=== PATIENT | male | born 1945 | race Caucasian/White ===

== ENCOUNTER 2022-06-08 16:42 | Inpatient (IN) ==
--- NOTE | 2022-06-08 16:45 | Emergency Department Note ---
Impression & Plan PVC (premature ventricular contraction), Sinus pause ED Provider Note NAME: EDITA MARQUEZ AGE: 77 SEX: M : 1945 ARRIVES VIA: Ambulance INFORMANT: Patient, ED PROVIDER(S): Itz Juan MD CHIEF COMPLAINT: Outpatient referral, abnormal EKG MEDICAL DECISION MAKING: Patient presents due to concern for being seen at [facility] due to concern for an atypical abnormal EKG was noted to have a Mobitz type II. The patient did present was noted to have several sinus pauses but was otherwise asymptomatic. Blood work was obtained the patient did have pacer pads placed. The patient did have lower completed atropine was ordered to be at the bedside. The patient has a normal white count H&H and platelet count kidney function is unremarkable. BSG 128. The patient's chest x-ray shows cardiomegaly. The patient is DNR per review of the patient's records for the time of admission and [facility]. I did speak with on-call cardiology Dr. Adams who suggested the atropine at the bedside as well as that the pacer pads to be placed on the patient which was already done. I did speak the on-call hospitalist Dr. Koch and the patient was admitted to the medicine service. Prior /Outside records reviewed: none Differential diagnosis: Arrhythmia, infection, dehydration, metabolic abnormality, hypo/hyperglycemia, electrolyte disturbance, anemia, hypoxia, cardiac sources, intracerebral event, toxicologic, neurologic, as well as other pathologies. Diagnostics, as interpreted by me: ECG: Sinus with first-degree AV block, rate of 59, prolonged UT, normal QRS, left axis deviation. Cardiac monitoring: An order was placed for continuous cardiac monitoring. The monitor shows a rate of 65 with occasional sinus rhythm. Patient was placed on pulse oximetry Medical decision rules: None Imaging studies: See below HPI: Patient presents due to concern for atypical outpatient EKG. The patient reportedly had an stent exchange that was canceled due to concern for an arrhythmia that was noted during preop. Patient currently has no chest pain shortness of breath nausea or vomiting. No upper respiratory or infectious symptoms. Patient does not take any rate control medication but does take Lasix. The patient had been seen by primary care physician José Miguel Dominguez who noted a Mobitz type II and was referred here for further evaluation and treatment of possible pacemaker. Patient denies any additional exacerbating remitting factors PAST MEDICAL HISTORY: See Below PAST SURGICAL HISTORY: See Below SOCIAL HISTORY: See Below HOME MEDICATIONS: See Below ALLERGIES: See Below VITALS: See Below PHYSICAL EXAMINATION: GENERAL: NAD, wearing a mask, non-toxic. Morbidly obese. EYE EXAM: Normal conjunctiva. PERRL, no anisocoria and EOM's grossly intact w/o pain. NECK: Supple, no nuchal rigidity, no adenopathy, non-tender. No signs of meningismus. FROM of the neck with good chin to chest and neck extension. No stridor. LUNGS: Clear to auscultation. Normal chest wall mechanics. HEART: NSR, no MRG. ABDOMEN: Abdomen soft, non-tender, normo-active bowel sounds, no masses, no rebound or guarding. BACK: No CVA TTP. SKIN: No rashes and no bruising. UPPER EXTREMITIES: Upper extremities are grossly normal. LOWER EXTREMITIES: Grossly normal, no edema. NEURO EXAM: A&O x3, cranial nerves II-XII grossly intact, normal speech, moves all 4 extremities. 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: No Beliefs That Will Affect Care: Jainism Jainism Beliefs: CHRISTIANITY Current Living Situation: [facility] Current Living Situation Comment: [facility] Feels Safe at Home: Yes Safety Concerns: Feels Safe At This Time Assistive Devices: CPAP, Denture - Upper, Walker and Wheelchair Allergies Allergies Allergy/AdvReac Type Severity Reaction Status Date / Time No Known Allergies Allergy Unverified 06/08/22 20:47 Home Meds Home Medications Medication Instructions Recorded Confirmed acetaminophen 500 mg tablet 500 mg PO DAILY@0500 06/08/22 06/08/22 aspirin 81 mg chewable tablet 81 mg PO DAILY 06/08/22 06/08/22 carboxymethylcellulose sodium 1 % 1 drp OPB DAILY 06/08/22 06/08/22 eye gel in a dropperette (Refresh Celluvisc) cholecalciferol (vitamin D3) 50 2,000 unit PO DAILY 06/08/22 06/08/22 mcg (2,000 unit) capsule ciprofloxacin HCl 0.3 % eye drops 1 drp OPR BID 06/08/22 06/08/22 colchicine 0.6 mg tablet 0.6 mg PO BID 06/08/22 06/08/22 duloxetine 20 mg capsule,delayed 20 mg PO HS 06/08/22 06/08/22 release febuxostat 80 mg tablet 80 mg PO DAILY 06/08/22 06/08/22 furosemide 40 mg tablet 40 mg PO DAILY 06/08/22 06/08/22 hydroxychloroquine 200 mg tablet 200 mg PO HS 06/08/22 06/08/22 oxybutynin chloride 5 mg tablet 5 mg PO DAILY 06/08/22 06/08/22 terbinafine HCl 1 % topical cream 1 applic topical DAILY 06/08/22 06/08/22 tramadol 50 mg tablet 50 mg PO BID 06/08/22 06/08/22 Results & Data (ED) Vital Signs Vital Signs - 24 hr 06/08/22 16:51 06/08/22 16:51 06/08/22 17:01 Temperature 36.8 C Temperature Source Oral Pulse Rate 62 59 L Pulse Rate from SpO2 Sensor Respiratory Rate 18 18 Respiratory Effort / Characteristics Non-Labored Respiratory Depth Normal Blood Pressure 111/69 Blood Pressure Mean 83 Pulse Oximetry 92 92 94 Oxygen Delivery Method Room Air Room Air Room Air Sepsis Recent Fever Within 48 Hours No Sepsis New/Unexplained Change in Mental Status No Sepsis Action Taken by Nursing No Action Required 06/08/22 17:02 06/08/22 17:30 06/08/22 17:30 Temperature Temperature Source Pulse Rate 92 H 63 Pulse Rate from SpO2 Sensor 93 H 65 Respiratory Rate 16 12 Respiratory Effort / Characteristics Respiratory Depth Blood Pressure 103/56 L Blood Pressure Mean 71 Pulse Oximetry 95 92 Oxygen Delivery Method Sepsis Recent Fever Within 48 Hours Sepsis New/Unexplained Change in Mental Status Sepsis Action Taken by Nursing 06/08/22 18:00 06/08/22 18:00 Temperature Temperature Source Pulse Rate 64 Pulse Rate from SpO2 Sensor 63 Respiratory Rate 18 21 Respiratory Effort / Characteristics Respiratory Depth Blood Pressure 119/65 Blood Pressure Mean 83 Pulse Oximetry 95 93 Oxygen Delivery Method Sepsis Recent Fever Within 48 Hours Sepsis New/Unexplained Change in Mental Status Sepsis Action Taken by Correction Medications Current Medication List: was personally reviewed by me Laboratory Data Attestation: I reviewed the patient's lab results. 06/09/22 06:39 06/09/22 06:39 Lab Results 06/08/22 06/08/22 06/08/22 Range/Units 17:00 17:00 17:00 WBC 9.53 (4.8-10.8) K/ul RBC 4.66 (4.63-6.08) M/uL Hgb 15.2 (14.0-18.0) g/dl Hct 44.4 (40.1-51.0) % MCV 95.3 (80.0-100.0) fL MCH 32.6 (25.0-34.0) pg MCHC 34.2 (32.0-36.0) g/dL RDW Std Deviation 52.4 H (36.4-46.3) fL RDW Coeff of Nixon 14.9 H (11.5-14.5) % Plt Count 148 (130-400) K/uL MPV 9.4 (9.4-12.4) fL Immature Gran % (Auto) 0.5 % Neut % (Auto) 36.7 % Lymph % (Auto) 52.4 % [place] % (Auto) 7.5 % Eos % (Auto) 2.2 % Baso % (Auto) 0.7 % Neut # (Auto) 3.50 (1.4-6.5) K/uL Lymph # (Auto) 4.99 H (1.2-3.4) K/uL [place] # (Auto) 0.71 (0.24-0.82) K/uL Eos # (Auto) 0.21 (0-0.50) K/uL Baso # (Auto) 0.07 (0-0.2) K/uL Immature Gran # (Auto) 0.05 H (0.00-0.02) K/uL PT 11.1 (9.0-12.0) Seconds INR 1.0 (0.9-1.1) APTT 26.1 (21.0-31.0) Seconds PTT Ratio 0.9 Sodium 137 (136-145) mmol/L Potassium 4.2 (3.5-5.1) mmol/L Chloride 102 (98-107) mmol/L Carbon Dioxide 29 (21-32) mmol/L Anion Gap 6 (3-11) BUN 15 (6-23) mg/dl Creatinine 0.75 (0.6-1.4) mg/dl Est Cr Clr Drug Dosing 115.4 ml/min Est GFR ( Amer) 101.1 ml/min Est GFR (Non-Af Amer) 87.2 ml/min BUN/Creatinine Ratio 20.0 (10-20) Glucose 126 H (70-99(Fasting)) mg/dl Calcium 9.3 (8.5-10.1) mg/dl Total Bilirubin 0.9 (0.2-1.0) mg/dl AST 18 (13-39) U/L ALT 10 (7-52) U/L Alkaline Phosphatase 73 (34-104) U/L Troponin I High Sens 9.2 (0-20) pg/ml Total Protein 6.8 (6.0-8.3) gm/dl Albumin 3.7 (3.4-5.0) gm/dl Globulin 3.1 (2.5-4.0) gm/dl Albumin/Globulin Ratio 1.2 (0.9-2) Lipase 16 (11-82) U/L SARS-CoV-2, RNA, NAAT (NEGATIVE) 06/08/22 Range/Units 17:09 WBC (4.8-10.8) K/ul RBC (4.63-6.08) M/uL Hgb (14.0-18.0) g/dl Hct (40.1-51.0) % MCV (80.0-100.0) fL MCH (25.0-34.0) pg MCHC (32.0-36.0) g/dL RDW Std Deviation (36.4-46.3) fL RDW Coeff of Nixon (11.5-14.5) % Plt Count (130-400) K/uL MPV (9.4-12.4) fL Immature Gran % (Auto) % Neut % (Auto) % Lymph % (Auto) % [place] % (Auto) % Eos % (Auto) % Baso % (Auto) % Neut # (Auto) (1.4-6.5) K/uL Lymph # (Auto) (1.2-3.4) K/uL [place] # (Auto) (0.24-0.82) K/uL Eos # (Auto) (0-0.50) K/uL Baso # (Auto) (0-0.2) K/uL Immature Gran # (Auto) (0.00-0.02) K/uL PT (9.0-12.0) Seconds INR (0.9-1.1) APTT (21.0-31.0) Seconds PTT Ratio Sodium (136-145) mmol/L Potassium (3.5-5.1) mmol/L Chloride (98-107) mmol/L Carbon Dioxide (21-32) mmol/L Anion Gap (3-11) BUN (6-23) mg/dl Creatinine (0.6-1.4) mg/dl Est Cr Clr Drug Dosing ml/min Est GFR ( Amer) ml/min Est GFR (Non-Af Amer) ml/min BUN/Creatinine Ratio (10-20) Glucose (70-99(Fasting)) mg/dl Calcium (8.5-10.1) mg/dl Total Bilirubin (0.2-1.0) mg/dl AST (13-39) U/L ALT (7-52) U/L Alkaline Phosphatase (34-104) U/L Troponin I High Sens (0-20) pg/ml Total Protein (6.0-8.3) gm/dl Albumin (3.4-5.0) gm/dl Globulin (2.5-4.0) gm/dl Albumin/Globulin Ratio (0.9-2) Lipase (11-82) U/L SARS-CoV-2, RNA, NAAT NEGATIVE (NEGATIVE) Administered Medications Acetaminophen (Acetaminophen 500 Mg Tab) 500 mg PO DAILY@0500 MARTINE Stop: 07/09/22 04:59 Last Admin: 06/09/22 05:49 Dose: 500 mg Documented By: ARTEMIO Artificial Tears (Artificial Tears) 1 drops OP DAILY MARTINE Stop: 07/09/22 08:59 Last Admin: 06/09/22 09:47 Dose: 1 drops Documented By: Aspirin (Aspirin 81 Mg Chew) 81 mg PO DAILY MARTINE Stop: 07/09/22 08:59 Last Admin: 06/09/22 08:25 Dose: 81 mg Documented By: Ciprofloxacin (Ciprofloxacin Hcl 0.3% Op Soln 2.5 Ml Btl) 1 drops OPR BID MARTINE Stop: 06/18/22 20:59 Last Admin: 06/09/22 08:22 Dose: 1 drops Documented By: Admin: 06/08/22 22:17 Dose: 1 drops Documented By: ARTEMIO Colchicine (Colchicine 0.6 Mg Tab) 0.6 mg PO BID MARTINE Stop: 07/08/22 20:59 Last Admin: 06/09/22 08:25 Dose: 0.6 mg Documented By: Admin: 06/08/22 22:17 Dose: 0.6 mg Documented By: ARTEMIO Duloxetine HCl (Duloxetine Hcl 20 Mg Cap) 20 mg PO HS MARTINE Stop: 07/08/22 20:59 Last Admin: 06/08/22 22:18 Dose: 20 mg Documented By: ARTEMIO Furosemide (Furosemide 40 Mg Tab) 40 mg PO DAILY MARTINE Stop: 07/09/22 08:59 Last Admin: 06/09/22 08:26 Dose: 40 mg Documented By: Hydroxychloroquine Sulfate (Hydroxychloroquine Sulfate 200 Mg Tab) 200 mg PO [facility] Stop: 07/08/22 20:59 Last Admin: 06/08/22 22:18 Dose: 200 mg Documented By: ARTEMIO Miscellaneous (Order Awaiting Action [Febuxostat 80 Mg Tablet]) 1 each N/A QS MARTINE Stop: 07/09/22 00:00 Last Admin: 06/09/22 07:30 Dose: Not Given Documented By: Admin: 06/08/22 23:13 Dose: Not Given Documented By: ARTEMIO Oxybutynin Chloride (Oxybutynin Chloride 5 Mg Tab) 5 mg PO DAILY MARTINE Stop: 07/09/22 08:59 Last Admin: 06/09/22 08:26 Dose: 5 mg Documented By: Terbinafine HCl (Terbinafine Cr 30 Gm Tube) 1 appln EXT DAILY MARTINE Stop: 07/09/22 08:59 Last Admin: 06/09/22 08:27 Dose: 1 appln Documented By: Tramadol HCl (Tramadol Hcl 50 Mg Tablet) 50 mg PO BID MARTINE Stop: 07/08/22 20:59 Last Admin: 06/09/22 08:26 Dose: 50 mg Documented By: Admin: 06/08/22 22:20 Dose: 50 mg Documented By: ARTEMIO Vitamin D (Cholecalciferol 1,000 Units 25 Mcg Tab) 2,000 units PO DAILY MARTINE Stop: 07/09/22 08:59 Last Admin: 06/09/22 08:25 Dose: 2,000 units Documented By: Imaging Data Radiologist's Impression: Chest X-Ray 06/08/22 17:01 SINGLE VIEW CHEST CLINICAL HISTORY: Atypical chest pain. FINDINGS: 3 AP, portable, upright chest radiographs are obtained. No prior studies are available for comparison at the time of dictation. The examination is degraded by portable technique, apical lordotic positioning, and patient rotation. The heart is enlarged noting atherosclerotic calcification of the thoracic aorta. The pulmonary vasculature is noncongested. There is bibasilar scarring/atelectasis. No airspace consolidation or large pleural effusion is identified. No pneumothorax is seen. The skeletal structures are osteopenic. The bony thorax is grossly intact. Degenerative change is noted in the shoulders. Superior subluxation of the right humeral head suggests chronic rotator cuff injury. IMPRESSION: Cardiomegaly with no acute cardiopulmonary abnormality identified. ACT 112: Negative or not required by law. Electronically signed by: Emerson Castro M.D. 06/08/2022 5:45 PM Discharge Plan Visit Data Chief Complaint: Cardiac Assessment ED Provider: Itz Juan Discharge Problem: PVC (premature ventricular contraction), Sinus pause Patient Disposition: Admitted As Inpatient Discharge Instructions Interventions: ED Discharge Assessment Last Done: 06/08/22 20:29
[2022-06-08 17:14] LABS: Hematocrit (blood only) 44.4 % (40.1-51.0); Hemoglobin 15.2 g/dl (14.0-18.0); Mean Corpuscular Hemoglobin 32.6 pg (25.0-34.0); Mean Corpuscular Hgb Conc 34.2 g/dL (32.0-36.0); Mean Corpuscular Volume 95.3 fL (80.0-100.0); Mean Platelet Volume 9.4 fL (9.4-12.4); Platelet Count 148 K/uL (130-400); RDW Coefficient of Variation 14.9 % (11.5-14.5); RDW Standard Deviation 52.4 fL (36.4-46.3); Red Blood Count 4.66 M/uL (4.63-6.08); White Blood Count 9.53 K/ul (4.8-10.8)
[2022-06-08 17:25] LABS: Partial Thromboplastin Ratio 0.9; Partial Thromboplastin Time 26.1 Seconds (21.0-31.0); Prothrombin Time 11.1 Seconds (9.0-12.0)
[2022-06-08 17:34] LABS: Basophils # (auto) 0.07 K/uL (0-0.2); Basophils % (auto) 0.7 %; Eosinophils # (auto) 0.21 K/uL (0-0.50); Eosinophils % (auto) 2.2 %; Immature Granulocytes # (auto) 0.05 K/uL (0.00-0.02); Immature Granulocytes % (auto) 0.5 %; Lymphocytes # (auto) 4.99 K/uL (1.2-3.4); Lymphocytes % (auto) 52.4 %; Monocytes # (auto) 0.71 K/uL (0.24-0.82); Monocytes % (auto) 7.5 %; Neutrophils % (auto) 36.7 %
[2022-06-08 17:39] LABS: Albumin Globulin Ratio 1.2 (0.9-2); Albumin Level 3.7 gm/dl (3.4-5.0); Bilirubin,Total 0.9 mg/dl (0.2-1.0); Calcium 9.3 mg/dl (8.5-10.1); Creatinine Clr Calc Pharmacy 115.4 ml/min; Est GFR (African American) 101.1 ml/min; Est GFR (Non-African American) 87.2 ml/min; Globulin 3.1 gm/dl (2.5-4.0); Potassium 4.2 mmol/L (3.5-5.1); Total Protein 6.8 gm/dl (6.0-8.3); Troponin I High Sensitivity 9.2 pg/ml (0-20)
--- NOTE | 2022-06-08 17:47 | XRay Report ---
SINGLE VIEW CHEST CLINICAL HISTORY: Atypical chest pain. FINDINGS: 3 AP, portable, upright chest radiographs are obtained. No prior studies are available for comparison at the time of dictation. The examination is degraded by portable technique, apical lordot ic positioning, and patient rotation. The heart is enlarged noting atherosclerotic calcification of t he thoracic aorta. The pulmonary vasculature is noncongested. There is bibasilar scarring/atelectasis . No airspace consolidation or large pleural effusion is identified. No pneumothorax is seen. The ske letal structures are osteopenic. The bony thorax is grossly intact. Degenerative change is noted in t he shoulders. Superior subluxation of the right humeral head suggests chronic rotator cuff injury. IMPRESSION: Cardiomegaly with no acute cardiopulmonary abnormality identified. ACT 112: Negative or not required by law. Electronically signed by: Emerson Castro M.D. 06/08/2022 5:45 PM
[2022-06-08] MEDS ORDERED: ATROPINE SULFATE 0.1 MG/ML 10ML SYR IV PRN ×2 (18:25→21:15)
--- NOTE | 2022-06-08 18:25 | History & Physical Report ---
Date of Service June 08, 2022 Assessment & Plan (1) Arrhythmia: Plan: For the past 2 days the patient has had evidence of sinus bradycardia with first-degree AV block, intermittent PVCs with sinus pauses. He has been asymptomatic as this was found during prep for anesthesia induction of ERCP which was ultimately not performed. He is currently asymptomatic with pacer pads in place and atropine as needed. Cardiology consulted and he will remain n.p.o. after midnight in preparation for possible pacemaker in the a.m. (2) Rheumatoid arthritis: Plan: Chronic no evidence of flare or joint pain. Continue hydroxychloroquine per home regimen. (3) LARISA (obstructive sleep apnea): Plan: Chronic, uses CPAP overnight. Continue nightly use while admitted. (4) Choledocholithiasis: Plan: Patient went for ERCP stent removal on 06/07/2022 but was not performed after arrhythmia with sinus pauses and PVCs was noted. He will need to follow-up with gastroenterology as outpatient after discharge. (5) Gout: Plan: Chronic, controlled. Continue colchicine and febuxostat per home regimen. (6) Obesity: Plan: Chronic, lifestyle changes recommended to decrease percent body fat and increase overall lean muscle mass. DVT prophylaxis-SCDs DNR/DNI as confirmed with patient on admission Disposition-to PCU DO Amanda Vargas Hospitalist History of Present Illness Chief Complaint: cardiac assessment Primary Care Provider: [facility] 77 yo M presents after arrhythmia was seen for ERCP yesterday at [facility] and procedure was aborted 2/2 concerning arrhythmia including bradycardia with intermittent PVCs and sinus pauses. The patient was asymptomatic and sent home to [facility]. He saw Dr. Dominguez this morning and again had no symptoms but EKG revealed 1 heart block with PVCs and he was sent to the hospital. On telemetry he is having bradycardia with small intermittent runs of tachycardia followed by a pause of 2-3 seconds intermittently. He denies any lightheadedness, nausea, chest pain, no SOB, no fevers, chills, no coughing, no abdominal pain, no diarrhea. No bleeding issues. He reports normal appetite. Allergies Allergy/AdvReac Type Severity Reaction Status Date / Time No Known Allergies Allergy Unverified 06/08/22 20:47 Home Medications Medication Instructions Recorded Confirmed Type acetaminophen 500 mg tablet 500 mg PO DAILY@0500 06/08/22 06/08/22 History aspirin 81 mg chewable tablet 81 mg PO DAILY 06/08/22 06/08/22 History carboxymethylcellulose sodium 1 % 1 drp OPB DAILY 06/08/22 06/08/22 History eye gel in a dropperette (Refresh Celluvisc) cholecalciferol (vitamin D3) 50 2,000 unit PO DAILY 06/08/22 06/08/22 History mcg (2,000 unit) capsule ciprofloxacin HCl 0.3 % eye drops 1 drp OPR BID 06/08/22 06/08/22 History colchicine 0.6 mg tablet 0.6 mg PO BID 06/08/22 06/08/22 History duloxetine 20 mg capsule,delayed 20 mg PO HS 06/08/22 06/08/22 History release febuxostat 80 mg tablet 80 mg PO DAILY 06/08/22 06/08/22 History furosemide 40 mg tablet 40 mg PO DAILY 06/08/22 06/08/22 History hydroxychloroquine 200 mg tablet 200 mg PO HS 06/08/22 06/08/22 History oxybutynin chloride 5 mg tablet 5 mg PO DAILY 06/08/22 06/08/22 History terbinafine HCl 1 % topical cream 1 applic topical DAILY 06/08/22 06/08/22 History tramadol 50 mg tablet 50 mg PO BID 06/08/22 06/08/22 History Past Med/Surg History Medical History (Updated 06/08/22 @ 21:33 by Samantha Koch DO) Actinic keratosis 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 Atrial flutter CHF (congestive heart failure) Choledocholithiasis Chronic cholecystitis DMII (diabetes mellitus, type 2) Elevated CA 19-9 level Exotropia, right eye Fatty liver Generalized OA Gout HNP (herniated nucleus pulposus), lumbar HTN (hypertension) Hx of nonmelanoma skin cancer Morbid obesity MRSA colonization LARISA (obstructive sleep apnea) Rheumatoid arthritis SCC (squamous cell carcinoma), scalp/neck 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 Gaurav mercado, 05/18/2017 History of ERCP 02/16/2022 S/P appy Family History (Updated 06/08/22 @ 20:07 by Samantha Koch DO) Mother Coronary heart disease Father Arthritis Social History Smoking Status: Never smoker Hx Alcohol Use: No Hx Substance Use: No Preferred Language: Kiswahili Communication Ability: Effective [employer] Tester Required: No Beliefs That Will Affect Care: Buddhist Buddhist Beliefs: TAOISM Current Living Situation: [facility] Current Living Situation Comment: [facility] Feels Safe at Home: Yes Safety Concerns: Feels Safe At This Time Assistive Devices: CPAP, Denture - Upper, Walker and Wheelchair Review of Systems Review of Systems: All systems were reviewed and negative except as indicated on HPI above. Physical Exam Physical Exam: CONSTITUTIONAL: obese, vitals as above, generally well- appearing, NAD EYES: exotropia of the right eye, pupils were round and equal bilaterally, normal conjunctivae, no scleral icterus ENT: external ear and nose normal, moist oral mucosa. NECK: trachea midline RESPIRATORY: clear to auscultation bilaterally, no crackles, rales or wheezes, normal respiratory effort CARDIOVASCULAR: katja rate and regular rhythm, S1 and 2 heard without murmurs, gallops or rubs, no JVD, no peripheral edema CHEST: inspection of chest was normal GASTROINTESTINAL: soft, nontender, ND, no guarding MUSCULOSKELETAL: generalized weakness, head is normocephalic and atraumatic, moves all extremities equally SKIN: warm and dry NEUROLOGIC: CN 2-12 grossly intact, no sensory deficit, normal cognition, normal speech, no tremor PSYCHIATRIC: alert cooperative and oriented to person, place and time. Euthymic mood, makes good eye contact, language grossly intact, recent and remote memory grossly intact. Results & Data Results & Data ([facility]) Vital Signs (Past 12 Hours) Vital Signs Temp Pulse Resp BP Pulse Ox O2 Del Method 06/08/22 17:01 59 L 18 94 Room Air 06/08/22 16:51 92 Room Air 06/08/22 16:51 36.8 C 62 18 111/69 92 Room Air Laboratory Results Short CBC 06/08/22 Range/Units 17:00 WBC 9.53 (4.8-10.8) K/ul Hgb 15.2 (14.0-18.0) g/dl Hct 44.4 (40.1-51.0) % Plt Count 148 (130-400) K/uL BMP 06/08/22 17:00 Sodium 137 Potassium 4.2 Chloride 102 Carbon Dioxide 29 BUN 15 Creatinine 0.75 Glucose 126 H Calcium 9.3 Liver Function 06/08/22 Range/Units 17:00 Total Bilirubin 0.9 (0.2-1.0) mg/dl AST 18 (13-39) U/L ALT 10 (7-52) U/L Alkaline Phosphatase 73 (34-104) U/L Albumin 3.7 (3.4-5.0) gm/dl Diagnostic Findings Chest X-Ray 06/08/22 17:01 SINGLE VIEW CHEST CLINICAL HISTORY: Atypical chest pain. FINDINGS: 3 AP, portable, upright chest radiographs are obtained. No prior studies are available for comparison at the time of dictation. The examination is degraded by portable technique, apical lordotic positioning, and patient rotation. The heart is enlarged noting atherosclerotic calcification of the thoracic aorta. The pulmonary vasculature is noncongested. There is bibasilar scarring/atelectasis. No airspace consolidation or large pleural effusion is identified. No pneumothorax is seen. The skeletal structures are osteopenic. The bony thorax is grossly intact. Degenerative change is noted in the shoulders. Superior subluxation of the right humeral head suggests chronic rotator cuff injury. IMPRESSION: Cardiomegaly with no acute cardiopulmonary abnormality identified. ACT 112: Negative or not required by law. Electronically signed by: Emerson Castro M.D. 06/08/2022 5:45 PM Code Status & VTE Plan VTE Prophylaxis Plan VTE Prophylaxis will be ordered: Yes
[2022-06-08] MEDS ORDERED: POLYETHYLENE (MIRALAX) 17 GM PACK PO PRN (20:46)
[2022-06-08] MEDS ORDERED: ACETAMINOPHEN 325 MG TAB PO PRN (20:46)
[2022-06-08] MEDS: COLCHICINE 0.6 MG TAB PO SCH (22:17)
[2022-06-08] MEDS: CIPROFLOXACIN HCL 0.3% OP SOLN 2.5 ML BTL OPR SCH (22:17)
[2022-06-08] MEDS: DULoxetine HCL 20 MG CAP PO SCH (22:18)
[2022-06-08] MEDS: HYDROXYCHLOROQUINE SULFATE 200 MG TAB PO SCH (22:18)
[2022-06-08] MEDS: traMADol HCL 50 MG TABLET PO SCH (22:20)
[2022-06-09] MEDS: ACETAMINOPHEN 500 MG TAB PO SCH (05:49)
[2022-06-09 06:59] LABS: Hematocrit (blood only) 41.5 % (40.1-51.0); Hemoglobin 14.2 g/dl (14.0-18.0); Mean Corpuscular Hemoglobin 32.3 pg (25.0-34.0); Mean Corpuscular Hgb Conc 34.2 g/dL (32.0-36.0); Mean Corpuscular Volume 94.5 fL (80.0-100.0); Mean Platelet Volume 9.6 fL (9.4-12.4); Platelet Count 145 K/uL (130-400); RDW Standard Deviation 52.5 fL (36.4-46.3); Red Blood Count 4.39 M/uL (4.63-6.08); White Blood Count 8.38 K/ul (4.8-10.8)
[2022-06-09] MEDS: CIPROFLOXACIN HCL 0.3% OP SOLN 2.5 ML BTL OPR SCH ×2 (08:22→21:43)
[2022-06-09] MEDS: CHOLECALCIFEROL 1,000 UNITS 25 MCG TAB PO SCH (08:25)
[2022-06-09] MEDS: ASPIRIN 81 MG CHEW PO SCH (08:25)
[2022-06-09] MEDS: COLCHICINE 0.6 MG TAB PO SCH ×2 (08:25→21:44)
[2022-06-09] MEDS: FUROSEMIDE 40 MG TAB PO SCH (08:26)
[2022-06-09] MEDS: traMADol HCL 50 MG TABLET PO SCH ×2 (08:26→21:49)
[2022-06-09] MEDS: OXYBUTYNIN CHLORIDE 5 MG TAB PO SCH (08:26)
[2022-06-09] MEDS: TERBINAFINE CR 30 GM TUBE EXT SCH (08:27)
--- NOTE | 2022-06-09 08:30 | Electrocardiogram Report ---
Test Reason : Blood Pressure : / mmHG Vent. Rate : 061 BPM Atrial Rate : 058 BPM P-R Int : 000 ms QRS Dur : 106 ms QT Int : 464 ms P-R-T Axes : 000 -55 -13 degrees QTc Int : 467 ms Poor data quality, interpretation may be adversely affected Sinus rhythm with frequent Premature ventricular complexes Poor R wave progression, consider anterior MN vs. lead placement vs. LVH Left anterior fascicular block Abnormal ECG When compared with ECG of 08-JUN-2022 16:50, Premature ventricular complexes now present Confirmed by Tomer Spencer ([id number]) on 06/09/2022 8:30:24 AM Referred By: Mariann Duke Confirmed By:Tomer Spencer
--- NOTE | 2022-06-09 08:39 | Cardiology Consultation ---
Date of Consultation June 09, 2022 Assessment & Plan (1) PAC (premature atrial contraction): (2) PVC (premature ventricular contraction): (3) LARISA (obstructive sleep apnea): (4) DMII (diabetes mellitus, type 2): (5) Wandering atrial pacemaker: (6) Obesity hypoventilation syndrome: Plan Anesthesia telemetry strips that were scanned into EPIC personally reviewed: no AV Block present ectopy was present with occasional blocked ectopy ventricular bigeminy was also present which on dynamap is generally missed and falsely interpreted as bradycardia pt asymptomatic would ask primary service to reach out to [facility] to find any further strips that are available In summary: Morbidly obese 77-year-old gentleman with obstructive sleep apnea and high likelihood of obesity hypoventilation with asymptomatic complex ectopy. Given his multiple comorbidities it is very understandable that he is having complex ectopy including wandering atrial pacemaker No significant block present on telemetry here since admitted. Did have a few second pauses early in the a.m. overnight likely due to sleep apnea We will obtain a 2D echocardiogram to evaluate for any structural abnormalities No indication to start beta-james or other antiarrhythmics at this time Would recommend discussing with our GI colleagues whether or not to be indicated to perform ERCP while the patient is admitted here No absolute cardiac contraindications to proceeding with the procedure and I would suspect his greatest perioperative risk would be pulmonary in nature History of Present Illness Reason for Consultation: heart block Requesting Physician: VALENTINA Attending Physician: Slick Ca MD History of Present Illness The patient is a 77-year-old male who is never been seen by our cardiology practice. He was sent to [facility] emergency department from [facility] on 06/08/2022 after a GI procedure was canceled on June 07, 2022 due to reported Mobitz 2 AV block and significant bradycardia. The patient states he was scheduled on the for an ERCP with stent removal however, anesthesia told him he had an arrhythmia while at [facility]. The patient was then discharged back to the senior care. The patient was then ordered to go to [facility] emergency department on 06/08/2022 to further evaluate this possible arrhythmia. The patient states that from a cardiac standpoint he is completely symptom-free. He denies experiencing any palpitations, shortness of breath, lightheadedness, dizziness either during the monitoring period or otherwise. I was able to review the telemetry strips that were available in [facility] electronic medical health records but full telemetry strips are not available at this time. Allergies Allergy/AdvReac Type Severity Reaction Status Date / Time No Known Allergies Allergy Unverified 06/08/22 20:47 Home Medications Medication Instructions Recorded Confirmed Type acetaminophen 500 mg tablet 500 mg PO DAILY@0500 06/08/22 06/08/22 History aspirin 81 mg chewable tablet 81 mg PO DAILY 06/08/22 06/08/22 History carboxymethylcellulose sodium 1 % 1 drp OPB DAILY 06/08/22 06/08/22 History eye gel in a dropperette (Refresh Celluvisc) cholecalciferol (vitamin D3) 50 2,000 unit PO DAILY 06/08/22 06/08/22 History mcg (2,000 unit) capsule ciprofloxacin HCl 0.3 % eye drops 1 drp OPR BID 06/08/22 06/08/22 History colchicine 0.6 mg tablet 0.6 mg PO BID 06/08/22 06/08/22 History duloxetine 20 mg capsule,delayed 20 mg PO HS 06/08/22 06/08/22 History release febuxostat 80 mg tablet 80 mg PO DAILY 06/08/22 06/08/22 History furosemide 40 mg tablet 40 mg PO DAILY 06/08/22 06/08/22 History hydroxychloroquine 200 mg tablet 200 mg PO HS 06/08/22 06/08/22 History oxybutynin chloride 5 mg tablet 5 mg PO DAILY 06/08/22 06/08/22 History terbinafine HCl 1 % topical cream 1 applic topical DAILY 06/08/22 06/08/22 H istory tramadol 50 mg tablet 50 mg PO BID 06/08/22 06/08/22 History Patient History Medical History Actinic keratosis 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 Atrial flutter CHF (congestive heart failure) Choledocholithiasis Chronic cholecystitis DMII (diabetes mellitus, type 2) Elevated CA 19-9 level Exotropia, right eye Fatty liver Generalized OA Gout HNP (herniated nucleus pulposus), lumbar HTN (hypertension) Hx of nonmelanoma skin cancer Morbid obesity MRSA colonization LARISA (obstructive sleep apnea) Rheumatoid arthritis SCC (squamous cell carcinoma), 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 Nolasco, 05/18/2017 History of ERCP 02/16/2022 S/P appy Family History Mother Coronary heart disease Father Arthritis Social History Smoking Status: Never smoker Hx Alcohol Use: No Hx Substance Use: No Preferred Language: Kiswahili Communication Ability: Effective [employer] Layout Required: No Beliefs That Will Affect Care: Voodoo Voodoo Beliefs: RELIGION Current Living Situation: Retirement Current Living Situation Comment: [facility] Feels Safe at Home: Yes Safety Concerns: Feels Safe At This Time Assistive Devices: CPAP, Denture - Upper, Walker and Wheelchair Review of Systems Review of Systems: All systems reviewed & are unremarkable except as noted in HPI & below Physical Exam Physical Exam: Physical Exam: General: Awake, alert and oriented x 3. No acute distress. Morbidly obese HEENT: Normocephalic, atraumatic. Pupils equal, round and reactive to light and accommodation. Extraocular muscles are intact. Anicteric sclera. Moist mucous membranes. Neck: No JVD. No bruit. Cardiovascular: Regular but distant. Unable to appreciate any murmurs rubs or gallops Pulmonary: Clear to auscultation bilaterally. No rales, rhonchi, or wheezing. Abdomen: Bowel sounds x 4, soft. No rebound, guarding or tenderness. No organomegaly. Extremities: No clubbing, cyanosis or edema. +2 pedal pulses bilaterally. Skin: Warm and dry. Results & Data ([facility]) Vital Signs (Past 12 Hours) Vital Signs Temp Pulse Pulse Resp BP Pulse Ox O2 Del Method 06/09/22 08:05 36.4 C L 57 L 17 109/61 92 Room Air 06/09/22 07:53 56 L 06/09/22 03:14 36.6 C 52 L 20 108/62 94 CPAP 06/09/22 02:22 26 H 94 01/11/23 22:10 60 06/08/22 21:25 32 L 06/08/22 21:15 58 L 06/08/22 20:46 Room Air 06/08/22 20:46 06/08/22 23:52 16 06/08/22 23:06 36.4 C L 63 20 110/57 L 92 CPAP 06/08/22 21:25 52 L 95 06/08/22 20:57 37.0 C 49 L 20 103/60 94 Room Air O2 Del Method FiO2 06/09/22 08:05 06/09/22 07:53 06/09/22 03:14 06/09/22 02:22 21 06/08/22 22:10 06/08/22 21:25 06/08/22 21:15 06/08/22 20:46 06/08/22 20:46 Room Air 06/08/22 23:52 21 06/08/22 23:06 06/08/22 21:25 21 06/08/22 20:57 Diagnostic Findings Anesthesia telemetry strips that were scanned into EPIC personally reviewed: No periods of Mobitz II AV block Frequent PVC's including ventricular bigeminy Frequent PAC's including several blocked PAC's
--- NOTE | 2022-06-09 08:41 | Hospitalist Progress Note ---
Date of Service June 09, 2022 Assessment & Plan (1) Arrhythmia: Plan: Patient having bradycardia and pauses on monitor. Longest seems 4.3 secs Tele monitoring pads Await cardio inputs close monitor Present on Admission?: Yes (2) Rheumatoid arthritis: Plan: On Plaquenil followup Present on Admission?: Yes (3) LARISA (obstructive sleep apnea): Plan: CPAP q hs Present on Admission?: Yes (4) DMII (diabetes mellitus, type 2): Plan: Not on meds. Will follow hba1c levels Present on Admission?: Yes (5) Choledocholithiasis: Plan: patinet ercp was aborted because of bradyarrythmia. Needs followup (6) Obesity: Plan: Needs counselling Present on Admission?: Yes (7) Gout: Plan: On colchicine and febuxostat Present on Admission?: Yes Plan To be determined Admission and Anticipated Discharge Date Admission Date: June 08, 2022 Subjective Patient lying in bed comfortably says he slept fine no complaints of chest pain or sob no nausea afebrile Physical Exam Eyes: EOM intact Neck: normal visual inspection and trachea midline Respiratory: normal respiratory effort, lungs clear to auscultation Cardiovascular: RRR, no murmur, no edema Gastrointestinal (Abdomen): normal bowel sounds, soft, nontender, no he patosplenomegaly Skin: Chronic skin changes seen in lower extremities Neurologic: moves all extremities and awake Psychiatric: Orientation: alert and cooperative Apperance: appeared stated age Eye Contact: good eye contact Speech: normal rate/rhythm/volume of speech Judgement: + fair judgement Results & Data Results & Data ([facility]) Vital Signs (Past 12 Hours) Vital Signs Temp Pulse Pulse Resp BP Pulse Ox O2 Del Method 06/09/22 08:05 36.4 C L 57 L 17 109/61 92 Room Air 06/09/22 07:53 56 L 06/09/22 03:14 36.6 C 52 L 20 108/62 94 CPAP 06/09/22 02:22 26 H 94 06/08/22 22:10 60 06/08/22 21:25 32 L 06/08/22 21:15 58 L 06/08/22 20:46 Room Air 06/08/22 20:46 06/08/22 23:52 16 06/08/22 23:06 36.4 C L 63 20 110/57 L 92 CPAP 06/08/22 21:25 52 L 95 06/08/22 20:57 37.0 C 49 L 20 103/60 94 Room Air O2 Del Method FiO2 06/09/22 08:05 06/09/22 07:53 06/09/22 03:14 06/09/22 02:22 21 06/08/22 22:10 06/08/22 21:25 06/08/22 21:15 06/08/22 20:46 06/08/22 20:46 Room Air 06/08/22 23:52 21 06/08/22 23:06 06/08/22 21:25 21 06/08/22 20:57
--- NOTE | 2022-06-09 08:59 | Electrocardiogram Report ---
Test Reason : Blood Pressure : / mmHG Vent. Rate : 059 BPM Atrial Rate : 059 BPM P-R Int : 240 ms QRS Dur : 118 ms QT Int : 460 ms P-R-T Axes : 111 -51 023 degrees QTc Int : 455 ms Sinus bradycardia with 1st degree A-V block Pulmonary disease pattern Left anterior fascicular block Abnormal ECG No previous ECGs available Confirmed by Tomer Spencer ([id number]) on 06/09/2022 8:59:26 AM Referred By: Mariann Duke Confirmed By:Tomer Spencer
[2022-06-09 09:22] LABS: BUN Creatinine Ratio 17.3 (10-20); Calcium 8.9 mg/dl (8.5-10.1); Creatinine Clr Calc Pharmacy 113.5 ml/min; Est GFR (African American) 101.1 ml/min; Est GFR (Non-African American) 87.2 ml/min; Magnesium 1.8 mg/dl (1.7-2.4); Potassium 4.3 mmol/L (3.5-5.1)
[2022-06-09] MEDS: ARTIFICIAL TEARS OP SCH (09:47)
[2022-06-09] MEDS: DULoxetine HCL 20 MG CAP PO SCH (21:44)
[2022-06-09] MEDS: HYDROXYCHLOROQUINE SULFATE 200 MG TAB PO SCH (21:45)
[2022-06-10] MEDS: ACETAMINOPHEN 500 MG TAB PO SCH (04:49)
[2022-06-10 06:39] LABS: Hematocrit (blood only) 42.9 % (40.1-51.0); Hemoglobin 14.6 g/dl (14.0-18.0); Mean Corpuscular Hemoglobin 32.5 pg (25.0-34.0); Mean Corpuscular Volume 95.5 fL (80.0-100.0); Mean Platelet Volume 9.7 fL (9.4-12.4); Platelet Count 149 K/uL (130-400); RDW Coefficient of Variation 14.9 % (11.5-14.5); RDW Standard Deviation 52.3 fL (36.4-46.3); Red Blood Count 4.49 M/uL (4.63-6.08); White Blood Count 10.17 K/ul (4.8-10.8)
[2022-06-10 06:59] LABS: BUN Creatinine Ratio 20.9 (10-20); Calcium 8.8 mg/dl (8.5-10.1); Creatinine Clr Calc Pharmacy 92.4 ml/min; Est GFR (African American) 92.6 ml/min; Est GFR (Non-African American) 79.9 ml/min; Magnesium 1.8 mg/dl (1.7-2.4); Potassium 3.9 mmol/L (3.5-5.1)
[2022-06-10 07:25] LABS: Basophils # (auto) 0.07 K/uL (0-0.2); Basophils % (auto) 0.7 %; Eosinophils # (auto) 0.26 K/uL (0-0.50); Eosinophils % (auto) 2.6 %; Immature Granulocytes # (auto) 0.05 K/uL (0.00-0.02); Immature Granulocytes % (auto) 0.5 %; Lymphocytes # (auto) 5.83 K/uL (1.2-3.4); Lymphocytes % (auto) 57.3 %; Monocytes # (auto) 0.65 K/uL (0.24-0.82); Monocytes % (auto) 6.4 %; Neutrophils # (auto) 3.31 K/uL (1.4-6.5); Neutrophils % (auto) 32.5 %; Polychromasia 1+; Smudge Cells Present
[2022-06-10 08:35] LABS: Estimated Average Glucose 146 mg/dl; Hemoglobin A1C 6.7 % (4.5-5.6)
[2022-06-10] MEDS: traMADol HCL 50 MG TABLET PO SCH (09:33)
[2022-06-10] MEDS: OXYBUTYNIN CHLORIDE 5 MG TAB PO SCH (09:34)
[2022-06-10] MEDS: FUROSEMIDE 40 MG TAB PO SCH (09:34)
[2022-06-10] MEDS: ASPIRIN 81 MG CHEW PO SCH (09:35)
[2022-06-10] MEDS: CHOLECALCIFEROL 1,000 UNITS 25 MCG TAB PO SCH (09:35)
[2022-06-10] MEDS: TERBINAFINE CR 30 GM TUBE EXT SCH (09:36)
[2022-06-10] MEDS: COLCHICINE 0.6 MG TAB PO SCH (09:36)
[2022-06-10] MEDS: ARTIFICIAL TEARS OP SCH (09:38)
[2022-06-10] MEDS: CIPROFLOXACIN HCL 0.3% OP SOLN 2.5 ML BTL OPR SCH (09:38)
--- NOTE | 2022-06-10 12:48 | Cardiology Progress Note ---
Date of Service June 10, 2022 Assessment & Plan (1) Sinus pause: (2) Wandering atrial pacemaker: (3) Obesity hypoventilation syndrome: Plan As per prior notes patient admitted for transient atrial ectopy ventricular ectopy and wandering atrial pacemaker with brief sinus pauses. No indications for pacemaker. Arrhythmia is being driven by patient's underlying hypoventilation syndrome. No clinical changes overnight Recommendations: No contraindications to discharge. Would add spironolactone 12.5 mg p.o. daily to regimen for diastolic dysfunction. Patient warrants ongoing aggressive management of hypoventilation syndrome Admission and Anticipated Discharge Date Admission Date: June 08, 2022 Subjective Patient seen and examined, chart, medications telemetry reviewed. No complaints. Telemetry overnight demonstrates atrial ventricular ectopy and short runs of atrial tachycardia with brief postconversion pauses no profound bradycardia or arrhythmias sustained Review of Systems Review of Systems: All systems reviewed & are unremarkable except as noted in Subjective Physical Exam Constitutional: + morbidly obese Eyes: PERRL, conjunctivae normal, anicteric sclerae ENMT: external ear and nose normal, oropharynx normal Neck: + thick neck Respiratory: Auscultation: lungs clear to auscultation bilaterally and + diminished lung sounds Cardiovascular: Rate/Rhythm: regular rate, regular rhythm and + bradycardic Vessels: no JVD Extremities: no edema (Extensive stasis changes present) Psychiatric: A+Ox3, euthymic affect Results & Data ([facility]) Vital Signs (Past 12 Hours) Vital Signs Temp Pulse Pulse Resp BP Pulse Ox O2 Del Method 06/10/22 11:15 36.6 C 53 L 18 101/84 93 Room Air 06/10/22 07:00 57 L 06/10/22 07:50 37.0 C 51 L 17 107/61 96 Room Air 06/10/22 04:21 36.5 C 55 L 20 121/63 94 BiPAP 06/10/22 03:53 55 L 06/10/22 02:04 60 29 H 94 Laboratory Results Laboratory Results - last 24 hr 06/10/22 06/10/22 06/10/22 05:57 05:57 05:57 WBC 10.17 RBC 4.49 L Hgb 14.6 Hct 42.9 MCV 95.5 MCH 32.5 MCHC 34.0 RDW Std Deviation 52.3 H RDW Coeff of Nixon 14.9 H Plt Count 149 MPV 9.7 Immature Gran % (Auto) 0.5 Neut % (Auto) 32.5 Lymph % (Auto) 57.3 [place] % (Auto) 6.4 Eos % (Auto) 2.6 Baso % (Auto) 0.7 Neut # (Auto) 3.31 Lymph # (Auto) 5.83 H [place] # (Auto) 0.65 Eos # (Auto) 0.26 Baso # (Auto) 0.07 Immature Gran # (Auto) 0.05 H Smudge Cells Present Polychromasia 1+ Sodium 137 Potassium 3.9 Chloride 102 Carbon Dioxide 30 Anion Gap 5 BUN 19 Creatinine 0.91 Est Cr Clr Drug Dosing 92.4 Est GFR ( Amer) 92.6 Est GFR (Non-Af Amer) 79.9 BUN/Creatinine Ratio 20.9 H Glucose 130 H Estimat Average Glucose 146 Hemoglobin A1c 6.7 H Calcium 8.8 Magnesium 1.8
--- NOTE | 2022-06-10 13:44 | Hospitalist Progress Note ---
Date of Service June 10, 2022 Assessment & Plan (1) Wandering atrial pacemaker: Plan 1) Arrhythmia: Plan: (1) Sinus pause: (2) Wandering atrial pacemaker: (3) Obesity hypoventilation syndrome: As per cardiology: . No indications for pacemaker. Arrhythmia is being driven by patient's underlying hypoventilation syndrome. Cardiology ok for discharge and to add spironolactone 12.5 mg p.o. daily to regimen for diastolic dysfunction and recommends aggressive management of hypoventilation syndrome close monitor Present on Admission?: Yes (2) Rheumatoid arthritis: Plan: On Plaquenil followup Present on Admission?: Yes (3) LARISA (obstructive sleep apnea): Plan: CPAP q hs Present on Admission?: Yes (4) DMII (diabetes mellitus, type 2): Plan: Not on meds. Will follow hba1c levels Present on Admission?: Yes (5) Choledocholithiasis: Plan: patient ercp was aborted because of bradyarrythmia. Needs followup (6) Obesity: Plan: Needs counselling Present on Admission?: Yes (7) Gout: Plan: On colchicine and febuxostat Present on Admission?: Yes Discharge back to [facility] Followup with PCP in 5-7 days Admission and Anticipated Discharge Date Admission Date: June 08, 2022 Subjective Resting comfortably slept ok no chest pain or sob feeling fine likes to be discharged he is uncomfortable here in the bed Review of Systems Review of Systems: ROS unremarkable Physical Exam Neck: trachea midline, no thyromegaly Respiratory: normal respiratory effort, lungs clear to auscultation Cardiovascular: RRR, no murmur, no edema Gastrointestinal (Abdomen): normal bowel sounds, soft, nontender, no hepatosplenomegaly Skin: Chronic lower extremity skin changes seen Neurologic: Alert and oriented No facail droop speech clear obeys simple commands moves extremities Results & Data Results & Data ([facility]) Vital Signs (Past 12 Hours) Vital Signs Temp Pulse Pulse Resp BP Pulse Ox O2 Del Method 06/10/22 11:15 36.6 C 53 L 18 101/84 93 Room Air 06/10/22 07:00 57 L 06/10/22 07:50 37.0 C 51 L 17 107/61 96 Room Air 06/10/22 04:21 36.5 C 55 L 20 121/63 94 BiPAP 06/10/22 03:53 55 L 06/10/22 02:04 60 29 H 94
--- NOTE | 2022-06-10 13:51 | Discharge Summary ---
Date of Service June 10, 2022 Admission HPI Per Admitting Provider 77 yo M presents after arrhythmia was seen for ERCP yesterday at [facility] and procedure was aborted 2/2 concerning arrhythmia including bradycardia with intermittent PVCs and sinus pauses. The patient was asymptomatic and sent home to [facility]. He saw Dr. Dominguez this morning and again had no symptoms but EKG revealed 1 heart block with PVCs and he was sent to the hospital. On telemetry he is having bradycardia with small intermittent runs of tachycardia followed by a pause of 2-3 seconds intermittently. He denies any lightheadedness, nausea, chest pain, no SOB, no fevers, chills, no coughing, no abdominal pain, no d iarrhea. No bleeding issues. He reports normal appetite. Admission Exam Per Admitting Provider CONSTITUTIONAL: obese, vitals as above, generally well-appearing, NAD EYES: exotropia of the right eye, pupils were round and equal bilaterally, normal conjunctivae, no scleral icterus ENT: external ear and nose normal, moist oral mucosa. NECK: trachea midline RESPIRATORY: clear to auscultation bilaterally, no crackles, rales or wheezes, normal respiratory effort CARDIOVASCULAR: katja rate and regular rhythm, S1 and 2 heard without murmurs, gallops or rubs, no JVD, no peripheral edema CHEST: inspection of chest was normal GASTROINTESTINAL: soft, nontender, ND, no guarding MUSCULOSKELETAL: generalized weakness, head is normocephalic and atraumatic, moves all extremities equally SKIN: warm and dry NEUROLOGIC: CN 2-12 grossly intact, no sensory deficit, normal cognition, normal speech, no tremor PSYCHIATRIC: alert cooperative and oriented to person, place and time. Euthymic mood, makes good eye contact, language grossly intact, recent and remote memory grossly intact. Principal Diagnosis Bradyarrythmia Discharge Exam Neck trachea midline, no thyromegaly normal visual inspection and trachea midline Respiratory normal respiratory effort, lungs clear to auscultation Cardiovascular RRR, no murmur, no edema Gastrointestinal (Abdomen) normal bowel sounds, soft, nontender, no hepatosplenomegaly Neurologic moves all extremities and awake Psychiatric Orientation: alert and cooperative Apperance: appeared stated age Eye Contact: good eye contact Speech: normal rate/rhythm/volume of speech Judgement: + fair judgement Discharge Data Allergies Allergy/AdvReac Type Severity Reaction Status Date / Time No Known Allergies Allergy Unverified 06/08/22 20:47 Consultations 06/08/22 18:26 ED Decision to Admit Stat 06/08/22 20:46 Consult Cardiology Routine Hospital Course (1) Wandering atrial pacemaker: Plan 1) Arrhythmia: Plan: (1) Sinus pause: (2) Wandering atrial pacemaker: (3) Obesity hypoventilation syndrome: As per cardiology: . No indications for pacemaker. Arrhythmia is being driven by patient's underlying hypoventilation syndrome. Cardiology ok for discharge and to add spironolactone 12.5 mg p.o. daily to regimen for diastolic dysfunction and recommends aggressive management of hypoventilation syndrome close monitor Present on Admission?: Yes (2) Rheumatoid arthritis: Plan: On Plaquenil followup Present on Admission?: Yes (3) LARISA (obstructive sleep apnea): Plan: CPAP q hs Present on Admission?: Yes (4) DMII (diabetes mellitus, type 2): Plan: Not on meds. Will follow hba1c levels Present on Admission?: Yes (5) Choledocholithiasis: Plan: patient ercp was aborted because of bradyarrythmia. Needs followup (6) Obesity: Plan: Needs counselling Present on Admission?: Yes (7) Gout: Plan: On colchicine and febuxostat Present on Admission?: Yes Discharge back to [facility] Followup with PCP in 5-7 days Total Time Total Time Spent Total Time Spent (In Minutes): 45minutes Discharge Plan Discharge Items Patient Disposition: Transfer [facility] Reason For Visit: ARRYTHMIA Discharge Diagnosis: 1) Sinus pause: (2) Wandering atrial pacemaker: (3) Obesity hypoventilation syndrome: Activity: Resume your previous activity Non-emergency contact: Primary Care Provider Call non-emergency contact if: you have any medication questions Follow-up/Referrals: Mariann Rodriguez [Primary Care Provider] - Diet: Heart Healthy Addtl Attending Provider Instructions: Followup with PCP in 5-7 days Lab: BMP in 1 weeks and follow results with PCP as getting started on Aldactone Pending Studies at Discharge: No Stand-Alone Forms: My [employer] Skilled Items Patient informed of condition?: Yes DNR: Yes Discharge Level of Care: Skilled Communicable Disease: No Discharge Prognosis: Stable Lines: None Urinary Catheter: No Medications and DC Order Prescriptions: New spironolactone [Aldactone] 25 mg tablet 12.5 mg PO DAILY Qty: 30 0RF Continued furosemide 40 mg tablet 40 mg PO DAILY terbinafine HCl 1 % cream 1 applic TOPICAL DAILY Rx Instructions: apply in between toes daily tramadol 50 mg tablet 50 mg PO BID acetaminophen 500 mg tablet 500 mg PO DAILY@0500 ciprofloxacin HCl 0.3 % drops 1 drp OPR BID aspirin 81 mg tablet,chewable 81 mg PO DAILY hydroxychloroquine 200 mg tablet 200 mg PO HS colchicine 0.6 mg tablet 0.6 mg PO BID oxybutynin chloride 5 mg tablet 5 mg PO DAILY duloxetine 20 mg capsule,delayed release(DR/EC) 20 mg PO HS carboxymethylcellulose sodium [Refresh Celluvisc] 1 % dropperette,gel 1 drp OPB DAILY cholecalciferol (vitamin D3) 50 mcg (2,000 unit) capsule 2,000 unit PO DAILY febuxostat 80 mg tablet 80 mg PO DAILY Discharge Orders: Discharge Order (Routine); Ordered 06/10/22 Ordered By: Slick Ca Admission Data Admit Date/Time: 06/08/22 18:18 Attending Provider: Slick Ca Admit Provider: Samantha Koch Primary Care Provider: Mariann Rodriguez Other Providers: Samantha Koch ; Max Adams
--- NOTE | 2022-06-10 14:08 | Electrocardiogram Report ---
Test Reason : Blood Pressure : / mmHG Vent. Rate : 056 BPM Atrial Rate : 056 BPM P-R Int : 268 ms QRS Dur : 118 ms QT Int : 460 ms P-R-T Axes : 055 -58 017 degrees QTc Int : 443 ms Sinus bradycardia with 1st degree A-V block Left anterior fascicular block Cannot rule out Inferior infarct (cited on or before 10-JUN-2022) Cannot rule out Anterior infarct , age undetermined Abnormal ECG When compared with ECG of 09-JUN-2022 06:46, Premature ventricular complexes are no longer Present Confirmed by Pablo Lubin ([id number]) on 06/10/2022 2:07:58 PM Referred By: Mariann Duke Confirmed By:Pablo Lubin
== END 2022-06-10 16:48 | DRG 309 ==
LOC: ED 16:42 → SUATTDRO 18:18 → 2E 18:18

== ENCOUNTER 2023-04-02 14:45 | Inpatient (IN) ==
[2023-04-02 15:20] LABS: Hematocrit (blood only) 36.3 % (42.0-52.0); Hemoglobin 12.5 g/dl (14.0-18.0); Mean Corpuscular Hemoglobin 32.1 pg (25.0-34.0); Mean Corpuscular Hgb Conc 34.4 g/dL (32.0-36.0); Mean Corpuscular Volume 93.3 fL (80.0-100.0); Mean Platelet Volume 8.7 fL (9.4-12.4); Platelet Count 120 K/uL (130-400); RDW Coefficient of Variation 18.3 % (11.5-14.5); RDW Standard Deviation 62.3 fL (36.4-46.3); Red Blood Count 3.89 M/uL (4.70-6.10); White Blood Count 10.43 K/ul (4.8-10.8)
--- NOTE | 2023-04-02 15:31 | Emergency Department Note ---
Impression & Plan Hypoxia, Acute hyponatremia ED Provider Note NAME: EDITA MARQUEZ AGE: 77 SEX: M : 1945 ARRIVES VIA: Ambulance INFORMANT: Patient ED PROVIDER(S): Adelfo Solo DO CHIEF COMPLAINT: shortness of breath HPI: Patient is a 77-year-old male with a past medical history of arrhythmia, obesity, PACs, PVCs who presents to the ER for shortness of breath which has been getting worse over the past week. He denies any chest pain but admits to shortness of breath. Is worse with laying flat. Denies any belly pain nausea vomiting or diarrhea. No swelling of the legs. No dysuria urgency or frequency. No other exacerbating or remitting factors. Denies any history of heart failure. He also notes his breathing has gotten so bad that they just recently put him on oxygen within the past 24 hours. ADDITIONAL HISTORY OBTAINED: Per HPI Chronic Medical/Social Conditions Affecting Care: Per HPI PAST MEDICAL HISTORY:See Below PAST SURGICAL HISTORY:See Below FAMILY HISTORY:See Below SOCIAL HISTORY:See Below HOME MEDICATIONS:See Below ALLERGIES:See Below VITALS:See Below PHYSICAL EXAMINATION: GENERAL: Sitting up in bed, alert, chronically ill-appearing, disheveled, to clinic with talking EYE EXAM: normal conjunctiva. OROPHARYNX: mucous membranes are moist NECK: supple, no nuchal rigidity, no adenopathy, non-tender LUNGS: Diminished bilaterally. Normal chest wall mechanics HEART: no murmurs, S1 normal and S2 normal ABDOMEN: abdomen soft, non-tender, normo-active bowel sounds, no masses, no rebound or guarding. UPPER EXTREMITIES: upper extremities are grossly normal. LOWER EXTREMITIES: No pitting edema. NEURO EXAM: Normal sensorium, cranial nerves II-XII grossly intact, normal speech, no gross weakness of arms, no gross weakness of legs. MEDICAL DECISION MAKING: Patient is a 77-year-old male who presents ER for above-stated complaint referred in for shortness of breath which has been present for the past week. IV was established blood work was obtained. He was found to be hypoxic on room air just recently within the past 24 hours placed on nasal cannula. Here he was placed on 3 L nasal cannula. Labs show no significant leukocytosis or anemia. Platelets are slightly low at 120. BMP with a sodium of 119. T. bili at 1.5. Serum osmole's were low at 259. Troponin was negative. COVID was negative. He did not obtain a urine. Chest x-ray was clean. EKG nondiagnostic. He was updated bedside and discussed with the hospitalist admitted for further work-up External Records Reviewed: External records reviewed at bedside from [facility] which shows he has a history of CHF Consults/Care Managements Discussions: Per [facility] Triage Nursing notes reviewed. Limited review of prior medical records performed Vital Signs: reviewed and remarkable for hypoxic Differential diagnosis: Differential diagnoses includes but is not limited to pneumonia, bronchitis, COPD/Asthma exacerbation, pneumothorax, pulmonary embolism, congestive heart failure, acute coronary syndrome ER treatment provided: See below Diagnostics interpreted by me include EKG and cardiac monitoring as listed below: -Cardiac Monitoring: An order was placed for continuous cardiac monitoring. The monitor shows a rate of 70 with sinus rhythm. -ECG: A-fib rate of 74 PVCs Left axis QTc 424 -Laboratory studies:Interpreted by me as stated above in MDM and shown below. Imaging studies: Xrays: As interpreted by me: Portable AP upright 1 view of the chest shows enlarged heart with cephalization CTs show: none Procedures:none Critical Care:I have personally spent 35 minutes of critical care time in the direct management of this patient. This includes bedside care, interpretation of diagnostic studies, and testing, discussion with consultants, patient, and family members, and other required patient management activities. This 35 minutes is in excess of all separately billable procedures. 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, limited to breakdown of skin Polyosteoarthritis Gout Choledocholithiasis Amputation of thumb Elevated CA 19-9 level MRSA colonization Hx of nonmelanoma skin cancer Umbilical hernia Exotropia, right eye Rheumatoid arthritis SCC (squamous cell carcinoma), scalp/neck 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 Nolasco, 05/18/2017 History of ERCP 02/16/2022 Family History Mother Coronary heart disease Father Arthritis Social History Smoking Status: Never smoker Preferred Language: Unknown Communication Ability: Effective Senior Estimator Required: No Beliefs That Will Affect Care: Judaism Judaism Beliefs: CAODAISM Current Living Situation: Jail Current Living Situation Comment: [facility] Feels Safe at Home: Yes Assistive Devices: CPAP Allergies Allergies Allergy/AdvReac Type Severity Reaction Status Date / Time No Known Allergies Allergy Verified 07/13/22 10:03 Home Meds Home Medications Medication Instructions Recorded Confirmed acetaminophen 500 mg tablet 500 mg PO QAM 06/08/22 04/02/23 aspirin 81 mg chewable tablet 81 mg PO QAM 06/08/22 04/02/23 carboxymethylcellulose sodium 1 % 1 drp OPB QAM 06/08/22 04/02/23 eye gel in a dropperette (Refresh Celluvisc) cholecalciferol (vitamin D3) 50 2,000 unit PO QAM 06/08/22 04/02/23 mcg (2,000 unit) capsule ciprofloxacin HCl 0.3 % eye drops 1 drp OPR BID 06/08/22 04/02/23 colchicine 0.6 mg tablet 0.6 mg PO BID 06/08/22 04/02/23 duloxetine 20 mg capsule,delayed 20 mg PO HS 06/08/22 04/02/23 release febuxostat 80 mg tablet 80 mg PO QAM 06/08/22 04/02/23 furosemide 40 mg tablet 40 mg PO QAM 06/08/22 04/02/23 hydroxychloroquine 200 mg tablet 200 mg PO HS 06/08/22 04/02/23 oxybutynin chloride 5 mg tablet 5 mg PO QAM 06/08/22 04/02/23 terbinafine HCl 1 % topical cream 1 applic topical DAILY 06/08/22 04/02/23 tramadol 50 mg tablet 50 mg PO TID 06/08/22 04/02/23 acetaminophen 325 mg tablet 325 mg PO QID PRN pain/fever 07/13/22 04/02/23 bisacodyl 10 mg rectal suppository 10 mg HI UD PRN Constipation 07/13/22 04/02/23 (Dulcolax (bisacodyl)) magnesium hydroxide 400 mg/5 mL 30 ml PO DAILY PRN Constipation 07/13/22 04/02/23 oral suspension (Milk of Magnesia) sodium phosphates 19 gram-7 118 ml HI DAILY PRN Constipation 07/13/22 04/02/23 gram/118 mL enema (Fleet Enema) spironolactone 25 mg tablet 12.5 mg PO QAM 07/13/22 04/02/23 (Aldactone) Results & Data (ED) Vital Signs Vital Signs - 24 hr 04/02/23 14:54 04/02/23 14:54 04/02/23 15:02 Temperature 36.4 C L Temperature Source Oral Pulse Rate 73 Pulse Rate from SpO2 Sensor Respiratory Rate 22 Respiratory Effort / Characteristics Non-Labored Spontaneous Respiratory Depth Normal Respiratory Pattern Regular Blood Pressure 126/69 Blood Pressure Mean 88 Blood Pressure Position Sitting Pulse Oximetry 96 86 L 95 Oxygen Delivery Method Nasal Cannula Nasal Cannula Nasal Cannula Oxygen Flow Rate 4 0 4 Sepsis Recent Fever Within 48 Hours No Sepsis New/Unexplained Change in Mental Status N/A Sepsis Action Taken by Nursing No Action Required Oxygen Flow Rate - Titration 4 Pulse Oximetry Post Tiitration 96 04/02/23 15:15 04/02/23 15:30 04/02/23 15:30 Temperature Temperature Source Pulse Rate 73 84 Pulse Rate from SpO2 Sensor 88 Respiratory Rate 26 H 18 Respiratory Effort / Characteristics Respiratory Depth Respiratory Pattern Blood Pressure 99/76 L Blood Pressure Mean 80 Blood Pressure Position Pulse Oximetry 86 L 95 Oxygen Delivery Method Oxygen Flow Rate Sepsis Recent Fever Within 48 Hours Sepsis New/Unexplained Change in Mental Status Sepsis Action Taken by Nursing Oxygen Flow Rate - Titration Pulse Oximetry Post Tiitration 04/02/23 15:31 04/02/23 16:00 04/02/23 16:01 Temperature Temperature Source Pulse Rate 88 84 Pulse Rate from SpO2 Sensor 86 Respiratory Rate 24 Respiratory Effort / Characteristics Respiratory Depth Respiratory Pattern Blood Pressure 119/78 Blood Pressure Mean 83 Blood Pressure Position Pulse Oximetry 94 Oxygen Delivery Method Oxygen Flow Rate Sepsis Recent Fever Within 48 Hours Sepsis New/Unexplained Change in Mental Status Sepsis Action Taken by Nursing Oxygen Flow Rate - Titration Pulse Oximetry Post Tiitration 04/02/23 16:01 04/02/23 16:30 04/02/23 16:31 Temperature Temperature Source Pulse Rate 77 84 Pulse Rate from SpO2 Sensor 79 88 Respiratory Rate 24 18 Respiratory Effort / Characteristics Respiratory Depth Respiratory Pattern Blood Pressure 101/78 Blood Pressure Mean 83 Blood Pressure Position Pulse Oximetry 94 92 Oxygen Delivery Method Oxygen Flow Rate Sepsis Recent Fever Within 48 Hours Sepsis New/Unexplained Change in Mental Status Sepsis Action Taken by Nursing Oxygen Flow Rate - Titration Pulse Oximetry Post Tiitration 04/02/23 16:31 Temperature Temperature Source Pulse Rate 82 Pulse Rate from SpO2 Sensor 89 Respiratory Rate 17 Respiratory Effort / Characteristics Respiratory Depth Respiratory Pattern Blood Pressure Blood Pressure Mean Blood Pressure Position Pulse Oximetry 94 Oxygen Delivery Method Oxygen Flow Rate Sepsis Recent Fever Within 48 Hours Sepsis New/Unexplained Change in Mental Status Sepsis Action Taken by Nursing Oxygen Flow Rate - Titration Pulse Oximetry Post Tiitration Laboratory Data 04/02/23 15:03 04/02/23 15:03 Lab Results 04/02/23 Range/Units 15:03 WBC 10.43 (4.8-10.8) K/ul RBC 3.89 L (4.70-6.10) M/uL Hgb 12.5 L (14.0-18.0) g/dl Hct 36.3 L (42.0-52.0) % MCV 93.3 (80.0-100.0) fL MCH 32.1 (25.0-34.0) pg MCHC 34.4 (32.0-36.0) g/dL RDW Std Deviation 62.3 H (36.4-46.3) fL RDW Coeff of Nixon 18.3 H (11.5-14.5) % Plt Count 120 L (130-400) K/uL MPV 8.7 L (9.4-12.4) fL Neutrophils % (Manual) 30 % Lymphocytes % (Manual) 58 % Monocytes % (Manual) 10 % Basophils % (Manual) 2 % Neutrophils # (Manual) 3.13 (1.40-6.50) K/uL Lymphocytes # (Manual) 6.05 H (1.2-3.4) K/uL Monocytes # (Manual) 1.04 H (0.11-0.59) K/uL Basophils # (Manual) 0.20 (0-0.2) K/uL Polychromasia 1+ Sodium 119 L* (136-145) mmol/L Potassium 4.0 (3.5-5.1) mmol/L Chloride 87 L (98-107) mmol/L Carbon Dioxide 27 (21-32) mmol/L Anion Gap 5 (3-11) BUN 10 (6-23) mg/dl Creatinine 0.71 (0.6-1.4) mg/dl Est Cr Clr Drug Dosing 140.4 ml/min Est GFR ( Amer) 103.4 ml/min Est GFR (Non-Af Amer) 89.2 ml/min BUN/Creatinine Ratio 14.1 (10-20) Glucose 174 H (70-99(Fasting)) mg/dl Osmolality 259 L (280-300) mOsm/kg Calcium 8.2 L (8.6-10.3) mg/dl Total Bilirubin 1.5 H (0.2-1.0) mg/dl AST 20 (13-39) U/L ALT 13 (7-52) U/L Alkaline Phosphatase 76 (34-104) U/L Troponin I High Sens 8.9 (0-20) pg/ml Total Protein 6.3 (6.0-8.3) gm/dl Albumin 3.5 (3.4-5.0) gm/dl Globulin 2.8 (2.5-4.0) gm/dl Albumin/Globulin Ratio 1.3 (0.9-2) Lipase 12 (11-82) U/L SARS-CoV-2 (PCR) NEGATIVE (Negative) Imaging Data Radiologist's Impression: Chest X-Ray 04/02/23 15:02 XR chest 1V portable CLINICAL HISTORY: Chest pain, nonspecific TECHNIQUE: Single frontal radiograph of the chest was obtained. Comparison: Comparison is made to chest radiograph 06/08/2022 FINDINGS: Exam is limited by underpenetration. Cardiomegaly is noted. The aortic arch is calcified. The lungs are clear. No evidence of pleural effusion or pneumothorax. IMPRESSION: No acute chest disease. Cardiomegaly is noted. ACT 112: Negative or not required by law. Electronically signed by: Amilcar Luis M.D. 04/02/2023 3:52 PM Discharge Plan Visit Data Chief Complaint: Shortness of Breath/Dyspnea ED Provider: Adelfo Solo Discharge Problem: Hypoxia, Acute hyponatremia Patient Disposition: Admitted As Inpatient Discharge Instructions Interventions: ED Discharge Assessment Last Done: 04/02/23 20:07
--- NOTE | 2023-04-02 15:54 | XRay Report ---
XR chest 1V portable CLINICAL HISTORY: Chest pain, nonspecific TECHNIQUE: Single frontal radiograph of the chest was obtained. Comparison: Comparison is made to chest radiograph 06/08/2022 FINDINGS: Exam is limited by underpenetration. Cardiomegaly is noted. The aortic arch is calcified. The lungs a re clear. No evidence of pleural effusion or pneumothorax. IMPRESSION: No acute chest disease. Cardiomegaly is noted. ACT 112: Negative or not required by law. Electronically signed by: Amilcar Luis M.D. 04/02/2023 3:52 PM
[2023-04-02 16:07] LABS: Albumin Globulin Ratio 1.3 (0.9-2); Albumin Level 3.5 gm/dl (3.4-5.0); BUN Creatinine Ratio 14.1 (10-20); Bilirubin,Total 1.5 mg/dl (0.2-1.0); Calcium 8.2 mg/dl (8.6-10.3); Creatinine Clr Calc Pharmacy 140.4 ml/min; Est GFR (African American) 103.4 ml/min; Est GFR (Non-African American) 89.2 ml/min; Globulin 2.8 gm/dl (2.5-4.0); Total Protein 6.3 gm/dl (6.0-8.3); Troponin I High Sensitivity 8.9 pg/ml (0-20)
--- NOTE | 2023-04-02 16:50 | History & Physical Report ---
Date of Service April 02, 2023 Assessment & Plan (1) Acute on chronic heart failure with preserved ejection fraction (HFpEF): (2) Acute hyponatremia: Plan 77-year-old gentleman with PMH of chronic diastolic heart failure on Lasix, presented (from [facility]) to the ED with worsening shortness of breath since last few days. He is being managed for the following: Acute on chronic heart failure with preserved ejection fraction Patient presenting with worsening shortness of breath & increasing BLE swelling. 06/09/2022 echo with EF of 50 to 55%, grade 1 diastolic dysfunction. Patient reports drinking " a lot of" water and adding extra salt to his diet. Patient reports maintaining compliance with his Lasix. Strict I's and O's, fluid restriction of 1800 mL/day, heart healthy diet, low- sodium diet, IV Lasix 40 mg twice daily. Monitor replete electrolytes. Cardiology consult, update echo. Hyponatremia: Baseline sodium appears around 137, admitting sodium of 119, likely hypervolemic hyponatremia. Acuity unsure. Patient with no headache or dizziness or orientation issues. Continue with Lasix IV twice daily, low-sodium diet, BMP at 8 PM and in AM. If with worsening sodium level, consult nephrology. Send urine osmolality, serum osmolality, urine sodium level. Hold aldactone. Lower ext cellulitis:Pt treated with oral augmentin which completed today LARISA: cpap at T2DM: diet controlled, a1c 6.2 on 03/31/23, lantus/novolog per protocol Other chronic medical conditions: As mentioned in HPI, continue with/resume home meds as and when able. DVT prophylaxis: Lovenox PT/OT DNR/DNI Pt was seen and examined in collaboration with Dr. Pena, please see addendum History of Present Illness Chief Complaint: Shortness of breath Primary Care Provider: [facility] 77-year-old male with PMH of diastolic heart failure, LARISA on CPAP, T2DM, CAD, HTN, vascular insufficiency of both lower extremities, morbid obesity, generalized osteoarthritis actinic keratosis, B-cell lymphoma, rheumatoid arthritis presented to the ED from [facility] with complaint of shortness of breath for the last few days. Patient reports worsening shortness of breath since about 3 days, denies cough or sore throat or chest pain or palpitation. Denies headache or dizziness. Denies belly pain. Denies acute changes in his bowel or bladder habit. He has been experiencing orthopnea. He does wear a CPAP at bedtime and has been compliant with this. According to [facility] records patient has had a significant weight gain of several pounds. At baseline patient is typically on 40 mg of Lasix daily although due to patient request and being adamant it was reduced to 20 mg daily. At this time he then noted increased weight gain and swelling. His Lasix was increased back to 40 mg daily as of 03/31/2023. At baseline he is very sedentary due to significant pain and debilitation in regards to his right knee. He wears a brace on this on a regular basis Patient reports that he likes to drink "a lot of water" and adds extra salt to his diet, he maintains that he is compliant with his Lasix dose and has been taking it for many years. Patient denies any use of tobacco/alcohol products/recreational drugs. DNR/DNI. Medications reviewed with the patient. Plan of care discussed with the patient, he voiced understanding and was agreeable. Allergies Allergy/AdvReac Type Severity Reaction Status Date / Time No Known Allergies Allergy Verified 07/13/22 10:03 Home Medications Medication Instructions Recorded Confirmed Type acetaminophen 500 mg tablet 500 mg PO QAM 06/08/22 04/02/23 History aspirin 81 mg chewable tablet 81 mg PO QAM 06/08/22 04/02/23 History carboxymethylcellulose sodium 1 % 1 drp OPB QAM 06/08/22 04/02/23 History eye gel in a dropperette (Refresh Celluvisc) cholecalciferol (vitamin D3) 50 2,000 unit PO QAM 06/08/22 04/02/23 History mcg (2,000 unit) capsule ciprofloxacin HCl 0.3 % eye drops 1 drp OPR BID 06/08/22 04/02/23 History colchicine 0.6 mg tablet 0.6 mg PO BID 06/08/22 04/02/23 History duloxetine 20 mg capsule,delayed 20 mg PO 06/08/22 04/02/23 History release febuxostat 80 mg tablet 80 mg PO QAM 06/08/22 04/02/23 History furosemide 40 mg tablet 40 mg PO QAM 06/08/22 04/02/23 History hydroxychloroquine 200 mg tablet 200 mg PO 06/08/22 04/02/23 History oxybutynin chloride 5 mg tablet 5 mg PO QAM 06/08/22 04/02/23 History terbinafine HCl 1 % topical cream 1 applic topical DAILY 06/08/22 04/02/23 History tramadol 50 mg tablet 50 mg PO TID 06/08/22 04/02/23 History acetaminophen 325 mg tablet 325 mg PO QID PRN pain/fever 07/13/22 04/02/23 History bisacodyl 10 mg rectal suppository 10 mg MT UD PRN Constipation 07/13/22 04/02/23 History (Dulcolax (bisacodyl)) magnesium hydroxide 400 mg/5 mL 30 ml PO DAILY PRN Constipation 07/13/22 04/02/23 History oral suspension (Milk of Magnesia) sodium phosphates 19 gram-7 118 ml MT DAILY PRN Constipation 07/13/22 04/02/23 History gram/118 mL enema (Fleet Enema) spironolactone 25 mg tablet 12.5 mg PO QAM 07/13/22 04/02/23 History (Aldactone) Past Med/Surg History Medical History Atherosclerotic heart disease of [place] coronary artery without angina pectoris Vitamin D deficiency Constipation Dry eye syndrome SCC (squamous cell carcinoma), arm rt upper limb and shoulder Chronic pain Xerosis cutis Candidiasis of skin and nail Unspecified exotropia Disc displacement, lumbar Abnormality of gait and mobility Repeated falls 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, limited to breakdown of skin Polyosteoarthritis Gout Choledocholithiasis Amputation of thumb Elevated CA 19-9 level MRSA colonization Hx of nonmelanoma skin cancer Umbilical hernia Exotropia, right eye Rheumatoid arthritis SCC (squamous cell carcinoma), scalp/neck 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 Nolasco, 05/18/2017 History of ERCP 02/16/2022 Family History Mother Coronary heart disease Father Arthritis Social History Smoking Status: Never smoker Preferred Language: Unknown Communication Ability: Effective Voice Coach Required: No Beliefs That Will Affect Care: Mosque Mosque Beliefs: ANABAPTISM Current Living Situation: Alf Current Living Situation Comment: [facility] Feels Safe at Home: Yes Assistive Devices: CPAP Review of Systems Review of Systems: All systems reviewed & are unremarkable except as noted in HPI & below Physical Exam Physical Exam: GENERAL: Alert and oriented x3. NAD, morbidly obese, on 4 L oxygen via nasal cannula, erythematous bilateral maxillary cheeks x chronic per patient. HEENT: No pallor, no icterus. Pupils equal, round and reactive to light. Oral mucosa moist. NECK: No JVD, no neck masses. HEART: S1 and S2 heard. Regular rate and rhythm. No murmur, no gallop. RESPIRATORY SYSTEM: Normal AP diameter. No accessory muscle use. No wheezing, decreased breath sounds likely secondary to morbid obesity. ABDOMEN: Soft, bowel sounds present, nontender, distention. CENTRAL NERVOUS SYSTEM: No facial droop. Speech is clear. Obeys simple commands. Moves extremities. EXTREMITIES: BLE 2+ edema, chronic skin changes noted, left second toe dressing c/d/i. Right knee brace noted. Bilateral feet/ankle discoloration noted, chr onic per patient. No pain or tenderness on BLE exam. Results & Data Results & Data Vital Signs (Past 12 Hours) Vital Signs Temp Pulse Resp BP Pulse Ox O2 Del Method O2 Flow Rate 04/02/23 15:31 88 04/02/23 15:02 95 Nasal Cannula 4 04/02/23 14:54 86 L Nasal Cannula 0 04/02/23 14:54 36.4 C L 73 22 126/69 96 Nasal Cannula 4 Diagnostic Findings Chest X-Ray 04/02/23 15:02 XR chest 1V portable CLINICAL HISTORY: Chest pain, nonspecific TECHNIQUE: Single frontal radiograph of the chest was obtained. Comparison: Comparison is made to chest radiograph 06/08/2022 FINDINGS: Exam is limited by underpenetration. Cardiomegaly is noted. The aortic arch is calcified. The lungs are clear. No evidence of pleural effusion or pneumothorax. IMPRESSION: No acute chest disease. Cardiomegaly is noted. ACT 112: Negative or not required by law. Electronically signed by: Amilcar Luis M.D. 04/02/2023 3:52 PM COVID-19 Results Results COVID-19 Adm Lab Results: RBC 3.89 M/uL (4.70-6.10) L 04/02/23 WBC 10.43 K/ul (4.8-10.8) 04/02/23 Hgb 12.5 g/dl (14.0-18.0) L 04/02/23 Hct 36.3 % (42.0-52.0) L 04/02/23 Plt Count 120 K/uL (130-400) L 04/02/23 Neutrophils % (Manual) 30 % 04/02/23 Lymphocytes % (Manual) 58 % 04/02/23 Monocytes % (Manual) 10 % 04/02/23 Basophils % (Manual) 2 % 04/02/23 Neutrophils # (Manual) 3.13 K/uL (1.40-6.50) 04/02/23 Lymphocytes # (Manual) 6.05 K/uL (1.2-3.4) H 04/02/23 Monocytes # (Manual) 1.04 K/uL (0.11-0.59) H 04/02/23 Basophils # (Manual) 0.20 K/uL (0-0.2) 04/02/23 Polychromasia 1+ 04/02/23 Na 119 mmol/L (136-145) L* 04/02/23 K 4.0 mmol/L (3.5-5.1) 04/02/23 Cl 87 mmol/L (98-107) L 04/02/23 CO2 27 mmol/L (21-32) 04/02/23 Anion Gap 5 (3-11) 04/02/23 BUN 10 mg/dl (6-23) 04/02/23 Creatinine 0.71 mg/dl (0.6-1.4) 04/02/23 BUN/Creatinine Ratio 14.1 (10-20) 04/02/23 Glucose Level 174 mg/dl (70-99(Fasting)) H 04/02/23 Ca 8.2 mg/dl (8.6-10.3) L 04/02/23 Total Bilirubin 1.5 mg/dl (0.2-1.0) H 04/02/23 AST/SGOT 20 U/L (13-39) 04/02/23 ALT/SGPT 13 U/L (7-52) 04/02/23 Alkaline Phosphatase 76 U/L (34-104) 04/02/23 Total Protein 6.3 gm/dl (6.0-8.3) 04/02/23 Albumin 3.5 gm/dl (3.4-5.0) 04/02/23 Globulin 2.8 gm/dl (2.5-4.0) 04/02/23 Albumin/Globulin Ratio 1.3 (0.9-2) 04/02/23 COVID-19 PCR NEGATIVE (Negative) 04/02/23 Chest X-Ray 04/02/23 Code Status & VTE Plan Code Status DNR/DNI VTE Prophylaxis Plan VTE Prophylaxis will be ordered: Yes Supervising Physician Co-Signing Physician Notes 77-year-old male with history of diastolic heart failure presented with worsening shortness of breath for last 3 days, was found to be in acute on chronic heart failure with preserved ejection fraction, hypervolemic hyponatremia in the ED. IV Lasix 40 mg twice daily, BMP at 8 PM, if worsening consider nephrology consult, cardiology consult for heart failure. Update ECHO. Sodium studies. On examination, patient on 4 L oxygen, 2+ BLE edema, rest of the examination as above. I have seen and examined the patient and have discussed the case with the provider above. I agree with the assessment and plan as stated.
[2023-04-02 16:53] LABS: Polychromasia 1+
[2023-04-02 16:58] LABS: Lymphocytes # (manual) 6.05 K/uL (1.2-3.4); Neutrophils # (manual) 3.13 K/uL (1.40-6.50)
[2023-04-02 16:59] LABS: Monocytes # (manual) 1.04 K/uL (0.11-0.59)
[2023-04-02 17:18] LABS: Basophils % (manual) 2 %; Lymphocytes % (manual) 58 %; Monocytes % (manual) 10 %; Neutrophils % (manual) 30 %
[2023-04-02 20:27] LABS: BUN Creatinine Ratio 13.8 (10-20); Calcium 8.2 mg/dl (8.6-10.3); Creatinine Clr Calc Pharmacy 153.4 ml/min; Est GFR (African American) 107.2 ml/min; Est GFR (Non-African American) 92.5 ml/min
[2023-04-02] MEDS ORDERED: ALUMINUM/MAGNESIUM SUSP 30 ML UDC PO PRN (20:27)
[2023-04-02] MEDS ORDERED: GLUCOSE 40% GEL 15 GM TUBE PO PRN (20:27)
[2023-04-02] MEDS ORDERED: POLYETHYLENE (MIRALAX) 17 GM PACK PO PRN (20:27)
[2023-04-02] MEDS ORDERED: bisacodyL 10 MG SUPP PR PRN (20:27)
[2023-04-02] MEDS ORDERED: GLUCAGON FOR INJ 1 MG VIAL SQ PRN (20:27)
[2023-04-02] MEDS ORDERED: ONDANSETRON INJ 2 MG/ML 2 ML VIAL IV PRN (20:27)
[2023-04-02] MEDS ORDERED: CARBOHYDRATES FOR HYPOGLYCEMIA PO PRN (20:27)
[2023-04-02] MEDS ORDERED: DEXTROSE 50% 50 ML SYRINGE IV PRN (20:27)
[2023-04-02] MEDS ORDERED: ACETAMINOPHEN 325 MG TAB PO PRN (20:27)
[2023-04-02] MEDS ORDERED: GLUCOSE 10 TAB/TUBE PO PRN (20:27)
[2023-04-02] MEDS ORDERED: MAGNESIUM HYDROXIDE SUSP 30 ML UDC PO PRN (20:27)
[2023-04-02] MEDS ORDERED: ARTIFICIAL TEARS OP PRN (20:32)
--- NOTE | 2023-04-02 20:50 | Communication Note ---
Date of Service: April 02, 2023 Substitute oxycodone for patient's [id number] tramadol for now given propensity for seizures with with patient's hyponatremia and tramadol.
[2023-04-02] MEDS ORDERED: traMADol HCL 50 MG TABLET PO SCH (21:00)
[2023-04-02] MEDS: CIPROFLOXACIN HCL 0.3% OP SOLN 2.5 ML BTL OPR SCH (21:58)
[2023-04-02] MEDS: COLCHICINE 0.6 MG TAB PO SCH (21:59)
[2023-04-02] MEDS: ENOXAPARIN INJ 40 MG/0.4 ML SYR SQ SCH (21:59)
[2023-04-02] MEDS: DULoxetine HCL 20 MG CAP PO SCH (21:59)
[2023-04-02] MEDS: FUROSEMIDE 40 MG/4 ML VIAL IV SCH (22:00)
[2023-04-02] MEDS: HYDROXYCHLOROQUINE SULFATE 200 MG TAB PO SCH (22:01)
[2023-04-02] MEDS: oxyCODONE HCL IR 5 MG TAB (IMMEDIATE RELEASE) PO SCH (22:01)
[2023-04-02] MEDS: LANTUS PER UNIT CHARGE SQ SCH (22:01)
[2023-04-02] MEDS: INSULIN ASPART PER UNIT CHARGE SC SCH (22:04)
--- NOTE | 2023-04-02 22:39 | Electrocardiogram Report ---
Test Reason : Blood Pressure : / mmHG Vent. Rate : 074 BPM Atrial Rate : 000 BPM P-R Int : 000 ms QRS Dur : 104 ms QT Int : 382 ms P-R-T Axes : 000 -50 038 degrees QTc Int : 424 ms Atrial fibrillation with premature ventricular or aberrantly conducted complexes Low voltage QRS Left anterior fascicular block Inferior infarct (cited on or before 10-JUN-2022) Cannot rule out Anterior infarct (cited on or before 10-JUN-2022) Abnormal ECG When compared with ECG of 10-JUN-2022 06:07, Atrial fibrillation has replaced Sinus rhythm Confirmed by Pablo Lubin ([id number]) on 04/02/2023 10:39:30 PM Referred By: Confirmed By:Pablo Lubin
[2023-04-03 01:11] LABS: BUN Creatinine Ratio 13.4 (10-20); Calcium 8.3 mg/dl (8.6-10.3); Creatinine Clr Calc Pharmacy 146.4 ml/min; Est GFR (African American) 105.9 ml/min; Est GFR (Non-African American) 91.4 ml/min; Potassium 3.8 mmol/L (3.5-5.1)
[2023-04-03 06:51] LABS: Hematocrit (blood only) 34.2 % (42.0-52.0); Hemoglobin 12.1 g/dl (14.0-18.0); Mean Corpuscular Hemoglobin 32.8 pg (25.0-34.0); Mean Corpuscular Hgb Conc 35.4 g/dL (32.0-36.0); Mean Corpuscular Volume 92.7 fL (80.0-100.0); Mean Platelet Volume 8.5 fL (9.4-12.4); Platelet Count 150 K/uL (130-400); RDW Coefficient of Variation 17.7 % (11.5-14.5); RDW Standard Deviation 59.9 fL (36.4-46.3); Red Blood Count 3.69 M/uL (4.70-6.10); White Blood Count 9.05 K/ul (4.8-10.8)
[2023-04-03 07:06] LABS: Albumin Globulin Ratio 1.4 (0.9-2); Albumin Level 3.5 gm/dl (3.4-5.0); BUN Creatinine Ratio 12.1 (10-20); Bilirubin,Total 2.1 mg/dl (0.2-1.0); Calcium 8.2 mg/dl (8.6-10.3); Creatinine Clr Calc Pharmacy 148.1 ml/min; Est GFR (African American) 106.6 ml/min; Globulin 2.5 gm/dl (2.5-4.0); Magnesium 1.5 mg/dl (1.7-2.4); Phosphorus 3.6 mg/dl (2.5-4.9); Potassium 3.7 mmol/L (3.5-5.1)
[2023-04-03 07:49] LABS: Basophils # (auto) 0.08 K/uL (0.00-0.20); Basophils % (auto) 0.9 %; Eosinophils % (auto) 2.2 %; Immature Granulocytes # (auto) 0.08 K/uL (0.01-0.20); Immature Granulocytes % (auto) 0.9 %; Lymphocytes # (auto) 4.63 K/uL (1.20-3.40); Lymphocytes % (auto) 51.2 %; Monocytes # (auto) 0.83 K/uL (0.11-0.59); Monocytes % (auto) 9.2 %; Neutrophils # (auto) 3.23 K/uL (1.40-6.50); Neutrophils % (auto) 35.6 %
--- NOTE | 2023-04-03 08:22 | Cardiology Consultation ---
Date of Consultation April 03, 2023 Assessment & Plan (1) Acute on chronic heart failure with preserved ejection fraction (HFpEF): (2) Acute hyponatremia: (3) Atrial fibrillation with controlled ventricular rate: Plan Patient admitted for worsening SOB/hypoxia, volume overload, consistent with acute on chronic heart failure preserved EF in setting of morbid obesity, right heart failure, hypoventilatory syndrome -Patient needs aggressive diuresis. Increase furosemide to 80 mg IV BID this morning -Hurtado to be placed -Monitor I+O's -Monitor sodium, potassium. -Supplement magnesium and potassium -Spironolactone on hold due to hyponatremia -Nephrology consulted for hyponatremia - likely due to hypervolemic state. -Sodium improving from 119 to 123 this morning. Monitor Atrial fibrillation is new diagnosis. Rates are well controlled. -[id number] score of 5 - Anticoagulation therapy is recommended for stroke prophylaxis. -Currently receiving Lovenox 40 mg q 12 for DVT proph. Verified with nursing staff, did not yet receive Lovenox this morning. will Discontinue and transition to Eliquis 5 mg BID Echocardiogram results pending Case discussed with Dr. Russell I spent a total of 60 minutes on the date of service in preparation, delivery, and documentation of the care provided to this patient, excluding any time spent in the performance of separately billed services. Alisha Walters PA-C Department of Cardiology, [facility] This chart was completed in part utilizing Speech Voice Recognition Software. Grammatical errors, random word insertions, pronoun errors, and incomplete sentences are an occasional consequence of this system due to software li mitations, ambient noise, and hardware issues. Any formal questions or concerns about the content, text, or information contained within the body of this dictation should be directly addressed to the provider for clarification. Supervising Physician Co-Signing Physician Notes Patient seen and personally examined. 77-year-old male with morbid obesity presents with marked diastolic heart failure right greater than left almost anasarca marked lower extremity edema and abdominal girth distention Suspect component of hypoventilation superimposed on newly observed atrial fibrillation and underlying moderate aortic stenosis Plan as outlined above We will require extensive diuresis, suspect greater than 20 pound volume over load History of Present Illness Reason for Consultation: HFpEF; Hyponatremia Requesting Physician: Dr. Pena Attending Physician: Dr. Russell History of Present Illness Patient is a 77 year old male admitted to [facility] from [facility] with worsening SOB, fluid overload suggestive of acute on chronic HFpEF with acute on chronic hypoventilatory syndrome with hypoxia. History includes: 1. Morbid obesity 2. Chronic hypoventilatory syndrome 3. HFpEF per echo in May 2022 4. History of PAC/PVC's, wandering atrial pacemaker noted during prior admission and GI procedure 5. HTN 6. B cell Lymphoma 7. RA 8. mild to moderate aortic stenosis per echo May 2022 9. LARISA - to be using BIPAP but compliance questioned? Patient with worsening SOB, orthopnea, weight gain noted at half-way. Diuretics had been previously reduced from 40 mg daily to 20 mg daily due to patient's insistence and refusal to take 40 mg. On admission EKG demonstrated atrial fibrillation, with controlled rates, new diagnosis. Duration unknown. Sodium was critically low at 119, likely due to hypervolemia. Sodium levels improving to 123 this morning with ongoing diuresis. Started on oxygen and Furosemide 40 mg IV BID. Spironolactone held due to hyponatremia. Hurtado being placed this morning by nursing staff. HS troponin within normal limits. BP controlled. Stable potassium and creat inine. At time of consult, patient resting in bed with ongoing SOB, conversational dyspnea, and orthopnea. No chest pain. He admits to dietary indiscretion at half-way. Significant b/l edema noted. Patient denies cardiovascular history. No prior [place], CAD, or history of known arrhythmias. No known history of atrial fibrillation. No history of GI bleed or other bleeding complications. No recent falls but he admits he is fairly immobile. No history of stroke He was evaluated by Cardiology in May 2022 after GI procedure when there was concerns for bradycardia and possible AV block. Ultimately, it was thought he was having wandering atrial pacemaker and blocked PAC's. He had sinus pauses at night, but these were asymptomatic. Sleep evaluation was recommended at that time. He is to use BIPAP at night but uncertain if he is compliant. Allergies Allergy/AdvReac Type Severity Reaction Status Date / Time No Known Allergies Allergy Verified 07/13/22 10:03 Home Medications Medication Instructions Recorded Confirmed Type acetaminophen 500 mg tablet 500 mg PO QAM 06/08/22 04/02/23 History aspirin 81 mg chewable tablet 81 mg PO QAM 06/08/22 04/02/23 History carboxymethylcellulose sodium 1 % 1 drp OPB QAM 06/08/22 04/02/23 History eye gel in a dropperette (Refresh Celluvisc) cholecalciferol (vitamin D3) 50 2,000 unit PO QAM 06/08/22 04/02/23 History mcg (2,000 unit) capsule ciprofloxacin HCl 0.3 % eye drops 1 drp OPR BID 06/08/22 04/02/23 History colchicine 0.6 mg tablet 0.6 mg PO BID 06/08/22 04/02/23 History duloxetine 20 mg capsule,delayed 20 mg PO HS 06/08/22 04/02/23 History release febuxostat 80 mg tablet 80 mg PO QAM 06/08/22 04/02/23 History furosemide 40 mg tablet 40 mg PO QAM 06/08/22 04/02/23 History hydroxychloroquine 200 mg tablet 200 mg PO HS 06/08/22 04/02/23 History oxybutynin chloride 5 mg tablet 5 mg PO QAM 06/08/22 04/02/23 History terbinafine HCl 1 % topical cream 1 applic topical DAILY 06/08/22 04/02/23 History tramadol 50 mg tablet 50 mg PO TID 06/08/22 04/02/23 History acetaminophen 325 mg tablet 325 mg PO QID PRN pain/fever 07/13/22 04/02/23 History bisacodyl 10 mg rectal suppository 10 mg VT UD PRN Constipation 07/13/22 04/02/23 History (Dulcolax (bisacodyl)) magnesium hydroxide 400 mg/5 mL 30 ml PO DAILY PRN Constipation 07/13/22 04/02/23 History oral suspension (Milk of Magnesia) sodium phosphates 19 gram-7 118 ml VT DAILY PRN Constipation 07/13/22 04/02/23 History gram/118 mL enema (Fleet Enema) spironolactone 25 mg tablet 12.5 mg PO QAM 07/13/22 04/02/23 History (Aldactone) Patient History Medical History Atherosclerotic heart disease of [place] coronary artery without angina pectoris Vitamin D deficiency Constipation Dry eye syndrome SCC (squamous cell carcinoma), arm rt upper limb and shoulder Chronic pain Xerosis cutis Candidiasis of skin and nail Unspecified exotropia Disc displacement, lumbar Abnormality of gait and mobility Repeated falls 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, limited to breakdown of skin Polyosteoarthritis Gout Choledocholithiasis Amputation of thumb Elevated CA 19-9 level MRSA colonization Hx of nonmelanoma skin cancer Umbilical hernia Exotropia, right eye Rheumatoid arthritis SCC (squamous cell carcinoma), scalp/neck 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 Nolasco, 05/18/2017 History of ERCP 02/16/2022 Family History Mother Coronary heart disease Father Arthritis Social History Smoking Status: Never smoker Second Hand Exposure: No; Do You Dip or Chew Tobacco: No; Hx Alcohol Use: No Hx Substance Use: No Preferred Language: [place] Communication Ability: Effective Casino Floor Walker Required: No Beliefs That Will Affect Care: None Current Living Situation: Skilled Nursing Current Living Situation Comment: [facility] Other Information That Helps Us Care for You: No Feels Safe at Home: Yes Safety Concerns: Feels Safe At This Time Assistive Devices: Glasses and Mechanical Lift Review of Systems Review of Systems: All systems reviewed & are unremarkable except as noted in HPI & below Physical Exam Constitutional: WD/WN, vitals as above + ill appearing and + morbidly obese Neck: + thick neck Respiratory: + labored breathing; + not able to speak in complete sentence Auscultation: + diminished lung sounds (anteriorly) Cardiovascular: Rate/Rhythm: + irregularly irregular Heart Sounds: + murmur (II/ systolic murmur LSB) Vessels: + JVD (thick neck - unable to assess JVD) Extremities: + edema (2-3+ edema to thighs) Gastrointestinal (Abdomen): Inspection/Auscultation: + abdomen distended (obese) Neurologic: PERRL, EOMI, accommodation nl, no face palsy, no dysarthria Results & Data Vital Signs (Past 12 Hours) Vital Signs Temp Pulse Pulse Resp BP BP Pulse Ox 04/03/23 07:27 36.4 C L 86 20 128/80 95 04/03/23 03:41 82 21 97 04/03/23 03:30 36.6 C 60 20 131/81 95 04/03/23 01:05 87 04/03/23 00:02 78 04/03/23 00:02 04/02/23 23:26 91 H 23 97 04/02/23 23:01 36.5 C 86 20 124/77 94 04/02/23 20:31 36.8 C 81 14 148/91 H 93 O2 Del Method O2 Flow Rate 04/03/23 07:27 Nasal Cannula 4 04/03/23 03:41 3 04/03/23 03:30 Room Air 04/03/23 01:05 04/03/23 00:02 04/03/23 00:02 Nasal Cannula 4 04/02/23 23:26 3 04/02/23 23:01 Nasal Cannula 3 04/02/23 20:31 Nasal Cannula 4 Laboratory Results Cardiac Enzymes 04/02/23 04/03/23 Range/Units 15:03 06:05 AST 20 20 (13-39) U/L Troponin I High Sens 8.9 (0-20) pg/ml CBC 04/02/23 04/03/23 Range/Units 15:03 06:05 WBC 10.43 9.05 (4.8-10.8) K/ul RBC 3.89 L 3.69 L (4.70-6.10) M/uL Hgb 12.5 L 12.1 L (14.0-18.0) g/dl Hct 36.3 L 34.2 L (42.0-52.0) % Plt Count 120 L 150 (130-400) K/uL Neut # (Auto) 3.23 (1.40-6.50) K/uL Lymph # (Auto) 4.63 H (1.20-3.40) K/uL [place] # (Auto) 0.83 H (0.11-0.59) K/uL Eos # (Auto) 0.20 (0.00-0.50) K/uL Baso # (Auto) 0.08 (0.00-0.20) K/uL Comprehensive Metabolic Panel 04/02/23 04/02/23 04/03/23 Range/Units 15:03 19:57 00:20 Sodium 119 L* 121 L 121 L (136-145) mmol/L Potassium 4.0 4.0 3.8 (3.5-5.1) mmol/L Chloride 87 L 87 L 87 L (98-107) mmol/L Carbon Dioxide 27 27 30 (21-32) mmol/L BUN 10 9 9 (6-23) mg/dl Creatinine 0.71 0.65 0.67 (0.6-1.4) mg/dl Glucose 174 H 134 H 130 H (70-99(Fasting)) mg/dl Calcium 8.2 L 8.2 L 8.3 L (8.6-10.3) mg/dl AST 20 (13-39) U/L ALT 13 (7-52) U/L Alkaline Phosphatase 76 (34-104) U/L Total Protein 6.3 (6.0-8.3) gm/dl Albumin 3.5 (3.4-5.0) gm/dl 04/03/23 Range/Units 06:05 Sodium 123 L (136-145) mmol/L Potassium 3.7 (3.5-5.1) mmol/L Chloride 88 L (98-107) mmol/L Carbon Dioxide 31 (21-32) mmol/L BUN 8 (6-23) mg/dl Creatinine 0.66 (0.6-1.4) mg/dl Glucose 125 H (70-99(Fasting)) mg/dl Calcium 8.2 L (8.6-10.3) mg/dl AST 20 (13-39) U/L ALT 12 (7-52) U/L Alkaline Phosphatase 61 (34-104) U/L Total Protein 6.0 (6.0-8.3) gm/dl Albumin 3.5 (3.4-5.0) gm/dl Intake and Output 04/02/23 04/03/23 04/03/23 22:59 06:59 14:59 Intake Total 200 / 200 Output Total 1000 / 3700 2700 / 3700 Balance -1000 / -3500 -2500 / -3500 Intake: Oral 200 / 200 Output: Urine 1000 / 3700 2700 / 3700 Other: Weight 173 kg 172.1 kg Weight Measurement Method Built in Bedscale Built in [facility] Diagnostic Findings Telemetry reviewed: Atrial fibrillation, with controlled ventricular rates, occ PVC's EKG on admission 04/02/23: Atrial fibrillation with PVC's Low voltage QRS Left anterior fascicular block Inferior infarct (cited on or before 10-JUN-2022) Cannot rule out Anterior infarct (cited on or before 10-JUN-2022) When compared with prior EKG in May 2022: Atrial fibrillation has replaced Sinus rhythm chest xray per report on 04/02/23: IMPRESSION: No acute chest disease. Cardiomegaly is noted. Echocardiogram reviewed from May 2022 during admission to [facility]: Technically limited study LV is normal in size Mild concentric LVH No regional wall motion abnormalities EF 55-60% Grade I diastolic dysfunction Aortic valve leaflets are moderately calcified wiht mild restriction leaflet mobility Mild to moderate valvular aortic stenosis Moderate mitral annular calcification No mitral valve stenosis Medications Administered Current Inpatient Medications Acetaminophen (Acetaminophen 325 Mg Tab) 650 mg PO Q4H PRN PRN Reason: Pain or Fever Stop: 05/02/23 20:26 Al Hydrox/Mg Hydrox/Simethicone (Aluminum/Magnesium Susp 30 Ml Udc) 15 ml PO Q4H PRN PRN Reason: Dyspepsia Stop: 05/02/23 20:26 Artificial Tears (Artificial Tears) 1 drops OP Q4H PRN PRN Reason: Dryness Stop: 05/02/23 20:31 Aspirin (Aspirin 81 Mg Ectab) 81 mg PO QAM MARTINE Stop: 05/03/23 08:59 Bisacodyl (Bisacodyl 10 Mg Supp) 10 mg VT UD PRN PRN Reason: Constipation Stop: 05/02/23 20:26 Ciprofloxacin (Ciprofloxacin Hcl 0.3% Op Soln 2.5 Ml Btl) 1 drops OPR BID MARTINE Stop: 04/12/23 20:59 Last Admin: 04/02/23 21:58 Dose: 1 drops Colchicine (Colchicine 0.6 Mg Tab) 0.6 mg PO BID MARTINE Stop: 05/02/23 20:59 Last Admin: 04/02/23 21:59 Dose: 0.6 mg Dextrose (Dextrose 50% 50 Ml Syringe) 25 - 50 ml IV UD PRN; Protocol PRN Reason: Hypoglycemia Protocol Stop: 05/02/23 20:26 Duloxetine HCl (Duloxetine Hcl 20 Mg Cap) 20 mg PO HS MARTINE Stop: 05/02/23 20:59 Last Admin: 04/02/23 21:59 Dose: 20 mg Enoxaparin Sodium (Enoxaparin Inj 40 Mg/0.4 Ml Syr) 40 mg SQ Q12 MARTINE Stop: 05/02/23 20:59 Last Admin: 04/02/23 21:59 Dose: 40 mg Furosemide (Furosemide 40 Mg/4 Ml Vial) 40 mg IV [id number] MARTINE Stop: 05/02/23 20:59 Last Admin: 04/02/23 22:00 Dose: 40 mg Glucagon (Glucagon For Inj 1 Mg Vial) 1 mg SQ UD PRN; Protocol PRN Reason: Hypoglycemia Protocol Stop: 05/02/23 20:26 Glucose (Glucose 10 Tab/Tube) 4 - 8 tab PO UD PRN; Protocol PRN Reason: Hypoglycemia Treatment Stop: 05/02/23 20:26 Glucose (Glucose 40% Gel 15 Gm Tube) 15 - 30 gm PO UD PRN; Protocol PRN Reason: Hypoglycemia Protocol Stop: 05/02/23 20:26 Hydroxychloroquine Sulfate (Hydroxychloroquine Sulfate 200 Mg Tab) 200 mg PO HS [facility] Stop: 05/02/23 20:59 Last Admin: 04/02/23 22:01 Dose: 200 mg Insulin Aspart (Insulin Aspart Per Unit Charge) 0 units SC ACHS MARTINE Stop: 05/02/23 20:59 Last Admin: 04/02/23 22:04 Dose: Not Given Insulin Glargine (Lantus Per Unit Charge) 0 - 10 units SQ BID MARTINE Stop: 05/02/23 20:59 Last Admin: 04/02/23 22:01 Dose: 5 units Magnesium Hydroxide (Magnesium Hydroxide Susp 30 Ml Udc) 30 ml PO Q12H PRN PRN Reason: Constipation Stop: 05/02/23 20:26 Miscellaneous (Febuxostat: Order Awaiting Action) 1 each N/A QS MARTINE Stop: 05/03/23 00:00 Last Admin: 04/03/23 01:43 Dose: Not Given Miscellaneous (Carbohydrates For Hypoglycemia ) 15 - 30 gm PO UD PRN PRN Reason: Hypoglycemia Protocol Stop: 05/02/23 20:26 Ondansetron HCl (Ondansetron Inj 2 Mg/Ml 2 Ml Vial) 4 mg IV Q6H PRN PRN Reason: Nausea Stop: 05/02/23 20:26 Oxybutynin Chloride (Oxybutynin Chloride 5 Mg Tab) 5 mg PO QAM [facility] Stop: 05/03/23 08:59 Oxycodone HCl (Oxycodone Hcl Ir 5 Mg Tab (Immediate Release)) 5 mg PO TID MARTINE Stop: 04/16/23 21:29 Last Admin: 04/02/23 22:01 Dose: 5 mg Polyethylene Glycol (Polyethylene (Miralax) 17 Gm Pack) 17 gm PO DAILY PRN PRN Reason: Constipation Stop: 05/02/23 20:26 Terbinafine HCl (Terbinafine Cr 30 Gm Tube) 1 appln EXT DAILY [facility] Stop: 05/03/23 08:59 Vitamin D (Cholecalciferol 1,000 Units 25 Mcg Tab) 2,000 units PO QAM [facility] Stop: 05/03/23 08:59
--- NOTE | 2023-04-03 10:08 | Hospitalist Progress Note ---
Date of Service April 03, 2023 Assessment & Plan (1) Acute on chronic heart failure with preserved ejection fraction (HFpEF): (2) Acute hyponatremia: Plan 77-year-old gentleman with PMH of chronic diastolic heart failure on Lasix, presented (from [facility]) to the ED with worsening shortness of breath since last few days. He is being managed for the following: Acute on chronic heart failure with preserved ejection fraction morbid obesity and questionable dietary indiscretions--"I just eat what they give me" Strict I's and O's, fluid restriction of 1500 mL/day, heart healthy diet, low- sodium diet, good response to IV Lasix which is continued. Monitor replete electrolytes. Cardiology consulted New onset atrial fibrillation remains in afib on telemetry-HR is controlled without rate control agents. Per cardiology recommend he transition to apixaban from Lovenox started on admission. Echo results pending. Hyponatremia: Baseline sodium appears around 137, admitting sodium of 119, likely hypervolemic hyponatremia. Acuity unsure. Patient with no headache or dizziness or orientation issues. Nephro consultation With presentation most likely related to hypervolemic hyponatremia in the setting of acute congestive heart failure continue with fluid restriction 1500 cc/day and 80 IV twice daily of Lasix. Hurtado catheter in place continue to monitor strict I's and O's. No spironolactone for now and will hold off on EZEQUIEL ARB for at least 1 more day. Trend BMP. Lower ext cellulitis: Pt treated with oral augmentin which has been completed. He has lower extremities wounds on his anterior tibiae and his toes from a recent fall per his report. morbidly obese: lifestyle changes recommended LARISA: cpap at T2DM: diet controlled, a1c 6.2 on 03/31/23, lantus/novolog per protocol Other chronic medical conditions: As mentioned in HPI, continue with/resume home meds as and when able. DVT prophylaxis: Lovenox PT/OT DNR/DNI I spent a total [id number] coordinating, documenting, and providing care for this patient excluding time spent in the performance of separately billed services DO [facility] Hospitalist Admission and Anticipated Discharge Date Admission Date: April 02, 2023 Subjective 77-year-old man admitted for acute on chronic heart failure with preserved ejection fraction Worsening shortness of breath and volume overload in the setting of morbid obesity and right heart failure. Patient is \\very poor historian Reports his breathing is somewhat better Hurtado was very difficult to place per nursing staff Physical Exam Physical Exam: CONSTITUTIONAL: obese, vitals as above, generally NAD EYES: normal conjunctivae, no scleral icterus ENT: external ear and nose normal, MMM NECK: trachea midline RESPIRATORY: clear to auscultation bilaterally, no crackles, rales or wheezes, normal respiratory effort CARDIOVASCULAR: regular rate and rhythm, S1 and 2 heard without murmurs, gallops or rubs, no JVD, no peripheral edema CHEST: inspection of chest was normal GASTROINTESTINAL: soft, nontender, ND, no guarding MUSCULOSKELETAL: generalized weakness, cannot move around the bed independently, head is normocephalic and atraumatic, SKIN: warm and dry NEUROLOGIC: CN 2-12 grossly intact, no sensory deficit, normal cognition, normal speech, no tremor PSYCHIATRIC: alert cooperative and oriented to person, place and time. Results & Data Results & Data Vital Signs (Past 12 Hours) Vital Signs Temp Pulse Pulse Resp BP BP Pulse Ox 04/03/23 09:57 67 144/86 H 04/03/23 07:27 36.4 C L 86 20 128/80 95 04/03/23 03:41 82 21 97 04/03/23 03:30 36.6 C 60 20 131/81 95 04/03/23 01:05 87 04/03/23 00:02 78 04/03/23 00:02 04/02/23 23:26 91 H 23 97 04/02/23 23:01 36.5 C 86 20 124/77 94 O2 Del Method O2 Flow Rate 04/03/23 09:57 04/03/23 07:27 Nasal Cannula 4 04/03/23 03:41 3 04/03/23 03:30 Room Air 04/03/23 01:05 04/03/23 00:02 04/03/23 00:02 Nasal Cannula 4 04/02/23 23:26 3 04/02/23 23:01 Nasal Cannula 3 Laboratory Results Short CBC 04/02/23 04/03/23 Range/Units 15:03 06:05 WBC 10.43 9.05 (4.8-10.8) K/ul Hgb 12.5 L 12.1 L (14.0-18.0) g/dl Hct 36.3 L 34.2 L (42.0-52.0) % Plt Count 120 L 150 (130-400) K/uL BMP 04/02/23 04/02/23 04/03/23 15:03 19:57 00:20 Sodium 119 L* 121 L 121 L Potassium 4.0 4.0 3.8 Chloride 87 L 87 L 87 L Carbon Dioxide 27 27 30 BUN 10 9 9 Creatinine 0.71 0.65 0.67 Glucose 174 H 134 H 130 H Calcium 8.2 L 8.2 L 8.3 L 04/03/23 06:05 Sodium 123 L Potassium 3.7 Chloride 88 L Carbon Dioxide 31 BUN 8 Creatinine 0.66 Glucose 125 H Calcium 8.2 L Liver Function 04/02/23 04/03/23 Range/Units 15:03 06:05 Total Bilirubin 1.5 H 2.1 H (0.2-1.0) mg/dl AST 20 20 (13-39) U/L ALT 13 12 (7-52) U/L Alkaline Phosphatase 76 61 (34-104) U/L Albumin 3.5 3.5 (3.4-5.0) gm/dl Medications Administered Current Inpatient Medications Acetaminophen (Acetaminophen 325 Mg Tab) 650 mg PO Q4H PRN PRN Reason: Pain or Fever Stop: 05/02/23 20:26 Al Hydrox/Mg Hydrox/Simethicone (Aluminum/Magnesium Susp 30 Ml Udc) 15 ml PO Q4H PRN PRN Reason: Dyspepsia Stop: 05/02/23 20:26 Artificial Tears (Artificial Tears) 1 drops OP Q4H PRN PRN Reason: Dryness Stop: 05/02/23 20:31 Aspirin (Aspirin 81 Mg Ectab) 81 mg PO QAM [facility] Stop: 05/03/23 08:59 Bisacodyl (Bisacodyl 10 Mg Supp) 10 mg AK UD PRN PRN Reason: Constipation Stop: 05/02/23 20:26 Ciprofloxacin (Ciprofloxacin Hcl 0.3% Op Soln 2.5 Ml Btl) 1 drops OPR BID [facility] Stop: 04/12/23 20:59 Last Admin: 04/02/23 21:58 Dose: 1 drops Colchicine (Colchicine 0.6 Mg Tab) 0.6 mg PO BID [facility] Stop: 05/02/23 20:59 Last Admin: 04/02/23 21:59 Dose: 0.6 mg Dextrose (Dextrose 50% 50 Ml Syringe) 25 - 50 ml IV UD PRN; Protocol PRN Reason: Hypoglycemia Protocol Stop: 05/02/23 20:26 Duloxetine HCl (Duloxetine Hcl 20 Mg Cap) 20 mg PO HS [facility] Stop: 05/02/23 20:59 Last Admin: 04/02/23 21:59 Dose: 20 mg Enoxaparin Sodium (Enoxaparin Inj 40 Mg/0.4 Ml Syr) 40 mg SQ Q12 [facility] Stop: 05/02/23 20:59 Last Admin: 04/02/23 21:59 Dose: 40 mg Furosemide (Furosemide 40 Mg/4 Ml Vial) 80 mg IV [id number] [facility] Stop: 05/03/23 09:59 Glucagon (Glucagon For Inj 1 Mg Vial) 1 mg SQ UD PRN; Protocol PRN Reason: Hypoglycemia Protocol Stop: 05/02/23 20:26 Glucose (Glucose 10 Tab/Tube) 4 - 8 tab PO UD PRN; Protocol PRN Reason: Hypoglycemia Treatment Stop: 05/02/23 20:26 Glucose (Glucose 40% Gel 15 Gm Tube) 15 - 30 gm PO UD PRN; Protocol PRN Reason: Hypoglycemia Protocol Stop: 05/02/23 20:26 Hydroxychloroquine Sulfate (Hydroxychloroquine Sulfate 200 Mg Tab) 200 mg PO HS [facility] Stop: 05/02/23 20:59 Last Admin: 04/02/23 22:01 Dose: 200 mg Insulin Aspart (Insulin Aspart Per Unit Charge) 0 units SC ACHS [facility] Stop: 05/02/23 20:59 Last Admin: 04/02/23 22:04 Dose: Not Given Insulin Glargine (Lantus Per Unit Charge) 0 - 10 units SQ BID [facility] Stop: 05/02/23 20:59 Last Admin: 04/02/23 22:01 Dose: 5 units Magnesium Hydroxide (Magnesium Hydroxide Susp 30 Ml Udc) 30 ml PO Q12H PRN PRN Reason: Constipation Stop: 05/02/23 20:26 Magnesium Oxide (Magnesium Oxide 400 Mg Tab) 400 mg PO BID [facility] Stop: 05/03/23 09:59 Miscellaneous (Febuxostat: Order Awaiting Action) 1 each N/A QS [facility] Stop: 05/03/23 00:00 Last Admin: 04/03/23 01:43 Dose: Not Given Miscellaneous (Carbohydrates For Hypoglycemia ) 15 - 30 gm PO UD PRN PRN Reason: Hypoglycemia Protocol Stop: 05/02/23 20:26 Ondansetron HCl (Ondansetron Inj 2 Mg/Ml 2 Ml Vial) 4 mg IV Q6H PRN PRN Reason: Nausea Stop: 05/02/23 20:26 Oxybutynin Chloride (Oxybutynin Chloride 5 Mg Tab) 5 mg PO QAM [facility] Stop: 05/03/23 08:59 Oxycodone HCl (Oxycodone Hcl Ir 5 Mg Tab (Immediate Release)) 5 mg PO TID [facility] Stop: 04/16/23 21:29 Last Admin: 04/02/23 22:01 Dose: 5 mg Polyethylene Glycol (Polyethylene (Miralax) 17 Gm Pack) 17 gm PO DAILY PRN PRN Reason: Constipation Stop: 05/02/23 20:26 Potassium Chloride (Potassium Chloride Crtab 20 Meq Tabcr) 20 meq PO BID [facility] Stop: 05/03/23 09:59 Terbinafine HCl (Terbinafine Cr 30 Gm Tube) 1 appln EXT DAILY [facility] Stop: 05/03/23 08:59 Vitamin D (Cholecalciferol 1,000 Units 25 Mcg Tab) 2,000 units PO QAM [facility] Stop: 05/03/23 08:59
--- NOTE | 2023-04-03 10:58 | Nephrology Consultation ---
Date of Consultation April 03, 2023 Assessment & Plan (1) Acute hyponatremia: Acute hyponatremia with serum sodium of 119 on presentation and is most likely related with hypervolemic hyponatremia in the setting of acute congestive heart failure. Agree with fluid restriction of 1500 mL/day with Lasix 80 IV twice daily. With that sodium did go up slightly to 123. Patient does admit to drinking massive amount of water. Obviously he cannot do this as it will be impossible to manage his fluid status. BMP twice daily. Agree with plan of placing special urinary catheter and monitoring input and output accurately. Given the clinical setting difficult to interpret urinary osmolarity and electrolytes study. However we will need to manage him as a case of hypervolemic hyponatremia with excessive water drinking (2) Acute on chronic heart failure with preserved ejection fraction (HFpEF): Lasix 80 IV twice daily No spironolactone for now. We will hold off on the EZEQUIEL and ARB for at least 1 more day till we get slightly better serum sodium. History of Present Illness Reason for Consultation: Hyponatremia Attending Physician: Samantha Koch, History of Present Illness 77/M with diastolic heart failure, LARISA on CPAP, T2DM, CAD, HTN,PVD of both lower extremities, Super morbid obesity--bed bound status , B-cell lymphoma, rheumatoid arthritis presented to the ED from [facility] with complaint of shortness of breath for the last few days. He denies cough or sore throat or chest pain or palpitation. Denies headache or dizziness. He has been experiencing orthopnea. He does wear a CPAP at bedtime and has been compliant with this. According to half-way records patient has had a significant weight gain of several pounds last few days. At baseline patient is typically on 40 mg of Lasix daily although due to patient request and it was reduced to 20 mg daily but after increased weight gain and swelling, Lasix was increased back to 40 mg daily as of 03/31/2023. Patient reports that he drink a lot of water and adds extra salt to his diet, he maintains that he is compliant with his Lasix dose and has been taking it for many years. Sodium on admission was 119 and now is 123. He is being managed as acute on chronic congestive heart failure and is getting Lasix 80 IV twice a day. With that sodium has gone up from 119-1 23. He feels somewhat better breathing osborne. We do not exactly know his urine output as he needs a special type of catheter which is being placed later today. Review of system----as detailed in HPI and predominantly positive for increasing weight gain swelling and respiratory distress. Otherwise 12 system reviewed and negative Physical Exam Physical Exam: GENERAL: Alert and oriented x3. NAD, morbidly obese, on 4 L oxygen via nasal cannula HEENT: No pallor, no icterus. Pupils equal, round and reactive to light. Oral mucosa moist. NECK: No JVD, no neck masses. HEART: S1 and S2 heard. Regular rate and rhythm. No murmur, no gallop. RESPIRATORY SYSTEM: No accessory muscle use. No wheezing, decreased breath sounds likely secondary to morbid obesity. ABDOMEN: Soft, nontender CENTRAL NERVOUS SYSTEM: No facial droop. Speech is clear. Obeys simple commands. Moves extremities. EXTREMITIES: BLE 2+ edema, chronic skin changes noted. Multiple skin breakdowns on lesions noted around his toes especially in the right side. Allergies Allergy/AdvReac Type Severity Reaction Status Date / Time No Known Allergies Allergy Verified 07/13/22 10:03 Home Medications Medication Instructions Recorded Confirmed Type acetaminophen 500 mg tablet 500 mg PO QAM 06/08/22 04/02/23 History aspirin 81 mg chewable tablet 81 mg PO QAM 06/08/22 04/02/23 History carboxymethylcellulose sodium 1 % 1 drp OPB QAM 06/08/22 04/02/23 History eye gel in a dropperette (Refresh Celluvisc) cholecalciferol (vitamin D3) 50 2,000 unit PO QAM 06/08/22 04/02/23 History mcg (2,000 unit) capsule ciprofloxacin HCl 0.3 % eye drops 1 drp OPR BID 06/08/22 04/02/23 History colchicine 0.6 mg tablet 0.6 mg PO BID 06/08/22 04/02/23 History duloxetine 20 mg capsule,delayed 20 mg PO HS 06/08/22 04/02/23 History release febuxostat 80 mg tablet 80 mg PO QAM 06/08/22 04/02/23 History furosemide 40 mg tablet 40 mg PO QAM 06/08/22 04/02/23 History hydroxychloroquine 200 mg tablet 200 mg PO HS 06/08/22 04/02/23 History oxybutynin chloride 5 mg tablet 5 mg PO QAM 06/08/22 04/02/23 History terbinafine HCl 1 % topical cream 1 applic topical DAILY 06/08/22 04/02/23 History tramadol 50 mg tablet 50 mg PO TID 06/08/22 04/02/23 History acetaminophen 325 mg tablet 325 mg PO QID PRN pain/fever 07/13/22 04/02/23 History bisacodyl 10 mg rectal suppository 10 mg KS UD PRN Constipation 07/13/22 04/02/23 History (Dulcolax (bisacodyl)) magnesium hydroxide 400 mg/5 mL 30 ml PO DAILY PRN Constipation 07/13/22 04/02/23 History oral suspension (Milk of Magnesia) sodium phosphates 19 gram-7 118 ml KS DAILY PRN Constipation 07/13/22 04/02/23 History gram/118 mL enema (Fleet Enema) spironolactone 25 mg tablet 12.5 mg PO QAM 07/13/22 04/02/23 History (Aldactone) Patient History Medical History Atherosclerotic heart disease of [place] coronary artery without angina pectoris Vitamin D deficiency Constipation Dry eye syndrome SCC (squamous cell carcinoma), arm rt upper limb and shoulder Chronic pain Xerosis cutis Candidiasis of skin and nail Unspecified exotropia Disc displacement, lumbar Abnormality of gait and mobility Repeated falls 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, limited to breakdown of skin Polyosteoarthritis Gout Choledocholithiasis Amputation of thumb Elevated CA 19-9 level MRSA colonization Hx of nonmelanoma skin cancer Umbilical hernia Exotropia, right eye Rheumatoid arthritis SCC (squamous cell carcinoma), scalp/neck 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 Gaurav mercaod, 05/18/2017 History of ERCP 02/16/2022 Family History Mother Coronary heart disease Father Arthritis Social History Smoking Status: Never smoker Second Hand Exposure: No; Do You Dip or Chew Tobacco: No; Hx Alcohol Use: No Hx Substance Use: No Preferred Language: Armenian Communication Ability: Effective Seasonal Clerk Required: No Beliefs That Will Affect Care: None Current Living Situation: Assisted Current Living Situation Comment: [facility] Other Information That Helps Us Care for You: No Feels Safe at Home: Yes Safety Concerns: Feels Safe At This Time Assistive Devices: Glasses and Mechanical Lift Results & Data Vital Signs (Past 12 Hours) Vital Signs Temp Pulse Pulse Resp BP BP Pulse Ox 04/03/23 09:57 67 144/86 H 04/03/23 07:27 36.4 C L 86 20 128/80 95 04/03/23 03:41 82 21 97 04/03/23 03:30 36.6 C 60 20 131/81 95 04/03/23 01:05 87 04/03/23 00:02 78 04/03/23 00:02 04/02/23 23:26 91 H 23 97 04/02/23 23:01 36.5 C 86 20 124/77 94 O2 Del Method O2 Flow Rate 04/03/23 09:57 04/03/23 07:27 Nasal Cannula 4 04/03/23 03:41 3 04/03/23 03:30 Room Air 04/03/23 01:05 04/03/23 00:02 04/03/23 00:02 Nasal Cannula 4 04/02/23 23:26 3 04/02/23 23:01 Nasal Cannula 3 Laboratory Results Sodium was 119 on admission yesterday and now it is 123.
[2023-04-03] MEDS: INSULIN ASPART PER UNIT CHARGE SC SCH ×4 (11:03→20:45)
[2023-04-03] MEDS: ASPIRIN 81 MG ECTAB PO SCH (11:08)
[2023-04-03] MEDS: oxyBUTYnin chloride 5 MG TAB PO SCH (11:09)
[2023-04-03] MEDS: CHOLECALCIFEROL 1,000 UNITS 25 MCG TAB PO SCH (11:09)
[2023-04-03] MEDS: CIPROFLOXACIN HCL 0.3% OP SOLN 2.5 ML BTL OPR SCH ×2 (11:10→20:43)
[2023-04-03] MEDS: LANTUS PER UNIT CHARGE SQ SCH ×2 (11:10→20:45)
[2023-04-03] MEDS: POTASSIUM CHLORIDE CRTAB 20 MEQ TABCR PO SCH ×2 (11:25→20:47)
[2023-04-03] MEDS: APIXABAN 5 MG TABLET PO SCH ×2 (11:25→20:42)
[2023-04-03] MEDS: FUROSEMIDE 40 MG/4 ML VIAL IV SCH ×3 (11:25→18:24)
[2023-04-03] MEDS: MAGNESIUM OXIDE 400 MG TAB PO SCH ×2 (11:25→20:46)
[2023-04-03] MEDS: TERBINAFINE CR 30 GM TUBE EXT SCH (11:26)
[2023-04-03] MEDS: COLCHICINE 0.6 MG TAB PO SCH ×2 (11:26→20:50)
[2023-04-03] MEDS: oxyCODONE HCL IR 5 MG TAB (IMMEDIATE RELEASE) PO SCH ×3 (11:30→20:42)
[2023-04-03 12:38] LABS: BUN Creatinine Ratio 12.7 (10-20); Calcium 8.3 mg/dl (8.6-10.3); Creatinine Clr Calc Pharmacy 155.2 ml/min; Est GFR (African American) 108.6 ml/min; Est GFR (Non-African American) 93.7 ml/min
[2023-04-03 17:30] LABS: BUN Creatinine Ratio 13.6 (10-20); Calcium 8.4 mg/dl (8.6-10.3); Creatinine Clr Calc Pharmacy 148.1 ml/min; Est GFR (African American) 106.6 ml/min; Potassium 3.6 mmol/L (3.5-5.1)
[2023-04-03] MEDS: ENOXAPARIN INJ 40 MG/0.4 ML SYR SQ SCH (17:37)
[2023-04-03] MEDS: DULoxetine HCL 20 MG CAP PO SCH (20:44)
[2023-04-03] MEDS: HYDROXYCHLOROQUINE SULFATE 200 MG TAB PO SCH (20:44)
[2023-04-03 21:27] LABS: BUN Creatinine Ratio 13.9 (10-20); Calcium 8.4 mg/dl (8.6-10.3); Creatinine Clr Calc Pharmacy 135.8 ml/min; Est GFR (African American) 102.8 ml/min; Est GFR (Non-African American) 88.7 ml/min; Potassium 3.8 mmol/L (3.5-5.1)
[2023-04-03] MEDS: MAGNESIUM SULFATE / D5W 1 GM/100 ML BAG IV SCH (23:20)
[2023-04-04] MEDS: MAGNESIUM SULFATE / D5W 1 GM/100 ML BAG IV SCH (01:27)
[2023-04-04 07:29] LABS: Hematocrit (blood only) 35.2 % (42.0-52.0); Hemoglobin 12.1 g/dl (14.0-18.0); Mean Corpuscular Hemoglobin 31.8 pg (25.0-34.0); Mean Corpuscular Hgb Conc 34.4 g/dL (32.0-36.0); Mean Corpuscular Volume 92.4 fL (80.0-100.0); Mean Platelet Volume 8.5 fL (9.4-12.4); Platelet Count 146 K/uL (130-400); RDW Coefficient of Variation 17.6 % (11.5-14.5); RDW Standard Deviation 58.6 fL (36.4-46.3); Red Blood Count 3.81 M/uL (4.70-6.10)
[2023-04-04 07:36] LABS: Albumin Globulin Ratio 1.4 (0.9-2); Albumin Level 3.4 gm/dl (3.4-5.0); BUN Creatinine Ratio 17.6 (10-20); Bilirubin,Total 2.2 mg/dl (0.2-1.0); Calcium 8.1 mg/dl (8.6-10.3); Creatinine Clr Calc Pharmacy 143.9 ml/min; Est GFR (African American) 105.3 ml/min; Est GFR (Non-African American) 90.8 ml/min; Globulin 2.5 gm/dl (2.5-4.0); Magnesium 1.8 mg/dl (1.7-2.4); Potassium 3.5 mmol/L (3.5-5.1); Total Protein 5.9 gm/dl (6.0-8.3)
[2023-04-04 07:50] LABS: Thyroid Stimulating Hormone 2.665 uIu/ml (0.300-4.500)
[2023-04-04 07:52] LABS: Basophils # (auto) 0.06 K/uL (0.00-0.20); Basophils % (auto) 0.7 %; Eosinophils # (auto) 0.17 K/uL (0.00-0.50); Eosinophils % (auto) 1.8 %; Immature Granulocytes # (auto) 0.08 K/uL (0.01-0.20); Immature Granulocytes % (auto) 0.9 %; Lymphocytes # (auto) 4.33 K/uL (1.20-3.40); Lymphocytes % (auto) 47.1 %; Monocytes # (auto) 1.03 K/uL (0.11-0.59); Monocytes % (auto) 11.2 %; Neutrophils # (auto) 3.53 K/uL (1.40-6.50); Neutrophils % (auto) 38.3 %; Smudge Cells Present
[2023-04-04] MEDS: INSULIN ASPART PER UNIT CHARGE SC SCH ×2 (08:59→12:44)
[2023-04-04] MEDS: CIPROFLOXACIN HCL 0.3% OP SOLN 2.5 ML BTL OPR SCH ×2 (09:15→21:18)
[2023-04-04] MEDS: CHOLECALCIFEROL 1,000 UNITS 25 MCG TAB PO SCH (09:16)
[2023-04-04] MEDS: FUROSEMIDE 40 MG/4 ML VIAL IV SCH ×2 (09:16→21:17)
[2023-04-04] MEDS: oxyBUTYnin chloride 5 MG TAB PO SCH (09:16)
[2023-04-04] MEDS: ASPIRIN 81 MG ECTAB PO SCH (09:16)
[2023-04-04] MEDS: TERBINAFINE CR 30 GM TUBE EXT SCH (09:17)
[2023-04-04] MEDS: LANTUS PER UNIT CHARGE SQ SCH (09:21)
[2023-04-04] MEDS: oxyCODONE HCL IR 5 MG TAB (IMMEDIATE RELEASE) PO SCH ×4 (09:22→21:24)
[2023-04-04] MEDS: APIXABAN 5 MG TABLET PO SCH ×2 (09:24→21:17)
[2023-04-04] MEDS: POTASSIUM CHLORIDE CRTAB 20 MEQ TABCR PO SCH ×2 (09:26→21:20)
--- NOTE | 2023-04-04 09:37 | Hospitalist Progress Note ---
Date of Service April 04, 2023 Assessment & Plan (1) Acute on chronic heart failure with preserved ejection fraction (HFpEF): (2) Acute hyponatremia: Plan 77-year-old gentleman with PMH of chronic diastolic heart failure on Lasix, presented (from [facility]) to the ED with worsening shortness of breath since last few days. He is being managed for the following: Acute on chronic heart failure with preserved ejection fraction morbid obesity and questionable dietary indiscretions--"I just eat what they give me" Strict I's and O's, fluid restriction of 1500 mL/day, heart healthy diet, low- sodium diet, good response to IV Lasix which is continued. Morning dose (04/05) will be held until volume is reassessed given brisk response to initial lasix IV challenge. Monitor replete electrolytes-trending daily. Slightly low magnesium yesterday improved from 1.5-1.8 after 2 g of IV magnesium. Continue oral magnesium and with mag of 1.8 and ongoing Lasix will give 1 more gram of mag IV now. Repeat in AM. Cardiology consulted New onset atrial fibrillation remains in afib on telemetry-HR is controlled without rate control agents. Per cardiology recommend he transition to apixaban from Lovenox started on admission. Echo reveals EF 55-60%. Small circumferential pericardial effusion without hemodynamic significance. Hyponatremia: Baseline sodium appears around 137, admitting sodium of 119, likely hypervolemic hyponatremia. Patient with no headache or dizziness or orientation issues. Nephro consultation With presentation most likely related to hypervolemic hyponatremia in the setting of acute congestive heart failure continue with fluid restriction 1500 cc/day and 80 IV twice daily of Lasix. Camarena catheter in place continue to monitor strict I's and O's. Prior to camarena placement on 04/03, bladder scan reading was difficult to assess given body habitus. He did have 1200 out in the camarena within one hour of placement and overall a significant output yesterday altogether. There may be some NOWAK present that was contributing to initial picture. Continue to hold off on spironolactone or any EZEQUIEL/ARB. Notably blood pressure is 99/64. Nephro following. Lower ext cellulitis: Pt treated with oral augmentin which has been completed. He has lower extremities wounds on his anterior tibiae and his toes from a recent fall per his report. morbidly obese: lifestyle changes recommended LARISA: cpap at HS T2DM: diet controlled, a1c 6.2 on 03/31/23, lantus/novolog per protocol has been declined by patient several times. Will DC BSG checks and insulin at this time. Continue with outpatient follow-up. Other chronic medical conditions: As mentioned in HPI, continue with/resume home meds as and when able. DVT prophylaxis: Lovenox PT/OT DNR/DNI I spent a total [id number] coordinating, documenting, and providing care for this patient excluding time spent in the performance of separately billed services DO [facility] Hospital[facility] Admission and Anticipated Discharge Date Admission Date: April 02, 2023 Subjective 77-year-old man admitted for acute on chronic heart failure with preserved ejection fraction improved SOB denies pain eating lunch without issue family present at bedside and updated feels swelling is improved in legs Physical Exam Physical Exam: CONSTITUTIONAL: obese, vitals as above, generally NAD EYES: normal conjunctivae, no scleral icterus ENT: external ear and nose normal, MMM NECK: trachea midline RESPIRATORY: clear to auscultation bilaterally, no crackles, rales or wheezes, normal respiratory effort CARDIOVASCULAR: regular rate and rhythm, S1 and 2 heard without murmurs, gallops or rubs, no JVD, no peripheral edema CHEST: inspection of chest was normal GASTROINTESTINAL: soft, nontender, ND, no guarding MUSCULOSKELETAL: generalized weakness, cannot move around the bed independently, head is normocephalic and atraumatic, SKIN: warm and dry NEUROLOGIC: CN 2-12 grossly intact, no sensory deficit, normal cognition, normal speech, no tremor PSYCHIATRIC: alert cooperative and oriented to person, place and time. Results & Data Results & Data Vital Signs (Past 12 Hours) Vital Signs Temp Pulse Pulse Resp BP BP Pulse Ox 04/04/23 07:13 36.5 C 83 19 103/60 91 04/04/23 04:34 88 21 96 04/04/23 02:50 36.6 C 88 20 107/69 95 04/04/23 01:08 78 04/03/23 23:25 84 21 95 04/03/23 22:17 36.8 C 83 20 122/79 95 O2 Del Method O2 Flow Rate 04/04/23 07:13 Nasal Cannula 4 04/04/23 04:34 3 04/04/23 02:50 CPAP 04/04/23 01:08 04/03/23 23:25 3 04/03/23 22:17 Nasal Cannula 3 Laboratory Results Short CBC 04/04/23 Range/Units 06:22 WBC 9.20 (4.8-10.8) K/ul Hgb 12.1 L (14.0-18.0) g/dl Hct 35.2 L (42.0-52.0) % Plt Count 146 (130-400) K/uL BMP 04/03/23 04/03/23 04/03/23 11:53 16:52 20:38 Sodium 122 L 124 L 126 L Potassium 4.0 3.6 3.8 Chloride 88 L 87 L 86 L Carbon Dioxide 31 33 H 34 H BUN 8 9 10 Creatinine 0.63 0.66 0.72 Glucose 131 H 119 H 132 H Calcium 8.3 L 8.4 L 8.4 L 04/04/23 06:22 Sodium 126 L Potassium 3.5 Chloride 86 L Carbon Dioxide 35 H BUN 12 Creatinine 0.68 Glucose 127 H Calcium 8.1 L Liver Function 04/04/23 Range/Units 06:22 Total Bilirubin 2.2 H (0.2-1.0) mg/dl AST 20 (13-39) U/L ALT 11 (7-52) U/L Alkaline Phosphatase 57 (34-104) U/L Albumin 3.4 (3.4-5.0) gm/dl Medications Administered Current Inpatient Medications Acetaminophen (Acetaminophen 325 Mg Tab) 650 mg PO Q4H PRN PRN Reason: Pain or Fever Stop: 05/02/23 20:26 Al Hydrox/Mg Hydrox/Simethicone (Aluminum/Magnesium Susp 30 Ml Udc) 15 ml PO Q4H PRN PRN Reason: Dyspepsia Stop: 05/02/23 20:26 Apixaban (Apixaban 5 Mg Tablet) 5 mg PO BID [facility] Stop: 05/03/23 10:14 Last Admin: 04/04/23 09:24 Dose: 5 mg Artificial Tears (Artificial Tears) 1 drops OP Q4H PRN PRN Reason: Dryness Stop: 05/02/23 20:31 Aspirin (Aspirin 81 Mg Ectab) 81 mg PO QAM [facility] Stop: 05/03/23 08:59 Last Admin: 04/04/23 09:16 Dose: 81 mg Bisacodyl (Bisacodyl 10 Mg Supp) 10 mg [place] UD PRN PRN Reason: Constipation Stop: 05/02/23 20:26 Ciprofloxacin (Ciprofloxacin Hcl 0.3% Op Soln 2.5 Ml Btl) 1 drops OPR BID [facility] Stop: 04/12/23 20:59 Last Admin: 04/04/23 09:15 Dose: 37 drops Colchicine (Colchicine 0.6 Mg Tab) 0.6 mg PO BID [facility] Stop: 05/02/23 20:59 Last Admin: 04/03/23 20:50 Dose: 0.6 mg Dextrose (Dextrose 50% 50 Ml Syringe) 25 - 50 ml IV UD PRN; Protocol PRN Reason: Hypoglycemia Protocol Stop: 05/02/23 20:26 Duloxetine HCl (Duloxetine Hcl 20 Mg Cap) 20 mg PO HS [facility] Stop: 05/02/23 20:59 Last Admin: 04/03/23 20:44 Dose: 20 mg Furosemide (Furosemide 40 Mg/4 Ml Vial) 80 mg IV BID17 [facility] Stop: 05/03/23 09:59 Last Admin: 04/04/23 09:16 Dose: 80 mg Glucagon (Glucagon For Inj 1 Mg Vial) 1 mg SQ UD PRN; Protocol PRN Reason: Hypoglycemia Protocol Stop: 05/02/23 20:26 Glucose (Glucose 10 Tab/Tube) 4 - 8 tab PO UD PRN; Protocol PRN Reason: Hypoglycemia Treatment Stop: 05/02/23 20:26 Glucose (Glucose 40% Gel 15 Gm Tube) 15 - 30 gm PO UD PRN; Protocol PRN Reason: Hypoglycemia Protocol Stop: 05/02/23 20:26 Hydroxychloroquine Sulfate (Hydroxychloroquine Sulfate 200 Mg Tab) 200 mg PO HS [facility] Stop: 05/02/23 20:59 Last Admin: 04/03/23 20:44 Dose: 200 mg Insulin Aspart (Insulin Aspart Per Unit Charge) 0 units SC ACHS [facility] Stop: 05/02/23 20:59 Last Admin: 04/04/23 08:59 Dose: Not Given Insulin Glargine (Lantus Per Unit Charge) 0 - 10 units SQ BID [facility] Stop: 05/02/23 20:59 Last Admin: 04/04/23 09:21 Dose: 5 units Magnesium Hydroxide (Magnesium Hydroxide Susp 30 Ml Udc) 30 ml PO Q12H PRN PRN Reason: Constipation Stop: 05/02/23 20:26 Magnesium Oxide (Magnesium Oxide 400 Mg Tab) 400 mg PO BID [facility] Stop: 05/03/23 09:59 Last Admin: 04/03/23 20:46 Dose: 400 mg Miscellaneous (Carbohydrates For Hypoglycemia ) 15 - 30 gm PO UD PRN PRN Reason: Hypoglycemia Protocol Stop: 05/02/23 20:26 Ondansetron HCl (Ondansetron Inj 2 Mg/Ml 2 Ml Vial) 4 mg IV Q6H PRN PRN Reason: Nausea Stop: 05/02/23 20:26 Oxybutynin Chloride (Oxybutynin Chloride 5 Mg Tab) 5 mg PO QAM [facility] Stop: 05/03/23 08:59 Last Admin: 04/04/23 09:16 Dose: 5 mg Oxycodone HCl (Oxycodone Hcl Ir 5 Mg Tab (Immediate Release)) 5 mg PO TID [facility] Stop: 04/16/23 21:29 Last Admin: 04/04/23 09:22 Dose: 5 mg Polyethylene Glycol (Polyethylene (Miralax) 17 Gm Pack) 17 gm PO DAILY PRN PRN Reason: Constipation Stop: 05/02/23 20:26 Potassium Chloride (Potassium Chloride Crtab 20 Meq Tabcr) 40 meq PO BID [facility] Stop: 05/04/23 08:59 Last Admin: 04/04/23 09:26 Dose: 40 meq Terbinafine HCl (Terbinafine Cr 30 Gm Tube) 1 appln EXT DAILY [facility] Stop: 05/03/23 08:59 Last Admin: 04/04/23 09:17 Dose: 1 appln Vitamin D (Cholecalciferol 1,000 Units 25 Mcg Tab) 2,000 units PO QAM [facility] Stop: 05/03/23 08:59 Last Admin: 04/04/23 09:16 Dose: 2,000 units
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
--- NOTE | 2023-04-04 11:07 | Cardiology Progress Note ---
Date of Service April 04, 2023 Assessment & Plan (1) Acute on chronic heart failure with preserved ejection fraction (HFpEF): (2) Acute hyponatremia: (3) Atrial fibrillation with controlled ventricular rate: Plan Patient admitted for worsening SOB/hypoxia, volume overload, consistent with acute on chronic heart failure preserved EF in setting of morbid obesity, right heart failure, hypoventilatory syndrome -Patient needs aggressive diuresis. Increase furosemide to 80 mg IV BID this morning -Hurtado to be placed -Monitor I+O's -Monitor sodium, potassium. -Supplement magnesium and potassium -Spironolactone on hold due to hyponatremia -Nephrology consulted for hyponatremia - likely due to hypervolemic state. -Sodium improving from 119 to 123 this morning. Monitor Atrial fibrillation is new diagnosis. Rates are well controlled. -[id number] score of 5 - Anticoagulation therapy is recommended for stroke prophylaxis. -Currently receiving Lovenox 40 mg q 12 for DVT proph. Verified with nursing staff, did not yet receive Lovenox this morning. will Discontinue and transition to Eliquis 5 mg BID 04/04/23: Patient with 7 L output since yesterday. Sodium levels improving, now 126. Appreciate Nephrology input. Monitor I+O's Continue IV furosemide 80 mg BID today. Hold dose in AM 11/8 until evaluated and labs reviewed. Supplement potassium - increased to 40 meq BID Afib, rates controlled - Continue Eliquis for anticoagulation/stroke prophylaxis. echo revealed preserved LVEF, Moderate aortic stenosis - will monitor as outpatient. Case discussed with Dr. Drew Marino spent a total of 30 minutes on the date of service in preparation, delivery, and documentation of the care provided to this patient, excluding any time spent in the performance of separately billed services. Alisha Walters PA-C Department of Cardiology, [facility] This chart was completed in part utilizing Speech Voice Recognition Software. Grammatical errors, random word insertions, pronoun errors, and incomplete sentences are an occasional consequence of this system due to software limitations, ambient noise, and hardware issues. Any formal questions or concerns about the content, text, or information contained within the body of this dictation should be directly addressed to the provider for clarification. Admission and Anticipated Discharge Date Admission Date: April 02, 2023 Supervising Physician Co-Signing Physician Notes Patient seen and personally examined assessment and plan as outlined above Morbidly obese male who presented with acute decompensated diastolic heart failure, multifactorial including valvular disease atrial arrhythmias and hypoventilation syndrome Patient responding briskly to IV diuretics but still with significant volume overload We will hold a.m. dosing until reviewed Nocturnal oximetry to be ordered as patient becomes closer to discharge Subjective Patient resting in bed. Reports SOB improving. Less orthopneic. Less conversational dyspnea. Diuresed about 7 L output since yesterday. Edema improving in legs. Wound consult placed for LE ulcerations. Review of Systems Review of Systems: All systems reviewed & are unremarkable except as noted in HPI & below Physical Exam Constitutional: WD/WN, vitals as above + ill appearing and + morbidly obese Neck: + thick neck Respiratory: able to speak in complete sentences (Mild conversational dyspnea); no respiratory distress Auscultation: + diminished lung sounds (anteriorly) Cardiovascular: Rate/Rhythm: + irregularly irregular Heart Sounds: + murmur (II/ systolic murmur LSB) Vessels: + JVD (thick neck - unable to assess JVD) Extremities: + edema (1+ edema b/l with chronic stasis changes. ) Gastrointestinal (Abdomen): Inspection/Auscultation: + abdomen distended (obese) Neurologic: PERRL, EOMI, accommodation nl, no face palsy, no dysarthria Results & Data Vital Signs (Past 12 Hours) Vital Signs Temp Pulse Pulse Resp BP BP Pulse Ox 04/04/23 07:13 36.5 C 83 19 103/60 91 04/04/23 04:34 88 21 96 04/04/23 02:50 36.6 C 88 20 107/69 95 04/04/23 01:08 78 04/03/23 23:25 84 21 95 O2 Del Method O2 Flow Rate 04/04/23 07:13 Nasal Cannula 4 04/04/23 04:34 3 04/04/23 02:50 CPAP 04/04/23 01:08 04/03/23 23:25 3 Laboratory Results Cardiac Enzymes 04/04/23 Range/Units 06:22 AST 20 (13-39) U/L CBC 04/04/23 Range/Units 06:22 WBC 9.20 (4.8-10.8) K/ul RBC 3.81 L (4.70-6.10) M/uL Hgb 12.1 L (14.0-18.0) g/dl Hct 35.2 L (42.0-52.0) % Plt Count 146 (130-400) K/uL Neut # (Auto) 3.53 (1.40-6.50) K/uL Lymph # (Auto) 4.33 H (1.20-3.40) K/uL [place] # (Auto) 1.03 H (0.11-0.59) K/uL Eos # (Auto) 0.17 (0.00-0.50) K/uL Baso # (Auto) 0.06 (0.00-0.20) K/uL Comprehensive Metabolic Panel 04/03/23 04/03/23 04/03/23 Range/Units 11:53 16:52 20:38 Sodium 122 L 124 L 126 L (136-145) mmol/L Potassium 4.0 3.6 3.8 (3.5-5.1) mmol/L Chloride 88 L 87 L 86 L (98-107) mmol/L Carbon Dioxide 31 33 H 34 H (21-32) mmol/L BUN 8 9 10 (6-23) mg/dl Creatinine 0.63 0.66 0.72 (0.6-1.4) mg/dl Glucose 131 H 119 H 132 H (70-99(Fasting)) mg/dl Calcium 8.3 L 8.4 L 8.4 L (8.6-10.3) mg/dl AST (13-39) U/L ALT (7-52) U/L Alkaline Phosphatase (34-104) U/L Total Protein (6.0-8.3) gm/dl Albumin (3.4-5.0) gm/dl 04/04/23 Range/Units 06:22 Sodium 126 L (136-145) mmol/L Potassium 3.5 (3.5-5.1) mmol/L Chloride 86 L (98-107) mmol/L Carbon Dioxide 35 H (21-32) mmol/L BUN 12 (6-23) mg/dl Creatinine 0.68 (0.6-1.4) mg/dl Glucose 127 H (70-99(Fasting)) mg/dl Calcium 8.1 L (8.6-10.3) mg/dl AST 20 (13-39) U/L ALT 11 (7-52) U/L Alkaline Phosphatase 57 (34-104) U/L Total Protein 5.9 L (6.0-8.3) gm/dl Albumin 3.4 (3.4-5.0) gm/dl Intake and Output 04/03/23 04/04/23 04/04/23 22:59 06:59 14:59 Intake Total 400 / 1530 400 / 1530 Output Total 4700 / 7125 1000 / 7125 Balance -4300 / -5595 -600 / -5595 Intake: IV 200 / 200 Magnesium Sulfate / D5w 1 gm In 200 / 200 100 ml @ 50 mls/hr IV Q2H [facility] Rx#:[id number] Oral 400 / 1330 200 / 1330 Output: Urine Amount (Catheter) 4700 / 6925 1000 / 6925 Hurtado/Indwelling 4700 / 6925 1000 / 6925 Other: Weight 172.1 kg 172.3 kg Weight Measurement Method Built in [facility] Diagnostic Findings Telemetry reviewed: Atrial fibrillation with rates ranging 80-100 bpm. Occ PVC Echo revealed Normal LVEF at 55-60% Mild concentric LVH LA is severely dilated Moderate Small circumferential pericardial effusion Medications Administered Current Inpatient Medications Acetaminophen (Acetaminophen 325 Mg Tab) 650 mg PO Q4H PRN PRN Reason: Pain or Fever Stop: 05/02/23 20:26 Al Hydrox/Mg Hydrox/Simethicone (Aluminum/Magnesium Susp 30 Ml Udc) 15 ml PO Q4H PRN PRN Reason: Dyspepsia Stop: 05/02/23 20:26 Apixaban (Apixaban 5 Mg Tablet) 5 mg PO BID [facility] Stop: 05/03/23 10:14 Last Admin: 04/04/23 09:24 Dose: 5 mg Artificial Tears (Artificial Tears) 1 drops OP Q4H PRN PRN Reason: Dryness Stop: 05/02/23 20:31 Aspirin (Aspirin 81 Mg Ectab) 81 mg PO QAM [facility] Stop: 05/03/23 08:59 Last Admin: 04/04/23 09:16 Dose: 81 mg Bisacodyl (Bisacodyl 10 Mg Supp) 10 mg [place] UD PRN PRN Reason: Constipation Stop: 05/02/23 20:26 Ciprofloxacin (Ciprofloxacin Hcl 0.3% Op Soln 2.5 Ml Btl) 1 drops OPR BID [facility] Stop: 04/12/23 20:59 Last Admin: 04/04/23 09:15 Dose: 1 drops Colchicine (Colchicine 0.6 Mg Tab) 0.6 mg PO BID [facility] Stop: 05/02/23 20:59 Last Admin: 04/03/23 20:50 Dose: 0.6 mg Dextrose (Dextrose 50% 50 Ml Syringe) 25 - 50 ml IV UD PRN; Protocol PRN Reason: Hypoglycemia Protocol Stop: 05/02/23 20:26 Duloxetine HCl (Duloxetine Hcl 20 Mg Cap) 20 mg PO HS [facility] Stop: 05/02/23 20:59 Last Admin: 04/03/23 20:44 Dose: 20 mg Furosemide (Furosemide 40 Mg/4 Ml Vial) 80 mg IV BID17 [facility] Stop: 05/03/23 09:59 Last Admin: 04/04/23 09:16 Dose: 80 mg Glucagon (Glucagon For Inj 1 Mg Vial) 1 mg SQ UD PRN; Protocol PRN Reason: Hypoglycemia Protocol Stop: 05/02/23 20:26 Glucose (Glucose 10 Tab/Tube) 4 - 8 tab PO UD PRN; Protocol PRN Reason: Hypoglycemia Treatment Stop: 05/02/23 20:26 Glucose (Glucose 40% Gel 15 Gm Tube) 15 - 30 gm PO UD PRN; Protocol PRN Reason: Hypoglycemia Protocol Stop: 05/02/23 20:26 Hydroxychloroquine Sulfate (Hydroxychloroquine Sulfate 200 Mg Tab) 200 mg PO HS [facility] Stop: 05/02/23 20:59 Last Admin: 04/03/23 20:44 Dose: 200 mg Insulin Aspart (Insulin Aspart Per Unit Charge) 0 units SC ACHS [facility] Stop: 05/02/23 20:59 Last Admin: 04/04/23 08:59 Dose: Not Given Insulin Glargine (Lantus Per Unit Charge) 0 - 10 units SQ BID [facility] Stop: 05/02/23 20:59 Last Admin: 04/04/23 09:21 Dose: 5 units Magnesium Hydroxide (Magnesium Hydroxide Susp 30 Ml Udc) 30 ml PO Q12H PRN PRN Reason: Constipation Stop: 05/02/23 20:26 Magnesium Oxide (Magnesium Oxide 400 Mg Tab) 400 mg PO BID [facility] Stop: 05/03/23 09:59 Last Admin: 04/03/23 20:46 Dose: 400 mg Miscellaneous (Carbohydrates For Hypoglycemia ) 15 - 30 gm PO UD PRN PRN Reason: Hypoglycemia Protocol Stop: 05/02/23 20:26 Ondansetron HCl (Ondansetron Inj 2 Mg/Ml 2 Ml Vial) 4 mg IV Q6H PRN PRN Reason: Nausea Stop: 05/02/23 20:26 Oxybutynin Chloride (Oxybutynin Chloride 5 Mg Tab) 5 mg PO QAM [facility] Stop: 05/03/23 08:59 Last Admin: 04/04/23 09:16 Dose: 5 mg Oxycodone HCl (Oxycodone Hcl Ir 5 Mg Tab (Immediate Release)) 5 mg PO TID [facility] Stop: 04/16/23 21:29 Last Admin: 04/04/23 09:22 Dose: 5 mg Polyethylene Glycol (Polyethylene (Miralax) 17 Gm Pack) 17 gm PO DAILY PRN PRN Reason: Constipation Stop: 05/02/23 20:26 Potassium Chloride (Potassium Chloride Crtab 20 Meq Tabcr) 40 meq PO BID [facility] Stop: 05/04/23 08:59 Last Admin: 04/04/23 09:26 Dose: 40 meq Terbinafine HCl (Terbinafine Cr 30 Gm Tube) 1 appln EXT DAILY [facility] Stop: 05/03/23 08:59 Last Admin: 04/04/23 09:17 Dose: 1 appln Vitamin D (Cholecalciferol 1,000 Units 25 Mcg Tab) 2,000 units PO QAM [facility] Stop: 05/03/23 08:59 Last Admin: 04/04/23 09:16 Dose: 2,000 units
[2023-04-04] MEDS: COLCHICINE 0.6 MG TAB PO SCH ×2 (12:33→21:18)
[2023-04-04] MEDS ORDERED: MAGNESIUM SULFATE / D5W 1 GM/100 ML BAG IV ONE (13:24)
[2023-04-04] MEDS: DULoxetine HCL 20 MG CAP PO SCH (21:19)
[2023-04-04] MEDS: HYDROXYCHLOROQUINE SULFATE 200 MG TAB PO SCH (21:19)
[2023-04-04] MEDS: MAGNESIUM OXIDE 400 MG TAB PO SCH (21:20)
[2023-04-05 08:18] LABS: Calcium 8.4 mg/dl (8.6-10.3); Magnesium 1.9 mg/dl (1.7-2.4)
[2023-04-05 08:24] LABS: BUN Creatinine Ratio 22.9 (10-20); Creatinine Clr Calc Pharmacy 139.8 ml/min; Est GFR (Non-African American) 89.8 ml/min
[2023-04-05] MEDS: ASPIRIN 81 MG ECTAB PO SCH (08:58)
[2023-04-05] MEDS: POTASSIUM CHLORIDE CRTAB 20 MEQ TABCR PO SCH ×2 (08:58→20:53)
[2023-04-05] MEDS: oxyBUTYnin chloride 5 MG TAB PO SCH (08:58)
[2023-04-05] MEDS: CHOLECALCIFEROL 1,000 UNITS 25 MCG TAB PO SCH (08:58)
[2023-04-05] MEDS: MAGNESIUM OXIDE 400 MG TAB PO SCH ×2 (08:58→20:53)
[2023-04-05] MEDS: CIPROFLOXACIN HCL 0.3% OP SOLN 2.5 ML BTL OPR SCH ×2 (08:59→20:54)
[2023-04-05] MEDS: TERBINAFINE CR 30 GM TUBE EXT SCH (08:59)
[2023-04-05] MEDS: COLCHICINE 0.6 MG TAB PO SCH ×2 (08:59→20:54)
[2023-04-05] MEDS: APIXABAN 5 MG TABLET PO SCH ×2 (08:59→20:54)
[2023-04-05] MEDS: oxyCODONE HCL IR 5 MG TAB (IMMEDIATE RELEASE) PO SCH ×3 (09:01→20:52)
[2023-04-05] MEDS ORDERED: FUROSEMIDE 40 MG/4 ML VIAL IV SCH (09:15)
--- NOTE | 2023-04-05 09:47 | Cardiology Progress Note ---
Date of Service April 05, 2023 Assessment & Plan (1) Acute on chronic heart failure with preserved ejection fraction (HFpEF): (2) Acute hyponatremia: (3) Atrial fibrillation with controlled ventricular rate: Plan Patient admitted for worsening SOB/hypoxia, volume overload, consistent with acute on chronic heart failure preserved EF in setting of morbid obesity, right heart failure, hypoventilatory syndrome -Patient needs aggressive diuresis. Increase furosemide to 80 mg IV BID this morning -Hurtado to be placed -Monitor I+O's -Monitor sodium, potassium. -Supplement magnesium and potassium -Spironolactone on hold due to hyponatremia -Nephrology consulted for hyponatremia - likely due to hypervolemic state. -Sodium improving from 119 to 123 this morning. Monitor Atrial fibrillation is new diagnosis. Rates are well controlled. -[id number] score of 5 - Anticoagulation therapy is recommended for stroke prophylaxis. -Currently receiving Lovenox 40 mg q 12 for DVT proph. Verified with nursing staff, did not yet receive Lovenox this morning. will Discontinue and transition to Eliquis 5 mg BID 04/04/23: Patient with 7 L output since yesterday. Sodium levels improving, now 126. Appreciate Nephrology input. Monitor I+O's Continue IV furosemide 80 mg BID today. Hold dose in AM 04/05 until evaluated and labs reviewed. Supplement potassium - increased to 40 meq BID Afib, rates controlled - Continue Eliquis for anticoagulation/stroke prophylaxis. echo revealed preserved LVEF, Moderate aortic stenosis - will monitor as outpatient. 04/05/23: Aggressive diuresis once again noted over the last 24 hours Output > 3 liters once again. Sodium levels continue to improve, increasing to 128 this morning. CO2 trending slightly higher Reduce furosemide to 40 mg IV BID today. Monitor I+O's Consider resuming spironolactone within the next 24 hours. Will need to reduce oral potassium. Continue Eliquis for stroke prophylaxis with afib. Rates controlled Patient reports compliance with BIPAP at night. May need to have supplemental O2 ordered during the day on discharge. Case discussed with Dr. Drew Marino spent a total of 30 minutes on the date of service in preparation, delivery, and documentation of the care provided to this patient, excluding any time spent in the performance of separately billed services. Alisha Walters PA-C Department of Cardiology, [facility] This chart was completed in part utilizing Speech Voice Recognition Software. G rammatical errors, random word insertions, pronoun errors, and incomplete sentences are an occasional consequence of this system due to software limitations, ambient noise, and hardware issues. Any formal questions or concerns about the content, text, or information contained within the body of this dictation should be directly addressed to the provider for clarification. Admission and Anticipated Discharge Date Admission Date: April 02, 2023 Supervising Physician Co-Signing Physician Notes Patient seen and examined, plan and assessment as outlined above Patient has responded to IV diuretics with brisk diuresis Exam reflects improved edema and abdominal girth Laboratory studies with contraction alkalosis We will continue IV diuretics though reduced dose for today Treatment of morbid obesity and hypoventilation syndrome ongoing Subjective Patient resting in bed. Reports he is "feeling good". Asking when he can go home. Reports his breathing seems to be back at baseline. He does not normally wear supplemental O2. He reports compliance with BIPAP at night. Edema improving. Review of Systems Review of Systems: All systems reviewed & are unremarkable except as noted in HPI & below Physical Exam Constitutional: WD/WN, vitals as above + morbidly obese; no acute distress Neck: + thick neck Respiratory: able to speak in complete sentences; no respiratory distress Auscultation: + diminished lung sounds (anteriorly) Cardiovascular: Rate/Rhythm: + irregularly irregular Heart Sounds: + murmur (II/ systolic murmur LSB) Vessels: + JVD (thick neck - unable to assess JVD) Extremities: + edema (1+ edema b/l with chronic stasis changes. ) Gastrointestinal (Abdomen): Inspection/Auscultation: + abdomen distended (obese) Neurologic: PERRL, EOMI, accommodation nl, no face palsy, no dysarthria Results & Data Vital Signs (Past 12 Hours) Vital Signs Temp Pulse Pulse Resp BP BP Pulse Ox 04/05/23 07:18 36.3 C L 87 20 150/60 H 91 04/05/23 03:56 24 90 04/05/23 02:29 36.5 C 91 H 22 121/82 95 04/05/23 00:00 86 04/04/23 23:30 36.8 C 91 H 16 109/63 92 04/04/23 23:19 77 22 94 O2 Del Method O2 Flow Rate 04/05/23 07:18 Room Air 4 04/05/23 03:56 4 04/05/23 02:29 CPAP 4 04/05/23 00:00 04/04/23 23:30 Nasal Cannula 4 04/04/23 23:19 3 Laboratory Results Comprehensive Metabolic Panel 04/05/23 Range/Units 06:27 Sodium 128 L (136-145) mmol/L Potassium 4.0 (3.5-5.1) mmol/L Chloride 88 L (98-107) mmol/L Carbon Dioxide 37 H (21-32) mmol/L BUN 16 (6-23) mg/dl Creatinine 0.70 (0.6-1.4) mg/dl Glucose 142 H (70-99(Fasting)) mg/dl Calcium 8.4 L (8.6-10.3) mg/dl Intake and Output 04/04/23 04/05/23 04/05/23 22:59 06:59 14:59 Intake Total 100 / 580 Output Total 550 / 3101 451 / 3101 Balance -450 / -2521 -451 / -2521 Intake: IV 100 / 100 Magnesium Sulfate / D5w 1 gm In 100 / 100 100 ml @ 50 mls/hr IV ONE ONE Rx#:[id number] Output: Urine Amount (Catheter) 550 / 3100 450 / 3100 Hurtado/Indwelling 550 / 3100 450 / 3100 # Bowel Movements Other: Other Intake Source Sips Sips Diagnostic Findings Telemetry reviewed: Atrial fibrillation with controlled ventricular rates at 80- 90s. Medications Administered Current Inpatient Medications Acetaminophen (Acetaminophen 325 Mg Tab) 650 mg PO Q4H PRN PRN Reason: Pain or Fever Stop: 05/02/23 20:26 Al Hydrox/Mg Hydrox/Simethicone (Aluminum/Magnesium Susp 30 Ml Udc) 15 ml PO Q4H PRN PRN Reason: Dyspepsia Stop: 05/02/23 20:26 Apixaban (Apixaban 5 Mg Tablet) 5 mg PO BID PENDING SALE TO [facility] Stop: 05/03/23 10:14 Last Admin: 04/05/23 08:59 Dose: 5 mg Artificial Tears (Artificial Tears) 1 drops OP Q4H PRN PRN Reason: Dryness Stop: 05/02/23 20:31 Aspirin (Aspirin 81 Mg Ectab) 81 mg PO QAM PENDING SALE TO [facility] Stop: 05/03/23 08:59 Last Admin: 04/05/23 08:58 Dose: 81 mg Bisacodyl (Bisacodyl 10 Mg Supp) [address] UD PRN PRN Reason: Constipation Stop: 05/02/23 20:26 Ciprofloxacin (Ciprofloxacin Hcl 0.3% Op Soln 2.5 Ml Btl) 1 drops OPR BID MARTINE Stop: 04/12/23 20:59 Last Admin: 04/05/23 08:59 Dose: 1 drops Colchicine (Colchicine 0.6 Mg Tab) 0.6 mg PO BID MARTINE Stop: 05/02/23 20:59 Last Admin: 04/05/23 08:59 Dose: 0.6 mg Duloxetine HCl (Duloxetine Hcl 20 Mg Cap) 20 mg PO HS MARTINE Stop: 05/02/23 20:59 Last Admin: 04/04/23 21:19 Dose: 20 mg Furosemide (Furosemide 40 Mg/4 Ml Vial) 40 mg IV BID17 MARTINE Stop: 05/05/23 09:14 Hydroxychloroquine Sulfate (Hydroxychloroquine Sulfate 200 Mg Tab) 200 mg PO HS MARTINE Stop: 05/02/23 20:59 Last Admin: 04/04/23 21:19 Dose: 200 mg Magnesium Hydroxide (Magnesium Hydroxide Susp 30 Ml Udc) 30 ml PO Q12H PRN PRN Reason: Constipation Stop: 05/02/23 20:26 Magnesium Oxide (Magnesium Oxide 400 Mg Tab) 400 mg PO BID MARTINE Stop: 05/03/23 09:59 Last Admin: 04/05/23 08:58 Dose: 400 mg Ondansetron HCl (Ondansetron Inj 2 Mg/Ml 2 Ml Vial) 4 mg IV Q6H PRN PRN Reason: Nausea Stop: 05/02/23 20:26 Oxybutynin Chloride (Oxybutynin Chloride 5 Mg Tab) 5 mg PO QAM MARTINE Stop: 05/03/23 08:59 Last Admin: 04/05/23 08:58 Dose: 5 mg Oxycodone HCl (Oxycodone Hcl Ir 5 Mg Tab (Immediate Release)) 5 mg PO TID MARTINE Stop: 04/16/23 21:29 Last Admin: 04/05/23 09:01 Dose: 5 mg Polyethylene Glycol (Polyethylene (Miralax) 17 Gm Pack) 17 gm PO DAILY PRN PRN Reason: Constipation Stop: 05/02/23 20:26 Potassium Chloride (Potassium Chloride Crtab 20 Meq Tabcr) 40 meq PO BID MARTINE Stop: 05/04/23 08:59 Last Admin: 04/05/23 08:58 Dose: 40 meq Terbinafine HCl (Terbinafine Cr 30 Gm Tube) 1 appln EXT DAILY MARTINE Stop: 05/03/23 08:59 Last Admin: 04/05/23 08:59 Dose: 1 appln Vitamin D (Cholecalciferol 1,000 Units 25 Mcg Tab) 2,000 units PO QAM MARTINE Stop: 05/03/23 08:59 Last Admin: 04/05/23 08:58 Dose: 2,000 units
--- NOTE | 2023-04-05 10:12 | Nephrology Progress Note ---
Date of Service April 05, 2023 Assessment & Plan Admission and Anticipated Discharge Date Admission Date: April 02, 2023 Subjective Assessment & Plan (1) Acute hyponatremia: Acute hyponatremia with serum sodium of 119 on presentation and is most likely related with hypervolemic hyponatremia in the setting of acute congestive heart failure. Agree with fluid restriction of 1500 mL/day with Lasix 80 IV twice daily. With that sodium did go up slightly to 126 now. Patient does admit to drinking massive amount of water. Obviously he cannot do this as it will be impossible to manage his fluid status. BMP daily. Agree with plan of placing special urinary catheter and monitoring input and output accurately. Given the clinical setting difficult to interpret urinary osmolarity and electrolytes study. However we will need to manage him as a case of hypervolemic hyponatremia with excessive water drinking na now 128. Urine 6900 ml after Camarena so some component of NOWAK was also present. 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 very difficult cannulation. Place urology consult. Lasix iv for one more day and continue to hold Aldactone for now. (2) Acute on chronic heart failure with preserved ejection fraction (HFpEF): No spironolactone for now. like to wait till . 130 We will hold off on the EZEQUIEL and ARB for at least 1 more day till we get slightly better serum sodium. S--urine 3300 ml yesterday after 6900 ml day before. after camarena placed. feels better. Physical Exam Physical Exam: GENERAL: Alert and oriented x3. NAD, morbidly obese, on 4 L oxygen via nasal cannula HEENT: No pallor, no icterus. Pupils equal, round and reactive to light. Oral mucosa moist. NECK: No JVD, no neck masses. HEART: S1 and S2 heard. Regular rate and rhythm. No murmur, no gallop. RESPIRATORY SYSTEM: No accessory muscle use. No wheezing, decreased breath sounds likely secondary to morbid obesity. ABDOMEN: Soft, nontender CENTRAL NERVOUS SYSTEM: No facial droop. Speech is clear. Obeys simple commands. Moves extremities. EXTREMITIES: BLE 2+ edema, chronic skin changes noted. Multiple skin breakdowns on lesions noted around his toes especially in the right side. Results & Data Vital Signs (Past 12 Hours) Vital Signs Temp Pulse Pulse Resp BP BP Pulse Ox 04/05/23 08:00 04/05/23 07:18 36.3 C L 87 20 150/60 H 91 04/05/23 03:56 24 90 04/05/23 02:29 36.5 C 91 H 22 121/82 95 04/05/23 00:00 86 04/04/23 23:30 36.8 C 91 H 16 109/63 92 04/04/23 23:19 77 22 94 O2 Del Method O2 Flow Rate 04/05/23 08:00 Nasal Cannula 4 04/05/23 07:18 Room Air 4 04/05/23 03:56 4 04/05/23 02:29 CPAP 4 04/05/23 00:00 04/04/23 23:30 Nasal Cannula 4 04/04/23 23:19 3
--- NOTE | 2023-04-05 11:41 | Urology Consultation ---
Date of Consultation April 05, 2023 Assessment & Plan (1) Obesity: (2) Urinary retention: 77 yo M with multiple comorbidities admitted for acute on chronic heart failure with preserved ejection fraction, volume overload, and acute hyponatremia. 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 Patient presented to the ED on 04/02/2023 from [facility] with complaint of worsening shortness of breath and significant weight gain noted. He was admitted for acute on chronic heart failure with preserved ejection fraction, volume overload and acute hyponatremia. He has been undergoing aggressive diuresis. Sodium on arrival was 119, steadily improving and now 128. Cardiology and nephrology following. Hurtado catheter was placed on 04/03/2023 with significant urine output of approximately 6900 mL. There was difficulty with Hurtado placement due to his anatomy. Urology is consulted for penile deformity, difficult Hurtado catheter, bladder outlet obstruction. Chart review: Afebrile, hemodynamically stable, on supplemental oxygen. Labs todaycreatinine 0.70, sodium 128, WBC 9.2, hemoglobin 12.1. Patient seen and examined at bedside. He is awake and resting in bed, no apparent distress. He is tolerating Hurtado catheter. Hurtado is patent and draining appropriately. He denies abdominal, flank pain. No nausea, vomiting, fever or chills. He denies bothersome LUTS at baseline. Reports he typically voids into a urinal. Feels he empties his bladder well. No hesitancy. No dysuria or hematuria. No bothersome urinary frequency, urgency or incontinence. Patient was asked about retracted penis. He reports he always had a small penis since he was a child. He denies any penile trauma. Allergies Allergy/AdvReac Type Severity Reaction Status Date / Time No Known Allergies Allergy Verified 07/13/22 10:03 Home Medications Medication Instructions Recorded Confirmed Type acetaminophen 500 mg tablet 500 mg PO QAM 06/08/22 04/02/23 History aspirin 81 mg chewable tablet 81 mg PO QAM 06/08/22 04/02/23 History carboxymethylcellulose sodium 1 % 1 drp OPB QAM 06/08/22 04/02/23 History eye gel in a dropperette (Refresh Celluvisc) cholecalciferol (vitamin D3) 50 2,000 unit PO QAM 06/08/22 04/02/23 History mcg (2,000 unit) capsule ciprofloxacin HCl 0.3 % eye drops 1 drp OPR BID 06/08/22 04/02/23 History colchicine 0.6 mg tablet 0.6 mg PO BID 06/08/22 04/02/23 History duloxetine 20 mg capsule,delayed 20 mg PO HS 06/08/22 04/02/23 History release febuxostat 80 mg tablet 80 mg PO QAM 06/08/22 04/02/23 History furosemide 40 mg tablet 40 mg PO QAM 06/08/22 04/02/23 History hydroxychloroquine 200 mg tablet 200 mg PO HS 06/08/22 04/02/23 History oxybutynin chloride 5 mg tablet 5 mg PO QAM 06/08/22 04/02/23 History terbinafine HCl 1 % topical cream 1 applic topical DAILY 06/08/22 04/02/23 History tramadol 50 mg tablet 50 mg PO TID 06/08/22 04/02/23 History acetaminophen 325 mg tablet 325 mg PO QID PRN pain/fever 07/13/22 04/02/23 History bisacodyl 10 mg rectal suppository 10 mg ME UD PRN Constipation 07/13/22 04/02/23 History (Dulcolax (bisacodyl)) magnesium hydroxide 400 mg/5 mL 30 ml PO DAILY PRN Constipation 07/13/22 04/02/23 History oral suspension (Milk of Magnesia) sodium phosphates 19 gram-7 118 ml ME DAILY PRN Constipation 07/13/22 04/02/23 History gram/118 mL enema (Fleet Enema) spironolactone 25 mg tablet 12.5 mg PO QAM 07/13/22 04/02/23 History (Aldactone) Patient History Medical History Atherosclerotic heart disease of [place] coronary artery without angina pectoris Vitamin D deficiency Constipation Dry eye syndrome SCC (squamous cell carcinoma), arm rt upper limb and shoulder Chronic pain Xerosis cutis Candidiasis of skin and nail Unspecified exotropia Disc displacement, lumbar Abnormality of gait and mobility Repeated falls 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, limited to breakdown of skin Polyosteoarthritis Gout Choledocholithiasis Amputation of thumb Elevated CA 19-9 level MRSA colonization Hx of nonmelanoma skin cancer Umbilical hernia Exotropia, right eye Rheumatoid arthritis SCC (squamous cell carcinoma), scalp/neck 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 Nolasco, 05/18/2017 History of ERCP 02/16/2022 Family History Mother Coronary heart disease Father Arthritis Social History Smoking Status: Never smoker Second Hand Exposure: No; Do You Dip or Chew Tobacco: No; Hx Alcohol Use: No Hx Substance Use: No Preferred Language: [place] Communication Ability: Effective Blister Rust Eradicator Required: No Beliefs That Will Affect Care: None Current Living Situation: Retirement Current Living Situation Comment: [facility] Other Information That Helps Us Care for You: No Feels Safe at Home: Yes Safety Concerns: Feels Safe At This Time Assistive Devices: Glasses and Mechanical Lift Review of Systems Review of Systems: All systems reviewed & are unremarkable except as noted in HPI & below Physical Exam Constitutional: + morbidly obese; no acute distress Respiratory: no respiratory distress Supplemental oxygen in place Cardiovascular: Extremities: + edema (Bilateral lower extremities) Gastrointestinal (Abdomen): Inspection/Auscultation: abdomen normal to inspection; abdomen not distended Percussion/Palpation: abdomen soft; abdomen nontender Musculoskeletal: Head/Neck/Chest: normocephalic Skin: Bilateral lower extremity stasis changes Neurologic: moves all extremities and awake Psychiatric: Orientation: alert and oriented x 3 Genitourinary: Hurtado catheter patent and draining with clear yellow urine Catheter was hubbed and stat locked to upper thigh/inguinal fold Exam was difficult due to body habitus Patient appears to have an extremely retracted penis I removed the catheter from the stat lock in order to better assess and not cause too much tension on the catheter I attempted to retract the fat pad surrounding his penis to better examine Patient had some discomfort with this due to the catheter in place, so I ended the exam Results & Data Vital Signs (Past 12 Hours) Vital Signs Temp Pulse Pulse Resp BP BP Pulse Ox 04/05/23 11:15 36.5 C 88 20 108/68 92 04/05/23 08:00 04/05/23 07:18 36.3 C L 87 20 150/60 H 91 04/05/23 03:56 24 90 04/05/23 02:29 36.5 C 91 H 22 121/82 95 04/05/23 00:00 86 O2 Del Method O2 Flow Rate 04/05/23 11:15 Nasal Cannula 4 04/05/23 08:00 Nasal Cannula 4 04/05/23 07:18 Room Air 4 04/05/23 03:56 4 04/05/23 02:29 CPAP 4 04/05/23 00:00 PG Care Time/CCT Total # of Minutes Spent Total Time Spent with Patient: Total time spent is greater than 50% in coordination of care (as documented) at patient's floor/unit and/or counseling patient: Coding Level of Care Code 92932 INT INP/OBS CARE 2/55MIN Diagnoses Obesity E66.9 Urinary retention R33.9
--- NOTE | 2023-04-05 12:12 | Hospitalist Progress Note ---
Date of Service April 05, 2023 Assessment & Plan (1) Acute on chronic heart failure with preserved ejection fraction (HFpEF): (2) Acute hyponatremia: Plan Mr Cruz is a 77-year-old gentleman with PMH of chronic diastolic heart failure on Lasix, HTN, TIIDM, presented (from [facility]) to the ED with worsening shortness of breath since last few days. He is being managed for the following: #Acute urinary retention -c/f bladder outlet obstruction, c/f buried penis (congenital v acquired) per Urology -Nephrology also feels NOWAK likely given robust UOP -Urology on consult: foly 1-2 weeks, OP follow up to be arranged -Start tamsulosin -Discontinue oxybutynin #Acute hypoxic respiratory failure, likely multifactorial -Iso heart failure exacerbation and OHS -Manage as follows #Acute on chronic heart failure with preserved ejection fraction #HTN - TTE (04/03/2023): LVEF 55-60%, - Home diuretics: Lasix 40mg qam Cardiology on consult -Continue aggressive diuresis, but reduce lasix from 80mg BID to 40mg BID IV -Strict I's and O's, fluid restriction of 1500 mL/day, heart healthy diet, low- sodium diet -Holding spironolactone 2/2 hyponatremia #New onset atrial fibrillation History of wandering atrial pacemaker/complex ectopy given comorbidities remains in afib on telemetry-HR is controlled without rate control agents. Per cardiology recommend he transition to apixaban from Lovenox started on admission. Echo reveals EF 55-60%. Small circumferential pericardial effusion without hemodynamic significance. -Continue Eliquis #PAD -Continue ASA #Hypervolemic Hyponatremia Baseline sodium appears around 137, admitting sodium of 119, likely hypervolemic hyponatremia. Patient with no headache or dizziness or orientation issues. Nephro consultation With presentation most likely related to hypervolemic hyponatremia in the setting of acute congestive heart failure continue with fluid restriction 1500 cc/day and 80 IV twice daily of Lasix. Camarena catheter in place continue to monitor strict I's and O's. Prior to camarena placement on 04/03, bladder scan reading was difficult to assess given body habitus. He did have 1200 out in the camarena within one hour of placement and overall a significant output yesterday altogether. -Continue to hold off on spironolactone or any EZEQUIEL/ARB. -Nephrology on consult, appreciate recommendations #Lower ext cellulitis #Skin tear - Pt treated with oral Augmentin which has been completed. He has lower extremities wounds on his anterior tibiae and his toes from a recent fall per his report. #Morbidly obese -lifestyle changes recommended #LARISA -cpap at HS #B-Cell lymphoma Follows Dr. Malone, denies constitutional symptoms, reportedly increased LDH and [id number] c/w comorbidities -LDH in am (last LDH 275 12/2022) #T2DM -diet controlled, a1c 6.2 on 03/31/23, lantus/novolog per protocol has been declined by patient several times. Will DC BSG checks and insulin at this time. Continue with outpatient follow- up. #Rheumatoid arthritis #Gout -Continue plaquenil 200mg daily -Continue colchicine 0.6mg bid #Depression Continue duloxetine DVT prophylaxis: Lovenox PT/OT DNR/DNI I spent a total [id number] coordinating, documenting, and providing care for this patient excluding time spent in the performance of separately billed services Admission and Anticipated Discharge Date Admission Date: April 02, 2023 Subjective NAEO Reports subjective improvement and eagerness to discharge given upcoming birthday Denies chest pain, palpitations, or other acute concerns Review of Systems Review of Systems: All systems reviewed & are unremarkable except as noted in Subjective Physical Exam Constitutional: WD/WN, vitals as above laying flat, conversational, eager to leave Respiratory: difficult to appreciate 2/2 habitus, on 4L NC Cardiovascular: irregularly irregular, 1+ edema bilateral lower extremities, volume status difficult to Results & Data Results & Data Vital Signs (Past 12 Hours) Vital Signs Temp Pulse Resp BP BP Pulse Ox O2 Del Method 04/05/23 11:15 36.5 C 88 20 108/68 92 Nasal Cannula 04/05/23 08:00 Nasal Cannula 04/05/23 07:18 36.3 C L 87 20 150/60 H 91 Room Air 04/05/23 03:56 24 90 04/05/23 02:29 36.5 C 91 H 22 121/82 95 CPAP O2 Flow Rate 04/05/23 11:15 4 04/05/23 08:00 4 04/05/23 07:18 4 04/05/23 03:56 4 04/05/23 02:29 4 Laboratory Results [facility] 04/05/23 06:27 Sodium 128 L Potassium 4.0 Chloride 88 L Carbon Dioxide 37 H BUN 16 Creatinine 0.70 Glucose 142 H Calcium 8.4 L Medications Administered Home Medications Medication Instructions Recorded Confirmed Last Taken acetaminophen 500 mg tablet 500 mg PO QAM 06/08/22 04/02/23 07/14/22 05:00 aspirin 81 mg chewable tablet 81 mg PO PENDING SALE TO [facility] 06/08/22 04/02/23 07/14/22 09:01 carboxymethylcellulose sodium 1 % 1 drp OPB M 06/08/22 04/02/23 07/14/22 09:01 eye gel in a dropperette (Refresh Celluvisc) cholecalciferol (vitamin D3) 50 2,000 unit PO PENDING SALE TO [facility] 06/08/22 04/02/23 07/15/22 09:01 mcg (2,000 unit) capsule ciprofloxacin HCl 0.3 % eye drops 1 drp OPR BID 06/08/22 04/02/23 07/14/22 17:00 colchicine 0.6 mg tablet 0.6 mg PO BID 06/08/22 04/02/23 07/15/22 09:01 duloxetine 20 mg capsule,delayed 20 mg PO 06/08/22 04/02/23 07/14/22 09:01 release febuxostat 80 mg tablet 80 mg PO PENDING SALE TO [facility] 06/08/22 04/02/23 07/14/22 09:01 furosemide 40 mg tablet 40 mg PO PENDING SALE TO [facility] 06/08/22 04/02/23 07/15/22 05:01 hydroxychloroquine 200 mg tablet 200 mg PO 06/08/22 04/02/23 07/14/22 09:01 oxybutynin chloride 5 mg tablet 5 mg PO PENDING SALE TO [facility] 06/08/22 04/02/23 07/15/22 09:01 terbinafine HCl 1 % topical cream 1 applic topical DAILY 06/08/22 04/02/23 07/14/22 19:00 tramadol 50 mg tablet 50 mg PO TID 06/08/22 04/02/23 07/14/22 09:01 acetaminophen 325 mg tablet 325 mg PO QID PRN pain/fever 07/13/22 04/02/23 Unknown bisacodyl 10 mg rectal suppository 10 mg SD UD PRN Constipation 07/13/22 04/02/23 Unknown (Dulcolax (bisacodyl)) magnesium hydroxide 400 mg/5 mL 30 ml PO DAILY PRN Constipation 07/13/22 04/02/23 Unknown oral suspension (Milk of Magnesia) sodium phosphates 19 gram-7 118 ml SD DAILY PRN Constipation 07/13/22 04/02/23 Unknown gram/118 mL enema (Fleet Enema) spironolactone 25 mg tablet 12.5 mg PO QAM 07/13/22 04/02/23 07/15/22 09:01 (Aldactone) Active Medications Generic Name Dose Route Start Last Admin Trade Name Freq PRN Reason Stop Dose Admin Apixaban 5 mg 04/03/23 10:15 04/05/23 08:59 Apixaban 5 Mg Tablet PO 05/03/23 10:14 5 mg BID MARTINE Administration Aspirin 81 mg 04/03/23 09:00 04/05/23 08:58 Aspirin 81 Mg Ectab PO 05/03/23 08:59 81 mg QAM MARTINE Administration Ciprofloxacin 1 drops 04/02/23 21:00 04/05/23 08:59 Ciprofloxacin Hcl 0.3% Op Soln 2.5 Ml Btl OPR 04/12/23 20:59 1 drops BID MARTINE Administration Colchicine 0.6 mg 04/02/23 21:00 04/05/23 08:59 Colchicine 0.6 Mg Tab PO 05/02/23 20:59 0.6 mg BID MARTINE Administration Duloxetine HCl 20 mg 04/02/23 21:00 04/04/23 21:19 Duloxetine Hcl 20 Mg Cap PO 05/02/23 20:59 20 mg HS MARTINE Administration Hydroxychloroquine Sulfate 200 mg 04/02/23 21:00 04/04/23 21:19 Hydroxychloroquine Sulfate 200 Mg Tab PO 05/02/23 20:59 200 mg HS MARTINE Administration Magnesium Oxide 400 mg 04/03/23 10:00 04/05/23 08:58 Magnesium Oxide 400 Mg Tab PO 05/03/23 09:59 400 mg BID MARTINE Administration Oxycodone HCl 5 mg 04/02/23 21:30 04/05/23 09:01 Oxycodone Hcl Ir 5 Mg Tab (Immediate Release) PO 11/19/23 21:29 5 mg TID MARTINE Administration Potassium Chloride 40 meq 04/04/23 09:00 04/05/23 08:58 Potassium Chloride Crtab 20 Meq Tabcr PO 05/04/23 08:59 40 meq BID MARTINE Administration Terbinafine HCl 1 appln 04/03/23 09:00 04/05/23 08:59 Terbinafine Cr 30 Gm Tube EXT 05/03/23 08:59 1 appln DAILY MARTINE Administration Vitamin D 2,000 units 04/03/23 09:00 04/05/23 08:58 Cholecalciferol 1,000 Units 25 Mcg Tab PO 05/03/23 08:59 2,000 units QAM MARTINE Administration
[2023-04-05] MEDS: DULoxetine HCL 20 MG CAP PO SCH (20:53)
[2023-04-05] MEDS: HYDROXYCHLOROQUINE SULFATE 200 MG TAB PO SCH (20:53)
[2023-04-06 07:09] LABS: Calcium 9.1 mg/dl (8.6-10.3); Creatinine Clr Calc Pharmacy 126.6 ml/min; Est GFR (African American) 102.2 ml/min; Est GFR (Non-African American) 88.2 ml/min; Phosphorus 2.8 mg/dl (2.5-4.9)
[2023-04-06 07:15] LABS: Hematocrit (blood only) 38.7 % (42.0-52.0); Mean Corpuscular Hemoglobin 32.7 pg (25.0-34.0); Mean Corpuscular Hgb Conc 33.6 g/dL (32.0-36.0); Mean Corpuscular Volume 97.5 fL (80.0-100.0); Mean Platelet Volume 8.9 fL (9.4-12.4); Platelet Count 128 K/uL (130-400); RDW Coefficient of Variation 18.2 % (11.5-14.5); Red Blood Count 3.97 M/uL (4.70-6.10); White Blood Count 11.15 K/ul (4.8-10.8)
[2023-04-06] MEDS: CIPROFLOXACIN HCL 0.3% OP SOLN 2.5 ML BTL OPR SCH ×2 (08:49→20:50)
[2023-04-06] MEDS: MAGNESIUM OXIDE 400 MG TAB PO SCH ×2 (08:49→20:51)
[2023-04-06] MEDS: CHOLECALCIFEROL 1,000 UNITS 25 MCG TAB PO SCH (08:49)
[2023-04-06] MEDS: ASPIRIN 81 MG ECTAB PO SCH (08:50)
[2023-04-06] MEDS: oxyCODONE HCL IR 5 MG TAB (IMMEDIATE RELEASE) PO SCH ×3 (08:50→21:03)
[2023-04-06] MEDS: COLCHICINE 0.6 MG TAB PO SCH ×2 (08:50→20:49)
[2023-04-06] MEDS: APIXABAN 5 MG TABLET PO SCH ×2 (08:50→20:49)
[2023-04-06] MEDS: TERBINAFINE CR 30 GM TUBE EXT SCH (08:50)
--- NOTE | 2023-04-06 11:08 | Cardiology Progress Note ---
Date of Service April 06, 2023 Assessment & Plan (1) Acute on chronic heart failure with preserved ejection fraction (HFpEF): (2) Acute hyponatremia: (3) Atrial fibrillation with controlled ventricular rate: Plan Patient admitted for worsening SOB/hypoxia, volume overload, consistent with acute on chronic heart failure preserved EF in setting of morbid obesity, right heart failure, hypoventilatory syndrome -Patient needs aggressive diuresis. Increase furosemide to 80 mg IV BID this morning -Hurtado to be placed -Monitor I+O's -Monitor sodium, potassium. -Supplement magnesium and potassium -Spironolactone on hold due to hyponatremia -Nephrology consulted for hyponatremia - likely due to hypervolemic state. -Sodium improving from 119 to 123 this morning. Monitor Atrial fibrillation is new diagnosis. Rates are well controlled. -[id number] score of 5 - Anticoagulation therapy is recommended for stroke prophylaxis. -Currently receiving Lovenox 40 mg q 12 for DVT proph. Verified with nursing staff, did not yet receive Lovenox this morning. will Discontinue and transition to Eliquis 5 mg BID 04/04/23: Patient with 7 L output since yesterday. Sodium levels improving, now 126. Appreciate Nephrology input. Monitor I+O's Continue IV furosemide 80 mg BID today. Hold dose in AM 04/05 until evaluated and labs reviewed. Supplement potassium - increased to 40 meq BID Afib, rates controlled - Continue Eliquis for anticoagulation/stroke prophylaxis. echo revealed preserved LVEF, Moderate aortic stenosis - will monitor as outpatient. 04/05/23: Aggressive diuresis once again noted over the last 24 hours Output > 3 liters once again. Sodium levels continue to improve, increasing to 128 this morning. CO2 trending slightly higher Reduce furosemide to 40 mg IV BID today. Monitor I+O's Consider resuming spironolactone within the next 24 hours. Will need to reduce oral potassium. Continue Eliquis for stroke prophylaxis with afib. Rates controlled Patient reports compliance with BIPAP at night. May need to have supplemental O2 ordered during the day on discharge. 04/06/23: Ongoing improvement in fluid status. Good urine outputs overnight Stable renal function. Sodium levels continue to improve. Continue one more day of IV diuretics - Furosemide 40 mg IV BID. Resume spironolactone when sodium levels improve. Now 130 this morning. Appreciate nephrology recommendations. Continue Eliquis for stroke prophylaxis with persistent afib. Rates controlled Continue BIPAP at night. May need O2 during the day. Evaluate prior to discharge. Case discussed with Dr. Drew Marino spent a total of 30 minutes on the date of service in preparation, delivery, and documentation of the care provided to this patient, excluding any time spent in the performance of separately billed services. Alisha Walters PA-C Department of Cardiology, [facility] This chart was completed in part utilizing Speech Voice Recognition Software. Grammatical errors, random word insertions, pronoun errors, and incomplete sentences are an occasional consequence of this system due to software limitations, ambient noise, and hardware issues. Any formal questions or concerns about the content, text, or information contained within the body of this dictation should be directly addressed to the provider for clarification. Admission and Anticipated Discharge Date Admission Date: April 02, 2023 Supervising Physician Co-Signing Physician Notes Patient was seen and personally examined. Full assessment and plan as well outlined above Morbidly obese male with chronic right greater than left heart failure with acute decompensation. Patient improving after diuresis but still with moderate volume overload We will give additional IV diuretics today Will likely require oxygen supplementation in addition to CPAP/BiPAP CHF instruction Subjective Patient reports SOB improving. Continues to need oxygen during the day. He reports typically he does not have oxygen at halfway during the day. Will need arranged prior to discharge. Edema improving. Denies chest pain. Review of Systems Review of Systems: All systems reviewed & are unremarkable except as noted in HPI & below Physical Exam Constitutional: WD/WN, vitals as above + ill appearing and + morbidly obese; no acute distress Neck: + thick neck Respiratory: + labored breathing and able to speak in complete sentences; no respiratory distress Auscultation: + diminished lung sounds (anteriorly) Cardiovascular: Rate/Rhythm: + irregularly irregular Heart Sounds: + murmur (II/ systolic murmur LSB) Vessels: + JVD (thick neck - unable to assess JVD) Extremities: + edema (1+ edema b/l with chronic stasis changes. ) Gastrointestinal (Abdomen): Inspection/Auscultation: + abdomen distended (obese) Neurologic: PERRL, EOMI, accommodation nl, no face palsy, no dysarthria Results & Data Vital Signs (Past 12 Hours) Vital Signs Temp Pulse Pulse Resp BP BP Pulse Ox 04/06/23 08:00 86 04/06/23 08:00 04/06/23 08:00 36.3 C L 95 H 17 102/59 L 92 04/06/23 03:52 86 04/06/23 03:28 36.3 C L 87 20 115/75 91 04/06/23 03:14 86 21 91 O2 Del Method O2 Flow Rate 04/06/23 08:00 04/06/23 08:00 Nasal Cannula 4 04/06/23 08:00 Nasal Cannula 4 04/06/23 03:52 04/06/23 03:28 BiPAP 04/06/23 03:14 4 Laboratory Results Cardiac Enzymes 04/06/23 Range/Units 06:00 Lactate Dehydrogenase 215 (86-244) U/L CBC 04/06/23 Range/Units 06:00 WBC 11.15 H (4.8-10.8) K/ul RBC 3.97 L (4.70-6.10) M/uL Hgb 13.0 L (14.0-18.0) g/dl Hct 38.7 L (42.0-52.0) % Plt Count 128 L (130-400) K/uL Comprehensive Metabolic Panel 04/06/23 Range/Units 06:00 Sodium 130 L (136-145) mmol/L Potassium 5.0 D (3.5-5.1) mmol/L Chloride 90 L (98-107) mmol/L Carbon Dioxide 38 H (21-32) mmol/L BUN 19 (6-23) mg/dl Creatinine 0.73 (0.6-1.4) mg/dl Glucose 147 H (70-99(Fasting)) mg/dl Calcium 9.1 (8.6-10.3) mg/dl Intake and Output 04/05/23 04/06/23 04/06/23 22:59 06:59 14:59 Output Total 400 / 1050 300 / 1050 Balance -400 / -450 -300 / -450 Output: Urine Amount (Catheter) 400 / 1050 300 / 1050 Hurtado/Indwelling 400 / 1050 300 / 1050 Other: Weight 156.3 kg Weight Measurement Method Built in [facility] Diagnostic Findings telemetry reviewed: Persistent atrial fibrillation with rates in the 80's. Occ PVC's Medications Administered Current Inpatient Medications Acetaminophen (Acetaminophen 325 Mg Tab) 650 mg PO Q4H PRN PRN Reason: Pain or Fever Stop: 05/02/23 20:26 Al Hydrox/Mg Hydrox/Simethicone (Aluminum/Magnesium Susp 30 Ml Udc) 15 ml PO Q4H PRN PRN Reason: Dyspepsia Stop: 05/02/23 20:26 Apixaban (Apixaban 5 Mg Tablet) 5 mg PO BID MARTINE Stop: 05/03/23 10:14 Last Admin: 04/06/23 08:50 Dose: 5 mg Artificial Tears (Artificial Tears) 1 drops OP Q4H PRN PRN Reason: Dryness Stop: 05/02/23 20:31 Aspirin (Aspirin 81 Mg Ectab) 81 mg PO QAM MARTINE Stop: 05/03/23 08:59 Last Admin: 04/06/23 08:50 Dose: 81 mg Bisacodyl (Bisacodyl 10 Mg Supp) 10 mg [place] UD PRN PRN Reason: Constipation Stop: 05/02/23 20:26 Ciprofloxacin (Ciprofloxacin Hcl 0.3% Op Soln 2.5 Ml Btl) 1 drops OPR BID MARTINE Stop: 04/12/23 20:59 Last Admin: 04/06/23 08:49 Dose: 1 drops Colchicine (Colchicine 0.6 Mg Tab) 0.6 mg PO BID MARTINE Stop: 05/02/23 20:59 Last Admin: 04/06/23 08:50 Dose: 0.6 mg Duloxetine HCl (Duloxetine Hcl 20 Mg Cap) 20 mg PO HS MARTINE Stop: 05/02/23 20:59 Last Admin: 04/05/23 20:53 Dose: 20 mg Furosemide (Furosemide 40 Mg/4 Ml Vial) 40 mg IV BID17 MARTINE Stop: 05/05/23 09:14 Hydroxychloroquine Sulfate (Hydroxychloroquine Sulfate 200 Mg Tab) 200 mg PO HS MARTINE Stop: 05/02/23 20:59 Last Admin: 04/05/23 20:53 Dose: 200 mg Magnesium Hydroxide (Magnesium Hydroxide Susp 30 Ml Udc) 30 ml PO Q12H PRN PRN Reason: Constipation Stop: 05/02/23 20:26 Magnesium Oxide (Magnesium Oxide 400 Mg Tab) 400 mg PO BID MARTINE Stop: 05/03/23 09:59 Last Admin: 04/06/23 08:49 Dose: 400 mg Ondansetron HCl (Ondansetron Inj 2 Mg/Ml 2 Ml Vial) 4 mg IV Q6H PRN PRN Reason: Nausea Stop: 05/02/23 20:26 Oxycodone HCl (Oxycodone Hcl Ir 5 Mg Tab (Immediate Release)) 5 mg PO TID [facility] Stop: 04/16/23 21:29 Last Admin: 04/06/23 08:50 Dose: 5 mg Polyethylene Glycol (Polyethylene (Miralax) 17 Gm Pack) 17 gm PO DAILY PRN PRN Reason: Constipation Stop: 05/02/23 20:26 Potassium Chloride (Potassium Chloride Crtab 20 Meq Tabcr) 40 meq PO BID [facility] Stop: 05/04/23 08:59 Last Admin: 04/05/23 20:53 Dose: 40 meq Terbinafine HCl (Terbinafine Cr 30 Gm Tube) 1 appln EXT DAILY [facility] Stop: 05/03/23 08:59 Last Admin: 04/06/23 08:50 Dose: 1 appln Vitamin D (Cholecalciferol 1,000 Units 25 Mcg Tab) 2,000 units PO QAM MARTINE Stop: 05/03/23 08:59 Last Admin: 04/06/23 08:49 Dose: 2,000 units
--- NOTE | 2023-04-06 11:23 | Nephrology Progress Note ---
Date of Service April 06, 2023 Assessment & Plan Admission and Anticipated Discharge Date Admission Date: April 02, 2023 Subjective Subjective Assessment & Plan (1) Acute hyponatremia: Acute hyponatremia with serum sodium of 119 on presentation and is most likely related with hypervolemic hyponatremia in the setting of acute congestive heart failure. Agree with fluid restriction of 1500 mL/day with Lasix 80 IV twice daily. With that sodium did go up slightly to 126 now. Patient does admit to drinking massive amount of water. Obviously he cannot do this as it will be impossible to manage his fluid status. BMP daily. Agree with plan of placing special urinary catheter and monitoring input and output accurately. manage him as a case of hypervolemic hyponatremia with excessive water drinking na now 130. Urine 6900 ml after Camarena first placed so some component of NOWAK was present. Agree with urology about ongoing camarena. But yesterday was only 1050 ml with lasix 40 iv bid. Not enough urine ouput. raise lasix to 80 iv bid again. initial massive diuresis seems was more related with camarena placement than lasix restart home dose of Aldactone 12.5 daily. k is 5 so stop Kcl. (2) Acute on chronic heart failure with preserved ejection fraction (HFpEF): We will hold off on the EZEQUIEL and ARB for at least 1 more day S--urine 1050 ml only yesterday urology did see patient Physical Exam Physical Exam: GENERAL: Alert and oriented x3. NAD, morbidly obese, on 4 L oxygen via nasal cannula HEENT: No pallor, no icterus. Pupils equal, round and reactive to light. Oral mucosa moist. NECK: No JVD, no neck masses. HEART: S1 and S2 heard. Regular rate and rhythm. No murmur, no gallop. RESPIRATORY SYSTEM: No accessory muscle use. No wheezing, decreased breath sounds likely secondary to morbid obesity. ABDOMEN: Soft, nontender CENTRAL NERVOUS SYSTEM: No facial droop. Speech is clear. Obeys simple commands. Moves extremities. EXTREMITIES: BLE 2+ edema, chronic skin changes noted. Multiple skin breakdowns on lesions noted around his toes especially in the right side. Results & Data Vital Signs (Past 12 Hours) Vital Signs Temp Pulse Pulse Resp BP BP Pulse Ox 04/06/23 08:00 86 04/06/23 08:00 04/06/23 08:00 36.3 C L 95 H 17 102/59 L 92 04/06/23 03:52 86 04/06/23 03:28 36.3 C L 87 20 115/75 91 04/06/23 03:14 86 21 91 O2 Del Method O2 Flow Rate 04/06/23 08:00 04/06/23 08:00 Nasal Cannula 4 04/06/23 08:00 Nasal Cannula 4 04/06/23 03:52 04/06/23 03:28 BiPAP 04/06/23 03:14 4
[2023-04-06] MEDS: FUROSEMIDE 40 MG/4 ML VIAL IV SCH ×2 (13:07→16:34)
[2023-04-06] MEDS: SPIRONOLACTONE 12.5 MG TAB PO SCH (13:08)
--- NOTE | 2023-04-06 15:38 | Hospitalist Progress Note ---
Date of Service April 06, 2023 Assessment & Plan (1) Acute on chronic heart failure with preserved ejection fraction (HFpEF): (2) Acute hyponatremia: Plan Mr Cruz is a 77-year-old gentleman with PMH of chronic diastolic heart failure on Lasix, HTN, TIIDM, presented (from [facility]) to the ED with worsening shortness of breath since last few days. He is being managed for the following: #Acute urinary retention -c/f bladder outlet obstruction, c/f buried penis (congenital v acquired) per Urology -Nephrology also feels NOWAK likely given robust UOP -Urology on consult: foly 1-2 weeks, OP follow up to be arranged -Start tamsulosin -Discontinue oxybutynin #Acute hypoxic respiratory failure, likely multifactorial -Iso heart failure exacerbation and OHS -Manage as follows #Acute on chronic back pain -Tylenol prn, lidocaine patch to mid back -Continue home oxycodone regimen #Acute on chronic heart failure with preserved ejection fraction #HTN - TTE (04/03/2023): LVEF 55-60%, - Home diuretics: Lasix 40mg qam Cardiology on consult -Continue aggressive diuresis, 1 more day of IV lasix BID, transition to PO when able -Strict I's and O's, fluid restriction of 1500 mL/day, heart healthy diet, low- sodium diet -Holding spironolactone 2/2 hyponatremia #New onset atrial fibrillation History of wandering atrial pacemaker/complex ectopy given comorbidities remains in afib on telemetry-HR is controlled without rate control agents. Per cardiology recommend he transition to apixaban from Lovenox started on admission. Echo reveals EF 55-60%. Small circumferential pericardial effusion without hemodynamic significance. -Continue Eliquis #PAD -Continue ASA #Hypervolemic Hyponatremia *improving with aggressive diuresis Baseline sodium appears around 137, admitting sodium of 119, likely hypervolemic hyponatremia. Patient with no headache or dizziness or orientation issues. Nephro consultation With presentation most likely related to hypervolemic hyponatremia in the setting of acute congestive heart failure continue with fluid restriction 1500 cc/day and 80 IV twice daily of Lasix. Camarena catheter in place continue to monitor strict I's and O's. Prior to camarena placement on 04/03, bladder scan reading was difficult to assess given body habitus. He did have 1200 out in the camarena within one hour of placement and overall a significant output yesterday altogether. -Continue to hold off on spironolactone or any EZEQUIEL/ARB. -Nephrology on consult, appreciate recommendations #Lower ext cellulitis #Skin tear - Pt treated with oral Augmentin which has been completed. He has lower extremities wounds on his anterior tibiae and his toes from a recent fall per his report. #Morbidly obese -lifestyle changes recommended #LARISA -cpap at HS #B-Cell lymphoma Follows Dr. Malone, denies constitutional symptoms, reportedly increased LDH and [id number] c/w comorbidities -LDH 215 (last LDH 275 12/2022) #T2DM -diet controlled, a1c 6.2 on 03/31/23, lantus/novolog per protocol has been declined by patient several times. Will DC BSG checks and insulin at this time. Continue with outpatient follow- up. #Rheumatoid arthritis #Gout -Continue plaquenil 200mg daily -Continue colchicine 0.6mg bid #Depression Continue duloxetine DVT prophylaxis: apixaban PT/OT DNR/DNI I spent a total [id number] coordinating, documenting, and providing care for this patient excluding time spent in the performance of separately billed services Admission and Anticipated Discharge Date Admission Date: April 02, 2023 Subjective NAEO Patient reports mid-back pain that is bothersome and making him feel generally unwell today, but denies any fevers, chills, or other acute concerns Review of Systems Review of Systems: All systems reviewed & are unremarkable except as noted in Subjective Physical Exam Constitutional: laying flat in bed, communicative Respiratory: difficult to assess respiratory status Cardiovascular: irregularly irregular Musculoskeletal: stable dusky discoloration Tenderness to palpation mid back, no skin discoloration noted or lumps/masses/lesions, more paraspinal tenderness Results & Data Results & Data Vital Signs (Past 12 Hours) Vital Signs Temp Pulse Pulse Pulse Resp BP BP 04/06/23 14:51 102 H 26 H 112/70 04/06/23 12:00 36.7 C 90 19 107/71 04/06/23 08:00 86 04/06/23 08:00 04/06/23 08:00 36.3 C L 95 H 17 102/59 L 04/06/23 03:52 86 04/06/23 03:28 36.3 C L 87 20 115/75 Pulse Ox O2 Del Method O2 Flow Rate 04/06/23 14:51 94 Nasal Cannula 5 04/06/23 12:00 91 Nasal Cannula 5 04/06/23 08:00 04/06/23 08:00 Nasal Cannula 4 04/06/23 08:00 92 Nasal Cannula 4 04/06/23 03:52 04/06/23 03:28 91 BiPAP Laboratory Results Short CBC 04/06/23 Range/Units 06:00 WBC 11.15 H (4.8-10.8) K/ul Hgb 13.0 L (14.0-18.0) g/dl Hct 38.7 L (42.0-52.0) % Plt Count 128 L (130-400) K/uL BMP 04/06/23 06:00 Sodium 130 L Potassium 5.0 D Chloride 90 L Carbon Dioxide 38 H BUN 19 Creatinine 0.73 Glucose 147 H Calcium 9.1 Medications Administered Home Medications Medication Instructions Recorded Confirmed Last Taken acetaminophen 500 mg tablet 500 mg PO [facility] 06/08/22 04/02/23 07/14/22 05:00 aspirin 81 mg chewable tablet 81 mg PO QA 06/08/22 04/02/23 07/14/22 09:01 carboxymethylcellulose sodium 1 % 1 drp OPB [facility] 06/08/22 04/02/23 07/14/22 09:01 eye gel in a dropperette (Refresh Celluvisc) cholecalciferol (vitamin D3) 50 2,000 unit PO QAM 06/08/22 04/02/23 07/15/22 09:01 mcg (2,000 unit) capsule ciprofloxacin HCl 0.3 % eye drops 1 drp OPR BID 06/08/22 04/02/23 07/14/22 17:00 colchicine 0.6 mg tablet 0.6 mg PO BID 06/08/22 04/02/23 07/15/22 09:01 duloxetine 20 mg capsule,delayed 20 mg PO HS 06/08/22 04/02/23 07/14/22 09:01 release febuxostat 80 mg tablet 80 mg PO QAM 06/08/22 04/02/23 07/14/22 09:01 furosemide 40 mg tablet 40 mg PO QAM 01/04/2004/02/23 07/15/22 05:01 hydroxychloroquine 200 mg tablet 200 mg PO HS 06/08/22 04/02/23 07/14/22 09:01 oxybutynin chloride 5 mg tablet 5 mg PO QAM 06/08/22 04/02/23 07/15/22 09:01 terbinafine HCl 1 % topical cream 1 applic topical DAILY 06/08/22 04/02/23 07/14/22 19:00 tramadol 50 mg tablet 50 mg PO TID 06/08/22 04/02/23 07/14/22 09:01 acetaminophen 325 mg tablet 325 mg PO QID PRN pain/fever 07/13/22 04/02/23 Unknown bisacodyl 10 mg rectal suppository 10 mg [place] UD PRN Constipation 07/13/22 04/02/23 Unknown (Dulcolax (bisacodyl)) magnesium hydroxide 400 mg/5 mL 30 ml PO DAILY PRN Constipation 07/13/22 04/02/23 Unknown oral suspension (Milk of Magnesia) sodium phosphates 19 gram-7 118 ml [place] DAILY PRN Constipation 07/13/22 04/02/23 Unknown gram/118 mL enema (Fleet Enema) spironolactone 25 mg tablet 12.5 mg PO QAM 07/13/22 04/02/23 07/15/22 09:01 (Aldactone) Active Medications Generic Name Dose Route Start Last Admin Trade Name Freq PRN Reason Stop Dose Admin Apixaban 5 mg 04/03/23 10:15 04/06/23 08:50 Apixaban 5 Mg Tablet PO 05/03/23 10:14 5 mg BID MARTINE Administration Aspirin 81 mg 04/03/23 09:00 04/06/23 08:50 Aspirin 81 Mg Ectab PO 05/03/23 08:59 81 mg QAM MARTINE Administration Ciprofloxacin 1 drops 04/02/23 21:00 04/06/23 08:49 Ciprofloxacin Hcl 0.3% Op Soln 2.5 Ml Btl OPR 04/12/23 20:59 1 drops BID MARTINE Administration Colchicine 0.6 mg 04/02/23 21:00 04/06/23 08:50 Colchicine 0.6 Mg Tab PO 05/02/23 20:59 0.6 mg BID MARTINE Administration Duloxetine HCl 20 mg 04/02/23 21:00 04/05/23 20:53 Duloxetine Hcl 20 Mg Cap PO 05/02/23 20:59 20 mg HS MARTINE Administration Furosemide 80 mg 04/06/23 11:45 04/06/23 13:07 Furosemide 40 Mg/4 Ml Vial IV 05/06/23 11:44 80 mg BID17 MARTINE Administration Hydroxychloroquine Sulfate 200 mg 04/02/23 21:00 04/05/23 20:53 Hydroxychloroquine Sulfate 200 Mg Tab PO 05/02/23 20:59 200 mg HS MARTINE Administration Magnesium Oxide 400 mg 04/03/23 10:00 04/06/23 08:49 Magnesium Oxide 400 Mg Tab PO 05/03/23 09:59 400 mg BID MARTINE Administration Oxycodone HCl 5 mg 04/02/23 21:30 04/06/23 14:17 Oxycodone Hcl Ir 5 Mg Tab (Immediate Release) PO 04/16/23 21:29 5 mg TID MARTINE Administration Spironolactone 12.5 mg 04/06/23 11:45 04/06/23 13:08 Spironolactone 12.5 Mg Tab PO 05/06/23 11:44 12.5 mg DAILY MARTINE Administration Terbinafine HCl 1 appln 04/03/23 09:00 04/06/23 08:50 Terbinafine Cr 30 Gm Tube EXT 05/03/23 08:59 1 appln DAILY MARTINE Administration Vitamin D 2,000 units 04/03/23 09:00 04/06/23 08:49 Cholecalciferol 1,000 Units 25 Mcg Tab PO 05/03/23 08:59 2,000 units QAM MARTINE Administration
[2023-04-06] MEDS: LIDOCAINE 5% 1 PATCH TD SCH (16:35)
[2023-04-06] MEDS: HYDROXYCHLOROQUINE SULFATE 200 MG TAB PO SCH (20:50)
[2023-04-06] MEDS: DULoxetine HCL 20 MG CAP PO SCH (20:50)
[2023-04-06] MEDS: TAMSULOSIN HCL 0.4 MG CAP PO SCH (20:50)
[2023-04-07] MEDS: COLCHICINE 0.6 MG TAB PO SCH ×2 (08:05→20:58)
[2023-04-07] MEDS: SPIRONOLACTONE 12.5 MG TAB PO SCH (08:06)
[2023-04-07] MEDS: APIXABAN 5 MG TABLET PO SCH ×2 (08:06→20:59)
[2023-04-07] MEDS: MAGNESIUM OXIDE 400 MG TAB PO SCH ×2 (08:06→21:00)
[2023-04-07] MEDS: ASPIRIN 81 MG ECTAB PO SCH (08:06)
[2023-04-07] MEDS: CHOLECALCIFEROL 1,000 UNITS 25 MCG TAB PO SCH (08:06)
[2023-04-07] MEDS: FUROSEMIDE 40 MG/4 ML VIAL IV SCH (08:07)
[2023-04-07] MEDS: CIPROFLOXACIN HCL 0.3% OP SOLN 2.5 ML BTL OPR SCH ×2 (08:07→21:01)
[2023-04-07] MEDS: TERBINAFINE CR 30 GM TUBE EXT SCH (08:08)
[2023-04-07] MEDS: oxyCODONE HCL IR 5 MG TAB (IMMEDIATE RELEASE) PO SCH ×3 (08:10→20:58)
[2023-04-07] MEDS: LIDOCAINE 5% 1 PATCH TD SCH (08:12)
--- NOTE | 2023-04-07 08:47 | Cardiology Progress Note ---
Date of Service April 07, 2023 Assessment & Plan (1) Acute on chronic heart failure with preserved ejection fraction (HFpEF): (2) Acute hyponatremia: (3) Atrial fibrillation with controlled ventricular rate: Plan IMPRESSION: 77 year old male admitted for worsening SOB/hypoxia, volume overload, consistent with acute on chronic heart failure preserved EF in setting of morbid obesity, right heart failure, hypoventilatory syndrome. PLAN: -Patient appears markedly vL overloaded, however overall vL status difficult to determine due to obesity. Diuretics per nephrology-- currently receiving furosemide to 80 mg IV BID. -Camarena in place -Monitor I+O's -Monitor sodium, potassium and supplement magnesium and potassium as needed. -Spironolactone 12.5 mg daily restarted 04/06/2023 by nephrology -Continue BIPAP at night. May need O2 during the day. Evaluate prior to discharge. -Nephrology consulted for hyponatremia - likely due to hypervolemic state. Sodium level slowly improving with diuresis Atrial fibrillation is new diagnosis. Rates are controlled. -[id number] score of 5 - Anticoagulation therapy is recommended for stroke prophylaxis. Continue Eliquis 5 mg BID Case discussed with Dr. Russell Admission and Anticipated Discharge Date Admission Date: April 02, 2023 Supervising Physician Co-Signing Physician Notes Patient seen and personally examined. Appreciate nephrology input Spironolactone held diuretic switch to oral due to hyponatremia Still requiring oxygen, using BiPAP at night Findings consistent with morbid obesity with pickwickian syndrome marked hypoventilation syndrome and acute on chronic right heart failure Patient initially responded to IV diuretics. Long-term goals limited by immobility. Agree with plans for oxygen supplementation in addition to BiPAP Close management of volume status I's and O's with CHF instruction and fluid restriction Subjective 77 year old male admitted for worsening SOB/hypoxia, volume overload, consistent with acute on chronic heart failure preserved EF in setting of morbid obesity, right heart failure, hypoventilatory syndrome. 04/04/23: Patient with 7 L output since yesterday. Sodium levels improving, now 126. Appreciate Nephrology input. Continue IV furosemide 80 mg BID today. Supplement potassium - increased to 40 meq BID Afib, rates controlled - Continue Eliquis for anticoagulation/stroke prophylaxis. Echo revealed preserved LVEF, Moderate aortic stenosis - will monitor as outpatient. 04/05/23: Aggressive diuresis once again noted over the last 24 hours Output > 3 liters once again. Sodium levels continue to improve, increasing to 128 this morning. CO2 trending slightly higher--Reduce furosemide to 40 mg IV BID today. Consider resuming spironolactone within the next 24 hours. Will need to reduce oral potassium. Continue Eliquis for stroke prophylaxis with afib. Rates controlled Patient reports compliance with BIPAP at night. May need to have supplemental O2 ordered during the day on discharge. 04/06/23: Ongoing improvement in fluid status. Good urine outputs overnight Stable renal function. Sodium levels continue to improve-- Furosemide increased to 80 mg BID per nephro. Spironolactone 12.5 mg daily restarted by nephrology. Rates controlled. Continue Eliquis for stroke prophylaxis with persistent afib. Continue BIPAP at night. May need O2 during the day. Evaluate prior to discharge. 04/07/2023: Tele: AFIB with PVCs 80-90s I&O: -13.5 L (1.4L over last 24 hrs) Weight: 177.8 kg >> 156.3 kg Upon entrance into the room patient reports ongoing shortness of breath-- slightly improved from admission. Continues to need oxygen during the day. He reports typically he [facility] not have oxygen at [facility] during the day. Edema improving. +camarena. Denies chest pain. No lightheadedness or dizziness. No palpitations. Labs pending this am. Review of Systems Review of Systems: All systems reviewed & are unremarkable except as noted in HPI & below Physical Exam Constitutional: WD/WN, vitals as above + ill appearing and + morbidly obese; no acute distress Neck: + thick neck Respiratory: + labored breathing and able to speak in complete sentences; no respiratory distress Auscultation: + diminished lung sounds (anteriorly) Cardiovascular: Rate/Rhythm: + irregularly irregular Heart Sounds: + murmur (II/ systolic murmur LSB) Vessels: + JVD (thick neck - unable to assess JVD) Extremities: + edema (1+ edema b/l with chronic stasis changes. ) Gastrointestinal (Abdomen): Inspection/Auscultation: + abdomen distended (obese) Neurologic: PERRL, EOMI, accommodation nl, no face palsy, no dysarthria Results & Data Vital Signs (Past 12 Hours) Vital Signs Temp Pulse Pulse Resp BP BP Pulse Ox 04/07/23 07:52 36.8 C 96 H 108/66 88 L 04/07/23 02:58 36.5 C 95 H 18 99/65 L 90 04/07/23 02:42 23 04/07/23 01:32 95 H 04/06/23 23:41 36.4 C L 95 H 18 101/63 96 04/06/23 22:04 04/06/23 21:57 97 H 23 96 O2 Del Method O2 Flow Rate 04/07/23 07:52 Nasal Cannula 2 04/07/23 02:58 CPAP 04/07/23 02:42 4 04/07/23 01:32 04/06/23 23:41 CPAP 04/06/23 22:04 Nasal Cannula 4 04/06/23 21:57 4 Laboratory Results CBC 04/07/23 Range/Units 08:57 WBC 12.63 H (4.8-10.8) K/ul RBC 3.95 L (4.70-6.10) M/uL Hgb 12.7 L (14.0-18.0) g/dl Hct 38.0 L (42.0-52.0) % Plt Count 115 L (130-400) K/uL Intake and Output 04/06/23 04/07/23 04/07/23 22:59 06:59 14:59 Intake Total 200 / 440 Output Total 1050 / 182 325 / 1825 Balance -850 / -1385 -325 / -1385 Intake: Oral 200 / 440 Output: Urine Amount (Catheter) 1050 / 1824 325 / 1825 Camarena/Indwelling 1050 / 1824 325 / 1825
[2023-04-07 09:22] LABS: Hemoglobin 12.7 g/dl (14.0-18.0); Mean Corpuscular Hemoglobin 32.2 pg (25.0-34.0); Mean Corpuscular Hgb Conc 33.4 g/dL (32.0-36.0); Mean Corpuscular Volume 96.2 fL (80.0-100.0); Mean Platelet Volume 8.9 fL (9.4-12.4); Platelet Count 115 K/uL (130-400); RDW Coefficient of Variation 18.1 % (11.5-14.5); RDW Standard Deviation 64.1 fL (36.4-46.3); Red Blood Count 3.95 M/uL (4.70-6.10); White Blood Count 12.63 K/ul (4.8-10.8)
[2023-04-07 09:35] LABS: BUN Creatinine Ratio 31.1 (10-20); Calcium 8.9 mg/dl (8.6-10.3); Creatinine Clr Calc Pharmacy 124.9 ml/min; Est GFR (African American) 101.7 ml/min; Est GFR (Non-African American) 87.7 ml/min; Magnesium 1.8 mg/dl (1.7-2.4); Phosphorus 3.4 mg/dl (2.5-4.9); Potassium 4.2 mmol/L (3.5-5.1)
--- NOTE | 2023-04-07 10:47 | Nephrology Progress Note ---
Date of Service April 07, 2023 Assessment & Plan Admission and Anticipated Discharge Date Admission Date: April 02, 2023 Subjective Assessment & Plan (1) Acute hyponatremia: Acute hyponatremia with serum sodium of 119 on presentation and is most likely related with hypervolemic hyponatremia in the setting of acute congestive heart failure. Agree with fluid restriction of 1500 mL/day with Lasix 80 IV twice daily. With that sodium did go up slightly to 126 now. Patient does admit to drinking massive amount of water. Obviously he cannot do this as it will be impossible to manage his fluid status. BMP daily. Agree with plan of placing special urinary catheter and monitoring input and output accurately. manage him as a case of hypervolemic hyponatremia with excessive water drinking na now 127 again. Urine 6900 ml after Camarena first placed so some component of NOWAK was present. Agree with urology about ongoing camarena. initial massive diuresis seems was more related with camarena placement than lasix. Maybe he already had enough diuresis already. very hard to assess flud status in morbidly obese patient. Na dropped again--Stop aldactone again. like to see na higher than 130. stop iv fluid and use lasix 80 daily po ( at home was on lasix 40 daily) S--urine 1850 ml yesterday . No new issues. BP somewhat low. Physical Exam Physical Exam: GENERAL: Alert and oriented x3. NAD, morbidly obese, on 4 L oxygen via nasal cannula HEENT: No pallor, no icterus. Pupils equal, round and reactive to light. Oral mucosa moist. NECK: No JVD, no neck masses. HEART: S1 and S2 heard. Regular rate and rhythm. No murmur, no gallop. RESPIRATORY SYSTEM: No accessory muscle use. No wheezing, decreased breath sounds likely secondary to morbid obesity. ABDOMEN: Soft, nontender CENTRAL NERVOUS SYSTEM: No facial droop. Speech is clear. Obeys simple commands. Moves extremities. EXTREMITIES: BLE 2+ edema, chronic skin changes noted. Multiple skin breakdowns on lesions noted around his toes especially in the right side. Results & Data Vital Signs (Past 12 Hours) Vital Signs Temp Pulse Pulse Resp BP BP Pulse Ox 04/07/23 09:17 04/07/23 07:52 36.8 C 96 H 108/66 88 L 04/07/23 02:58 36.5 C 95 H 18 99/65 L 90 04/07/23 02:42 23 04/07/23 01:32 95 H 04/06/23 23:41 36.4 C L 95 H 18 101/63 96 O2 Del Method O2 Flow Rate 04/07/23 09:17 Nasal Cannula 2 04/07/23 07:52 Nasal Cannula 2 04/07/23 02:58 CPAP 04/07/23 02:42 4 04/07/23 01:32 04/06/23 23:41 CPAP
--- NOTE | 2023-04-07 11:40 | Hospitalist Progress Note ---
Date of Service April 07, 2023 Assessment & Plan (1) Acute on chronic heart failure with preserved ejection fraction (HFpEF): (2) Acute hyponatremia: Plan Mr Cruz is a 77-year-old gentleman with PMH of chronic diastolic heart failure on Lasix, HTN, TIIDM, presented (from [facility]) to the ED with worsening shortness of breath since last few days. He is being managed for the following: #Acute urinary retention -c/f bladder outlet obstruction, c/f buried penis (congenital v acquired) per Urology -Nephrology also feels NOWAK likely given robust UOP -Urology on consult: foly 1-2 weeks, OP follow up to be arranged -Continue tamsulosin -Discontinued oxybutynin #Acute hypoxic respiratory failure, likely multifactorial -Iso heart failure exacerbation and OHS -Manage as follows #Acute on chronic back pain *resolved -Tylenol prn, lidocaine patch to mid back -Continue home oxycodone regimen #Acute on chronic heart failure with preserved ejection fraction #HTN - TTE (04/03/2023): LVEF 55-60%, - Home diuretics: Lasix 40mg qam Cardiology on consult and Nephrology on consult -Starting PO lasix 80mg daily -Strict I's and O's, fluid restriction of 1500 mL/day, heart healthy diet, low- sodium diet -Holding spironolactone 2/2 hyponatremia #New onset atrial fibrillation History of wandering atrial pacemaker/complex ectopy given comorbidities remains in afib on telemetry-HR is controlled without rate control agents. Per cardiology recommend he transition to apixaban from Lovenox started on admission. Echo reveals EF 55-60%. Small circumferential pericardial effusion without hemodynamic significance. -Continue Eliquis #PAD -Continue ASA #Hypervolemic Hyponatremia *improving with aggressive diuresis Baseline sodium appears around 137, admitting sodium of 119, likely hypervolemic hyponatremia. Patient with no headache or dizziness or orientation issues. Nephro consultation With presentation most likely related to hypervolemic hyponatremia in the setting of acute congestive heart failure continue with fluid restriction 1500 cc/day and 80 IV twice daily of Lasix. Camarena catheter in place continue to monitor strict I's and O's. Prior to camarena placement on 04/03, bladder scan reading was difficult to assess given body habitus. He did have 1200 out in the camarena within one hour of placement and overall a significant output yesterday altogether. -Continue to hold off on spironolactone or any EZEQUIEL/ARB. -Nephrology on consult, appreciate recommendations #Lower ext cellulitis #Skin tear - Pt treated with oral Augmentin which has been completed. He has lower extremities wounds on his anterior tibiae and his toes from a recent fall per his report. #Morbidly obese -lifestyle changes recommended #LARISA -cpap at HS #Acute Thrombocytopenia #Leukocytosis #B-Cell lymphoma Follows Dr. Escamilla, denies constitutional symptoms, reportedly increased LDH and [id number] c/w comorbidities -LDH 215 (last LDH 275 12/2022) -CBC w/ diff and smear in am -Dr escamilla on schedule, consult to assess if symptoms related/stable #T2DM -diet controlled, a1c 6.2 on 03/31/23, lantus/novolog per protocol has been declined by patient several times. Will DC BSG checks and insulin at this time. Continue with outpatient follow- up. #Rheumatoid arthritis #Gout -Continue plaquenil 200mg daily -Continue colchicine 0.6mg bid #Depression Continue duloxetine DVT prophylaxis: apixaban PT/OT DNR/DNI I spent a total of45 minutes coordinating, documenting, and providing care for this patient excluding time spent in the performance of separately billed services Admission and Anticipated Discharge Date Admission Date: April 02, 2023 Subjective Tearful because he wont be able to go to the custodial for his birthday republican Reports improvement in his back pain with the lidocaine patch Reports feeling ok overall, but generally upset as he no longer wishes to be in hospital given his birthday coming up this weekend Review of Systems Review of Systems: All systems reviewed & are unremarkable except as noted in Subjective Physical Exam Constitutional: laying in bed, appears better than yesterday Chest (Breasts): Additional Comments: irregularly irregular Results & Data Results & Data Vital Signs (Past 12 Hours) Vital Signs Temp Pulse Pulse Resp BP BP Pulse Ox 04/07/23 11:25 97 H 99/51 L 88 L 04/07/23 09:17 04/07/23 07:52 36.8 C 96 H 108/66 88 L 04/07/23 02:58 36.5 C 95 H 18 99/65 L 90 04/07/23 02:42 23 04/07/23 01:32 95 H 04/06/23 23:41 36.4 C L 95 H 18 101/63 96 O2 Del Method O2 Flow Rate 04/07/23 11:25 Nasal Cannula 2 04/07/23 09:17 Nasal Cannula 2 04/07/23 07:52 Nasal Cannula 2 04/07/23 02:58 CPAP 04/07/23 02:42 4 04/07/23 01:32 04/06/23 23:41 CPAP Laboratory Results Short CBC 04/07/23 Range/Units 08:57 WBC 12.63 H (4.8-10.8) K/ul Hgb 12.7 L (14.0-18.0) g/dl Hct 38.0 L (42.0-52.0) % Plt Count 115 L (130-400) K/uL BMP 04/07/23 08:57 Sodium 127 L Potassium 4.2 Chloride 88 L Carbon Dioxide 34 H BUN 23 Creatinine 0.74 Glucose 236 H Calcium 8.9 Medications Administered Home Medications Medication Instructions Recorded Confirmed Last Taken acetaminophen 500 mg tablet 500 mg PO [facility] 06/08/22 04/02/23 07/14/22 05:00 aspirin 81 mg chewable tablet 81 mg PO QAM 06/08/22 04/02/23 07/14/22 09:01 carboxymethylcellulose sodium 1 % 1 drp OPB [facility] 06/08/22 04/02/23 07/14/22 09:01 eye gel in a dropperette (Refresh Celluvisc) cholecalciferol (vitamin D3) 50 2,000 unit PO QAM 06/08/22 04/02/23 07/15/22 09:01 mcg (2,000 unit) capsule ciprofloxacin HCl 0.3 % eye drops 1 drp OPR BID 06/08/22 04/02/23 07/14/22 17:00 colchicine 0.6 mg tablet 0.6 mg PO BID 06/08/22 04/02/23 07/15/22 09:01 duloxetine 20 mg capsule,delayed 20 mg PO HS 06/08/22 04/02/23 07/14/22 09:01 release febuxostat 80 mg tablet 80 mg PO QAM 06/08/22 04/02/23 07/14/22 09:01 furosemide 40 mg tablet 40 mg PO QAM 06/08/22 04/02/23 07/15/22 05:01 hydroxychloroquine 200 mg tablet 200 mg PO HS 06/08/22 04/02/23 07/14/22 09:01 oxybutynin chloride 5 mg tablet 5 mg PO QAM 06/08/22 04/02/23 07/15/22 09:01 terbinafine HCl 1 % topical cream 1 applic topical DAILY 06/08/22 04/02/23 07/14/22 19:00 tramadol 50 mg tablet 50 mg PO TID 06/08/22 04/02/23 07/14/22 09:01 acetaminophen 325 mg tablet 325 mg PO QID PRN pain/fever 07/13/22 04/02/23 Unknown bisacodyl 10 mg rectal suppository 10 mg MT UD PRN Constipation 07/13/22 04/02/23 Unknown (Dulcolax (bisacodyl)) magnesium hydroxide 400 mg/5 mL 30 ml PO DAILY PRN Constipation 07/13/22 04/02/23 Unknown oral suspension (Milk of Magnesia) sodium phosphates 19 gram-7 118 ml MT DAILY PRN Constipation 07/13/22 04/02/23 Unknown gram/118 mL enema (Fleet Enema) spironolactone 25 mg tablet 12.5 mg PO QAM 07/13/22 04/02/23 07/15/22 09:01 (Aldactone) Active Medications Generic Name Dose Route Start Last Admin Trade Name Freq PRN Reason Stop Dose Admin Apixaban 5 mg 04/03/23 10:15 04/07/23 08:06 Apixaban 5 Mg Tablet PO 05/03/23 10:14 5 mg BID MARTINE Administration Aspirin 81 mg 04/03/23 09:00 04/07/23 08:06 Aspirin 81 Mg Ectab PO 05/03/23 08:59 81 mg QAM MARTINE Administration Ciprofloxacin 1 drops 04/02/23 21:00 04/07/23 08:07 Ciprofloxacin Hcl 0.3% Op Soln 2.5 Ml Btl OPR 04/12/23 20:59 1 drops BID MARTINE Administration Colchicine 0.6 mg 04/02/23 21:00 04/07/23 08:05 Colchicine 0.6 Mg Tab PO 05/02/23 20:59 0.6 mg BID MARTINE Administration Duloxetine HCl 20 mg 04/02/23 21:00 04/06/23 20:50 Duloxetine Hcl 20 Mg Cap PO 05/02/23 20:59 20 mg HS MARTINE Administration Hydroxychloroquine Sulfate 200 mg 04/02/23 21:00 04/06/23 20:50 Hydroxychloroquine Sulfate 200 Mg Tab PO 05/02/23 20:59 200 mg HS MARTINE Administration Lidocaine 1 patch 04/06/23 15:30 04/07/23 08:12 Lidocaine 5% 1 Patch TD 05/06/23 15:29 1 patch QAM MARTINE Administration Magnesium Oxide 400 mg 04/03/23 10:00 04/07/23 08:06 Magnesium Oxide 400 Mg Tab PO 05/03/23 09:59 400 mg BID MARTINE Administration Miscellaneous 1 each 04/06/23 21:00 04/06/23 20:51 Remove Lidoderm Patch N/A 05/06/23 20:59 1 each DAILY@2100 MARTINE Administration Oxycodone HCl 5 mg 04/02/23 21:30 04/07/23 08:10 Oxycodone Hcl Ir 5 Mg Tab (Immediate Release) PO 04/16/23 21:29 5 mg TID MARTINE Administration Tamsulosin HCl 0.4 mg 04/06/23 21:00 04/06/23 20:50 Tamsulosin Hcl 0.4 Mg Cap PO 05/06/23 20:59 0.4 mg HS MARTINE Administration Terbinafine HCl 1 appln 04/03/23 09:00 04/07/23 08:08 Terbinafine Cr 30 Gm Tube EXT 05/03/23 08:59 1 appln DAILY MARTINE Administration Vitamin D 2,000 units 04/03/23 09:00 04/07/23 08:06 Cholecalciferol 1,000 Units 25 Mcg Tab PO 05/03/23 08:59 2,000 units QAM MARTINE Administration
--- NOTE | 2023-04-07 12:52 | Electrocardiogram Report ---
Test Reason : Blood Pressure : / mmHG Vent. Rate : 097 BPM Atrial Rate : 093 BPM P-R Int : 000 ms QRS Dur : 110 ms QT Int : 342 ms P-R-T Axes : 000 -63 073 degrees QTc Int : 434 ms Atrial fibrillation Left axis deviation Low voltage QRS Cannot rule out Anterior infarct (cited on or before 10-JUN-2022) Abnormal ECG When compared with ECG of 02-APR-2023 15:01, No significant change was found Confirmed by Dong Fraser ([id number]) on 04/07/2023 12:51:35 PM Referred By: REFERRED SELF Confirmed By:Dong Fraser
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
--- OUTSIDE RECORDS SUMMARY | 2023-04-07 13:37 | External Medical Summary | Continuity Of Care Document ---
Author Name Unknown Address [address] [place] [address] Organization [facility] ( ) Care Team Providers Care Weed Eradicator Name Role Phone Clement Dominguez Primary Care Provider [phone] Problems Code Description Start Date End Date [...] I50.22 Chronic systolic (congestive) heart failure Active I50.9 Heart failure, unspecified 03/06/2017 0 [...] Completed B37.2 Candidiasis of skin and nail 06/05/2017/00/0 000 Active S80.222A Blister (nonthermal) , left [...] Active I25.10 Atherosclerotic hear t disease of [place] coronary artery without angina pectoris 09/08/2019 Active K59.00 Constipation, unspecified 09/08/2019 Active U07.1 COVID-19 06/30/2020 Active R26.81 Unsteadiness on feet 01/16/2017 Acti ve R26.2 Difficulty in walkin g, not elsewhere classified 09/12/2019 Active VITAL SIGNS Date Time Diastolic blood pressure Systolic blood pressure Body height Body weight Temperature SpO2 Blood Sugar Pulse Respirations 33722 519 03438 3 97.60 Oral 44935 519 67853 7 97.20 Oral 44802 520 02265 9 98.10 Ear 91055 520 88607 0 97.70 Ear 23995 520 33267 7 97.70 Ear 77032 606 16106 7 338.00 [place] [address] 606 60142 6 48.00 mm[Hg] - Sitting 89.00 mm[Hg] - Sitting 97.60 Oral 63.00/ min 78752 607 16566 2 344.00 NI Immunizations Vaccine Date Status COVID-19 05/26/2020 Completed COVID-19 06/16/2020 Completed COVID-19 03/24/2021 Completed COVID-19 11/11/2021 Completed COVID-19 03/10/2022 Completed Influenza 02/25/2016 Completed Influenza 03/16/2017 Completed Influenza 03/08/2018 Completed Influenza 02/25/2019 Completed Influenza 02/27/2020 Completed Influenza 03/11/2021 Completed Influenza 03/20/2022 Completed (PCV13)Pneumococcal 04/17/2017 Completed (PPSV23)Pneumococcal 01/10/2015 Completed
[2023-04-07] MEDS: HYDROXYCHLOROQUINE SULFATE 200 MG TAB PO SCH (20:59)
[2023-04-07] MEDS: DULoxetine HCL 20 MG CAP PO SCH (20:59)
[2023-04-07] MEDS: TAMSULOSIN HCL 0.4 MG CAP PO SCH (21:00)
[2023-04-08] MEDS ORDERED: MoRPHine SULFATE 2 MG/ML CARP IV STA (05:53)
[2023-04-08 06:46] LABS: Hematocrit (blood only) 37.5 % (42.0-52.0); Hemoglobin 12.8 g/dl (14.0-18.0); Mean Corpuscular Hemoglobin 32.5 pg (25.0-34.0); Mean Corpuscular Hgb Conc 34.1 g/dL (32.0-36.0); Mean Corpuscular Volume 95.2 fL (80.0-100.0); Mean Platelet Volume 9.4 fL (9.4-12.4); Platelet Count 133 K/uL (130-400); RDW Coefficient of Variation 17.7 % (11.5-14.5); RDW Standard Deviation 61.4 fL (36.4-46.3); Red Blood Count 3.94 M/uL (4.70-6.10); White Blood Count 11.06 K/ul (4.8-10.8)
[2023-04-08 07:15] LABS: BUN Creatinine Ratio 31.1 (10-20); Calcium 9.2 mg/dl (8.6-10.3); Est GFR (African American) 101.7 ml/min; Est GFR (Non-African American) 87.7 ml/min; Magnesium 1.9 mg/dl (1.7-2.4); Phosphorus 3.4 mg/dl (2.5-4.9); Potassium 4.3 mmol/L (3.5-5.1)
--- NOTE | 2023-04-08 07:50 | Hospitalist Progress Note ---
Date of Service April 08, 2023 Assessment & Plan (1) Acute on chronic heart failure with preserved ejection fraction (HFpEF): (2) Acute hyponatremia: Plan Mr Cruz is a 77-year-old gentleman with PMH of chronic diastolic heart failure on Lasix, HTN, TIIDM, presented (from [facility]) to the ED with worsening shortness of breath since last few days. He is being managed for the following: #Acute urinary retention *resolved -c/f bladder outlet obstruction, c/f buried penis (congenital v acquired) per Urology -Nephrology also feels NOWAK likely given robust UOP -Urology on consult: foly 1-2 weeks, OP follow up to be arranged -Continue tamsulosin -Discontinued oxybutynin #Acute hypoxic respiratory failure, likely multifactorial #OHS -Iso heart failure exacerbation and OHS -Manage as follows -Will likely require 2 step to assess for daytime need for oxygen prior to discharge #Acute non-cardiac chest pain #Acute on chronic back pain *resolved -Tylenol prn, lidocaine patch to mid back -Pain on chest reproducible to touch -Continue home oxycodone regimen -Topical myoflex #Acute on chronic heart failure with preserved ejection fraction #HTN - TTE (04/03/2023): LVEF 55-60%, - Home diuretics: Lasix 40mg qam Cardiology on consult and Nephrology on consult -Continue PO lasix 80mg daily -Strict I's and O's, fluid restriction of 1500 mL/day, heart healthy diet, low- sodium diet -Holding spironolactone 2/2 hyponatremia #New onset atrial fibrillation History of wandering atrial pacemaker/complex ectopy given comorbidities remains in afib on telemetry-HR is controlled without rate control agents. Per cardiology recommend he transition to apixaban from Lovenox started on admission. Echo reveals EF 55-60%. Small circumferential pericardial effusion without hemodynamic significance. -Continue Eliquis #PAD, chronic bilateral dusky discoloration -Continue ASA #Contraction alkalosis #Hypervolemic Hyponatremia *improving with aggressive diuresis Baseline sodium appears around 137, admitting sodium of 119, likely hypervolemic hyponatremia. Patient with no headache or dizziness or orientation issues. Nephro consultation With presentation most likely related to hypervolemic hyponatremia in the setting of acute congestive heart failure continue with fluid restriction 1500 cc/day and 80 IV twice daily of Lasix. Hurtado catheter in place continue to monitor strict I's and O's. -Continue to hold off on spironolactone or any EZEQUIEL/ARB. -Nephrology on consult, appreciate recommendations -Continue PO lasix -Urea started BID #Lower ext cellulitis *resolved #Skin tears - Pt treated with oral Augmentin which has been completed. He has lower extremities wounds on his anterior tibiae and his toes from a recent fall per his report. #Morbidly obese -lifestyle changes recommended #LARISA -cpap at HS #Acute Thrombocytopenia #Leukocytosis #B-Cell lymphoma Follows Dr. Escamilla, denies constitutional symptoms, reportedly increased LDH and [id number] c/w comorbidities -LDH 215 (last LDH 275 12/2022) -CBC w/ diff and smear in am -Dr escamilla on schedule, consult to assess if symptoms related/stable #T2DM -diet controlled, a1c 6.2 on 03/31/23, lantus/novolog per protocol has been declined by patient several times. Will DC BSG checks and insulin at this time. Continue with outpatient follow- up. #Rheumatoid arthritis #Gout -Continue plaquenil 200mg daily -Continue colchicine 0.6mg bid #Depression Continue duloxetine DVT prophylaxis: apixaban PT/OT DNR/DNI I spent a total of 60minutes coordinating, documenting, and providing care for this patient excluding time spent in the performance of separately billed services Admission and Anticipated Discharge Date Admission Date: April 02, 2023 Subjective Reports of chest pain that starts in front and "shoots" to back, pain is reproducible to touch Reports upset for staying, but doesn't want to "come right back" Denies chest pain, SOB or other acute concerns Physical Exam Constitutional: WD/WN, vitals as above Respiratory: with NC in place, laying flat, no resp distress Cardiovascular: irregularly irregular Results & Data Results & Data Vital Signs (Past 12 Hours) Vital Signs Temp Pulse Pulse Resp BP Pulse Ox O2 Del Method 04/08/23 05:55 36.9 C 95 H 18 115/74 92 Nasal Cannula 04/08/23 03:29 95 H 22 04/08/23 03:00 36.4 C L 92 H 24 103/67 90 CPAP 04/08/23 02:16 66 04/08/23 00:10 Nasal Cannula, CPAP 04/07/23 23:00 36.4 C L 88 24 97/65 L 90 CPAP 04/07/23 22:06 22 96 O2 Flow Rate 04/08/23 05:55 2 04/08/23 03:29 4 04/08/23 03:00 04/08/23 02:16 04/08/23 00:10 04/07/23 23:00 04/07/23 22:06 4 Laboratory Results Short CBC 04/07/23 04/08/23 Range/Units 08:57 06:16 WBC 12.63 H 11.06 H (4.8-10.8) K/ul Hgb 12.7 L 12.8 L (14.0-18.0) g/dl Hct 38.0 L 37.5 L (42.0-52.0) % Plt Count 115 L 133 (130-400) K/uL BMP 04/07/23 04/08/23 08:57 06:16 Sodium 127 L 128 L Potassium 4.2 4.3 Chloride 88 L 86 L Carbon Dioxide 34 H 38 H BUN 23 23 Creatinine 0.74 0.74 Glucose 236 H 177 H Calcium 8.9 9.2 Medications Administered Home Medications Medication Instructions Recorded Confirmed Last Taken acetaminophen 500 mg tablet 500 mg PO QAM 06/08/22 04/02/23 07/14/22 05:00 aspirin 81 mg chewable tablet 81 mg PO QAM 06/08/22 04/02/23 07/14/22 09:01 carboxymethylcellulose sodium 1 % 1 drp OPB QA 06/08/22 04/02/23 07/14/22 09:01 eye gel in a dropperette (Refresh Celluvisc) cholecalciferol (vitamin D3) 50 2,000 unit PO QAM 06/08/22 04/02/23 07/15/22 09:01 mcg (2,000 unit) capsule ciprofloxacin HCl 0.3 % eye drops 1 drp OPR BID 06/08/22 04/02/23 07/14/22 17:00 colchicine 0.6 mg tablet 0.6 mg PO BID 06/08/22 04/02/23 07/15/22 09:01 duloxetine 20 mg capsule,delayed 20 mg PO HS 06/08/22 04/02/23 07/14/22 09:01 release febuxostat 80 mg tablet 80 mg PO QAM 06/08/22 04/02/23 07/14/22 09:01 furosemide 40 mg tablet 40 mg PO QAM 06/08/22 04/02/23 07/15/22 05:01 hydroxychloroquine 200 mg tablet 200 mg PO HS 06/08/22 04/02/23 07/14/22 09:01 oxybutynin chloride 5 mg tablet 5 mg PO QAM 06/08/22 04/02/23 07/15/22 09:01 terbinafine HCl 1 % topical cream 1 applic topical DAILY 06/08/22 04/02/23 07/14/22 19:00 tramadol 50 mg tablet 50 mg PO TID 06/08/22 04/02/23 07/14/22 09:01 acetaminophen 325 mg tablet 325 mg PO QID PRN pain/fever 07/13/22 04/02/23 Unkno wn bisacodyl 10 mg rectal suppository 10 mg TX UD PRN Constipation 07/13/22 04/02/23 Unknown (Dulcolax (bisacodyl)) magnesium hydroxide 400 mg/5 mL 30 ml PO DAILY PRN Constipation 07/13/22 Unknown oral suspension (Milk of Magnesia) sodium phosphates 19 gram-7 118 ml TX DAILY PRN Constipation 07/13/22 04/02/23 Unknown gram/118 mL enema (Fleet Enema) spironolactone 25 mg tablet 12.5 mg PO QAM 07/13/22 04/02/23 07/15/22 09:01 (Aldactone) Active Medications Generic Name Dose Route Start Last Admin Trade Name Freq PRN Reason Stop Dose Admin Apixaban 5 mg 04/03/23 10:15 04/07/23 20:59 Apixaban 5 Mg Tablet PO 05/03/23 10:14 5 mg BID MARTINE Administration Aspirin 81 mg 04/03/23 09:00 04/07/23 08:06 Aspirin 81 Mg Ectab PO 05/03/23 08:59 81 mg QAM MARTINE Administration Ciprofloxacin 1 drops 04/02/23 21:00 04/07/23 21:01 Ciprofloxacin Hcl 0.3% Op Soln 2.5 Ml Btl OPR 04/12/23 20:59 1 drops BID MARTINE Administration Colchicine 0.6 mg 04/02/23 21:00 04/07/23 20:58 Colchicine 0.6 Mg Tab PO 05/02/23 20:59 0.6 mg BID MARTINE Administration Duloxetine HCl 20 mg 04/02/23 21:00 04/07/23 20:59 Duloxetine Hcl 20 Mg Cap PO 05/02/23 20:59 20 mg HS MARTINE Administration Hydroxychloroquine Sulfate 200 mg 04/02/23 21:00 04/07/23 20:59 Hydroxychloroquine Sulfate 200 Mg Tab PO 05/02/23 20:59 200 mg HS MARTINE Administration Lidocaine 1 patch 04/06/23 15:30 04/07/23 08:12 Lidocaine 5% 1 Patch TD 05/06/23 15:29 1 patch QAM MARTINE Administration Magnesium Oxide 400 mg 04/03/23 10:00 04/07/23 21:00 Magnesium Oxide 400 Mg Tab PO 05/03/23 09:59 400 mg BID MARTINE Administration Miscellaneous 1 each 04/06/23 21:00 04/07/23 21:00 Remove Lidoderm Patch N/A 05/06/23 20:59 1 each DAILY@2100 MARTINE Administration Oxycodone HCl 5 mg 04/02/23 21:30 04/07/23 20:58 Oxycodone Hcl Ir 5 Mg Tab (Immediate Release) PO 04/16/23 21:29 5 mg TID MARTINE Administration Tamsulosin HCl 0.4 mg 04/06/23 21:00 04/07/23 21:00 Tamsulosin Hcl 0.4 Mg Cap PO 05/06/23 20:59 0.4 mg HS MARTINE Administration Terbinafine HCl 1 appln 04/03/23 09:00 04/07/23 08:08 Terbinafine Cr 30 Gm Tube EXT 05/03/23 08:59 1 appln DAILY MARTINE Administration Vitamin D 2,000 units 04/03/23 09:00 04/07/23 08:06 Cholecalciferol 1,000 Units 25 Mcg Tab PO 05/03/23 08:59 2,000 units QAM MARTINE Administration
[2023-04-08 07:57] LABS: Basophils # (auto) 0.06 K/uL (0.00-0.20); Basophils % (auto) 0.5 %; Eosinophils # (auto) 0.13 K/uL (0.00-0.50); Eosinophils % (auto) 1.2 %; Immature Granulocytes # (auto) 0.06 K/uL (0.01-0.20); Immature Granulocytes % (auto) 0.5 %; Lymphocytes # (auto) 5.77 K/uL (1.20-3.40); Lymphocytes % (auto) 52.2 %; Monocytes # (auto) 1.08 K/uL (0.11-0.59); Monocytes % (auto) 9.8 %; Neutrophils # (auto) 3.96 K/uL (1.40-6.50); Neutrophils % (auto) 35.8 %; RBC Morphology Unremarkable
[2023-04-08] MEDS: CIPROFLOXACIN HCL 0.3% OP SOLN 2.5 ML BTL OPR SCH ×2 (09:13→21:15)
[2023-04-08] MEDS: oxyCODONE HCL IR 5 MG TAB (IMMEDIATE RELEASE) PO SCH ×3 (09:13→21:16)
[2023-04-08] MEDS: FUROSEMIDE 80 MG TAB PO SCH (09:13)
[2023-04-08] MEDS: COLCHICINE 0.6 MG TAB PO SCH ×2 (09:13→21:16)
[2023-04-08] MEDS: APIXABAN 5 MG TABLET PO SCH ×2 (09:13→21:17)
[2023-04-08] MEDS: LIDOCAINE 5% 1 PATCH TD SCH (09:14)
[2023-04-08] MEDS: ASPIRIN 81 MG ECTAB PO SCH (09:14)
[2023-04-08] MEDS: MAGNESIUM OXIDE 400 MG TAB PO SCH ×2 (09:14→21:15)
[2023-04-08] MEDS: TERBINAFINE CR 30 GM TUBE EXT SCH (09:15)
[2023-04-08] MEDS: CHOLECALCIFEROL 1,000 UNITS 25 MCG TAB PO SCH (09:15)
--- NOTE | 2023-04-08 09:26 | Cardiology Progress Note ---
Date of Service April 08, 2023 Assessment & Plan (1) Acute on chronic heart failure with preserved ejection fraction (HFpEF): (2) Acute hyponatremia: (3) Atrial fibrillation with controlled ventricular rate: Plan IMPRESSION: 77 year old male admitted for worsening SOB/hypoxia, volume overload, consistent with acute on chronic heart failure preserved EF in setting of morbid obesity, right heart failure, hypoventilatory syndrome. PLAN: -Continue furosemide 80 mg PO today. Urea added by nephrology for help with sodium and for osmotic diuretic effect. Atrial fibrillation is new diagnosis. Rates are controlled. -[id number] score of 5 - Anticoagulation therapy is recommended for stroke prophylaxis. Continue Eliquis 5 mg BID Admission and Anticipated Discharge Date Admission Date: April 02, 2023 Subjective Pt seen in cardiology follow up. Mild SOB. Hurtado catheter in place. Telemetry reveals AF in the 80s to 90s. Physical Exam Constitutional: + obese Respiratory: no cough Auscultation: + diminished lung sounds; no crackles exam limited by body habitus Cardiovascular: Rate/Rhythm: + irregularly irregular (distant heart sounds due to obesity ) Extremities: + edema (1+ LE edema, chronic venous stasis changes ) Gastrointestinal (Abdomen): normal bowel sounds, soft, nontender, no hepatosplenomegaly Neurologic: PERRL, EOMI, accommodation nl, no face palsy, no dysarthria Results & Data Vital Signs (Past 12 Hours) Vital Signs Temp Pulse Pulse Resp BP Pulse Ox O2 Del Method 04/08/23 07:56 36.8 C 83 123/74 92 Nasal Cannula 04/08/23 05:55 36.9 C 95 H 18 115/74 92 Nasal Cannula 04/08/23 03:29 95 H 22 04/08/23 03:00 36.4 C L 92 H 24 103/67 90 CPAP 04/08/23 02:16 66 04/08/23 00:10 Nasal Cannula, CPAP 04/07/23 23:00 36.4 C L 88 24 97/65 L 90 CPAP 04/07/23 22:06 22 96 O2 Flow Rate 04/08/23 07:56 3 04/08/23 05:55 2 04/08/23 03:29 4 04/08/23 03:00 04/08/23 02:16 04/08/23 00:10 04/07/23 23:00 04/07/23 22:06 4 Laboratory Results Cardiac Enzymes 04/08/23 Range/Units 06:16 Troponin I High Sens 8.9 (0-20) pg/ml CBC 04/08/23 Range/Units 06:16 WBC 11.06 H (4.8-10.8) K/ul RBC 3.94 L (4.70-6.10) M/uL Hgb 12.8 L (14.0-18.0) g/dl Hct 37.5 L (42.0-52.0) % Plt Count 133 (130-400) K/uL Neut # (Auto) 3.96 (1.40-6.50) K/uL Lymph # (Auto) 5.77 H (1.20-3.40) K/uL Garvin # (Auto) 1.08 H (0.11-0.59) K/uL Eos # (Auto) 0.13 (0.00-0.50) K/uL Baso # (Auto) 0.06 (0.00-0.20) K/uL Comprehensive Metabolic Panel 04/08/23 Range/Units 06:16 Sodium 128 L (136-145) mmol/L Potassium 4.3 (3.5-5.1) mmol/L Chloride 86 L (98-107) mmol/L Carbon Dioxide 38 H (21-32) mmol/L BUN 23 (6-23) mg/dl Creatinine 0.74 (0.6-1.4) mg/dl Glucose 177 H (70-99(Fasting)) mg/dl Calcium 9.2 (8.6-10.3) mg/dl Intake and Output 04/07/23 04/08/23 04/08/23 22:59 06:59 14:59 Output Total 1400 / 1700 300 / 1700 Balance -1400 / -1700 -300 / -1700 Output: Urine Amount (Catheter) 1400 / 1700 300 / 1700 Hurtado/Indwelling 1400 / 1700 300 / 1700 Other: Weight 156.6 kg Weight Measurement Method Built in [facility]
[2023-04-08] MEDS: UREA (UREA-NA) 15 GM PACK PO SCH ×2 (09:40→21:13)
--- NOTE | 2023-04-08 13:02 | Nephrology Progress Note ---
Date of Service April 08, 2023 Assessment & Plan (1) Acute hyponatremia: Plan: Acute hyponatremia with serum sodium of 119 on presentation and is most likely related with hypervolemic hyponatremia in the setting of acute congestive heart failure. Agree with fluid restriction of 1500 mL/day with Lasix 80 p.o.daily. - will add urea 15 g twice daily - monitor sodium daily (2) Acute on chronic heart failure with preserved ejection fraction (HFpEF): Plan: patient is now on Lasix 80 mg daily No spironolactone for now. We will hold off on the EZEQUIEL and ARB. Admission and Anticipated Discharge Date Admission Date: April 02, 2023 Subjective seen in follow-up for hyponatremia. Main complaint is shortness of breath. Legs are still swollen. Is making some urine. Sodium is 128 Review of Systems 2 Review of Systems: All other systems were reviewed and negative except as noted in HPI Physical Exam 2 Physical Exam: General exam: Appears comfortable, no acute distress. On oxygen nasal cannula HEENT: Pupils are equal and reactive to light Neck: No JVD, neck is supple trachea is midline Respiratory system: Clear breath sounds bilaterally. Gastrointestinal: Abdomen is soft, non distended, non tender, bowel sounds are present CVS: Regular rate and rhythm. No murmurs, rubs or gallops Musculoskeletal: No joint or muscle tenderness Extremities: Non tender, 1+edema, peripheral pulses are present Neuro: Oriented, no tremors, no focal neurological deficits Skin: No rashes Results & Data Vital Signs (Past 12 Hours) Vital Signs Temp Pulse Pulse Resp BP Pulse Ox O2 Del Method 04/08/23 11:30 36.7 C 104 H 116/71 90 Nasal Cannula 04/08/23 07:56 36.8 C 83 123/74 92 Nasal Cannula 04/08/23 05:55 36.9 C 95 H 18 115/74 92 Nasal Cannula 04/08/23 03:29 95 H 22 04/08/23 03:00 36.4 C L 92 H 24 103/67 90 CPAP 04/08/23 02:16 66 O2 Flow Rate 04/08/23 11:30 4 04/08/23 07:56 3 04/08/23 05:55 2 04/08/23 03:29 4 04/08/23 03:00 04/08/23 02:16 Laboratory Results 04/08/23 06:16 04/08/23 06:16 WBC 11.06 H RBC 3.94 L MCV 95.2 MCH 32.5 MCHC 34.1 RDW Std Deviation 61.4 H RDW Coeff of Nixon 17.7 H Plt Count 133 MPV 9.4 Phosphorus 3.4
[2023-04-08] MEDS: DULoxetine HCL 20 MG CAP PO SCH (21:15)
[2023-04-08] MEDS: TAMSULOSIN HCL 0.4 MG CAP PO SCH (21:15)
[2023-04-08] MEDS: HYDROXYCHLOROQUINE SULFATE 200 MG TAB PO SCH (21:15)
[2023-04-09 07:23] LABS: Hematocrit (blood only) 36.1 % (42.0-52.0); Hemoglobin 12.2 g/dl (14.0-18.0); Mean Corpuscular Hemoglobin 31.8 pg (25.0-34.0); Mean Corpuscular Hgb Conc 33.8 g/dL (32.0-36.0); Mean Platelet Volume 9.3 fL (9.4-12.4); Platelet Count 133 K/uL (130-400); RDW Coefficient of Variation 17.7 % (11.5-14.5); Red Blood Count 3.84 M/uL (4.70-6.10); White Blood Count 12.55 K/ul (4.8-10.8)
[2023-04-09 07:34] LABS: BUN Creatinine Ratio 51.4 (10-20); Calcium 9.4 mg/dl (8.6-10.3); Creatinine Clr Calc Pharmacy 126.5 ml/min; Est GFR (African American) 102.1 ml/min; Est GFR (Non-African American) 88.1 ml/min; Magnesium 1.9 mg/dl (1.7-2.4); Phosphorus 3.7 mg/dl (2.5-4.9); Potassium 4.1 mmol/L (3.5-5.1)
[2023-04-09] MEDS: LIDOCAINE 5% 1 PATCH TD SCH (08:07)
[2023-04-09] MEDS: CIPROFLOXACIN HCL 0.3% OP SOLN 2.5 ML BTL OPR SCH ×2 (08:13→20:13)
[2023-04-09] MEDS: COLCHICINE 0.6 MG TAB PO SCH ×2 (08:14→20:12)
[2023-04-09] MEDS: APIXABAN 5 MG TABLET PO SCH ×2 (08:14→20:13)
[2023-04-09] MEDS: MAGNESIUM OXIDE 400 MG TAB PO SCH ×2 (08:14→20:12)
[2023-04-09] MEDS: ASPIRIN 81 MG ECTAB PO SCH (08:15)
[2023-04-09] MEDS: UREA (UREA-NA) 15 GM PACK PO SCH ×2 (08:15→20:11)
[2023-04-09] MEDS: FUROSEMIDE 80 MG TAB PO SCH (08:15)
[2023-04-09] MEDS: TERBINAFINE CR 30 GM TUBE EXT SCH (08:17)
[2023-04-09] MEDS: CHOLECALCIFEROL 1,000 UNITS 25 MCG TAB PO SCH (08:17)
[2023-04-09] MEDS: oxyCODONE HCL IR 5 MG TAB (IMMEDIATE RELEASE) PO SCH ×3 (08:21→20:11)
[2023-04-09] MEDS: TROLAMINE SALICYLATE 10% CRM 255 APPLN/85 GM TUBE EXT PRN (08:22)
--- NOTE | 2023-04-09 10:24 | Nephrology Progress Note ---
Date of Service April 09, 2023 Assessment & Plan (1) Acute hyponatremia: Plan: Acute hyponatremia with serum sodium of 119 on presentation and is most likely related with hypervolemic hyponatremia in the setting of acute congestive heart failure. Sodium is up to 130 today. -Continue fluid restriction of 1500 mL/day with Lasix 80 p.o.daily. - will continue urea 15 g twice daily - monitor sodium daily (2) Acute on chronic heart failure with preserved ejection fraction (HFpEF): Plan: patient is now on Lasix 80 mg daily No spironolactone for now. We will hold off on the EZEQUIEL and ARB. Admission and Anticipated Discharge Date Admission Date: April 02, 2023 Subjective Seen for volume overload and hyponatremia. Main complaint is constipation this morning. Breathing is stable. He was net negative about a liter of urine. Review of Systems 2 Review of Systems: All other systems were reviewed and negative except as noted in HPI Physical Exam 2 Physical Exam: General exam: Appears comfortable, no acute distress. On oxygen nasal cannula HEENT: Pupils are equal and reactive to light Neck: No JVD, neck is supple trachea is midline Respiratory system: Clear breath sounds bilaterally. Gastrointestinal: Abdomen is soft, non distended, non tender, bowel sounds are present CVS: Regular rate and rhythm. No murmurs, rubs or gallops Musculoskeletal: No joint or muscle tenderness Extremities: Non tender, 1+edema, peripheral pulses are present Neuro: Oriented, no tremors, no focal neurological deficits Skin: No rashes Results & Data Vital Signs (Past 12 Hours) Vital Signs Temp Pulse Pulse Resp BP Pulse Ox O2 Del Method 04/09/23 08:45 110/64 90 Nasal Cannula 04/09/23 04:09 89 04/09/23 03:00 36.4 C L 82 22 97/61 L 89 L Nasal Cannula 04/09/23 02:48 93 H 26 H 04/08/23 23:00 36.3 C L 94 H 19 105/68 93 Nasal Cannula O2 Flow Rate 04/09/23 08:45 4 04/09/23 04:09 04/09/23 03:00 04/09/23 02:48 4 04/08/23 23:00 Laboratory Results 04/09/23 06:32 04/09/23 06:32 WBC 12.55 H RBC 3.84 L MCV 94.0 MCH 31.8 MCHC 33.8 RDW Std Deviation 61.0 H RDW Coeff of Nixon 17.7 H Plt Count 133 MPV 9.3 L Phosphorus 3.7
--- NOTE | 2023-04-09 11:43 | Hospitalist Progress Note ---
Date of Service April 09, 2023 Assessment & Plan (1) Acute on chronic heart failure with preserved ejection fraction (HFpEF): (2) Acute hyponatremia: Plan Mr Cruz is a 77-year-old gentleman with PMH of chronic diastolic heart failure on Lasix, HTN, TIIDM, presented (from [facility]) to the ED with worsening shortness of breath since last few days. He is being managed for the following: #Acute urinary retention *resolved -c/f bladder outlet obstruction, c/f buried penis (congenital v acquired) per Urology -Nephrology also feels NOWAK likely given robust UOP -Urology on consult: migue 1-2 weeks, OP follow up to be arranged -Continue tamsulosin -Discontinued oxybutynin #Acute hypoxic respiratory failure, likely multifactorial #OHS -Iso heart failure exacerbation and OHS -Manage as follows -Will likely require 2 step to assess for daytime need for oxygen prior to discharge #Acute non-cardiac chest pain #Acute on chronic back pain *resolved -Tylenol prn, lidocaine patch to mid back -Pain on chest reproducible to touch -Continue home oxycodone regimen -Topical myoflex #Acute on chronic heart failure with preserved ejection fraction #HTN - TTE (04/03/2023): LVEF 55-60%, - Home diuretics: Lasix 40mg qam Cardiology on consult and Nephrology on consult -Continue PO lasix 80mg daily -Strict I's and O's, fluid restriction of 1500 mL/day, heart healthy diet, low- sodium diet -Holding spironolactone 2/2 hyponatremia -Holding ACEi/ARB at this time 2/2 hypotension #New onset atrial fibrillation History of wandering atrial pacemaker/complex ectopy given comorbidities remains in afib on telemetry-HR is controlled without rate control agents. Per cardiology recommend he transition to apixaban from Lovenox started on a dmission. Echo reveals EF 55-60%. Small circumferential pericardial effusion without hemodynamic significance. -Continue Eliquis #PAD, chronic bilateral dusky discoloration -Continue ASA #Contraction alkalosis #Hypervolemic Hyponatremia *improving with aggressive diuresis Baseline sodium appears around 137, admitting sodium of 119, likely hypervolemic hyponatremia. Patient with no headache or dizziness or orientation issues. Nephro consultation With presentation most likely related to hypervolemic hyponatremia in the setting of acute congestive heart failure continue with fluid restriction 1500 cc/day and 80 IV twice daily of Lasix. Hurtado catheter in place continue to monitor strict I's and O's. -Continue to hold off on spironolactone or any EZEQUIEL/ARB. -Nephrology on consult, appreciate recommendations -Continue PO lasix -Continue Urea BID #Lower ext cellulitis *resolved #Skin tears - Pt treated with oral Augmentin which has been completed. He has lower extremities wounds on his anterior tibiae and his toes from a recent fall per his report. #Morbidly obese -lifestyle changes recommended #LARISA -cpap at HS #Acute Thrombocytopenia *resolved #Leukocytosis #B-Cell lymphoma Follows Dr. Escamilla, denies constitutional symptoms, reportedly increased LDH and [id number] c/w comorbidities -LDH 215 (last LDH 275 12/2022) -CBC w/ diff and smear in am -Dr escamilla on schedule, consult to assess if symptoms related/stable, no recommendations #T2DM -diet controlled, a1c 6.2 on 03/31/23, lantus/novolog per protocol has been declined by patient several times. Will DC BSG checks and insulin at this time. Continue with outpatient follow- up. #Rheumatoid arthritis #Gout -Continue plaquenil 200mg daily -Continue colchicine 0.6mg bid #Depression Continue duloxetine DVT prophylaxis: apixaban PT/OT DNR/DNI I spent a total of 60minutes coordinating, documenting, and providing care for this patient excluding time spent in the performance of separately billed services Admission and Anticipated Discharge Date Admission Date: April 02, 2023 Subjective NAEO States he is feeling "ok today" denies any new acute symptoms and reports more concerns with bed/attempting to get comfortable Review of Systems Review of Systems: All systems reviewed & are unremarkable except as noted in Subjective Physical Exam Constitutional: WD/WN, vitals as above Respiratory: difficult with habitus Cardiovascular: irregular, tachy Gastrointestinal (Abdomen): normal bowel sounds, soft, nontender, no hepatosplenomegaly Results & Data Results & Data Vital Signs (Past 12 Hours) Vital Signs Temp Pulse Pulse Resp BP Pulse Ox O2 Del Method 04/09/23 08:45 110/64 90 Nasal Cannula 04/09/23 07:00 96 H 04/09/23 07:00 Nasal Cannula 04/09/23 04:09 89 04/09/23 03:00 36.4 C L 82 22 97/61 L 89 L Nasal Cannula 04/09/23 02:48 93 H 26 H O2 Flow Rate 04/09/23 08:45 4 04/09/23 07:00 04/09/23 07:00 4 04/09/23 04:09 04/09/23 03:00 04/09/23 02:48 4 Laboratory Results Short CBC 04/09/23 Range/Units 06:32 WBC 12.55 H (4.8-10.8) K/ul Hgb 12.2 L (14.0-18.0) g/dl Hct 36.1 L (42.0-52.0) % Plt Count 133 (130-400) K/uL BMP 04/09/23 06:32 Sodium 130 L Potassium 4.1 Chloride 89 L Carbon Dioxide 38 H BUN 37 H Creatinine 0.72 Glucose 183 H Calcium 9.4 Medications Administered Home Medications Medication Instructions Recorded Confirmed Last Taken acetaminophen 500 mg tablet 500 mg PO [facility] 06/08/22 04/02/23 07/14/22 05:00 aspirin 81 mg chewable tablet 81 mg PO QAM 06/08/22 04/02/23 07/14/22 09:01 carboxymethylcellulose sodium 1 % 1 drp OPB [facility] 06/08/22 04/02/23 07/14/22 09:01 eye gel in a dropperette (Refresh Celluvisc) cholecalciferol (vitamin D3) 50 2,000 unit PO QAM 06/08/22 04/02/23 07/15/22 09:01 mcg (2,000 unit) capsule ciprofloxacin HCl 0.3 % eye drops 1 drp OPR BID 06/08/22 04/02/23 07/14/22 17:00 colchicine 0.6 mg tablet 0.6 mg PO BID 06/08/22 04/02/23 07/15/22 09:01 duloxetine 20 mg capsule,delayed 20 mg PO HS 06/08/22 04/02/23 07/14/22 09:01 release febuxostat 80 mg tablet 80 mg PO QAM 06/08/22 04/02/23 07/14/22 09:01 furosemide 40 mg tablet 40 mg PO QAM 06/08/22 04/02/23 07/15/22 05:01 hydroxychloroquine 200 mg tablet 200 mg PO HS 06/08/22 04/02/23 07/14/22 09:01 oxybutynin chloride 5 mg tablet 5 mg PO QAM 06/08/22 04/02/23 07/15/22 09:01 terbinafine HCl 1 % topical cream 1 applic topical DAILY 06/08/22 04/02/23 07/14/22 19:00 tramadol 50 mg tablet 50 mg PO TID 06/08/22 04/02/23 07/14/22 09:01 acetaminophen 325 mg tablet 325 mg PO QID PRN pain/fever 07/13/22 04/02/23 Unknown bisacodyl 10 mg rectal suppository 10 mg [place] UD PRN Constipation 07/13/22 04/02/23 Unknown (Dulcolax (bisacodyl)) magnesium hydroxide 400 mg/5 mL 30 ml PO DAILY PRN Constipation 07/13/22 04/02/23 Unknown oral suspension (Milk of Magnesia) sodium phosphates 19 gram-7 118 ml [place] DAILY PRN Constipation 07/13/22 04/02/23 Unknown gram/118 mL enema (Fleet Enema) spironolactone 25 mg tablet 12.5 mg PO QAM 07/13/22 04/02/23 07/15/22 09:01 (Aldactone) Active Medications Generic Name Dose Route Start Last Admin Trade Name Freq PRN Reason Stop Dose Admin Apixaban 5 mg 04/03/23 10:15 04/09/23 08:14 Apixaban 5 Mg Tablet PO 05/03/23 10:14 5 mg BID MARTINE Administration Aspirin 81 mg 04/03/23 09:00 04/09/23 08:15 Aspirin 81 Mg Ectab PO 05/03/23 08:59 81 mg QAM MARTINE Administration Ciprofloxacin 1 drops 04/02/23 21:00 04/09/23 08:13 Ciprofloxacin Hcl 0.3% Op Soln 2.5 Ml Btl OPR 04/12/23 20:59 1 drops BID MARTINE Administration Colchicine 0.6 mg 04/02/23 21:00 04/09/23 08:14 Colchicine 0.6 Mg Tab PO 05/02/23 20:59 0.6 mg BID MARTINE Administration Duloxetine HCl 20 mg 04/02/23 21:00 04/08/23 21:15 Duloxetine Hcl 20 Mg Cap PO 05/02/23 20:59 20 mg HS MARTINE Administration Furosemide 80 mg 04/08/23 09:00 04/09/23 08:15 Furosemide 80 Mg Tab PO 05/08/23 08:59 80 mg QAM MARTINE Administration Hydroxychloroquine Sulfate 200 mg 04/02/23 21:00 04/08/23 21:15 Hydroxychloroquine Sulfate 200 Mg Tab PO 05/02/23 20:59 200 mg HS MARTINE Administration Lidocaine 1 patch 04/06/23 15:30 04/09/23 08:07 Lidocaine 5% 1 Patch TD 05/06/23 15:29 1 patch QAM MARTINE Administration Magnesium Oxide 400 mg 04/03/23 10:00 04/09/23 08:14 Magnesium Oxide 400 Mg Tab PO 05/03/23 09:59 400 mg BID MARTINE Administration Miscellaneous 1 each 04/06/23 21:00 04/08/23 21:18 Remove Lidoderm Patch N/A 05/06/23 20:59 1 each DAILY@2100 MARTINE Administration Oxycodone HCl 5 mg 04/02/23 21:30 04/09/23 08:21 Oxycodone Hcl Ir 5 Mg Tab (Immediate Release) PO 04/16/23 21:29 5 mg TID MARTINE Administration Tamsulosin HCl 0.4 mg 04/06/23 21:00 04/08/23 21:15 Tamsulosin Hcl 0.4 Mg Cap PO 05/06/23 20:59 0.4 mg HS MARTINE Administration Terbinafine HCl 1 appln 04/03/23 09:00 04/09/23 08:17 Terbinafine Cr 30 Gm Tube EXT 05/03/23 08:59 1 appln DAILY MARTINE Administration Trolamine Salicylate 1 appln 04/08/23 10:50 04/09/23 08:22 Trolamine Salicylate 10% Crm 255 Appln/85 Gm Tube EXT 05/08/23 10:49 1 appln Q6H PRN Administration Pain Urea 15 gm 04/08/23 09:15 04/09/23 08:15 Urea (Urea-Na) 15 Gm Pack PO 05/08/23 09:14 15 gm BID MARTINE Administration Vitamin D 2,000 units 04/03/23 09:00 04/09/23 08:17 Cholecalciferol 1,000 Units 25 Mcg Tab PO 05/03/23 08:59 2,000 units QAM MARTINE Administration
--- NOTE | 2023-04-09 14:41 | Cardiology Progress Note ---
Date of Service April 09, 2023 Assessment & Plan (1) Acute on chronic heart failure with preserved ejection fraction (HFpEF): (2) Acute hyponatremia: (3) Atrial fibrillation with controlled ventricular rate: Plan IMPRESSION: 77 year old male admitted for worsening SOB/hypoxia, volume overload, consistent with acute on chronic heart failure preserved EF in setting of morbid obesity, right heart failure, hypoventilatory syndrome. PLAN: -Continue furosemide 80 mg PO daily.. Oral Urea added by nephrology for help with sodium and for osmotic diuretic effect. Atrial fibrillation is new diagnosis. Rates are controlled. -[id number] score of 5 - Anticoagulation therapy is recommended for stroke prophylaxis. Continue Eliquis 5 mg BID Admission and Anticipated Discharge Date Admission Date: April 02, 2023 Subjective Patient seen in cardiology follow-up. No acute complaint. Today is his 78th birthday. Telemetry reveals atrial fibrillation in the range of 80 to 90 bpm. Physical Exam Constitutional: + obese Respiratory: no cough Auscultation: + diminished lung sounds; no crackles Cardiovascular: Rate/Rhythm: + irregularly irregular (distant heart sounds due to obesity ) Extremities: + edema (1+ LE edema, chronic venous stasis changes ) Gastrointestinal (Abdomen): normal bowel sounds, soft, nontender, no hepatosplenomegaly Neurologic: PERRL, EOMI, accommodation nl, no face palsy, no dysarthria Genitourinary: Hurtado catheter in place draining clear yellow urine Results & Data Vital Signs (Past 12 Hours) Vital Signs Temp Pulse Pulse Resp BP Pulse Ox O2 Del Method 04/09/23 12:37 36.7 C 74 20 125/60 95 Nasal Cannula 04/09/23 08:45 36.8 C 85 110/64 90 Nasal Cannula 04/09/23 07:00 96 H 04/09/23 07:00 Nasal Cannula 04/09/23 04:09 89 04/09/23 03:00 36.4 C L 82 22 97/61 L 89 L Nasal Cannula 04/09/23 02:48 93 H 26 H O2 Flow Rate 04/09/23 12:37 4 04/09/23 08:45 4 04/09/23 07:00 04/09/23 07:00 4 04/09/23 04:09 04/09/23 03:00 04/09/23 02:48 4
--- NOTE | 2023-04-09 19:53 | Electrocardiogram Report ---
Test Reason : Blood Pressure : / mmHG Vent. Rate : 094 BPM Atrial Rate : 083 BPM P-R Int : 000 ms QRS Dur : 110 ms QT Int : 376 ms P-R-T Axes : 000 -53 075 degrees QTc Int : 470 ms Atrial fibrillation Left axis deviation Low voltage QRS Cannot rule out Anterior infarct (cited on or before 10-JUN-2022) Abnormal ECG When compared with ECG of 06-APR-2023 14:41, No significant change was found Confirmed by Pablo Lubin [id number]) on 04/09/2023 7:53:08 PM Referred By: REFERRED SELF Confirmed By:Pablo Lubin
[2023-04-09] MEDS: TAMSULOSIN HCL 0.4 MG CAP PO SCH (20:11)
[2023-04-09] MEDS: DULoxetine HCL 20 MG CAP PO SCH (20:12)
[2023-04-09] MEDS: HYDROXYCHLOROQUINE SULFATE 200 MG TAB PO SCH (20:12)
[2023-04-10 06:48] LABS: Hematocrit (blood only) 35.6 % (42.0-52.0); Hemoglobin 12.2 g/dl (14.0-18.0); Mean Corpuscular Hemoglobin 31.9 pg (25.0-34.0); Mean Corpuscular Hgb Conc 34.3 g/dL (32.0-36.0); Mean Corpuscular Volume 93.2 fL (80.0-100.0); Mean Platelet Volume 8.9 fL (9.4-12.4); Platelet Count 132 K/uL (130-400); RDW Coefficient of Variation 17.3 % (11.5-14.5); Red Blood Count 3.82 M/uL (4.70-6.10); White Blood Count 11.37 K/ul (4.8-10.8)
[2023-04-10 07:10] LABS: BUN Creatinine Ratio 58.9 (10-20); Calcium 9.1 mg/dl (8.6-10.3); Creatinine Clr Calc Pharmacy 124.4 ml/min; Est GFR (African American) 101.5 ml/min; Est GFR (Non-African American) 87.6 ml/min; Phosphorus 3.9 mg/dl (2.5-4.9)
[2023-04-10 07:55] LABS: Hairy Cells Present
[2023-04-10 07:59] LABS: Anisocytosis Present; Basophils # (auto) 0.07 K/uL (0.00-0.20); Basophils % (auto) 0.6 %; Eosinophils # (auto) 0.15 K/uL (0.00-0.50); Eosinophils % (auto) 1.3 %; Immature Granulocytes # (auto) 0.06 K/uL (0.01-0.20); Immature Granulocytes % (auto) 0.5 %; Lymphocytes # (auto) 6.83 K/uL (1.20-3.40); Lymphocytes % (auto) 60.1 %; Monocytes # (auto) 0.92 K/uL (0.11-0.59); Monocytes % (auto) 8.1 %; Neutrophils # (auto) 3.34 K/uL (1.40-6.50); Neutrophils % (auto) 29.4 %; Polychromasia 1+
--- NOTE | 2023-04-10 08:25 | Nephrology Progress Note ---
Date of Service April 10, 2023 Assessment & Plan (1) Acute hyponatremia: Plan: hypervolemic hyponatremia with serum sodium of 119 on presentation in the setting of acute congestive heart failure. Sodium is up to 131 today. -Continue fluid restriction of 1500 mL/day with Lasix 80 p.o. daily. - will continue urea 15 g twice daily - monitor bmp daily Care coordinated w/ Dr Medina (2) Acute on chronic heart failure with preserved ejection fraction (HFpEF): Plan: patient is now on Lasix 80 mg daily >check CXR >>shows more fluid congestion >trial of holding lasix and bumex 2 mg IV bid No spironolactone for now. We will hold off on the EZEQUIEL and ARB. Admission and Anticipated Discharge Date Admission Date: April 02, 2023 Subjective no complaints except to tell me breathing a bit short today. on 2-4L 02nc since arrival; no home 02 per his report Review of Systems 2 Review of Systems: All systems reviewed & are unremarkable except as noted in Subjective Physical Exam 2 Constitutional: well developed, well nourished, + morbidly obese, + frail appearing and cooperative; no acute distress Eyes: EOM intact bilaterally ENMT: Ears: no external ear abnormality Nose: no external nose abnormality Mouth: + dry oral mucous membranes Neck: no nuchal rigidity Respiratory: + labored breathing (slight), + tachypne ic and + paradoxical thoraco-abdominal movement Auscultation: + diminished lung sounds Cardiovascular: Rate/Rhythm: + irregularly irregular Extremities: + edema (not peripheral but 1+ dependent and ant abd wall) Gastrointestinal (Abdomen): Inspection/Auscultation: normal bowel sounds P ercussion/Palpation: abdomen soft; abdomen nontender Musculoskeletal: Extremities: + abnormal strength Skin: no rashes, warm and dry (BL yepez and toe wounds) Neurologic: tillman, fluent speech, no tremor Results & Data Vital Signs (Past 12 Hours) Vital Signs Temp Pulse Pulse Resp BP Pulse Ox O2 Del Method 04/10/23 07:04 36.5 C 85 19 96/62 L 91 Nasal Cannula 04/10/23 03:30 21 04/10/23 03:10 36.4 C L 92 H 26 H 119/78 91 CPAP 04/10/23 00:54 84 04/09/23 23:25 36.5 C 89 24 115/72 94 CPAP 04/09/23 22:34 22 O2 Flow Rate 04/10/23 07:04 4 04/10/23 03:30 4 04/10/23 03:10 3.5 04/10/23 00:54 04/09/23 23:25 3.5 04/09/23 22:34 4 Laboratory Results 04/10/23 06:09 04/10/23 06:09
[2023-04-10] MEDS: oxyCODONE HCL IR 5 MG TAB (IMMEDIATE RELEASE) PO SCH ×3 (09:11→20:13)
[2023-04-10] MEDS: ASPIRIN 81 MG ECTAB PO SCH (09:12)
[2023-04-10] MEDS: CHOLECALCIFEROL 1,000 UNITS 25 MCG TAB PO SCH (09:12)
[2023-04-10] MEDS: FUROSEMIDE 80 MG TAB PO SCH (09:12)
[2023-04-10] MEDS: CIPROFLOXACIN HCL 0.3% OP SOLN 2.5 ML BTL OPR SCH ×2 (09:12→20:12)
[2023-04-10] MEDS: COLCHICINE 0.6 MG TAB PO SCH ×2 (09:12→20:14)
[2023-04-10] MEDS: APIXABAN 5 MG TABLET PO SCH ×2 (09:12→20:14)
[2023-04-10] MEDS: MAGNESIUM OXIDE 400 MG TAB PO SCH ×2 (09:12→20:13)
[2023-04-10] MEDS: UREA (UREA-NA) 15 GM PACK PO SCH ×2 (09:13→20:12)
[2023-04-10] MEDS: LIDOCAINE 5% 1 PATCH TD SCH (09:13)
[2023-04-10] MEDS: TERBINAFINE CR 30 GM TUBE EXT SCH (09:13)
--- NOTE | 2023-04-10 10:55 | Hospitalist Progress Note ---
Date of Service April 10, 2023 Assessment & Plan (1) Acute on chronic heart failure with preserved ejection fraction (HFpEF): (2) Acute hyponatremia: Plan Mr Cruz is a 77-year-old gentleman with PMH of chronic diastolic heart failure on Lasix, HTN, TIIDM, presented (from [facility]) to the ED with worsening shortness of breath since last few days. He is being managed for the following: #Acute urinary retention *resolved -c/f bladder outlet obstruction, c/f buried penis (congenital v acquired) per Urology -Nephrology also feels NOWAK likely given robust UOP -Urology on consult: migue 1-2 weeks, OP follow up to be arranged -Will likely keep for 2 weeks given on going efforts for diuersis -Continue tamsulosin -Discontinued oxybutynin #Acute hypoxic respiratory failure, likely multifactorial #OHS -Iso heart failure exacerbation and OHS -Manage as follows -No notable improvement with IV diuertics, refuses to sit upright -Will likely require 2 step to assess for daytime need for oxygen prior to discharge -Repeat CXR #Acute non-cardiac chest pain #Acute on chronic back pain *resolved -Tylenol prn, lidocaine patch to mid back -Pain on chest reproducible to touch -Continue home oxycodone regimen -Topical myoflex #Acute on chronic heart failure with preserved ejection fraction #HTN, relative hypotension - TTE (04/03/2023): LVEF 55-60%, - Home diuretics: Lasix 40mg qam Cardiology on consult and Nephrology on consult -Continue PO lasix 80mg daily, nephrology with recommendations pending -Strict I's and O's, fluid restriction of 1500 mL/day, heart healthy diet, low- sodium diet -Holding spironolactone 2/2 hyponatremia -Holding ACEi/ARB at this time 2/2 hypotension #New onset atrial fibrillation History of wandering atrial pacemaker/complex ectopy given comorbidities remains in afib on telemetry-HR is controlled without rate control agents. Per cardiology recommend he transition to apixaban from Lovenox started on admission. Echo reveals EF 55-60%. Small circumferential pericardial effusion without hemodynamic significance. -Continue Eliquis #PAD, chronic bilateral dusky discoloration -Continue ASA #Contraction alkalosis #Hypervolemic Hyponatremia *improving with aggressive diuresis Baseline sodium appears around 137, admitting sodium of 119, likely hypervolemic hyponatremia. Patient with no headache or dizziness or orientation issues. Nephro consultation With presentation most likely related to hypervolemic hyponatremia in the setting of acute congestive heart failure continue with fluid restriction 1500 cc/day and 80 IV twice daily of Lasix. Hurtado catheter in place continue to monitor strict I's and O's. -Continue to hold off on spironolactone or any EZEQUIEL/ARB. -Nephrology on consult, appreciate recommendations -Continue PO lasix--discussed updating regimen with nephrology either back to IV vs. BID PO regimen) -Continue Urea BID #Lower ext cellulitis *resolved #Skin tears - Pt treated with oral Augmentin which has been completed. He has lower extremities wounds on his anterior tibiae and his toes from a recent fall per his report. #Morbidly obese -lifestyle changes recommended #LARISA -cpap at HS #Acute Thrombocytopenia *resolved #Leukocytosis #B-Cell lymphoma Follows Dr. Escamilla, denies constitutional symptoms, reportedly increased LDH and [id number] c/w comorbidities -LDH 215 (last LDH 275 12/2022) -CBC w/ diff and smear in am -Dr escamilla on schedule, consult to assess if symptoms related/stable, no recommendations #T2DM -diet controlled, a1c 6.2 on 03/31/23, lantus/novolog per protocol has been declined by patient several times. Will DC BSG checks and insulin at this time. Continue with outpatient follow- up. #Rheumatoid arthritis #Gout -Continue plaquenil 200mg daily -Continue colchicine 0.6mg bid #Depression Continue duloxetine DVT prophylaxis: apixaban PT/OT DNR/DNI I spent a total of 60minutes coordinating, documenting, and providing care for this patient excluding time spent in the performance of separately billed services Admission and Anticipated Discharge Date Admission Date: April 02, 2023 Subjective NAEO Declines any notable improvements since admission; declines to sit upright 2/2 back discomfort Notes feeling nasally congested/dry with oxygen, will trial nasal spray Denies chest pain, palpitations; reports breathing to be at baseline, not improved since admission Review of Systems Review of Systems: All systems reviewed & are unremarkable except as noted in Subjective Physical Exam Respiratory: difficult to appreciate 2/2 habitus Cardiovascular: irregularly irregular Results & Data Results & Data Vital Signs (Past 12 Hours) Vital Signs Temp Pulse Pulse Resp BP Pulse Ox O2 Del Method 04/10/23 08:00 Nasal Cannula 04/10/23 07:04 36.5 C 85 19 96/62 L 91 Nasal Cannula 04/10/23 03:30 21 04/10/23 03:10 36.4 C L 92 H 26 H 119/78 91 CPAP 04/10/23 00:54 84 04/09/23 23:25 36.5 C 89 24 115/72 94 CPAP O2 Flow Rate 04/10/23 08:00 4 04/10/23 07:04 4 04/10/23 03:30 4 04/10/23 03:10 3.5 04/10/23 00:54 04/09/23 23:25 3.5 Laboratory Results Short CBC 04/10/23 Range/Units 06:09 WBC 11.37 H (4.8-10.8) K/ul Hgb 12.2 L (14.0-18.0) g/dl Hct 35.6 L (42.0-52.0) % Plt Count 132 (130-400) K/uL BMP 04/10/23 06:09 Sodium 131 L Potassium 4.0 Chloride 88 L Carbon Dioxide 39 H BUN 43 H Creatinine 0.73 Glucose 187 H Calcium 9.1
[2023-04-10] MEDS ORDERED: SODIUM CHLORIDE 0.65% NA SOLN 45 ML (OCEAN) ONE (10:58)
[2023-04-10] MEDS ORDERED: SODIUM CHLORIDE 0.65% NA SOLN 45 ML (OCEAN) PRN (10:58)
--- NOTE | 2023-04-10 13:44 | Cardiology Progress Note ---
Date of Service April 10, 2023 Assessment & Plan (1) Atrial fibrillation with controlled ventricular rate: (2) Acute hyponatremia: (3) Acute on chronic heart failure with preserved ejection fraction (HFpEF): (4) Obesity hypoventilation syndrome: Plan Right heart failure. Continue fluid restriction. Patient continues to diurese with oral furosemide at 80 mg/day. Continue furosemide. Spironolactone remains on hold. Atrial fibrillation. New onset. Echo suggests low likelihood of restoring and maintaining sinus rhythm. Heart rates controlled without rate lowering therapies. Prescribed Eliquis anticoagulation, 5 mg twice per day. Moderate aortic valve stenosis. Routine surveillance monitoring discussed. Small circumferential pericardial effusion, without hemodynamic significant. Hyponatremia. As per nephrology. Morbid obesity. Chronic hypoventilatory syndrome. LARISA. Continue BiPAP Admission and Anticipated Discharge Date Admission Date: April 02, 2023 Supervising Physician Co-Signing Physician Notes Attending Staff: Pt discussed with [facility] staff Concur with plans Tyler Flores Patient seen and examined. Chart, medications, telemetry reviewed. Admitted on April 02, 2023 with acute on chronic shortness of breath/hypoxia, volume overload, acute decompensated right heart failure in the setting of morbid obesity hypoventilation syndrome Patient notes feeling a little more shortness of breath especially while eating today. No chest pain, palpitations, PND, dizziness, fevers, or chills, Cumulative I/O's -17,091 mL's overall, continuing to diurese well on oral furosemide. Spironolactone remains on hold. Weight 177.8 -> 156.1 Kg Resting echocardiography on April 03, 2023: Normal size LV. Mild concentric LVH. Normal LV wall motion. EF 55 to 60%. Severely dilated left atrium. Moderately dilated right atrium. Moderately dilated RV. Moderate aortic valve stenosis. Mild aortic regurgitation. Trace mitral regurgitation. Small circumferential pericardial effusion without hemodynamic significance Telemetry: Atrial fibrillation with heart rates predominantly in the 70s and 80s Review of Systems Review of Systems: CPAP use for 30 years. Complete review of systems is otherwise as stated above, negative, noncontributory. Physical Exam Physical Exam: General: A&Ox3. NAD. Obese. HENT: Normocephalic. Atraumatic. Eyes: PER. Conjunctiva pink, sclera clear. Neck: Neck veins not appreciated. Heart: Irregularly irregular at 80 bpm. Soft systolic ejection murmur. No diastolic murmur. Lungs: Clear to auscultation anteriorly and laterally. Abdomen: Markedly obese. +BS. Soft. Nontender. No masses or organomegaly. Extremities: Plus edema. Stasis changes. + Mild erythema. +Wounds. No cyanosis. Limited neurological examination is without focal deficits. Pulses: radial=2/4, posterior tibial=2/4. Results & Data Vital Signs (Past 12 Hours) Vital Signs Temp Pulse Resp BP BP Pulse Ox O2 Del Method 04/10/23 11:06 36.6 C 96 H 19 99/61 L 91 Nasal Cannula 04/10/23 08:00 Nasal Cannula 04/10/23 07:04 36.5 C 85 19 96/62 L 91 Nasal Cannula 04/10/23 03:30 21 04/10/23 03:10 36.4 C L 92 H 26 H 119/78 91 CPAP O2 Flow Rate 04/10/23 11:06 4 04/10/23 08:00 4 04/10/23 07:04 4 04/10/23 03:30 4 04/10/23 03:10 3.5 Laboratory Results CBC 04/10/23 Range/Units 06:09 WBC 11.37 H (4.8-10.8) K/ul RBC 3.82 L (4.70-6.10) M/uL Hgb 12.2 L (14.0-18.0) g/dl Hct 35.6 L (42.0-52.0) % Plt Count 132 (130-400) K/uL Neut # (Auto) 3.34 (1.40-6.50) K/uL Lymph # (Auto) 6.83 H (1.20-3.40) K/uL Pike # (Auto) 0.92 H (0.11-0.59) K/uL Eos # (Auto) 0.15 (0.00-0.50) K/uL Baso # (Auto) 0.07 (0.00-0.20) K/uL Comprehensive Metabolic Panel 04/10/23 Range/Units 06:09 Sodium 131 L (136-145) mmol/L Potassium 4.0 (3.5-5.1) mmol/L Chloride 88 L (98-107) mmol/L Carbon Dioxide 39 H (21-32) mmol/L BUN 43 H (6-23) mg/dl Creatinine 0.73 (0.6-1.4) mg/dl Glucose 187 H (70-99(Fasting)) mg/dl Calcium 9.1 (8.6-10.3) mg/dl Intake and Output 04/09/23 04/10/23 04/10/23 22:59 06:59 14:59 Intake Total 100 / 860 100 / 860 Output Total 1450 / 1450 Balance 100 / -590 -1350 / -590 Intake: Oral 100 / 860 100 / 860 Output: Urine Amount (Catheter) 1450 / 1450 Hurtado/Indwelling 1450 / 1450 Other: Weight 156.1 kg Weight Measurement Method Built in [facility]
--- NOTE | 2023-04-10 13:54 | XRay Report ---
XR chest 1V portable CLINICAL HISTORY: continued SOB COMPARISON STUDY: Chest radiograph April 02, 2023. FINDINGS: There is no pneumothorax. There is a possible small left pleural effusion. Moderate to ana ed enlargement of the cardiac silhouette is noted. This is similar to prior chest radiograph but incr eased since radiograph of June 08, 2022. Pulmonary vascular congestion with suspected mild pulmona ry edema is noted. Left lower lung opacity may be related to cardiomegaly or atelectasis. IMPRESSION: 1. Moderate to marked enlargement of the cardiac silhouette. This is due to cardiomegaly with possibl e superimposed pericardial effusion. 2. Mild pulmonary edema. 3. Suspected small left pleural effusion with left basilar opacity. ACT 112: Negative or not required by law. Electronically signed by: Edvin Acevedo M.D. 04/10/2023 1:53 PM
[2023-04-10] MEDS: BUMETANIDE 2 MG in SYRINGE 0 ML IV SCH (18:34)
[2023-04-10] MEDS: TAMSULOSIN HCL 0.4 MG CAP PO SCH (20:13)
[2023-04-10] MEDS: HYDROXYCHLOROQUINE SULFATE 200 MG TAB PO SCH (20:14)
[2023-04-10] MEDS: DULoxetine HCL 20 MG CAP PO SCH (20:14)
[2023-04-11 06:45] LABS: Hematocrit (blood only) 35.6 % (42.0-52.0); Hemoglobin 11.9 g/dl (14.0-18.0); Mean Corpuscular Hemoglobin 31.9 pg (25.0-34.0); Mean Corpuscular Hgb Conc 33.4 g/dL (32.0-36.0); Mean Corpuscular Volume 95.4 fL (80.0-100.0); Mean Platelet Volume 8.9 fL (9.4-12.4); Platelet Count 140 K/uL (130-400); RDW Coefficient of Variation 17.1 % (11.5-14.5); RDW Standard Deviation 60.2 fL (36.4-46.3); Red Blood Count 3.73 M/uL (4.70-6.10)
[2023-04-11 07:14] LABS: BUN Creatinine Ratio 58.2 (10-20); Calcium 9.3 mg/dl (8.6-10.3); Creatinine Clr Calc Pharmacy 114.8 ml/min; Est GFR (African American) 98.3 ml/min; Est GFR (Non-African American) 84.8 ml/min; Potassium 3.9 mmol/L (3.5-5.1)
[2023-04-11] MEDS: ASPIRIN 81 MG ECTAB PO SCH (08:22)
[2023-04-11] MEDS: UREA (UREA-NA) 15 GM PACK PO SCH (08:22)
[2023-04-11] MEDS: APIXABAN 5 MG TABLET PO SCH ×2 (08:22→20:11)
[2023-04-11] MEDS: BUMETANIDE 2 MG in SYRINGE 0 ML IV SCH (08:22)
[2023-04-11] MEDS: MAGNESIUM OXIDE 400 MG TAB PO SCH ×2 (08:22→20:10)
[2023-04-11] MEDS: COLCHICINE 0.6 MG TAB PO SCH ×2 (08:22→20:11)
[2023-04-11] MEDS: LIDOCAINE 5% 1 PATCH TD SCH (08:23)
[2023-04-11] MEDS: TERBINAFINE CR 30 GM TUBE EXT SCH (08:24)
[2023-04-11] MEDS: CIPROFLOXACIN HCL 0.3% OP SOLN 2.5 ML BTL OPR SCH ×2 (08:24→20:12)
[2023-04-11] MEDS: CHOLECALCIFEROL 1,000 UNITS 25 MCG TAB PO SCH (08:25)
[2023-04-11] MEDS: oxyCODONE HCL IR 5 MG TAB (IMMEDIATE RELEASE) PO SCH ×3 (08:26→20:12)
[2023-04-11 08:39] LABS: Base Excess VBG 16.2 mEq/L; HCO3 VBG 44 mmol/L; Oxygen Saturation VBG 61.2 %; PCO2 VBG 64 mmHg (38-50); PO2 VBG 36 mmHg; pH VBG 7.44 (7.36-7.41)
--- NOTE | 2023-04-11 10:03 | Nephrology Progress Note ---
Date of Service April 11, 2023 Assessment & Plan (1) Hyponatremia: Plan: hypervolemic hyponatremia with serum sodium of 119 on presentation in the setting of acute congestive heart failure. Sodium is up to 134 today. chronic hyponatremia. will continue FR and diuretics -Continue fluid restriction of 1500 mL/day >> will lower bumex to 0.5 mg bid IV starting in am - will continue urea 15 g twice daily - monitor bmp daily (2) Mixed acid base balance disorder: Plan: in general w/ his extreme and worsening metabolic alkalosis after 19L (per I/O cumulative ) negativity w/ diuresis this admission, in general at extremes of acid base balance ABG is more accepted/accurate than VBG. on hs bipap. combined metabolic alkalosis in setting of HF and diuresis along w/ respiratory acidosis; cannot assess how well or poorly compensated. went back on bipap x 90 min at 1030 today -after a few hours on bipap, little change in VBG -low threshold to get ABG if daytime bipap applied d/t volume status -will hold second bumex dose for today and change dose as below (3) Acute on chronic heart failure with preserved ejection fraction (HFpEF): Plan: CXR 03/31 shows more fluid congestion and now w/ AF into RVR >trial as of 04/10 bumex 2 mg IV bid w/ brisk diuresis > changed dose to 0.5 mg bid IV after AM dose today No spironolactone for now. We will hold off on the EZEQUIEL and ARB. Admission and Anticipated Discharge Date Admission Date: April 02, 2023 Subjective elevated bicarb now to 41; large uop w/ bumex; placed on bipap this AM in response to VBG; ROS limited by bipap; pt worried mostly about missing midday meal when I saw him late AM. Review of Systems 2 Review of Systems: All systems reviewed & are unremarkable except as noted in Subjective Physical Exam 2 Constitutional: well developed, well nourished, + morbidly obese, + frail appearing and cooperative; no acute distress Eyes: EOM intact bilaterally ENMT: Ears: no external ear abnormality Nose: no external nose abnormality Mouth: + dry oral mucous membranes Neck: no nuchal rigidity Respiratory: normal respiratory effort (on bipap) and + tachypneic; no paradoxical thoraco-abdominal movemnt Auscultation: + diminished lung sounds Cardiovascular: Rate/Rhythm: + irregularly irregular Extremities: + edema (not peripheral but trace dependent and minimal ant abd wall) Gastrointestinal (Abdomen): Inspection/Auscultation: normal bowel sounds P ercussion/Palpation: abdomen soft; abdomen nontender Musculoskeletal: Extremities: + abnormal strength Skin: no rashes, warm and dry (BL yepez and toe wounds) Results & Data Vital Signs (Past 12 Hours) Vital Signs Temp Pulse Pulse Resp BP Pulse Ox O2 Del Method 04/11/23 08:02 36.4 C L 105 H 20 97/62 L 90 Nasal Cannula 04/11/23 03:10 21 04/11/23 02:16 36.6 C 88 20 115/69 92 CPAP 04/11/23 01:14 89 04/10/23 23:27 36.4 C L 91 H 20 119/72 91 Nasal Cannula 04/10/23 23:25 93 H 28 H 92 O2 Flow Rate 04/11/23 08:02 5 04/11/23 03:10 5 04/11/23 02:16 5 04/11/23 01:14 04/10/23 23:27 5 04/10/23 23:25 5 Laboratory Results 04/11/23 06:21 04/11/23 06:21
--- NOTE | 2023-04-11 10:30 | Hospitalist Progress Note ---
Date of Service April 11, 2023 Assessment & Plan (1) Acute on chronic heart failure with preserved ejection fraction (HFpEF): (2) Acute hyponatremia: Plan Mr Cruz is a 77-year-old gentleman with PMH of chronic diastolic heart failure on Lasix, HTN, TIIDM, presented (from [facility])and admitted on 04/02 for acute on chronic HFpEF exacerbation. Efforts have been ongoing to diuresis, with unsuccessful attempt to transition to PO diuresis. Patient with hyponatremia, that has improved; but ongoing metabolic disturbances which complicate volume assessment. Given ongoing hypoxia, repeat CXR revealed pulm edema with effusion present, notably progressed since 04/02. PO lasix was discontinued on 04/10 and transitioned to Bumex. On 04/11, labs revealed increased bicarb and VBG with elevated CO2 to 64, prompting trial of BiPAP. Cardiology and Nephrology following. #Acute hypoxic respiratory failure, likely multifactorial #OHS -Iso heart failure exacerbation and OHS -Will likely require 2 step to assess for daytime need for oxygen prior to discharge -Repeat CXR with signs of continued overload -VBG suggestive of retention based upon CO2, however, alkalotic likely 2/2 to ongoing diuersis (mixed acid-base) -Plan for BiPAP and follow up VBG for improvement #Acute urinary retention *resolved -c/f bladder outlet obstruction, c/f buried penis (congenital v acquired) per Urology -Nephrology also feels NOWAK likely given robust UOP -Urology on consult: migue 1-2 weeks, OP follow up to be arranged -Will likely keep for 2 weeks given on going efforts for diuersis -Continue tamsulosin -Discontinued oxybutynin #Acute non-cardiac chest pain #Acute on chronic back pain *resolved -Tylenol prn, lidocaine patch to mid back -Pain on chest reproducible to touch -Continue home oxycodone regimen -Topical myoflex #Acute on chronic heart failure with preserved ejection fraction #HTN, relative hypotension - TTE (04/03/2023): LVEF 55-60%, - Home diuretics: Lasix 40mg qam Cardiology on consult and Nephrology on consult -Strict I's and O's, fluid restriction of 1500 mL/day, heart healthy diet, low- sodium diet -Holding spironolactone 2/2 hyponatremia -Holding ACEi/ARB at this time 2/2 hypotension -Given ongoing hypoxia and volume overload, transitioned from PO lasix to IV bumex in hopes for improvement, in addition to bipap #New onset atrial fibrillation History of wandering atrial pacemaker/complex ectopy given comorbidities remains in afib on telemetry-HR is controlled without rate control agents. Per cardiology recommend he transition to apixaban from Lovenox started on admission. Echo reveals EF 55-60%. Small circumferential pericardial effusion without hemodynamic significance. -Continue Eliquis #PAD, chronic bilateral dusky discoloration -Continue ASA #Contraction alkalosis #Hypervolemic Hyponatremia *improving with aggressive diuresis Baseline sodium appears around 137, admitting sodium of 119, likely hypervolemic hyponatremia. Patient with no headache or dizziness or orientation issues. Nephro consultation With presentation most likely related to hypervolemic hyponatremia in the setting of acute congestive heart failure continue with fluid restriction 1500 cc/day and 80 IV twice daily of Lasix. Hurtado catheter in place continue to monitor strict I's and O's. -Continue to hold off on spironolactone or any EZEQUIEL/ARB. -Nephrology on consult, appreciate recommendations -Continue PO lasix--discussed updating regimen with nephrology either back to IV vs. BID PO regimen) -Disontinue Urea BID given no noted/significant imrpovement in diuersis and concurrent increased in BUN Urea #Lower ext cellulitis *resolved #Skin tears - Pt treated with oral Augmentin which has been completed. He has lower extremities wounds on his anterior tibiae and his toes from a recent fall per his report. #Morbidly obese -lifestyle changes recommended #LARISA -Plan to assess for need for bipap with nocturnal study #Acute Thrombocytopenia *resolved #Leukocytosis #B-Cell lymphoma Follows Dr. Escamilla, denies constitutional symptoms, reportedly increased LDH and [id number] c/w comorbidities -LDH 215 (last LDH 275 12/2022) -CBC w/ diff and smear in am -Dr escamilla on schedule, consult to assess if symptoms related/stable, no recommendations #T2DM -diet controlled, a1c 6.2 on 03/31/23, lantus/novolog per protocol has been declined by patient several times. Will DC BSG checks and insulin at this time. Continue with outpatient follow- up. #Rheumatoid arthritis #Gout -Continue plaquenil 200mg daily -Continue colchicine 0.6mg bid #Depression Continue duloxetine DVT prophylaxis: apixaban PT/OT DNR/DNI I spent a total of 60minutes coordinating, documenting, and providing care for this patient excluding time spent in the performance of separately billed services Admission and Anticipated Discharge Date Admission Date: April 02, 2023 Subjective Reports feeling "not good" Unable to ascertain what in particular makes him feel unwell, notes breathing feels minimal improved since admission Denies chest pain, palpitations Review of Systems Review of Systems: All systems reviewed & are unremarkable except as noted in Subjective Physical Exam Constitutional: laying in bed, uncomfortable Respiratory: unable to appreciate 2/2 habitus; abdominal breathing noted Cardiovascular: irregular Gastrointestinal (Abdomen): normal bowel sounds, soft, nontender, no hepatosplenomegaly Results & Data Results & Data Vital Signs (Past 12 Hours) Vital Signs Temp Pulse Pulse Resp BP Pulse Ox O2 Del Method 04/11/23 08:02 36.4 C L 105 H 20 97/62 L 90 Nasal Cannula 04/11/23 03:10 21 04/11/23 02:16 36.6 C 88 20 115/69 92 CPAP 04/11/23 01:14 89 04/10/23 23:27 36.4 C L 91 H 20 119/72 91 Nasal Cannula 04/10/23 23:25 93 H 28 H 92 O2 Flow Rate 04/11/23 08:02 5 04/11/23 03:10 5 04/11/23 02:16 5 04/11/23 01:14 04/10/23 23:27 5 04/10/23 23:25 5
[2023-04-11] MEDS ORDERED: POTASSIUM CHLORIDE CRTAB 20 MEQ TABCR PO STA (10:32)
[2023-04-11 12:47] LABS: Base Excess VBG 17.7 mEq/L; HCO3 VBG 45 mmol/L; Oxygen Saturation VBG < 60.0 %; PCO2 VBG 63 mmHg (38-50); PO2 VBG 29 mmHg; pH VBG 7.46 (7.36-7.41)
--- NOTE | 2023-04-11 15:17 | Cardiology Progress Note ---
Date of Service April 11, 2023 Assessment & Plan (1) Atrial fibrillation with controlled ventricular rate: (2) Acute hyponatremia: (3) Acute on chronic heart failure with preserved ejection fraction (HFpEF): (4) Obesity hypoventilation syndrome: Plan Right heart failure. Morbid obesity. Chronic hypoventilatory syndrome. LARISA. Continue fluid restriction. Continue IV dieresis. Spironolactone remains on hold. Continue PAP therapy Atrial fibrillation. New onset. Echo suggests low likelihood of restoring and maintaining sinus rhythm. Heart rates controlled without rate lowering therapies. Continue anticoagulation (Eliquis) Moderate aortic valve stenosis. Routine surveillance monitoring discussed. Small circumferential pericardial effusion, without hemodynamic significance, via 04/03/2023 TTE. Follow-up limited resting echocardiography requested to reassess the pericardial effusion noting moderate to marked enlargement of the cardiac silhouette on chest x-ray obtained on April 10, 2023. Hyponatremia. As per Nephrology. Admission and Anticipated Discharge Date Admission Date: April 02, 2023 Supervising Physician Co-Signing Physician Notes Attending Staff: Pt seen and evaluated with [facility] staff Concur with observations and plans 78 yo man Acute on chronic right heart failure Diuresing Please aggressively replete KCL Patient with a hypochloremic alkalosis - repleting with KCL will increase CL- and Reduce HCO3 Subjective Patient seen and examined. Chart, medications, telemetry reviewed. Admitted on April 02, 2023 with acute on chronic shortness of breath/hypoxia, volume overload, acute decompensated right heart failure in the setting of morbid obesity hypoventilation syndrome Receiving IV Bumex as ordered through Nephrology. Bicarb 41. CO2 64 on VBG. On BiPAP. Received 20 mEq of potassium chloride earlier today. Feeling okay. No chest pain. Breathing improved. No palpitations. Cumulative I/O's -20,192 mL's overall, continuing to diurese relatively well Spironolactone remains on hold. Resting echocardiography on April 03, 2023: Normal size LV. Mild concentric LVH. Normal LV wall motion. EF 55 to 60%. Severely dilated left atrium. Moderately dilated right atrium. Moderately dilated RV. Moderate aortic valve stenosis. Mild aortic regurgitation. Trace mitral regurgitation. Small circumferential pericardial effusion without hemodynamic significance Telemetry: Atrial fibrillation with heart rates predominantly 80s and 90s, occasionally with PVC or aberrant conduction. Review of Systems Review of Systems: Complete review of systems is otherwise as stated above, negative, noncontributory. Physical Exam Physical Exam: General: A&Ox3. NAD. Obese. BiPAPed HENT: Normocephalic. Atraumatic. Eyes: PER. Conjunctiva pink, sclera clear. Neck: Neck veins not appreciated. Heart: Irregularly irregular at 90 bpm. Soft systolic ejection murmur. No diastolic murmur. Lungs: Clear to auscultation anteriorly and laterally. Abdomen: Markedly obese. +BS. Soft. Nontender. No masses or organomegaly. Hurtado catheter in place Extremities: Mild edema. Stasis changes. No cyanosis. Limited neurological examination is without focal deficits. Pulses: radial=2/4, posterior tibial=2/4. Results & Data Vital Signs (Past 12 Hours) Vital Signs Temp Pulse Pulse Resp BP Pulse Ox O2 Del Method 04/11/23 11:41 36.3 C L 95 H 23 113/73 96 BiPAP 04/11/23 10:30 90 22 98 04/11/23 08:02 36.4 C L 105 H 20 97/62 L 90 Nasal Cannula 04/11/23 08:00 Nasal Cannula O2 Flow Rate 04/11/23 11:41 04/11/23 10:30 4 04/11/23 08:02 5 04/11/23 08:00 4 Laboratory Results CBC 04/11/23 Range/Units 06:21 WBC 10.50 (4.8-10.8) K/ul RBC 3.73 L (4.70-6.10) M/uL Hgb 11.9 L (14.0-18.0) g/dl Hct 35.6 L (42.0-52.0) % Plt Count 140 (130-400) K/uL Comprehensive Metabolic Panel 04/11/23 Range/Units 06:21 Sodium 134 L (136-145) mmol/L Potassium 3.9 (3.5-5.1) mmol/L Chloride 90 L (98-107) mmol/L Carbon Dioxide 41 H* (21-32) mmol/L BUN 46 H (6-23) mg/dl Creatinine 0.79 (0.6-1.4) mg/dl Glucose 189 H (70-99(Fasting)) mg/dl Calcium 9.3 (8.6-10.3) mg/dl Intake and Output 04/11/23 04/11/23 04/11/23 06:59 14:59 22:59 Intake Total 500 / 1600 650 / 650 Output Total 1000 / 3650 1701 / 1701 Balance -500 / -2049 -1051 / -1051 Intake: Oral 500 / 1600 650 / 650 Output: Urine Amount (Catheter) 1000 / 3650 1700 / 1700 Hurtado/Indwelling 1000 / 3650 1700 / 1700 # Bowel Movements Other: Weight 155.6 kg Weight Measurement Method Built in [facility]
[2023-04-11] MEDS ORDERED: BUMETANIDE 1 MG in SYRINGE 0 ML IV SCH (17:00)
[2023-04-11] MEDS: TAMSULOSIN HCL 0.4 MG CAP PO SCH (20:10)
[2023-04-11] MEDS: HYDROXYCHLOROQUINE SULFATE 200 MG TAB PO SCH (20:10)
[2023-04-11] MEDS: DULoxetine HCL 20 MG CAP PO SCH (20:11)
[2023-04-12 07:13] LABS: Hematocrit (blood only) 37.6 % (42.0-52.0); Hemoglobin 12.3 g/dl (14.0-18.0); Mean Corpuscular Hemoglobin 31.8 pg (25.0-34.0); Mean Corpuscular Hgb Conc 32.7 g/dL (32.0-36.0); Mean Corpuscular Volume 97.2 fL (80.0-100.0); Mean Platelet Volume 8.9 fL (9.4-12.4); Platelet Count 149 K/uL (130-400); RDW Coefficient of Variation 17.2 % (11.5-14.5); RDW Standard Deviation 61.7 fL (36.4-46.3); Red Blood Count 3.87 M/uL (4.70-6.10); White Blood Count 10.87 K/ul (4.8-10.8)
[2023-04-12] MEDS: MAGNESIUM OXIDE 400 MG TAB PO SCH ×2 (08:31→21:43)
[2023-04-12] MEDS: COLCHICINE 0.6 MG TAB PO SCH ×2 (08:31→21:44)
[2023-04-12] MEDS: ASPIRIN 81 MG ECTAB PO SCH (08:31)
[2023-04-12] MEDS: APIXABAN 5 MG TABLET PO SCH ×2 (08:31→21:44)
[2023-04-12] MEDS: CHOLECALCIFEROL 1,000 UNITS 25 MCG TAB PO SCH (08:31)
[2023-04-12] MEDS: LIDOCAINE 5% 1 PATCH TD SCH (08:31)
[2023-04-12] MEDS: BUMETANIDE 0.5 MG in SYRINGE 0 ML IV SCH ×2 (08:31→16:22)
[2023-04-12] MEDS: TERBINAFINE CR 30 GM TUBE EXT SCH (08:32)
[2023-04-12] MEDS: TROLAMINE SALICYLATE 10% CRM 255 APPLN/85 GM TUBE EXT PRN (08:32)
[2023-04-12] MEDS: oxyCODONE HCL IR 5 MG TAB (IMMEDIATE RELEASE) PO SCH ×3 (08:50→21:42)
[2023-04-12 09:09] LABS: BUN Creatinine Ratio 51.4 (10-20); Calcium 9.2 mg/dl (8.6-10.3); Est GFR (African American) 102.1 ml/min; Est GFR (Non-African American) 88.1 ml/min; Magnesium 1.9 mg/dl (1.7-2.4); Phosphorus 3.3 mg/dl (2.5-4.9); Potassium 3.6 mmol/L (3.5-5.1)
--- NOTE | 2023-04-12 10:06 | Cardiology Progress Note ---
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 * May be of great benefit to have a family meeting with palliative care to define goals of care. Tyler Fragoso Subjective Events overnight: * None reported * + Afib with ventricular rate hovering around 100 BPM Subjective: * No complaints Review of Systems Review of Systems: All systems reviewed & are unremarkable except as noted in HPI & below Physical Exam Physical Exam: Obese Bed-bounds JVP 18 cm H20 S1S2 distant 2/6 systolic murmur CTA B on anterior exam Morbidly obese + Abdominal Wall Edema ++ LE edema Warm and perfused Results & Data Vital Signs (Past 12 Hours) Vital Signs Temp Pulse Pulse Pulse Resp BP BP 04/12/23 07:38 36.4 C L 93 H 18 124/78 04/12/23 05:55 76 04/12/23 02:41 83 04/12/23 02:39 83 25 H 04/12/23 02:37 37.4 C 86 20 112/70 04/12/23 00:45 81 04/11/23 22:48 36.5 C 82 110/69 04/11/23 22:45 88 04/11/23 22:35 88 19 Pulse Ox Pulse Ox O2 Del Method O2 Del Method O2 Flow Rate O2 Flow Rate 04/12/23 07:38 90 Nasal Cannula 5 04/12/23 05:55 94 CPAP 2 04/12/23 02:41 97 CPAP 2 04/12/23 02:39 97 2 04/12/23 02:37 93 CPAP 04/12/23 00:45 96 CPAP 2 04/11/23 22:48 96 CPAP 5 04/11/23 22:45 92 CPAP 2 04/11/23 22:35 92 2 Laboratory Results CBC 04/12/23 Range/Units 06:41 WBC 10.87 H (4.8-10.8) K/ul RBC 3.87 L (4.70-6.10) M/uL Hgb 12.3 L (14.0-18.0) g/dl Hct 37.6 L (42.0-52.0) % Plt Count 149 (130-400) K/uL Comprehensive Metabolic Panel 04/12/23 Range/Units 06:41 Sodium 134 L (136-145) mmol/L Potassium 3.6 (3.5-5.1) mmol/L Chloride 90 L (98-107) mmol/L Carbon Dioxide 39 H (21-32) mmol/L BUN 37 H (6-23) mg/dl Creatinine 0.72 (0.6-1.4) mg/dl Glucose 198 H (70-99(Fasting)) mg/dl Calcium 9.2 (8.6-10.3) mg/dl Intake and Output 04/11/23 04/12/23 04/12/23 22:59 06:59 14:59 Intake Total 500 / 1250 100 / 1250 Output Total 850 / 3151 600 / 3151 Balance -350 / -1901 -500 / -1901 Intake: Oral 500 / 1250 100 / 1250 Output: Urine Amount (Catheter) 850 / 3150 600 / 3150 Hurtado/Indwelling 850 / 3150 600 / 3150 Other: Weight 153.5 kg Weight Measurement Method Built in [facility] Medications Administered Current Inpatient Medications Acetaminophen (Acetaminophen 325 Mg Tab) 650 mg PO Q4H PRN PRN Reason: Pain or Fever Stop: 05/02/23 20:26 Al Hydrox/Mg Hydrox/Simethicone (Aluminum/Magnesium Susp 30 Ml Udc) 15 ml PO Q4H PRN PRN Reason: Dyspepsia Stop: 05/02/23 20:26 Apixaban (Apixaban 5 Mg Tablet) 5 mg PO BID MARTINE Stop: 05/03/23 10:14 Last Admin: 04/12/23 08:31 Dose: 5 mg Artificial Tears (Artificial Tears) 1 drops OP Q4H PRN PRN Reason: Dryness Stop: 05/02/23 20:31 Aspirin (Aspirin 81 Mg Ectab) 81 mg PO QAM [facility] Stop: 05/03/23 08:59 Last Admin: 04/12/23 08:31 Dose: 81 mg Bisacodyl (Bisacodyl 10 Mg Supp) 10 mg HI UD PRN PRN Reason: Constipation Stop: 05/02/23 20:26 Ciprofloxacin (Ciprofloxacin Hcl 0.3% Op Soln 2.5 Ml Btl) 1 drops OPR BID MARTINE Stop: 04/12/23 20:59 Last Admin: 04/11/23 20:12 Dose: 1 drops Colchicine (Colchicine 0.6 Mg Tab) 0.6 mg PO BID [facility] Stop: 05/02/23 20:59 Last Admin: 04/12/23 08:31 Dose: 0.6 mg Duloxetine HCl (Duloxetine Hcl 20 Mg Cap) 20 mg PO HS [facility] Stop: 05/02/23 20:59 Last Admin: 04/11/23 20:11 Dose: 20 mg Hydroxychloroquine Sulfate (Hydroxychloroquine Sulfate 200 Mg Tab) 200 mg PO HS [facility] Stop: 05/02/23 20:59 Last Admin: 04/11/23 20:10 Dose: 200 mg Bumetanide 0.5 mg/ Syringe 2 mls @ 4 mls/min IV BID@0900,1700 [facility] Stop: 05/12/23 08:59 Last Admin: 04/12/23 08:31 Dose: 4 mls/min Lidocaine (Lidocaine 5% 1 Patch) [facility] [place] Stop: 05/06/23 15:29 Last Admin: 04/12/23 08:31 Dose: 1 patch Magnesium Hydroxide (Magnesium Hydroxide Susp 30 Ml Udc) 30 ml PO Q12H PRN PRN Reason: Constipation Stop: 05/02/23 20:26 Magnesium Oxide (Magnesium Oxide 400 Mg Tab) 400 mg PO BID [facility] Stop: 05/03/23 09:59 Last Admin: 04/12/23 08:31 Dose: 400 mg Miscellaneous (Remove Lidoderm Patch) 1 each N/A DAILY@2100 [facility] Stop: 05/06/23 20:59 Last Admin: 04/11/23 20:14 Dose: 1 each Ondansetron HCl (Ondansetron Inj 2 Mg/Ml 2 Ml Vial) 4 mg IV Q6H PRN PRN Reason: Nausea Stop: 05/02/23 20:26 Oxycodone HCl (Oxycodone Hcl Ir 5 Mg Tab (Immediate Release)) 5 mg PO TID [facility]INE Stop: 04/16/23 21:29 Last Admin: 04/12/23 08:50 Dose: 5 mg Polyethylene Glycol (Polyethylene (Miralax) 17 Gm Pack) 17 gm PO DAILY PRN PRN Reason: Constipation Stop: 05/02/23 20:26 Last Admin: 04/10/23 09:10 Dose: 17 gm Sodium Chloride (Sodium Chloride 0.65% Na Soln 45 Ml ([place])) 2 sprays NA Q6H PRN PRN Reason: Nasal Congestion Stop: 05/10/23 10:57 Tamsulosin HCl (Tamsulosin Hcl 0.4 Mg Cap) 0.4 mg PO HS [facility] Stop: 05/06/23 20:59 Last Admin: 04/11/23 20:10 Dose: 0.4 mg Terbinafine HCl (Terbinafine Cr 30 Gm Tube) 1 appln EXT DAILY [facility] Stop: 05/03/23 08:59 Last Admin: 04/12/23 08:32 Dose: 1 appln Trolamine Salicylate (Trolamine Salicylate 10% Crm 255 Appln/85 Gm Tube) 1 appln EXT Q6H PRN PRN Reason: Pain Stop: 05/08/23 10:49 Last Admin: 04/12/23 08:32 Dose: 1 appln Vitamin D (Cholecalciferol 1,000 Units 25 Mcg Tab) 2,000 units PO QAM [facility] Stop: 05/03/23 08:59 Last Admin: 04/12/23 08:31 Dose: 2,000 units
--- NOTE | 2023-04-12 11:30 | Nephrology Progress Note ---
Date of Service April 12, 2023 Assessment & Plan (1) Hyponatremia: Plan: hypervolemic hyponatremia with serum sodium of 119 on presentation in the setting of acute congestive heart failure. Sodium is up to 134 today. chronic hyponatremia. will continue FR and diuretics -Continue fluid restriction of 1500 mL/day >> this am started bumex 0.5 mg bid IV; cardiology recommending bumex gtt - replete K aggressively > goal 4 - monitor bmp daily (2) Mixed acid base balance disorder: Plan: in general w/ his extreme and worsening metabolic alkalosis after 19L (per I/O cumulative ) negativity w/ diuresis this admission, in general at extremes of acid base balance ABG is more accepted/accurate than VBG. on hs bipap. combined metabolic alkalosis in setting of HF and diuresis along w/ respiratory acidosis; cannot assess how well or poorly compensated w/ VBG -low threshold to get ABG if daytime bipap applied d/t volume status -cardiology recommending bumex gtt >low threshold for chest CT and/or pulm consult (3) Acute on chronic heart failure with preserved ejection fraction (HFpEF): Plan: CXR 03/31 shows more fluid congestion and now w/ AF into RVR >trial as of 04/10 bumex 2 mg IV bid w/ brisk diuresis > changed dose to 0.5 mg bid IV with AM dose today No spironolactone for now. We will hold off on the EZEQUIEL and ARB. Admission and Anticipated Discharge Date Admission Date: April 02, 2023 Subjective no acute interval events. on 3L 02nc today. denies pain or sob. Review of Systems 2 Review of Systems: All systems reviewed & are unremarkable except as noted in Subjective Physical Exam 2 Constitutional: well developed, well nourished, + morbidly obese, + frail appearing and cooperative; no acute distress Eyes: EOM intact bilaterally ENMT: Ears: no external ear abnormality Nose: no external nose abnormality Mouth: + dry oral mucous membranes Neck: no nuchal rigidity Respiratory: + labored breathing (slight) and + tachy pneic; no paradoxical thoraco-abdominal movemnt Auscultation: + diminished lung sounds Cardiovascular: Rate/Rhythm: + irregularly irregular Extremities: + edema (not peripheral but trace dependent and minimal ant abd wall) Gastrointestinal (Abdomen): Inspection/Auscultation: normal bowel sounds P ercussion/Palpation: abdomen soft; abdomen nontender Musculoskeletal: Extremities: + abnormal strength Skin: no rashes, warm and dry (BL yepez and toe wounds) Results & Data Vital Signs (Past 12 Hours) Vital Signs Temp Pulse Pulse Pulse Resp BP Pulse Ox 04/12/23 07:38 36.4 C L 93 H 18 124/78 90 04/12/23 05:55 76 04/12/23 02:41 83 04/12/23 02:39 83 25 H 97 04/12/23 02:37 37.4 C 86 20 112/70 93 04/12/23 00:45 81 Pulse Ox O2 Del Method O2 Del Method O2 Flow Rate O2 Flow Rate 04/12/23 07:38 Nasal Cannula 5 04/12/23 05:55 94 CPAP 2 04/12/23 02:41 97 CPAP 2 04/12/23 02:39 2 04/12/23 02:37 CPAP 04/12/23 00:45 96 CPAP 2 Laboratory Results 04/12/23 06:41 04/12/23 06:41
[2023-04-12] MEDS: CIPROFLOXACIN HCL 0.3% OP SOLN 2.5 ML BTL OPR SCH (14:09)
--- NOTE | 2023-04-12 17:20 | Hospitalist Progress Note ---
Date of Service April 12, 2023 Assessment & Plan (1) Acute on chronic heart failure with preserved ejection fraction (HFpEF): (2) Acute hyponatremia: Plan 77-year-old gentleman with PMH of chronic diastolic heart failure on Lasix, HTN, TIIDM, presented (from [facility])and admitted on 04/02 for acute on chronic HFpEF exacerbation. He is being managed for the following: #Acute hypoxic respiratory failure, likely multifactorial #OHS -Iso heart failure exacerbation and OHS. Denies home O2 use. Nocturnal -Nocturnal pulse oximetry reviewed, will continue with BPAP due to CO2 retention. -Will likely require 2 step to assess for daytime need for oxygen prior to discharge -Repeat CXR with signs of continued overload -Cardiology and nephrology on board, managing diuresis. -Continue with BiPAP. #Acute urinary retention *resolved -c/f bladder outlet obstruction, c/f buried penis (congenital v acquired) per Urology -Nephrology also feels NOWAK likely given robust UOP -Urology on consult: migue 1-2 weeks, OP follow up to be arranged -Will likely keep for 2 weeks given on going efforts for diuersis -Continue tamsulosin -Discontinued oxybutynin #Acute non-cardiac chest pain #Acute on chronic back pain *resolved -Tylenol prn, lidocaine patch to mid back -Pain on chest reproducible to touch -Continue home oxycodone regimen -Topical myoflex #Acute on chronic heart failure with preserved ejection fraction #HTN, relative hypotension - TTE (04/03/2023): LVEF 55-60%, - Home diuretics: Lasix 40mg qam Cardiology on consult and Nephrology on consult -Strict I's and O's, fluid restriction of 1500 mL/day, heart healthy diet, low- sodium diet -Holding spironolactone 2/2 hyponatremia -Holding ACEi/ARB at this time 2/2 hypotension -Given ongoing hypoxia and volume overload, transitioned from PO lasix to IV bumex in hopes for improvement, in addition to bipap #New onset atrial fibrillation History of wandering atrial pacemaker/complex ectopy given comorbidities remains in afib on telemetry-HR is controlled without rate control agents. Per cardiology recommend he transition to apixaban from Lovenox started on admission. Echo reveals EF 55-60%. Small circumferential pericardial effusion without hemodynamic significance. -Continue Eliquis #PAD, chronic bilateral dusky discoloration -Continue ASA #Contraction alkalosis #Hypervolemic Hyponatremia *improving with aggressive diuresis Baseline sodium appears around 137, admitting sodium of 119, likely hypervolemic hyponatremia. Patient with no headache or dizziness or orientation issues at presentation. -Maintain I's and O's, fluid restriction of 1500 mL a day. -Continue to hold off on spironolactone or any EZEQUIEL/ARB. -Nephrology on consult, appreciate recommendations, managing diuresis. Urea twice daily discontinued. -Sodium 134 today. Labs in AM. #Lower ext cellulitis *resolved #Skin tears - Pt treated with oral Augmentin which has been completed. He has lower extremities wounds on his anterior tibiae and his toes from a recent fall per his report. #Morbidly obese -lifestyle changes recommended #LARISA -Plan to assess for need for bipap with nocturnal study #Acute Thrombocytopenia *resolved #Leukocytosis #B-Cell lymphoma Follows Dr. Escamilla, denies constitutional symptoms, reportedly increased LDH and [id number] c/w comorbidities -LDH 215 (last LDH 275 12/2022) -CBC w/ diff and smear in am -Dr escamilla on schedule, consult to assess if symptoms related/stable, no recommendations #T2DM -diet controlled, a1c 6.2 on 03/31/23, lantus/novolog per protocol has been declined by patient several times. Will DC BSG checks and insulin at this time. Continue with outpatient follow- up. #Rheumatoid arthritis #Gout -Continue plaquenil 200mg daily -Continue colchicine 0.6mg bid #Depression Continue duloxetine DVT prophylaxis: apixaban PT/OT DNR/DNI Admission and Anticipated Discharge Date Admission Date: April 02, 2023 Subjective Patient seen and examined at bedside. Patient was lying in bed, eating his lunch, on 5 L oxygen via nasal cannula, reports no new acute event overnight, reports no pain, reports eating okay and moving bowels okay, denies any complaints. Physical Exam Physical Exam: GENERAL: Alert and oriented x3. NAD, morbidly obese, on 5 L oxygen via nasal cannula. HEENT: No pallor, no icterus. Pupils equal, round and reactive to light. Oral mucosa moist. NECK: No JVD, no neck masses. HEART: S1 and S2 heard. irregular rate and rhythm. No murmur, no gallop. RESPIRATORY SYSTEM: Normal AP diameter. No accessory muscle use. No wheezing, decreased breath sounds likely secondary to morbid obesity. ABDOMEN: Soft, bowel sounds present, nontender, distention. CENTRAL NERVOUS SYSTEM: No facial droop. Speech is clear. Obeys simple commands. Moves extremities. EXTREMITIES: BLE 1+ edema, chronic skin changes noted, left second toe dressing c/d/i. Results & Data Results & Data Vital Signs (Past 12 Hours) Vital Signs Temp Pulse Pulse Pulse Resp BP BP 04/12/23 15:44 36.5 C 95 H 18 107/68 04/12/23 11:36 36.5 C 93 H 18 122/76 04/12/23 08:00 96 H 04/12/23 08:00 04/12/23 07:38 36.4 C L 93 H 18 124/78 04/12/23 05:55 76 Pulse Ox Pulse Ox O2 Del Method O2 Del Method O2 Flow Rate O2 Flow Rate 04/12/23 15:44 91 Nasal Cannula 3 04/12/23 11:36 91 Nasal Cannula 5 04/12/23 08:00 04/12/23 08:00 Nasal Cannula 5 04/12/23 07:38 90 Nasal Cannula 5 04/12/23 05:55 94 CPAP 2
[2023-04-12] MEDS: HYDROXYCHLOROQUINE SULFATE 200 MG TAB PO SCH (21:41)
[2023-04-12] MEDS: TAMSULOSIN HCL 0.4 MG CAP PO SCH (21:43)
[2023-04-12] MEDS: DULoxetine HCL 20 MG CAP PO SCH (21:43)
[2023-04-12] MEDS: POTASSIUM CHLORIDE CRTAB 20 MEQ TABCR PO SCH (21:45)
[2023-04-13 06:46] LABS: Mean Corpuscular Hemoglobin 31.7 pg (25.0-34.0); Mean Corpuscular Hgb Conc 33.3 g/dL (32.0-36.0); Mean Platelet Volume 8.6 fL (9.4-12.4); Platelet Count 153 K/uL (130-400); RDW Coefficient of Variation 17.2 % (11.5-14.5); RDW Standard Deviation 60.8 fL (36.4-46.3); Red Blood Count 3.79 M/uL (4.70-6.10); White Blood Count 11.42 K/ul (4.8-10.8)
[2023-04-13 07:01] LABS: BUN Creatinine Ratio 39.7 (10-20); Est GFR (African American) 101.5 ml/min; Est GFR (Non-African American) 87.6 ml/min; Magnesium 1.9 mg/dl (1.7-2.4)
[2023-04-13] MEDS: LIDOCAINE 5% 1 PATCH TD SCH (09:02)
[2023-04-13] MEDS: BUMETANIDE 0.5 MG in SYRINGE 0 ML IV SCH ×2 (09:02→16:14)
[2023-04-13] MEDS: ASPIRIN 81 MG ECTAB PO SCH (09:03)
[2023-04-13] MEDS: MAGNESIUM OXIDE 400 MG TAB PO SCH ×2 (09:03→19:54)
[2023-04-13] MEDS: CHOLECALCIFEROL 1,000 UNITS 25 MCG TAB PO SCH (09:03)
[2023-04-13] MEDS: COLCHICINE 0.6 MG TAB PO SCH ×2 (09:03→19:55)
[2023-04-13] MEDS: APIXABAN 5 MG TABLET PO SCH ×2 (09:03→19:54)
[2023-04-13] MEDS: oxyCODONE HCL IR 5 MG TAB (IMMEDIATE RELEASE) PO SCH ×3 (09:08→20:28)
[2023-04-13] MEDS: POTASSIUM CHLORIDE CRTAB 20 MEQ TABCR PO SCH ×2 (09:08→20:28)
--- NOTE | 2023-04-13 10:21 | Cardiology Progress Note ---
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 * May be of great benefit to have a family meeting with palliative care to define goals of care. Pt remains very volume overloaded Urine output is about 1.8 liters per day At this rate, it can take weeks to get patient to euvolemia Would strongly recommend getting more aggressive with volume removal - hence the Bumex drip suggested above If you increase level of diuresis, you will need to increase aggressiveness of KCL + Mag repletion - hence the BID electrolyte check As you can see, increasing KCL repletion increases CL- and reduced HCO3-; this will be important to avoid a worsening Respiratory Acidosis Consider CPAP at night. Please call back when patient is getting closer to euvolemia. Tyler Fragoso Subjective Events overnight: * None reported * No telemetry events - afib (rate controlled) Subjective: * No complaints Review of Systems Review of Systems: All systems reviewed & are unremarkable except as noted in HPI & below Physical Exam Physical Exam: Obese Bed-bounds JVP 18 cm H20 S1S2 distant 2/6 systolic murmur CTA B on anterior exam Morbidly obese + Abdominal Wall Edema ++ LE edema Warm and perfused Results & Data Vital Signs (Past 12 Hours) Vital Signs Temp Pulse Resp BP Pulse Ox O2 Del Method O2 Flow Rate 04/13/23 08:00 Nasal Cannula 4 04/13/23 07:32 36.4 C L 96 H 18 108/69 90 Nasal Cannula 2 04/13/23 03:00 36.5 C 83 18 105/68 93 CPAP 04/12/23 22:55 36.4 C L 87 18 102/65 95 CPAP 04/12/23 22:27 19 97 4 Laboratory Results CBC 04/13/23 Range/Units 06:25 WBC 11.42 H (4.8-10.8) K/ul RBC 3.79 L (4.70-6.10) M/uL Hgb 12.0 L (14.0-18.0) g/dl Hct 36.0 L (42.0-52.0) % Plt Count 153 (130-400) K/uL Comprehensive Metabolic Panel 04/13/23 Range/Units 06:25 Sodium 134 L (136-145) mmol/L Potassium 4.0 (3.5-5.1) mmol/L Chloride 91 L (98-107) mmol/L Carbon Dioxide 40 H (21-32) mmol/L BUN 29 H (6-23) mg/dl Creatinine 0.73 (0.6-1.4) mg/dl Glucose 183 H (70-99(Fasting)) mg/dl Calcium 9.0 (8.6-10.3) mg/dl Intake and Output 04/12/23 04/13/23 04/13/23 22:59 06:59 14:59 Intake Total 700 / 850 150 / 850 Output Total 1450 / 1800 350 / 1800 Balance -750 / -950 -200 / -950 -1 / -1 Intake: Oral 700 / 850 150 / 850 Output: Urine Amount (Catheter) 1450 / 1800 350 / 1800 Hurtado/Indwelling 1450 / 1800 350 / 1800 # Bowel Movements 0 / 0 0 / 0 Other: Weight 153.5 kg 153 kg Weight Measurement Method Built in [facility] Medications Administered Current Inpatient Medications Acetaminophen (Acetaminophen 325 Mg Tab) 650 mg PO Q4H PRN PRN Reason: Pain or Fever Stop: 05/02/23 20:26 Al Hydrox/Mg Hydrox/Simethicone (Aluminum/Magnesium Susp 30 Ml Udc) 15 ml PO Q4H PRN PRN Reason: Dyspepsia Stop: 05/02/23 20:26 Apixaban (Apixaban 5 Mg Tablet) 5 mg PO BID MARTINE Stop: 05/03/23 10:14 Last Admin: 04/13/23 09:03 Dose: 5 mg Artificial Tears (Artificial Tears) 1 drops OP Q4H PRN PRN Reason: Dryness Stop: 05/02/23 20:31 Aspirin (Aspirin 81 Mg Ectab) 81 mg PO QAM [facility] Stop: 05/03/23 08:59 Last Admin: 04/13/23 09:03 Dose: 81 mg Bisacodyl (Bisacodyl 10 Mg Supp) 10 mg AL UD PRN PRN Reason: Constipation Stop: 05/02/23 20:26 Colchicine (Colchicine 0.6 Mg Tab) 0.6 mg PO BID MARTINE Stop: 05/02/23 20:59 Last Admin: 04/13/23 09:03 Dose: 0.6 mg Duloxetine HCl (Duloxetine Hcl 20 Mg Cap) 20 mg PO HS [facility] Stop: 05/02/23 20:59 Last Admin: 04/12/23 21:43 Dose: 20 mg Hydroxychloroquine Sulfate (Hydroxychloroquine Sulfate 200 Mg Tab) 200 mg PO HS [facility] Stop: 05/02/23 20:59 Last Admin: 04/12/23 21:41 Dose: 200 mg Bumetanide 0.5 mg/ Syringe 2 mls @ 4 mls/min IV BID@0900,1700 [facility] Stop: 05/12/23 08:59 Last Admin: 04/13/23 09:02 Dose: 4 mls/min Lidocaine (L[facility]ocaine 5% 1 Patch) [facility] [place]: 05/06/23 15:29 Last Admin: 04/13/23 09:02 Dose: 1 patch Magnesium Hydroxide (Magnesium Hydroxide Susp 30 Ml Udc) 30 ml PO Q12H PRN PRN Reason: Constipation Stop: 05/02/23 20:26 Magnesium Oxide (Magnesium Oxide 400 Mg Tab) 400 mg PO BID [facility] Stop: 05/03/23 09:59 Last Admin: 04/13/23 09:03 Dose: 400 mg Miscellaneous (Remove Lidoderm Patch) 1 each N/A DAILY@2100 [facility] Stop: 05/06/23 20:59 Last Admin: 04/12/23 21:46 Dose: 1 each Ondansetron HCl (Ondansetron Inj 2 Mg/Ml 2 Ml Vial) 4 mg IV Q6H PRN PRN Reason: Nausea Stop: 05/02/23 20:26 Oxycodone HCl (Oxycodone Hcl Ir 5 Mg Tab (Immediate Release)) 5 mg PO TID MARTINE Stop: 04/16/23 21:29 Last Admin: 04/13/23 09:08 Dose: 5 mg Polyethylene Glycol (Polyethylene (Miralax) 17 Gm Pack) 17 gm PO DAILY PRN PRN Reason: Constipation Stop: 05/02/23 20:26 Last Admin: 04/10/23 09:10 Dose: 17 gm Potassium Chloride (Potassium Chloride Crtab 20 Meq Tabcr) 40 meq PO BID MARTINE Stop: 05/12/23 20:59 Last Admin: 04/13/23 09:08 Dose: 40 meq Sodium Chloride (Sodium Chloride 0.65% Na Soln 45 Ml ([place])) 2 sprays NA Q6H PRN PRN Reason: Nasal Congestion Stop: 05/10/23 10:57 Tamsulosin HCl (Tamsulosin Hcl 0.4 Mg Cap) 0.4 mg PO HS MARTINE Stop: 05/06/23 20:59 Last Admin: 04/12/23 21:43 Dose: 0.4 mg Terbinafine HCl (Terbinafine Cr 30 Gm Tube) 1 appln EXT DAILY MARTINE Stop: 05/03/23 08:59 Last Admin: 04/12/23 08:32 Dose: 1 appln Trolamine Salicylate (Trolamine Salicylate 10% Crm 255 Appln/85 Gm Tube) 1 appln EXT Q6H PRN PRN Reason: Pain Stop: 05/08/23 10:49 Last Admin: 04/12/23 08:32 Dose: 1 appln Vitamin D (Cholecalciferol 1,000 Units 25 Mcg Tab) 2,000 units PO QAM MARTINE Stop: 05/03/23 08:59 Last Admin: 04/13/23 09:03 Dose: 2,000 units
[2023-04-13] MEDS: TERBINAFINE CR 30 GM TUBE EXT SCH (10:52)
--- NOTE | 2023-04-13 11:06 | Nephrology Progress Note ---
Date of Service April 13, 2023 Assessment & Plan (1) Hyponatremia: Plan: improving hypervolemic hyponatremia with serum sodium of 119 on presentation in the setting of acute congestive heart failure. Sodium is up to 134 today. chronic hyponatremia. will continue FR and diuretics -Continue fluid restriction of 1500 mL/day >>cont bumex 0.5 mg bid IV versus cardiology recommending bumex gtt >2 gm daily na diet - replete K aggressively > goal 4 - monitor bmp daily Care coordinated w/ Dr Pena (2) Mixed acid base balance disorder: Plan: in general w/ his extreme and worsening metabolic alkalosis after 19L (per I/O cumulative ) negativity w/ diuresis this admission, in general at extremes of acid base balance ABG is more accepted/accurate than VBG. on hs bipap. combined metabolic alkalosis in setting of HF and diuresis along w/ respiratory acidosis; cannot assess how well or poorly compensated w/ VBG -cardiology recommending bumex gtt >low threshold for chest CT and/or pulm consult if unable to wean 02; could also consider baseline ABG (3) Acute on chronic heart failure with preserved ejection fraction (HFpEF): Plan: CXR 03/31 shows more fluid congestion and now w/ AF into RVR >trial as of 04/10 bumex 2 mg IV bid w/ brisk diuresis > changed dose to 0.5 mg bid IV versus bumex gtt No spironolactone for now. We will hold off on the EZEQUIEL and ARB. Admission and Anticipated Discharge Date Admission Date: April 02, 2023 Subjective feels breathing better; anxious for d/c; tolerating po; 02 needs down a bit Review of Systems 2 Review of Systems: All systems reviewed & are unremarkable except as noted in Subjective Physical Exam 2 Constitutional: well developed, well nourished, + morbidly obese, + frail appearing and cooperative; no acute distress Eyes: EOM intact bilaterally ENMT: Ears: no external ear abnormality Nose: no external nose abnormality Mouth: + dry oral mucous membranes Neck: no nuchal rigidity Respiratory: + labored breathing (slight) and + tachy pneic; no paradoxical thoraco-abdominal movemnt Auscultation: + diminished lung sounds Cardiovascular: Rate/Rhythm: + irregularly irregular Extremities: + edema (not peripheral but trace dependent and minimal ant abd wall) Gastrointestinal (Abdomen): Inspection/Auscultation: normal bowel sounds P ercussion/Palpation: abdomen soft; abdomen nontender Musculoskeletal: Extremities: + abnormal strength Skin: no rashes, warm and dry (BL yepez and toe wounds) Neurologic: tillman, fluent speech, generalized weakness Psychiatric: Orientation: alert, oriented to person and oriented to place I nsight: + limited insight Results & Data Vital Signs (Past 12 Hours) Vital Signs Temp Pulse Resp BP Pulse Ox O2 Del Method O2 Flow Rate 04/13/23 08:00 Nasal Cannula 4 04/13/23 07:32 36.4 C L 96 H 18 108/69 90 Nasal Cannula 2 04/13/23 03:00 36.5 C 83 18 105/68 93 CPAP Laboratory Results 04/13/23 06:25 04/13/23 06:25
[2023-04-13] MEDS ORDERED: MAGNESIUM SULFATE / D5W 1 GM/100 ML BAG IV ONE (16:35)
--- NOTE | 2023-04-13 16:40 | Hospitalist Progress Note ---
Date of Service April 13, 2023 Assessment & Plan (1) Acute on chronic heart failure with preserved ejection fraction (HFpEF): (2) Acute hyponatremia: Plan 77-year-old gentleman with PMH of chronic diastolic heart failure on Lasix, HTN, TIIDM, presented (from [facility])and admitted on 04/02 for acute on chronic HFpEF exacerbation. He is being managed for the following: #Acute hypoxic respiratory failure, likely multifactorial #OHS -Iso heart failure exacerbation and OHS. Denies home O2 use. Nocturnal -Nocturnal pulse oximetry reviewed, will continue with BPAP due to CO2 retention. -Will likely require 2 step to assess for daytime need for oxygen prior to discharge -Repeat CXR with signs of continued overload -Cardiology and nephrology on board, managing diuresis. -Continue with BiPAP. CT Chest. ABG in AM. Consider Pulm consult. #Acute urinary retention *resolved -c/f bladder outlet obstruction, c/f buried penis (congenital v acquired) per Urology -Nephrology also feels NOWAK likely given robust UOP -Urology on consult: migue 1-2 weeks, OP follow up to be arranged -Will likely keep for 2 weeks given on going efforts for diuersis -Continue tamsulosin -Discontinued oxybutynin #Acute non-cardiac chest pain #Acute on chronic back pain *resolved -Tylenol prn, lidocaine patch to mid back -Pain on chest reproducible to touch -Continue home oxycodone regimen -Topical myoflex #Acute on chronic heart failure with preserved ejection fraction #HTN, relative hypotension - TTE (04/03/2023): LVEF 55-60%, - Home diuretics: Lasix 40mg qam Cardiology on consult and Nephrology on consult -Strict I's and O's, fluid restriction of 1500 mL/day, heart healthy diet, low- sodium diet -Holding spironolactone 2/2 hyponatremia -Holding ACEi/ARB at this time 2/2 hypotension -Given ongoing hypoxia and volume overload, transitioned from PO lasix to IV bumex in hopes for improvement, in addition to bipap #New onset atrial fibrillation History of wandering atrial pacemaker/complex ectopy given comorbidities remains in afib on telemetry-HR is controlled without rate control agents. Per cardiology recommend he transition to apixaban from Lovenox started on admission. Echo reveals EF 55-60%. Small circumferential pericardial effusion without hemodynamic significance. -Continue Eliquis #PAD, chronic bilateral dusky discoloration -Continue ASA #Contraction alkalosis #Hypervolemic Hyponatremia *improving with aggressive diuresis Baseline sodium appears around 137, admitting sodium of 119, likely hypervolemic hyponatremia. Patient with no headache or dizziness or orientation issues at presentation. -Maintain I's and O's, fluid restriction of 1500 mL a day. -Continue to hold off on spironolactone or any EZEQUIEL/ARB. -Nephrology on consult, appreciate recommendations, managing diuresis. Urea twice daily discontinued. -Sodium 134 today. Labs in AM. #Lower ext cellulitis *resolved #Skin tears - Pt treated with oral Augmentin which has been completed. He has lower extremities wounds on his anterior tibiae and his toes from a recent fall per his report. #Morbidly obese -lifestyle changes recommended #LARISA -Plan to assess for need for bipap with nocturnal study #Acute Thrombocytopenia *resolved #Leukocytosis #B-Cell lymphoma Follows Dr. Escamilla, denies constitutional symptoms, reportedly increased LDH and [id number] c/w comorbidities -LDH 215 (last LDH 275 12/2022) -CBC w/ diff and smear in am -Dr escamilla on schedule, consult to assess if symptoms related/stable, no recommendations #T2DM -diet controlled, a1c 6.2 on 03/31/23, lantus/novolog per protocol has been declined by patient several times. Will DC BSG checks and insulin at this time. Continue with outpatient follow- up. #Rheumatoid arthritis #Gout -Continue plaquenil 200mg daily -Continue colchicine 0.6mg bid #Depression Continue duloxetine DVT prophylaxis: apixaban PT/OT DNR/DNI Admission and Anticipated Discharge Date Admission Date: April 02, 2023 Subjective Patient seen and examined at bedside. Patient was lying in bed, on 2 L oxygen via nasal cannula, reports no new acute event overnight, reports no pain, reports eating okay and moving bowels okay, denies any complaints. anxious for dc. Physical Exam Physical Exam: GENERAL: Alert and oriented x3. NAD, morbidly obese, on 2 L oxygen via nasal cannula. HEENT: No pallor, no icterus. Pupils equal, round and reactive to light. Oral mucosa moist. NECK: No JVD, no neck masses. HEART: S1 and S2 heard. irregular rate and rhythm. No murmur, no gallop. RESPIRATORY SYSTEM: Normal AP diameter. No accessory muscle use. No wheezing, decreased breath sounds likely secondary to morbid obesity. ABDOMEN: Soft, bowel sounds present, nontender, distention. CENTRAL NERVOUS SYSTEM: No facial droop. Speech is clear. Obeys simple commands. Moves extremities. EXTREMITIES: BLE 1+ edema, chronic skin changes noted, left second toe dressing c/d/i. Results & Data Results & Data Vital Signs (Past 12 Hours) Vital Signs Temp Pulse Resp BP Pulse Ox O2 Del Method O2 Flow Rate 04/13/23 15:42 36.6 C 96 H 18 137/74 91 Nasal Cannula 2.5 04/13/23 11:22 36.4 C L 91 H 20 95/62 L 90 Nasal Cannula 2.5 04/13/23 08:00 Nasal Cannula 4 04/13/23 07:32 36.4 C L 96 H 18 108/69 90 Nasal Cannula 2
[2023-04-13] MEDS: HYDROXYCHLOROQUINE SULFATE 200 MG TAB PO SCH (19:54)
[2023-04-13] MEDS: TAMSULOSIN HCL 0.4 MG CAP PO SCH (19:54)
[2023-04-13] MEDS: DULoxetine HCL 20 MG CAP PO SCH (19:55)
--- NOTE | 2023-04-14 02:27 | CT Scan Report ---
Exam(s): CT CHEST Without Contrast EXAM: CT Chest Without Intravenous Contrast CLINICAL HISTORY: Reason for exam: ac hypoxemic resp failure not improving. TECHNIQUE: Axial computed tomography images of the chest without intravenous contrast. CTDI is 37.53 mGy and DLP is 1329.26 mGy-cm. Automated exposure control was utilized for the study. A dose lowering technique was utilized adhering to the principles of ALARA. COMPARISON: Chest radiograph on 04/10/2023 FINDINGS: Lungs: Mild paraseptal emphysematous changes. Dependent atelectasis bilaterally. No mass. Pleural space: Large left and small right pleural effusions. No pneumothorax. Heart: Large pericardial effusion. Mild cardiomegaly. Coronary artery and aortic valve calcifications. Mediastinum: Nonspecific mildly prominent mediastinal lymph nodes. Bones/joints: Degenerative changes of the spine. No acute fracture. No dislocation. Soft tissues: Unremarkable. Vasculature: Atherosclerotic changes in the aorta. No aortic aneurysm. Lymph nodes: See above. Liver: Cirrhotic liver. Spleen: Splenomegaly. Other findings: Small calcified granulomas bilaterally. IMPRESSION: 1. Large pericardial effusion. Mild cardiomegaly. 2. Large left and small right pleural effusions. 3. Mild paraseptal emphysematous changes. Electronically signed by: Jon Rivera M.D. 04/14/23 02:26 AM
[2023-04-14 05:49] LABS: Base Excess ABG 13.7 mEq/L (-9-1.8); HCO3 ABG 39 mmol/L (19-24); Oxygen Saturation ABG 92.4 % (90-95); PCO2 ABG 50 mmHg (35-46); PO2 ABG 61 mmHg (80-95)
[2023-04-14 05:58] LABS: Allen Test Pos (Pos)
[2023-04-14 06:11] LABS: Hematocrit (blood only) 36.4 % (42.0-52.0); Hemoglobin 11.9 g/dl (14.0-18.0); Mean Corpuscular Hemoglobin 31.6 pg (25.0-34.0); Mean Corpuscular Hgb Conc 32.7 g/dL (32.0-36.0); Mean Corpuscular Volume 96.6 fL (80.0-100.0); Mean Platelet Volume 8.9 fL (9.4-12.4); Platelet Count 165 K/uL (130-400); RDW Coefficient of Variation 17.2 % (11.5-14.5); RDW Standard Deviation 60.7 fL (36.4-46.3); Red Blood Count 3.77 M/uL (4.70-6.10); White Blood Count 11.34 K/ul (4.8-10.8)
[2023-04-14 06:12] LABS: BUN Creatinine Ratio 36.1 (10-20); Calcium 8.8 mg/dl (8.6-10.3); Creatinine Clr Calc Pharmacy 124.7 ml/min; Est GFR (African American) 102.1 ml/min; Est GFR (Non-African American) 88.1 ml/min; Potassium 4.1 mmol/L (3.5-5.1)
[2023-04-14] MEDS: BUMETANIDE 0.5 MG in SYRINGE 0 ML IV SCH (09:30)
[2023-04-14] MEDS: LIDOCAINE 5% 1 PATCH TD SCH (09:30)
[2023-04-14] MEDS: COLCHICINE 0.6 MG TAB PO SCH ×2 (09:31→20:24)
[2023-04-14] MEDS: TERBINAFINE CR 30 GM TUBE EXT SCH (09:31)
[2023-04-14] MEDS: ASPIRIN 81 MG ECTAB PO SCH (09:31)
[2023-04-14] MEDS: CHOLECALCIFEROL 1,000 UNITS 25 MCG TAB PO SCH (09:31)
[2023-04-14] MEDS: APIXABAN 5 MG TABLET PO SCH ×2 (09:31→20:24)
[2023-04-14] MEDS: MAGNESIUM OXIDE 400 MG TAB PO SCH ×2 (09:31→20:25)
[2023-04-14] MEDS: oxyCODONE HCL IR 5 MG TAB (IMMEDIATE RELEASE) PO SCH ×3 (09:34→20:22)
[2023-04-14] MEDS: POTASSIUM CHLORIDE CRTAB 20 MEQ TABCR PO SCH ×2 (09:34→20:27)
--- NOTE | 2023-04-14 11:43 | Nephrology Progress Note ---
Date of Service April 14, 2023 Assessment & Plan (1) Acute on chronic heart failure with preserved ejection fraction (HFpEF): Plan: Ongoing significant volume OL; diuresis has been limited by unacceptable bicarb levels >recommend trial of bumex gtt, labs, K supplements as per cardiology No spironolactone for now. We will hold off on the EZEQUIEL and ARB. Care coordinated w/ Dr Pena (2) Hyponatremia: Plan: improving hypervolemic hyponatremia with serum sodium of 119 on presentation in the setting of acute congestive heart failure. Sodium is up to 134 today. chronic hyponatremia. will continue FR and diuretics -Continue fluid restriction of 1500 mL/day >>recommend bumex gtt >2 gm daily na diet - replete K aggressively > goal 4 - monitor bmp pamela (3) Mixed acid base balance disorder: Plan: in general w/ his extreme and worsening metabolic alkalosis after 19L (per I/O cumulative ) negativity w/ diuresis this admission, in general at extremes of acid base balance ABG is more accepted/accurate than VBG. on hs bipap. combined metabolic alkalosis in setting of HF and diuresis along w/ appropriate respiratory compensation -trial bumex gtt w/ careful repletion neyda of K >low threshold for pulm consult if unable to wean 02 Admission and Anticipated Discharge Date Admission Date: April 02, 2023 Subjective no acut einterval events. out of bed in recliner today. still on 5L 02nc when I saw him late am. Review of Systems 2 Review of Systems: All systems reviewed & are unremarkable except as noted in Subjective Physical Exam 2 Constitutional: well developed, well nourished, + morbidly obese, + frail appearing and cooperative; no acute distress Eyes: EOM intact bilaterally ENMT: Ears: no external ear abnormality Nose: no external nose abnormality Mouth: + dry oral mucous membranes Neck: no nuchal rigidity Respiratory: normal respiratory effort (on bipap), + labored breathing (slight) and + tachypneic; no paradoxical thoraco-abdominal movemnt A uscultation: + diminished lung sounds Cardiovascular: Rate/Rhythm: + irregularly irregular Extremities: + edema (not peripheral but trace dependent and minimal ant abd wall) Gastrointestinal (Abdomen): Inspection/Auscultation: normal bowel sounds P ercussion/Palpation: abdomen soft; abdomen nontender Musculoskeletal: Extremities: + abnormal strength Skin: no rashes, warm and dry (BL yepez and toe wounds) Psychiatric: Orientation: alert, oriented to person and oriented to place I nsight: + limited insight Results & Data Vital Signs (Past 12 Hours) Vital Signs Temp Pulse Pulse Resp BP BP Pulse Ox 04/14/23 11:23 36.3 C L 96 H 20 94/60 L 96 04/14/23 07:07 36.4 C L 94 H 19 93/56 L 93 04/14/23 03:00 36.4 C L 91 H 22 103/72 93 04/14/23 02:45 82 04/14/23 02:28 89 26 H O2 Del Method O2 Flow Rate 04/14/23 11:23 Nasal Cannula 5 04/14/23 07:07 Nasal Cannula 2 04/14/23 03:00 CPAP 04/14/23 02:45 04/14/23 02:28 3 Laboratory Results 04/14/23 05:41 04/14/23 05:41 Diagnostic Findings 04/12 TTE and04/[address] reviewed
--- NOTE | 2023-04-14 14:27 | Hospitalist Progress Note ---
Date of Service April 14, 2023 Assessment & Plan (1) Acute on chronic heart failure with preserved ejection fraction (HFpEF): (2) Acute hyponatremia: Plan 77-year-old gentleman with PMH of chronic diastolic heart failure on Lasix, HTN, TIIDM, presented (from [facility])and admitted on 04/02 for acute on chronic HFpEF exacerbation. He is being managed for the following: #Acute hypoxic respiratory failure, likely multifactorial #OHS -Iso heart failure exacerbation and OHS. Denies home O2 use. Nocturnal -Nocturnal pulse oximetry reviewed, will continue with BPAP due to CO2 retention. -Will likely require 2 step to assess for daytime need for oxygen prior to discharge -Repeat CXR with signs of continued overload. Repeat CT chest w/ L > R pleural eff; and w/ pericardial eff. -Cardiology and nephrology on board, managing diuresis. Today transitioned to bumex gtt. -Continue with BiPAP HS and PRN. Pulm consult - await recs. #Acute urinary retention *resolved -c/f bladder outlet obstruction, c/f buried penis (congenital v acquired) per Urology -Nephrology also feels NOWAK likely given robust UOP -Urology on consult: migue 1-2 weeks, OP follow up to be arranged -Will likely keep for 2 weeks given on going efforts for diuersis -Continue tamsulosin -Discontinued oxybutynin #Acute non-cardiac chest pain #Acute on chronic back pain *resolved -Tylenol prn, lidocaine patch to mid back -Pain on chest reproducible to touch -Continue home oxycodone regimen -Topical myoflex #Acute on chronic heart failure with preserved ejection fraction #HTN, relative hypotension - TTE (04/03/2023): LVEF 55-60%, - Home diuretics: Lasix 40mg qam Cardiology on consult and Nephrology on consult -Strict I's and O's, fluid restriction of 1500 mL/day, heart healthy diet, low- sodium diet -Holding spironolactone 2/2 hyponatremia -Holding ACEi/ARB at this time 2/2 hypotension -Given ongoing hypoxia and volume overload, transitioned from IV push bumex to bumex drip in hopes for improvement, in addition to bipap #New onset atrial fibrillation History of wandering atrial pacemaker/complex ectopy given comorbidities remains in afib on telemetry-HR is controlled without rate control agents. Per cardiology recommend he transition to apixaban from Lovenox started on admission. Echo reveals EF 55-60%. Small circumferential pericardial effusion without hemodynamic significance. -Continue Eliquis #PAD, chronic bilateral dusky discoloration -Continue ASA #Contraction alkalosis #Hypervolemic Hyponatremia *improving with aggressive diuresis Baseline sodium appears around 137, admitting sodium of 119, likely hypervolemic hyponatremia. Patient with no headache or dizziness or orientation issues at presentation. -Maintain I's and O's, fluid restriction of 1500 mL a day. -Continue to hold off on spironolactone or any EZEQUIEL/ARB. -Nephrology on consult, appreciate recommendations, managing diuresis. -Sodium 134 today. Labs in AM. #Lower ext cellulitis *resolved #Skin tears - Pt treated with oral Augmentin which has been completed. He has lower extremities wounds on his anterior tibiae and his toes from a recent fall per his report. #Morbidly obese -lifestyle changes recommended #LARISA -Plan to assess for need for bipap with nocturnal study #Acute Thrombocytopenia *resolved #Leukocytosis #B-Cell lymphoma Follows Dr. Escamilla, denies constitutional symptoms, reportedly increased LDH and [id number] c/w comorbidities -LDH 215 (last LDH 275 12/2022) -CBC w/ diff and smear in am -Dr escamilla on schedule, consult to assess if symptoms related/stable, no recommendations #T2DM -diet controlled, a1c 6.2 on 03/31/23, lantus/novolog per protocol has been declined by patient several times. Will DC BSG checks and insulin at this time. Continue with outpatient follow- up. #Rheumatoid arthritis #Gout -Continue plaquenil 200mg daily -Continue colchicine 0.6mg bid #Depression Continue duloxetine DVT prophylaxis: apixaban PT/OT DNR/DNI Admission and Anticipated Discharge Date Admission Date: April 02, 2023 Subjective Patient seen and examined at bedside. Patient was sitting up in recliner, on 5 L oxygen via nasal cannula, reports no new acute event overnight, reports no pain, reports eating okay and moving bowels okay, denies any complaints. Physical Exam Physical Exam: GENERAL: Alert and oriented x3. NAD, morbidly obese, on 5 L oxygen via nasal cannula. HEENT: No pallor, no icterus. Pupils equal, round and reactive to light. Oral mucosa moist. NECK: No JVD, no neck masses. HEART: S1 and S2 heard. irregular rate and rhythm. No murmur, no gallop. RESPIRATORY SYSTEM: Normal AP diameter. No accessory muscle use. No wheezing, decreased breath sounds likely secondary to morbid obesity. ABDOMEN: Soft, bowel sounds present, nontender, distention. CENTRAL NERVOUS SYSTEM: No facial droop. Speech is clear. Obeys simple commands. Moves extremities. EXTREMITIES: BLE 1+ edema, chronic skin changes noted, left second toe dressing c/d/i. Results & Data Results & Data Vital Signs (Past 12 Hours) Vital Signs Temp Pulse Pulse Resp BP BP Pulse Ox 04/14/23 11: 36.3 C L 96 H 20 94/60 L 96 04/14/23 08:00 83 04/14/23 08:00 04/14/23 07:07 36.4 C L 94 H 19 93/56 L 93 04/14/23 03:00 36.4 C L 91 H 22 103/72 93 04/14/23 02:45 82 04/14/23 02:28 89 26 H O2 Del Method O2 Flow Rate 04/14/23 11:23 Nasal Cannula 5 04/14/23 08:00 04/14/23 08:00 Nasal Cannula 4 04/14/23 07:07 Nasal Cannula 2 04/14/23 03:00 CPAP 04/14/23 02:45 04/14/23 02:28 3
[2023-04-14] MEDS ORDERED: BUMETANIDE 2 MG in SYRINGE 0 ML IV ONE (14:30)
[2023-04-14] MEDS: BUMETANIDE 10 MG in DEXTROSE 5% 10 ML IV SCH ×2 (15:25→22:55)
--- NOTE | 2023-04-14 16:26 | Pulmonary Consultation ---
Date of Consultation April 14, 2023 Assessment & Plan (1) Hyponatremia: (2) Atrial fibrillation with controlled ventricular rate: (3) Acute on chronic heart failure with preserved ejection fraction (HFpEF): (4) Obesity: (5) Obesity hypoventilation syndrome: (6) Collapse of left lung: (7) Pleural effusion: Plan 78 year old male with HFpEF, morbid obesity, new onset afib who has been hospitalized and managed in the past 2 weeks for acute on chronic diastolic heart failure and right heart failure. 1. right heart failure - admission echo showed trace TR. I am not sure of exact right heart pressure. There is no prior echo to compare. This is presumed secondary to left heart failure although cor pulmonale has been mentioned. Given this is new onset and patient had multiple risk factors prior to admission for VTE, check LE doppler to rule out DVT. Although he has been started on AC since this admission for afib, establishing a potential diagnosis of VTE could help understand the contributing factors to his right heart failure. 2. LLL collapse - even though pleural effusion is present, it appears less likely that the left lower lobe collapse is a result of fluid compression but post-obstructive which I suspect mucus plug or aspiration. Aggressive pulmonary toilet using flutter valve and chest PT. If no improvement bronchoscopy may be considered. Consult speech for swallow evaluation. 3. pleural effusion - It seems related to combination of volume overload and LLL collapse. Will check bedside ultrasound for possible drainage. 4. mild leukocytosis - given lung findings there is high suspicion for pneumonia. Patient otherwise is afebrile and asymptomatic. Check procalcitonin. Rios culture if spikes. 5. obesity hypoventilation syndrome - agree with BIPAP at night. bicarb was WNL on admission which would suggest new respiratory acidosis is appropriate compensatory response to diuretic-induced metabolic alkalosis. Nonetheless he has a history of LARISA and night time PAP use is indicated. 6. acute on chronic CHF exacerbation - aggressive diuresis and electrolyte management per cardiology and renal. History of Present Illness Attending Physician: Cheryl Pena MD History of Present Illness 77-year-old male with diastolic heart failure, LARISA on CPAP, T2DM, CAD, HTN, PVD of both lower extremities, morbid obesity--bed bound status , B-cell lymphoma, rheumatoid arthritis presented to the ED on 04/02 from [facility] with complaint of shortness of breath. In the past two weeks he's been treated for acute on chronic CHF exacerbation. It has proven more challenging than usual because of electrolyte imbalance accompanying large volume diuresis. Specifically contraction alkalosis has resulted in appropriate but high level of CO2 retention. He was started on PAP at night. Hospital course also complicated by LE cellulitis treated with augmentin, and new onset afib which he is rate controlled and on DOAC. Pulmonary consulted for ongoing hypoxia despite diuresis as well as obesity hypoventilation syndrome. Chest CT 04/13 showed bilateral pleural effusion L>R, moderate on the left and complete collapse of LLL. Echo 04/03 EF 55-60%. LA severely dilated / RA/RV moderately dilated. mod /mild AR/trace TR Allergies Allergy/AdvReac Type Severity Reaction Status Date / Time No Known Allergies Allergy Verified 07/13/22 10:03 Home Medications Medication Instructions Recorded Confirmed Type acetaminophen 500 mg tablet 500 mg PO QAM 06/08/22 04/02/23 History aspirin 81 mg chewable tablet 81 mg PO QAM 06/08/22 04/02/23 History carboxymethylcellulose sodium 1 % 1 drp OPB QAM 06/08/22 04/02/23 History eye gel in a dropperette (Refresh Celluvisc) cholecalciferol (vitamin D3) 50 2,000 unit PO QAM 06/08/22 04/02/23 History mcg (2,000 unit) capsule ciprofloxacin HCl 0.3 % eye drops 1 drp OPR BID 06/08/22 04/02/23 History colchicine 0.6 mg tablet 0.6 mg PO BID 06/08/22 04/02/23 History duloxetine 20 mg capsule,delayed 20 mg PO HS 06/08/22 04/02/23 History release febuxostat 80 mg tablet 80 mg PO QAM 06/08/22 04/02/23 History furosemide 40 mg tablet 40 mg PO QAM 06/08/22 04/02/23 History hydroxychloroquine 200 mg tablet 200 mg PO 06/08/22 04/02/23 History oxybutynin chloride 5 mg tablet 5 mg PO QAM 06/08/22 04/02/23 History terbinafine HCl 1 % topical cream 1 applic topical DAILY 06/08/22 04/02/23 History tramadol 50 mg tablet 50 mg PO TID 06/08/22 04/02/23 History acetaminophen 325 mg tablet 325 mg PO QID PRN pain/fever 07/13/22 04/02/23 History bisacodyl 10 mg rectal suppository 10 mg HI UD PRN Constipation 07/13/22 04/02/23 History (Dulcolax (bisacodyl)) magnesium hydroxide 400 mg/5 mL 30 ml PO DAILY PRN Constipation 07/13/22 04/02/23 History oral suspension (Milk of Magnesia) sodium phosphates 19 gram-7 118 ml HI DAILY PRN Constipation 07/13/22 04/02/23 History gram/118 mL enema (Fleet Enema) spironolactone 25 mg tablet 12.5 mg PO QAM 07/13/22 04/02/23 History (Aldactone) Patient History Medical History (Updated 04/14/23 @ 16:51 by Arlyn Hdz MD) B-cell lymphoma Atherosclerotic heart disease of creek coronary artery without angina pectoris Vitamin D deficiency Constipation Dry eye syndrome SCC (squamous cell carcinoma), arm rt upper limb and shoulder Chronic pain Xerosis cutis Candidiasis of skin and nail Unspecified exotropia Disc displacement, lumbar Abnormality of gait and mobility Repeated falls 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, limited to breakdown of skin Polyosteoarthritis Gout Choledocholithiasis Amputation of thumb Elevated CA 19-9 level MRSA colonization Hx of nonmelanoma skin cancer Umbilical hernia Exotropia, right eye Rheumatoid arthritis SCC (squamous cell carcinoma), scalp/neck 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 Nolasco, 05/18/2017 History of ERCP 02/16/2022 Family History Mother Coronary heart disease Father Arthritis Social History Smoking Status: Never smoker Second Hand Exposure: No; Do You Dip or Chew Tobacco: No; Hx Alcohol Use: No Hx Substance Use: No Preferred Language: [place] Communication Ability: Effective Project Geophysicist Required: No Beliefs That Will Affect Care: None Current Living Situation: Shelter Current Living Situation Comment: [facility] Other Information That Helps Us Care for You: No Feels Safe at Home: Yes Safety Concerns: Feels Safe At This Time Assistive Devices: Glasses and Mechanical Lift Physical Exam Constitutional: + obese Respiratory: normal respiratory effort Auscultation: + diminished lung sounds and + crackles decreased breath sounds in the bases Cardiovascular: Rate/Rhythm: regular rate and regular rhythm Extremities: + pedal edema and + edema Neurologic: CN's II-XI intact bilaterally and awake Psychiatric: pleasant and conversant. Results & Data Results & Data Vital Signs (Past 12 Hours) Vital Signs Temp Pulse Pulse Resp BP BP Pulse Ox 04/14/23 15:39 36.5 C 91 H 20 101/67 90 04/14/23 11:23 36.3 C L 96 H 20 94/60 L 96 04/14/23 08:00 83 04/14/23 08:00 04/14/23 07:07 36.4 C L 94 H 19 93/56 L 93 O2 Del Method O2 Flow Rate 04/14/23 15:39 Nasal Cannula 2 04/14/23 11:23 Nasal Cannula 5 04/14/23 08:00 04/14/23 08:00 Nasal Cannula 4 04/14/23 07:07 Nasal Cannula 2 PG Care Time/CCT Total # of Minutes Spent Total Time Spent with Patient: Total time spent is greater than 50% in coordination of care (as documented) at patient's floor/unit and/or counseling patient: Coding Level of Care Code 76345 INT INP/OBS CARE 3/75MIN Diagnoses Hyponatremia E87.1 Atrial fibrillation with controlled ventricular rate I48.91 Acute on chronic heart failure with preserved ejection fraction (HFpEF) I50.33 Obesity E66.9 Obesity hypoventilation syndrome E66.2 Collapse of left lung J98.11 Pleural effusion J90
[2023-04-14] MEDS: HYDROXYCHLOROQUINE SULFATE 200 MG TAB PO SCH (20:25)
[2023-04-14] MEDS: DULoxetine HCL 20 MG CAP PO SCH (20:25)
[2023-04-14] MEDS: TAMSULOSIN HCL 0.4 MG CAP PO SCH (20:28)
--- NOTE | 2023-04-15 07:00 | Ultrasound Report ---
ULTRASOUND BILATERAL LOWER EXTREMITY VENOUS CLINICAL HISTORY: Lower extremity erythema. Dermal thickening. COMPARISON STUDY: No priors. TECHNIQUE: Portable real-time, grayscale, and color Doppler sonography of the deep veins of the right and left lower extremity was performed from the inguinal crease to the calf. Compression and augment ation were utilized. The examination is degraded by large body habitus. FINDINGS: There is no sonographic evidence of deep venous thrombosis identified in the right or left lower extremity. The common femoral, superficial femoral, and popliteal veins are patent and normally compressible bilaterally. The greater saphenous vein and the profunda femoris vein at the junction w ith the common femoral vein are clear in both legs. The visualized calf veins are patent bilaterally. IMPRESSION: There is no sonographic evidence of deep venous thrombosis identified in the right or lef t lower extremity. ACT 112: Negative or not required by law. Electronically signed by: Emerson Castro M.D. 04/15/2023 6:58 AM
[2023-04-15 07:51] LABS: Hematocrit (blood only) 38.3 % (42.0-52.0); Hemoglobin 12.3 g/dl (14.0-18.0); Mean Corpuscular Hemoglobin 31.2 pg (25.0-34.0); Mean Corpuscular Hgb Conc 32.1 g/dL (32.0-36.0); Mean Corpuscular Volume 97.2 fL (80.0-100.0); Mean Platelet Volume 8.8 fL (9.4-12.4); Platelet Count 167 K/uL (130-400); RDW Coefficient of Variation 17.2 % (11.5-14.5); RDW Standard Deviation 61.5 fL (36.4-46.3); Red Blood Count 3.94 M/uL (4.70-6.10); White Blood Count 12.23 K/ul (4.8-10.8)
[2023-04-15] MEDS: LIDOCAINE 5% 1 PATCH TD SCH (08:44)
[2023-04-15 08:54] LABS: BUN Creatinine Ratio 30.5 (10-20); Calcium 8.6 mg/dl (8.6-10.3); Creatinine Clr Calc Pharmacy 109.9 ml/min; Est GFR (African American) 96.8 ml/min; Est GFR (Non-African American) 83.5 ml/min; Magnesium 1.7 mg/dl (1.7-2.4); Phosphorus 3.5 mg/dl (2.5-4.9); Potassium 3.8 mmol/L (3.5-5.1)
[2023-04-15] MEDS: BUMETANIDE 10 MG in DEXTROSE 5% 10 ML IV SCH ×2 (09:07→19:53)
[2023-04-15] MEDS: ASPIRIN 81 MG ECTAB PO SCH (09:08)
[2023-04-15] MEDS: MAGNESIUM OXIDE 400 MG TAB PO SCH ×2 (09:08→19:55)
[2023-04-15] MEDS: APIXABAN 5 MG TABLET PO SCH ×2 (09:09→19:55)
[2023-04-15] MEDS: CHOLECALCIFEROL 1,000 UNITS 25 MCG TAB PO SCH (09:09)
[2023-04-15] MEDS: COLCHICINE 0.6 MG TAB PO SCH ×2 (09:09→19:55)
[2023-04-15] MEDS: TERBINAFINE CR 30 GM TUBE EXT SCH (09:10)
[2023-04-15] MEDS: oxyCODONE HCL IR 5 MG TAB (IMMEDIATE RELEASE) PO SCH ×3 (09:13→19:54)
[2023-04-15] MEDS: POTASSIUM CHLORIDE CRTAB 20 MEQ TABCR PO SCH ×2 (09:13→19:54)
--- NOTE | 2023-04-15 13:03 | Nephrology Progress Note ---
Date of Service April 15, 2023 Assessment & Plan (1) Acute on chronic heart failure with preserved ejection fraction (HFpEF): Plan: Ongoing significant volume OL; diuresis has been limited by unacceptable bicarb levels > Has responded well to bumex drip-- Continue for now > K supplements as per cardiology No spironolactone for now. We will hold off on the EZEQUIEL and ARB. Care coordinated w/ Dr Pena (2) Hyponatremia: Plan: improving hypervolemic hyponatremia with serum sodium of 119 on presentation in the setting of acute congestive heart failure. Sodium is up to 138 today. will continue FR and diuretics -Continue fluid restriction of 1500 mL/day >>recommend bumex gtt >2 gm daily na diet - replete K aggressively > goal 4 - monitor bmp pamela (3) Mixed acid base balance disorder: Plan: in general w/ his extreme and worsening metabolic alkalosis after 19L (per I/O cumulative ) negativity w/ diuresis this admission, in general at extremes of acid base balance ABG is more accepted/accurate than VBG. on hs bipap. combined metabolic alkalosis in setting of HF and diuresis along w/ appropriate respiratory compensation -Continue on bumex gtt w/ careful repletion neyda of K Admission and Anticipated Discharge Date Admission Date: April 02, 2023 Subjective no acute interval events.on 2L 02 Now Review of Systems 2 Review of Systems: All systems reviewed & are unremarkable except as noted in HPI & below Physical Exam 2 Physical Exam: onstitutional: well developed, we ll nourished, + mo rbidly obese, + fr ail appearing and cooperative; no ac benedict distress Eyes: EOM intact bilater ally ENMT: Ears: no external ear abnormality N ose: no external n ose abnormality M outh: + dry oral m ucous membranes Neck: no nuchal rigidity Respiratory: + labored breathi ng (slight) and + tachypneic; no par adoxical thoraco-a bdominal movemnt Auscultation: + di minished lung soun ds Cardiovascular: Rate/Rhythm: + irr egularly irregular Extremities: + e peng (not peripher al but trace depen dent and minimal a nt abd wall) Gastrointestinal ( Abdomen): Inspection/Auscult ation: normal dawna l sounds Percussi on/Palpation: abdo men soft; abdomen nontender Musculoskeletal: Extremities: + abn ormal strength Skin: no rashes, warm an d dry (BL yepez and toe wounds) Neurologic: tillman, fluent speec h, generalized wea kness Psychiatric: Orientation: alert , oriented to pers on and oriented to place Insight: + limited insight Results & Data Vital Signs (Past 12 Hours) Vital Signs Temp Pulse Pulse Resp BP Pulse Ox O2 Del Method 04/15/23 11:22 36.5 C 98 H 19 95/62 L 91 Nasal Cannula 04/15/23 09:52 Nasal Cannula 04/15/23 07:15 36.3 C L 98 H 20 101/65 90 Nasal Cannula 04/15/23 03:02 36.3 C L 89 20 96/63 L 95 BiPAP 04/15/23 02:20 89 21 97 O2 Flow Rate 04/15/23 11:22 2 04/15/23 09:52 2 04/15/23 07:15 2 04/15/23 03:02 3 04/15/23 02:20 4 Laboratory Results 04/15/23 07:04 04/15/23 07:04
--- NOTE | 2023-04-15 15:12 | Pulmonology Progress Note ---
Date of Service April 15, 2023 Assessment & Plan (1) Hyponatremia: (2) Atrial fibrillation with controlled ventricular rate: (3) Acute on chronic heart failure with preserved ejection fraction (HFpEF): (4) Obesity: Obesity type: due to excess calories Obesity classification: adult class 3 (BMI >= 40) Serious obesity comorbidity presence: with serious comorbidity Body mass index: BMI 45.0-49.9 Qualified Code(s): E66.01 - Morbid (severe) obesity due to excess calories; Z68.42 - Body mass index [BMI] 45.0- 49.9, adult (5) Obesity hypoventilation syndrome: (6) Collapse of left lung: (7) Pleural effusion: Plan 78 year old male with HFpEF, morbid obesity, new onset afib who has been hospitalized and managed in the past 2 weeks for acute on chronic diastolic heart failure and right heart failure. 1. right heart failure - admission echo showed trace TR / RVSP unclear. There is no prior echo to compare. This is presumed secondary to left heart failure although cor pulmonale has been mentioned. LE doppler negative. 2. LLL collapse - suspect mucus plug or aspiration. Patient using flutter v alve. educated on chest PT today and he is willing to resume. If no improvement bronchoscopy may be considered. speech evaluation appreciated - no aspiration. Follow up CXR on Tuesday 04/17. 3. pleural effusion - It seems a combination of volume overload and LLL collapse. POCUS today showed insufficient fluid for drainage. 4. mild leukocytosis - procalcitonin negative. Rios culture if spikes. 5. obesity hypoventilation syndrome - agree with BIPAP at night. bicarb was WNL on admission which would suggest new respiratory acidosis is appropriate compensatory response to diuretic-induced metabolic alkalosis. Nonetheless he has a history of LARISA and night time PAP use is indicated. 6. acute on chronic CHF exacerbation - aggressive diuresis and electrolyte management per cardiology and renal. Discussed with RN and RT. Admission and Anticipated Discharge Date Admission Date: April 02, 2023 Subjective no complaints. did not like chest PT and refused it this AM. Using flutter valve. Physical Exam Constitutional: + obese Respiratory: normal respiratory effort Auscultation: + diminished lung sounds and + crackles Cardiovascular: Rate/Rhythm: regular rate and regular rhythm Extremities: + pedal edema and + edema Neurologic: CN's II-XI intact bilaterally and awake Results & Data Results & Data Vital Signs (Past 12 Hours) Vital Signs Temp Pulse Resp BP Pulse Ox O2 Del Method O2 Flow Rate 04/15/23 11:22 36.5 C 98 H 19 95/62 L 91 Nasal Cannula 2 04/15/23 09:52 Nasal Cannula 2 04/15/23 07:15 36.3 C L 98 H 20 101/65 90 Nasal Cannula 2 PG Care Time/CCT Total # of Minutes Spent Total Time Spent with Patient: Total time spent is greater than 50% in coordination of care (as documented) at patient's floor/unit and/or counseling patient: Coding Level of Care Code 91829 SUB INP/OBS CARE 2/35MIN Diagnoses Hyponatremia E87.1 Atrial fibrillation with controlled ventricular rate I48.91 Acute on chronic heart failure with preserved ejection fraction (HFpEF) I50.33 Class 3 severe obesity due to excess calories with serious comorbidity and body mass index (BMI) of 45.0 to 49.9 in adult E66.01; Z68.42 Obesity type: due to excess calories Obesity classification: adult class 3 (BMI >= 40) Serious obesity comorbidity presence: with serious comorbidity Body mass index: BMI 45.0-49.9 Obesity hypoventilation syndrome E66.2 Collapse of left lung J98.11 Pleural effusion J90
[2023-04-15] MEDS ORDERED: POTASSIUM CHLORIDE CRTAB 20 MEQ TABCR PO STA (17:21)
--- NOTE | 2023-04-15 17:26 | Hospitalist Progress Note ---
Date of Service April 15, 2023 Assessment & Plan (1) Acute on chronic heart failure with preserved ejection fraction (HFpEF): (2) Acute hyponatremia: Plan 77-year-old gentleman with PMH of chronic diastolic heart failure on Lasix, HTN, TIIDM, presented (from [facility])and admitted on 04/02 for acute on chronic HFpEF exacerbation. He is being managed for the following: #Acute hypoxic respiratory failure, likely multifactorial #OHS -Iso heart failure exacerbation and OHS. Denies home O2 use. Nocturnal -Nocturnal pulse oximetry reviewed, will continue with BPAP due to CO2 retention. -Will likely require 2 step to assess for daytime need for oxygen prior to discharge -Repeat CXR with signs of continued overload. Repeat CT chest w/ L > R pleural eff; and w/ pericardial eff. -Cardiology and nephrology on board, managing diuresis. Currently on bumex gtt. -Continue with BiPAP HS and PRN. Pulm consult - appreciate recs. c/w BPAP. #Acute urinary retention *resolved -c/f bladder outlet obstruction, c/f buried penis (congenital v acquired) per Urology -Nephrology also feels NOWAK likely given robust UOP -Urology on consult: migue 1-2 weeks, OP follow up to be arranged -Will likely keep for 2 weeks given on going efforts for diuersis -Continue tamsulosin -Discontinued oxybutynin #Acute non-cardiac chest pain #Acute on chronic back pain *resolved -Tylenol prn, lidocaine patch to mid back -Pain on chest reproducible to touch -Continue home oxycodone regimen -Topical myoflex #Acute on chronic heart failure with preserved ejection fraction #HTN, relative hypotension - TTE (04/03/2023): LVEF 55-60%, - Home diuretics: Lasix 40mg qam Cardiology on consult and Nephrology on consult -Strict I's and O's, fluid restriction of 1500 mL/day, heart healthy diet, low- sodium diet -Holding spironolactone 2/2 hyponatremia -Holding ACEi/ARB at this time 2/2 hypotension -Given ongoing hypoxia and volume overload, transitioned from IV push bumex to bumex drip in hopes for improvement, in addition to bipap #New onset atrial fibrillation History of wandering atrial pacemaker/complex ectopy given comorbidities remains in afib on telemetry-HR is controlled without rate control agents. Per cardiology recommend he transition to apixaban from Lovenox started on admission. Echo reveals EF 55-60%. Small circumferential pericardial effusion without hemodynamic significance. -Continue Eliquis #PAD, chronic bilateral dusky discoloration -Continue ASA #Contraction alkalosis #Hypervolemic Hyponatremia *improving with aggressive diuresis Baseline sodium appears around 137, admitting sodium of 119, likely hypervolemic hyponatremia. Patient with no headache or dizziness or orientation issues at presentation. -Maintain I's and O's, fluid restriction of 1500 mL a day. -Continue to hold off on spironolactone or any EZEQUIEL/ARB. -Nephrology on consult, appreciate recommendations, managing diuresis. -Sodium 134 today. Labs in AM. #Lower ext cellulitis *resolved #Skin tears - Pt treated with oral Augmentin which has been completed. He has lower extremities wounds on his anterior tibiae and his toes from a recent fall per his report. #Morbidly obese -lifestyle changes recommended #LARISA -Plan to assess for need for bipap with nocturnal study #Acute Thrombocytopenia *resolved #Leukocytosis #B-Cell lymphoma Follows Dr. Escamilla, denies constitutional symptoms, reportedly increased LDH and [id number] c/w comorbidities -LDH 215 (last LDH 275 12/2022) -CBC w/ diff and smear in am -Dr escamilla on schedule, consult to assess if symptoms related/stable, no recommendations #T2DM -diet controlled, a1c 6.2 on 03/31/23, lantus/novolog per protocol has been declined by patient several times. Will DC BSG checks and insulin at this time. Continue with outpatient follow- up. #Rheumatoid arthritis #Gout -Continue plaquenil 200mg daily -Continue colchicine 0.6mg bid #Depression Continue duloxetine DVT prophylaxis: apixaban PT/OT DNR/DNI Admission and Anticipated Discharge Date Admission Date: April 02, 2023 Subjective Patient seen and examined at bedside. Patient was sitting up in recliner, on 2 L oxygen via nasal cannula, reports no new acute event overnight, reports no pain, reports eating okay and moving bowels okay, denies any complaints. Physical Exam Physical Exam: GENERAL: Alert and oriented x3. NAD, morbidly obese, on 2 L oxygen via nasal cannula. HEENT: No pallor, no icterus. Pupils equal, round and reactive to light. Oral mucosa moist. NECK: No JVD, no neck masses. HEART: S1 and S2 heard. irregular rate and rhythm. No murmur, no gallop. RESPIRATORY SYSTEM: Normal AP diameter. No accessory muscle use. No wheezing, decreased breath sounds likely secondary to morbid obesity. ABDOMEN: Soft, bowel sounds present, nontender, distention. CENTRAL NERVOUS SYSTEM: No facial droop. Speech is clear. Obeys simple commands. Moves extremities. EXTREMITIES: BLE 1+ edema, chronic skin changes noted, left second toe dressing c/d/i. Results & Data Results & Data Vital Signs (Past 12 Hours) Vital Signs Temp Pulse Pulse Resp BP BP Pulse Ox 04/15/23 15:16 36.5 C 93 H 20 94/59 L 91 04/15/23 15:00 96 H 04/15/23 11:22 36.5 C 98 H 19 95/62 L 91 04/15/23 09:52 04/15/23 07:15 36.3 C L 98 H 20 101/65 90 O2 Del Method O2 Flow Rate 04/15/23 15:16 Nasal Cannula 2 04/15/23 15:00 04/15/23 11:22 Nasal Cannula 2 04/15/23 09:52 Nasal Cannula 2 04/15/23 07:15 Nasal Cannula 2
[2023-04-15] MEDS: HYDROXYCHLOROQUINE SULFATE 200 MG TAB PO SCH (19:54)
[2023-04-15] MEDS: DULoxetine HCL 20 MG CAP PO SCH (19:55)
[2023-04-15] MEDS: TAMSULOSIN HCL 0.4 MG CAP PO SCH (19:55)
[2023-04-16 06:31] LABS: BUN Creatinine Ratio 32.1 (10-20); Calcium 8.4 mg/dl (8.6-10.3); Creatinine Clr Calc Pharmacy 104.8 ml/min; Est GFR (African American) 95.8 ml/min; Est GFR (Non-African American) 82.7 ml/min; Magnesium 1.7 mg/dl (1.7-2.4); Potassium 3.7 mmol/L (3.5-5.1)
[2023-04-16] MEDS: BUMETANIDE 10 MG in DEXTROSE 5% 10 ML IV SCH ×2 (08:14→18:21)
[2023-04-16] MEDS: oxyCODONE HCL IR 5 MG TAB (IMMEDIATE RELEASE) PO SCH ×3 (08:17→20:19)
[2023-04-16] MEDS: POTASSIUM CHLORIDE CRTAB 20 MEQ TABCR PO SCH ×2 (08:17→20:19)
[2023-04-16] MEDS: COLCHICINE 0.6 MG TAB PO SCH ×2 (08:18→20:20)
[2023-04-16] MEDS: CHOLECALCIFEROL 1,000 UNITS 25 MCG TAB PO SCH (08:18)
[2023-04-16] MEDS: ASPIRIN 81 MG ECTAB PO SCH (08:18)
[2023-04-16] MEDS: MAGNESIUM OXIDE 400 MG TAB PO SCH ×2 (08:19→20:21)
[2023-04-16] MEDS: APIXABAN 5 MG TABLET PO SCH ×2 (08:19→20:20)
[2023-04-16] MEDS: LIDOCAINE 5% 1 PATCH TD SCH (08:20)
[2023-04-16] MEDS: TERBINAFINE CR 30 GM TUBE EXT SCH (08:20)
[2023-04-16] MEDS ORDERED: POTASSIUM CHLORIDE CRTAB 20 MEQ TABCR PO STA (09:07)
--- NOTE | 2023-04-16 11:42 | Nephrology Progress Note ---
Date of Service April 16, 2023 Assessment & Plan (1) Acute on chronic heart failure with preserved ejection fraction (HFpEF): Plan: Ongoing significant volume OL; diuresis has been limited by unacceptable bicarb levels > Has responded well to bumex drip-- Continue for now > K supplements as per cardiology No spironolactone for now. We will hold off on the EZEQUIEL and ARB. (2) Hyponatremia: Plan: improving hypervolemic hyponatremia with serum sodium of 119 on presentation in the setting of acute congestive heart failure. Sodium is up to 139 today. will continue FR and diuretics -Continue fluid restriction of 1500 mL/day >>cONTINUE bumex gtt >2 gm daily na diet - replete K aggressively > goal 4 - monitor bmp pamela (3) Mixed acid base balance disorder: Plan: in general w/ his extreme and worsening metabolic alkalosis after 19L (per I/O cumulative ) negativity w/ diuresis this admission, in general at extremes of acid base balance ABG is more accepted/accurate than VBG. on hs bipap. combined metabolic alkalosis in setting of HF and diuresis along w/ appropriate respiratory compensation -Continue on bumex gtt w/ careful repletion neyda of K Admission and Anticipated Discharge Date Admission Date: April 02, 2023 Subjective Patient seen and examined at bedside. On 2 L oxygen via nasal cannula, reports no new acute event overnight Review of Systems 2 Review of Systems: All systems reviewed & are unremarkable except as noted in HPI & below Physical Exam 2 Physical Exam: onstitutional: well developed, we ll nourished, + mo rbidly obese, + fr ail appearing and cooperative; no ac benedict distress Eyes: EOM intact bilater ally ENMT: Ears: no external ear abnormality N ose: no external n ose abnormality M outh: + dry oral m ucous membranes Neck: no nuchal rigidity Respiratory: + labored breathi ng (slight) and + tachypneic; no par adoxical thoraco-a bdominal movemnt Auscultation: + di minished lung soun ds Cardiovascular: Rate/Rhythm: + irr egularly irregular Extremities: + e peng (not peripher al but trace depen dent and minimal a nt abd wall) Gastrointestinal ( Abdomen): Inspection/Auscult ation: normal dawna l sounds Percussi on/Palpation: abdo men soft; abdomen nontender Musculoskeletal: Extremities: + abn ormal strength Skin: no rashes, warm an d dry (BL yepez and toe wounds) Neurologic: tillman, fluent speec h, generalized wea kness Psychiatric: Orientation: alert , oriented to pers on and oriented to place Insight: + limited insight Results & Data Vital Signs (Past 12 Hours) Vital Signs Temp Pulse Pulse Resp BP Pulse Ox O2 Del Method 04/16/23 11:28 36.4 C L 95 H 20 96/60 L 91 Nasal Cannula 04/16/23 08:00 04/16/23 07:36 36.5 C 95 H 20 97/67 L 92 Nasal Cannula 04/16/23 04:04 36.0 C L 98 H 24 126/86 94 Nasal Cannula 04/16/23 03:49 91 H 21 97 O2 Flow Rate FiO2 04/16/23 11:28 3 04/16/23 08:00 2 04/16/23 07:36 3 04/16/23 04:04 6 04/16/23 03:49 4 Laboratory Results 04/15/23 07:04 04/16/23 05:28
[2023-04-16] MEDS: MAGNESIUM SULFATE / D5W 1 GM/100 ML BAG IV SCH ×2 (12:22→13:16)
--- NOTE | 2023-04-16 15:57 | Hospitalist Progress Note ---
Date of Service April 16, 2023 Assessment & Plan (1) Acute on chronic heart failure with preserved ejection fraction (HFpEF): (2) Acute hyponatremia: Plan 77-year-old gentleman with PMH of chronic diastolic heart failure on Lasix, HTN, TIIDM, presented (from [facility])and admitted on 04/02 for acute on chronic HFpEF exacerbation. He is being managed for the following: #Acute hypoxic respiratory failure, likely multifactorial #OHS -Iso heart failure exacerbation and OHS. Denies home O2 use. Nocturnal -Nocturnal pulse oximetry reviewed, will continue with BPAP due to CO2 retention. -Will likely require 2 step to assess for daytime need for oxygen prior to discharge -Repeat CXR with signs of continued overload. Repeat CT chest w/ L > R pleural eff; and w/ pericardial eff. -Cardiology and nephrology on board, managing diuresis. Currently on bumex gtt. -Continue with BiPAP HS and PRN. Pulm consult - appreciate recs. c/w BPAP. #Acute urinary retention *resolved -c/f bladder outlet obstruction, c/f buried penis (congenital v acquired) per Urology -Nephrology also feels NOWAK likely given robust UOP -Urology on consult: migue 1-2 weeks, OP follow up to be arranged -Will likely keep for 2 weeks given on going efforts for diuersis -Continue tamsulosin -Discontinued oxybutynin #Acute non-cardiac chest pain #Acute on chronic back pain *resolved -Tylenol prn, lidocaine patch to mid back -Pain on chest reproducible to touch -Continue home oxycodone regimen -Topical myoflex #Acute on chronic heart failure with preserved ejection fraction #HTN, relative hypotension - TTE (04/03/2023): LVEF 55-60%, - Home diuretics: Lasix 40mg qam Cardiology on consult and Nephrology on consult -Strict I's and O's, fluid restriction of 1500 mL/day, heart healthy diet, low- sodium diet -Holding spironolactone 2/2 hyponatremia -Holding ACEi/ARB at this time 2/2 hypotension -Given ongoing hypoxia and volume overload, transitioned from IV push bumex to bumex drip in hopes for improvement, in addition to bipap #New onset atrial fibrillation History of wandering atrial pacemaker/complex ectopy given comorbidities remains in afib on telemetry-HR is controlled without rate control agents. Per cardiology recommend he transition to apixaban from Lovenox started on admission. Echo reveals EF 55-60%. Small circumferential pericardial effusion without hemodynamic significance. -Continue Eliquis #PAD, chronic bilateral dusky discoloration -Continue ASA #Contraction alkalosis #Hypervolemic Hyponatremia *improving with aggressive diuresis Baseline sodium appears around 137, admitting sodium of 119, likely hypervolemic hyponatremia. Patient with no headache or dizziness or orientation issues at presentation. -Maintain I's and O's, fluid restriction of 1500 mL a day. -Continue to hold off on spironolactone or any EZEQUIEL/ARB. -Nephrology on consult, appreciate recommendations, managing diuresis. -Sodium 134 today. Labs in AM. #Lower ext cellulitis *resolved #Skin tears - Pt treated with oral Augmentin which has been completed. He has lower extremities wounds on his anterior tibiae and his toes from a recent fall per his report. #Morbidly obese -lifestyle changes recommended #LARIAS -Plan to assess for need for bipap with nocturnal study #Acute Thrombocytopenia *resolved #Leukocytosis #B-Cell lymphoma Follows Dr. Escamilla, denies constitutional symptoms, reportedly increased LDH and [id number] c/w comorbidities -LDH 215 (last LDH 275 12/2022) -CBC w/ diff and smear in am -Dr escamilla on schedule, consult to assess if symptoms related/stable, no recommendations #T2DM -diet controlled, a1c 6.2 on 03/31/23, lantus/novolog per protocol has been declined by patient several times. Will DC BSG checks and insulin at this time. Continue with outpatient follow- up. #Rheumatoid arthritis #Gout -Continue plaquenil 200mg daily -Continue colchicine 0.6mg bid #Depression Continue duloxetine DVT prophylaxis: apixaban PT/OT DNR/DNI Admission and Anticipated Discharge Date Admission Date: April 02, 2023 Subjective Patient seen and examined at bedside. Patient was lying on bed, on 3 L oxygen via nasal cannula, reports no new acute event overnight, reports no pain, reports eating okay and moving bowels okay, denies any complaints. Physical Exam Physical Exam: GENERAL: Alert and oriented x3. NAD, morbidly obese, on 3 L oxygen via nasal cannula. HEENT: No pallor, no icterus. Pupils equal, round and reactive to light. Oral mucosa moist. NECK: No JVD, no neck masses. HEART: S1 and S2 heard. irregular rate and rhythm. No murmur, no gallop. RESPIRATORY SYSTEM: Normal AP diameter. No accessory muscle use. No wheezing, decreased breath sounds likely secondary to morbid obesity. ABDOMEN: Soft, bowel sounds present, nontender, distention. CENTRAL NERVOUS SYSTEM: No facial droop. Speech is clear. Obeys simple co mmands. Moves extremities. EXTREMITIES: BLE 1+ edema, chronic skin changes noted, left second toe dressing c/d/i. Results & Data Results & Data Vital Signs (Past 12 Hours) Vital Signs Temp Pulse Resp BP Pulse Ox O2 Del Method O2 Flow Rate 04/16/23 15:46 36.4 C L 107 H 20 98/57 L 91 Nasal Cannula 2 04/16/23 11:28 36.4 C L 95 H 20 96/60 L 91 Nasal Cannula 3 04/16/23 08:00 2 04/16/23 07:36 36.5 C 95 H 20 97/67 L 92 Nasal Cannula 3 04/16/23 04:04 36.0 C L 98 H 24 126/86 94 Nasal Cannula 6
--- NOTE | 2023-04-16 17:35 | Pulmonology Progress Note ---
Date of Service April 16, 2023 Assessment & Plan (1) Hyponatremia: (2) Atrial fibrillation with controlled ventricular rate: (3) Acute on chronic heart failure with preserved ejection fraction (HFpEF): (4) Obesity: Obesity type: due to excess calories Obesity classification: adult class 3 (BMI >= 40) Serious obesity comorbidity presence: with serious comorbidity Body mass index: BMI 45.0-49.9 Qualified Code(s): E66.01 - Morbid (severe) obesity due to excess calories; Z68.42 - Body mass index [BMI] 45.0- 49.9, adult (5) Obesity hypoventilation syndrome: (6) Collapse of left lung: (7) Pleural effusion: Plan 78 year old male with HFpEF, morbid obesity, new onset afib who has been hospitalized and managed in the past 2 weeks for acute on chronic diastolic heart failure and right heart failure. 1. right heart failure - admission echo showed trace TR / RVSP unclear. There is no prior echo to compare. This is presumed secondary to left heart failure although cor pulmonale has been mentioned. LE doppler negative. 2. LLL collapse - suspect mucus plug or aspiration. Patient using flutter v alve. chest PT. If no improvement bronchoscopy may be considered. speech evaluation appreciated - no aspiration. Follow up CXR on Tuesday 04/17. 3. pleural effusion - It seems a combination of volume overload and LLL collapse. POCUS showed insufficient fluid for drainage. 4. mild leukocytosis - procalcitonin negative. Rios culture if spikes. 5. obesity hypoventilation syndrome - agree with BIPAP at night. bicarb was WNL on admission which would suggest new respiratory acidosis as appropriate compensatory response to diuretic-induced metabolic alkalosis. Nonetheless he has a history of LARISA and night time PAP use is indicated. 6. acute on chronic CHF exacerbation - aggressive diuresis and electrolyte management per cardiology and renal. Admission and Anticipated Discharge Date Admission Date: April 02, 2023 Subjective agreed to chest PT today. getting ready to have dinner. Physical Exam Constitutional: + obese Respiratory: normal respiratory effort Auscultation: + diminished lung sounds and + crackles Cardiovascular: Rate/Rhythm: regular rate and regular rhythm Extremities: + pedal edema and + edema Neurologic: CN's II-XI intact bilaterally and awake Results & Data Results & Data Vital Signs (Past 12 Hours) Vital Signs Temp Pulse Pulse Resp BP Pulse Ox O2 Del Method 04/16/23 16:00 105 H 04/16/23 15:46 36.4 C L 107 H 20 98/57 L 91 Nasal Cannula 04/16/23 11:28 36.4 C L 95 H 20 96/60 L 91 Nasal Cannula 04/16/23 08:00 04/16/23 07:36 36.5 C 95 H 20 97/67 L 92 Nasal Cannula O2 Flow Rate 04/16/23 16:00 04/16/23 15:46 2 04/16/23 11:28 3 04/16/23 08:00 2 04/16/23 07:36 3 PG Care Time/CCT Total # of Minutes Spent Total Time Spent with Patient: Total time spent is greater than 50% in coordination of care (as documented) at patient's floor/unit and/or counseling patient: Coding Level of Care Code 36907 SUB INP/OBS CARE 2/35MIN Diagnoses Hyponatremia E87.1 Atrial fibrillation with controlled ventricular rate I48.91 Acute on chronic heart failure with preserved ejection fraction (HFpEF) I50.33 Class 3 severe obesity due to excess calories with serious comorbidity and body mass index (BMI) of 45.0 to 49.9 in adult E66.01; Z68.42 Obesity type: due to excess calories Obesity classification: adult class 3 (BMI >= 40) Serious obesity comorbidity presence: with serious comorbidity Body mass index: BMI 45.0-49.9 Obesity hypoventilation syndrome E66.2 Collapse of left lung J98.11 Pleural effusion J90
[2023-04-16] MEDS: TAMSULOSIN HCL 0.4 MG CAP PO SCH (20:19)
[2023-04-16] MEDS: HYDROXYCHLOROQUINE SULFATE 200 MG TAB PO SCH (20:20)
[2023-04-16] MEDS: DULoxetine HCL 20 MG CAP PO SCH (20:20)
[2023-04-17] MEDS: BUMETANIDE 10 MG in DEXTROSE 5% 10 ML IV SCH ×3 (05:38→23:39)
--- NOTE | 2023-04-17 07:37 | XRay Report ---
XR chest 1V portable HISTORY: Left lower lobe opacity. Follow-up. COMPARISON: Chest CT 04/13/2023. FINDINGS: No pneumothorax. The cardiac silhouette remains enlarged. This likely corresponds the patie nt's known pericardial effusion. There is a small right and moderate left pleural effusion with bibas ilar densities. Mild interstitial pulmonary edema persists. No acute fractures identified. IMPRESSION: 1. No change compared to the prior study. 2. A large pericardial effusion and bilateral pleural effusions are again noted. 3. Pulmonary edema and bibasilar densities persist. ACT 112: Negative or not required by law. Electronically signed by: Juan Manuel Dobson M.D. 04/17/2023 7:36 AM
[2023-04-17 08:00] LABS: BUN Creatinine Ratio 33.3 (10-20); Calcium 8.5 mg/dl (8.6-10.3); Creatinine Clr Calc Pharmacy 101.6 ml/min; Est GFR (African American) 94.5 ml/min; Est GFR (Non-African American) 81.5 ml/min; Magnesium 1.9 mg/dl (1.7-2.4); Potassium 3.5 mmol/L (3.5-5.1)
[2023-04-17] MEDS: ASPIRIN 81 MG ECTAB PO SCH (08:33)
[2023-04-17] MEDS: APIXABAN 5 MG TABLET PO SCH ×2 (08:33→20:00)
[2023-04-17] MEDS: CHOLECALCIFEROL 1,000 UNITS 25 MCG TAB PO SCH (08:33)
[2023-04-17] MEDS: COLCHICINE 0.6 MG TAB PO SCH ×2 (08:33→20:00)
[2023-04-17] MEDS: MAGNESIUM OXIDE 400 MG TAB PO SCH ×2 (08:33→19:59)
[2023-04-17] MEDS: LIDOCAINE 5% 1 PATCH TD SCH (08:33)
[2023-04-17] MEDS: POTASSIUM CHLORIDE CRTAB 20 MEQ TABCR PO SCH ×2 (08:35→20:00)
--- NOTE | 2023-04-17 08:52 | Pulmonology Progress Note ---
Date of Service April 17, 2023 Assessment & Plan Admission and Anticipated Discharge Date Admission Date: April 02, 2023 Results & Data Results & Data Vital Signs (Past 12 Hours) Vital Signs Temp Pulse Pulse Resp BP BP Pulse Ox 04/17/23 07:17 36.6 C 99 H 18 93/57 L 90 04/17/23 02:37 36.5 C 96 H 20 108/71 95 04/17/23 02:31 92 H 22 98 04/16/23 22:50 36.5 C 89 18 115/70 93 04/16/23 22:43 91 H 04/16/23 22:25 95 H 27 H 92 O2 Del Method O2 Flow Rate FiO2 04/17/23 07:17 Nasal Cannula 4 04/17/23 02:37 CPAP 04/17/23 02:31 4 04/16/23 22:50 CPAP 04/16/23 22:43 04/16/23 22:25 4 PG Care Time/CCT Total # of Minutes Spent Total Time Spent with Patient: Total time spent is greater than 50% in coordination of care (as documented) at patient's floor/unit and/or counseling patient: Coding
[2023-04-17] MEDS: TERBINAFINE CR 30 GM TUBE EXT SCH (09:20)
--- NOTE | 2023-04-17 10:47 | Nephrology Progress Note ---
Date of Service April 17, 2023 Assessment & Plan Admission and Anticipated Discharge Date Admission Date: April 02, 2023 Subjective Assessment & Plan (1) Acute hyponatremia: Acute hyponatremia with serum sodium of 119 on presentation related with hypervolemic hyponatremia in the setting of acute congestive heart failure. Patient does admit to drinking massive amount of water. Obviously he cannot do this as it will be impossible to manage his fluid status. BMP daily. Agree with plan of placing special urinary catheter and monitoring input and output accurately. manage him as a case of hypervolemic hyponatremia with excessive water drinking na now 140 and near normal BUN and normal Creat. Now weighs lot less than on Admission. BP somewhat low. Continue Bumex drip for one more day. Continue Kcl 40 bid. S--urine 3650 ml yesterday .Wants to be discharged. BP somewhat low. Physical Exam Physical Exam: GENERAL: Alert and oriented x3. NAD, morbidly obese, on 4 L oxygen via nasal cannula HEENT: No pallor, no icterus. Pupils equal, round and reactive to light. Oral mucosa moist. NECK: No JVD, no neck masses. HEART: S1 and S2 heard. Regular rate and rhythm. No murmur, no gallop. RESPIRATORY SYSTEM: No accessory muscle use. No wheezing, decreased breath sounds likely secondary to morbid obesity. ABDOMEN: Soft, nontender CENTRAL NERVOUS SYSTEM: No facial droop. Speech is clear. Obeys simple commands. Moves extremities. EXTREMITIES: BLE Trace+ edema now--lot less, chronic skin changes noted. Multiple skin breakdowns on lesions noted around his toes especially in the right side. Results & Data Vital Signs (Past 12 Hours) Vital Signs Temp Pulse Pulse Resp BP BP Pulse Ox 04/17/23 08:00 04/17/23 08:00 93 H 04/17/23 07:17 36.6 C 99 H 18 93/57 L 90 04/17/23 02:37 36.5 C 96 H 20 108/71 95 04/17/23 02:31 92 H 22 98 04/16/23 22:50 36.5 C 89 18 115/70 93 O2 Del Method O2 Flow Rate FiO2 04/17/23 08:00 Nasal Cannula, BiPAP 2 04/17/23 08:00 04/17/23 07:17 Nasal Cannula 4 04/17/23 02:37 CPAP 04/17/23 02:31 4 04/16/23 22:50 CPAP
--- NOTE | 2023-04-17 12:00 | Hospitalist Progress Note ---
Date of Service April 17, 2023 Assessment & Plan (1) Acute on chronic heart failure with preserved ejection fraction (HFpEF): (2) Acute hyponatremia: Plan 77-year-old gentleman with PMH of chronic diastolic heart failure on Lasix, HTN, TIIDM, presented (from [facility])and admitted on 04/02 for acute on chronic HFpEF exacerbation. He is being managed for the following: #Acute hypoxic respiratory failure, likely multifactorial #OHS -Iso heart failure exacerbation and OHS. Denies home O2 use. Nocturnal -Nocturnal pulse oximetry reviewed, will continue with BPAP due to CO2 retention. -Will likely require 2 step to assess for daytime need for oxygen prior to discharge -Repeat CXR with signs of continued overload. Repeat CT chest w/ L > R pleural eff; and w/ pericardial eff. -Cardiology and nephrology on board, managing diuresis. Currently on bumex gtt. -Continue with BiPAP HS and PRN. Pulm consult - appreciate recs. c/w BPAP. Awaiting further recs #Acute urinary retention *resolved -c/f bladder outlet obstruction, c/f buried penis (congenital v acquired) per Urology -Nephrology also feels NOWAK likely given robust UOP -Urology on consult: camarena 1-2 weeks, OP follow up to be arranged -Will likely keep for 2 weeks given on going efforts for diuersis -Continue tamsulosin -Discontinued oxybutynin -Likely will need camarena exchange on day. #Acute non-cardiac chest pain #Acute on chronic back pain *resolved -Tylenol prn, lidocaine patch to mid back -Pain on chest reproducible to touch -Continue home oxycodone regimen -Topical myoflex #Acute on chronic heart failure with preserved ejection fraction #HTN, relative hypotension - TTE (04/03/2023): LVEF 55-60%, - Home diuretics: Lasix 40mg qam Cardiology on consult and Nephrology on consult -Strict I's and O's, fluid restriction of 1500 mL/day, heart healthy diet, low- sodium diet -Holding spironolactone 2/2 hyponatremia -Holding ACEi/ARB at this time 2/2 hypotension -Given ongoing hypoxia and volume overload, transitioned from IV push bumex to bumex drip in hopes for improvement, in addition to bipap #New onset atrial fibrillation History of wandering atrial pacemaker/complex ectopy given comorbidities remains in afib on telemetry-HR is controlled without rate control agents. Per cardiology recommend he transition to apixaban from Lovenox started on admission. Echo reveals EF 55-60%. Small circumferential pericardial effusion without hemodynamic significance. -Continue Eliquis #PAD, chronic bilateral dusky discoloration -Continue ASA #Contraction alkalosis #Hypervolemic Hyponatremia *improving with aggressive diuresis Baseline sodium appears around 137, admitting sodium of 119, likely hypervolemic hyponatremia. Patient with no headache or dizziness or orientation issues at presentation. -Maintain I's and O's, fluid restriction of 1500 mL a day. -Continue to hold off on spironolactone or any EZEQUIEL/ARB. -Nephrology on consult, appreciate recommendations, managing diuresis. -Sodium 134 today. Labs in AM. #Lower ext cellulitis *resolved #Skin tears - Pt treated with oral Augmentin which has been completed. He has lower extremities wounds on his anterior tibiae and his toes from a recent fall per his report. #Morbidly obese -lifestyle changes recommended #LARISA -Plan to assess for need for bipap with nocturnal study #Acute Thrombocytopenia *resolved #Leukocytosis #B-Cell lymphoma Follows Dr. Escamilla, denies constitutional symptoms, reportedly increased LDH and [id number] c/w comorbidities -LDH 215 (last LDH 275 12/2022) -CBC w/ diff and smear in am -Dr escamilla on schedule, consult to assess if symptoms related/stable, no recommendations #T2DM -diet controlled, a1c 6.2 on 03/31/23, lantus/novolog per protocol has been dec lined by patient several times. Will DC BSG checks and insulin at this time. Continue with outpatient follow- up. #Rheumatoid arthritis #Gout -Continue plaquenil 200mg daily -Continue colchicine 0.6mg bid #Depression Continue duloxetine DVT prophylaxis: apixaban PT/OT DNR/DNI Dispo: pending clearance from Cardio, Pulm, Nephro. Admission and Anticipated Discharge Date Admission Date: April 02, 2023 Subjective Patient seen and examined at bedside. Patient was lying on bed, on 4L oxygen via nasal cannula, reports no new acute event overnight, reports no pain, reports eating okay and moving bowels okay, de nies any complaints. Wants to go home. Physical Exam Physical Exam: GENERAL: Alert and oriented x3. NAD, morbidly obese, on 4 L oxygen via nasal cannula. HEENT: No pallor, no icterus. Pupils equal, round and reactive to light. Oral mucosa moist. NECK: No JVD, no neck masses. HEART: S1 and S2 heard. irregular rate and rhythm. No murmur, no gallop. RESPIRATORY SYSTEM: Normal AP diameter. No accessory muscle use. No wheezing, decreased breath sounds likely secondary to morbid obesity. ABDOMEN: Soft, bowel sounds present, nontender, distention. CENTRAL NERVOUS SYSTEM: No facial droop. Speech is clear. Obeys simple commands. Moves extremities. EXTREMITIES: BLE 1+ edema, chronic skin changes noted, left second toe dressing c/d/i. Results & Data Results & Data Vital Signs (Past 12 Hours) Vital Signs Temp Pulse Pulse Resp BP BP Pulse Ox 04/17/23 10:52 36.5 C 98 H 18 110/66 94 04/17/23 08:00 04/17/23 08:00 93 H 04/17/23 07:17 36.6 C 99 H 18 93/57 L 90 04/17/23 02:37 36.5 C 96 H 20 108/71 95 04/17/23 02:31 92 H 22 98 O2 Del Method O2 Flow Rate FiO2 04/17/23 10:52 Nasal Cannula 4 04/17/23 08:00 Nasal Cannula, BiPAP 2 04/17/23 08:00 04/17/23 07:17 Nasal Cannula 4 04/17/23 02:37 CPAP 04/17/23 02:31 4
[2023-04-17] MEDS ORDERED: POTASSIUM CHLORIDE CRTAB 20 MEQ TABCR PO ONE (13:00)
--- NOTE | 2023-04-17 15:59 | Pulmonology Progress Note ---
Date of Service April 17, 2023 Assessment & Plan (1) Acute on chronic heart failure with preserved ejection fraction (HFpEF): (2) Collapse of left lung: (3) Pleural effusion: (4) Obesity hypoventilation syndrome: Plan IMPRESSION: 78-year-old male with a significant past medical history heart failure with preserved ejection fraction, morbid obesity obstructive sleep apnea obesity hypoventilation syndrome A-fib anticoagulated on a DOAC. RECOMMENDATIONS: 1. Acute on chronic heart failure with preserved ejection fraction - Largely contributing to the patient's respiratory concerns with bilateral pleural effusions and LEFT collapse. Patient is currently aggressive pulmonary toilet including CPAP device. Despite his persistent findings on chest x-ray, clinically reports feeling better diarrhea since which he continues to cardiology. We will reiterate concerns with return to the patient's new establish baseline. 2. Left lower lobe collapse - Continue with positive airway pressure support and flutter valve. 3. Pleural effusion - Persistent. Does not appear to be a large effusion x- ray. Would be a difficult patient to obtain pleural fluid secondary to morbid obesity. Uncertain of the utility of that at this point as he is actively diuresing well. 4. OHS - Continue with supplemental O2 as needed. As well as PAP with naps and sleep. Thank you for allowing us to participate in the care of this patient. Pulmonary medicine will sign off at this time. Admission and Anticipated Discharge Date Admission Date: April 02, 2023 Supervising Physician Co-Signing Physician Notes Patient seen and examined. EMR reviewed. Discussed with EMERITA and agree with assessment plan as noted. Continue with BiPAP and diuresis as well as pulmonary toilet. Patient appears to be stabilizing from a respiratory perspective. Pulmonary will sign off at this point time. Feel free to contact us with additional questions or concerns. Subjective Patient seen and evaluated by myself at bedside. He reports feeling better with breathing. He is happy about his use of the flutter valve and precautions. States that he is feeling better overall. Review of Systems Review of Systems: Unchanged from prior. Physical Exam Physical Exam: VITAL SIGNS - Vital signs and nursing notes were reviewed. GENERAL - 78-year-old male appearing his stated age who is in no acute distress. Communicates well with provider and answers questions appropriately. LUNGS - Auscultation reveals diminished breath sounds at the bases bilaterally. CARDIAC - RRR with S1/S2. No murmur, rubs, or gallops appreciated. PSYCH - A&Ox3 and cooperates fully with examiner. Pt is very pleasant and inte racts well with examiner. Results & Data Results & Data Vital Signs (Past 12 Hours) Vital Signs Temp Pulse Pulse Resp BP BP Pulse Ox 04/17/23 15:46 97 H 04/17/23 15:43 36.8 C 92 H 20 96/56 L 90 04/17/23 10:52 36.5 C 98 H 18 110/66 94 04/17/23 08:00 04/17/23 08:00 93 H 04/17/23 07:17 36.6 C 99 H 18 93/57 L 90 O2 Del Method O2 Flow Rate 04/17/23 15:46 04/17/23 15:43 Nasal Cannula 4 04/17/23 10:52 Nasal Cannula 4 04/17/23 08:00 Nasal Cannula, BiPAP 2 04/17/23 08:00 04/17/23 07:17 Nasal Cannula 4 PG Care Time/CCT Total # of Minutes Spent Total Time Spent with Patient: Total time spent is greater than 50% in coordination of care (as documented) at patient's floor/unit and/or counseling patient: Coding Level of Care Code 87150 SUB INP/OBS CARE 2/35MIN Diagnoses Acute on chronic heart failure with preserved ejection fraction (HFpEF) I50.33 Collapse of left lung J98.11 Pleural effusion J90 Obesity hypoventilation syndrome E66.2
[2023-04-17] MEDS: HYDROXYCHLOROQUINE SULFATE 200 MG TAB PO SCH (20:00)
[2023-04-17] MEDS: DULoxetine HCL 20 MG CAP PO SCH (20:00)
[2023-04-17] MEDS: TAMSULOSIN HCL 0.4 MG CAP PO SCH (20:01)
[2023-04-18] MEDS: TERBINAFINE CR 30 GM TUBE EXT SCH (08:09)
[2023-04-18] MEDS: ASPIRIN 81 MG ECTAB PO SCH (08:09)
[2023-04-18] MEDS: CHOLECALCIFEROL 1,000 UNITS 25 MCG TAB PO SCH (08:09)
[2023-04-18] MEDS: MAGNESIUM OXIDE 400 MG TAB PO SCH ×2 (08:10→20:21)
[2023-04-18] MEDS: APIXABAN 5 MG TABLET PO SCH ×2 (08:10→20:20)
[2023-04-18] MEDS: LIDOCAINE 5% 1 PATCH TD SCH (08:10)
[2023-04-18] MEDS: COLCHICINE 0.6 MG TAB PO SCH ×2 (08:10→20:20)
[2023-04-18] MEDS: POTASSIUM CHLORIDE CRTAB 20 MEQ TABCR PO SCH ×2 (08:11→20:22)
--- NOTE | 2023-04-18 08:31 | Cardiology Progress Note ---
Date of Service April 18, 2023 Assessment & Plan (1) Atrial fibrillation with controlled ventricular rate: (2) Acute hyponatremia: (3) Acute on chronic heart failure with preserved ejection fraction (HFpEF): (4) Obesity hypoventilation syndrome: Plan IMPRESSION: Medically complex 78 year old male with acute on chronic HFpEF/right heart failure, Morbid obesity, Chronic hypoventilatory syndrome with LARISA. PLAN: Volume status improving, but pleural effusions remain on CXR, patient is negative 35L over his his hospital stay Continue fluid restriction. Diuretic meds per nephrology, remains on Bumex gtt. Spironolactone recommended by nephrology today. Continue PAP therapy. Atrial fibrillation. New onset. Echo suggests low likelihood of restoring and maintaining sinus rhythm. Heart rates controlled without rate lowering therap ies. -Continue anticoagulation (Eliquis 5 mg BID) -Not currently on beta james therapy-- rates maintaining low 100s on telemetry. Moderate aortic valve stenosis. -Routine surveillance monitoring discussed-- will follow up as an outpatient. Small circumferential pericardial effusion, without hemodynamic significance, via 04/03/2023 TTE. -Follow-up limited resting echocardiography requested to reassess the pericardial effusion noting moderate to marked enlargement of the cardiac silhouette on chest x-ray obtained on April 10, 2023. Case discussed with Dr. Benavidez. Further recommendations pending Dr. Benavidez's assessment. Admission and Anticipated Discharge Date Admission Date: April 02, 2023 Supervising Physician Co-Signing Physician Notes Supervising Physician Attestation: I have personally performed a history and physical examination on the patient. I agree with the physician higher level teaching assistant's findings and plan as documented with the following additions. Subjective: Patient sitting supine, no subjective complaints. Hurtado catheter remains in place draining clear yellow urine with urine output of 3.4 L in the last 24 hours. Telemetry reveals ongoing atrial fibrillation with average ventricular rate of around 100 bpm. Exam: Cardiovascular: Irregular rhythm, no murmurs, no edema, chronic venous stasis changes Data: Image of today's chest x-ray 04/18/2023 reviewed independently with noted residual pleural effusions, enlargement of the cardiac silhouette. Chest CT performed 04/13/2023: Images reviewed independently revealed left pleural effusion, large circumferential pericardial effusion. A repeat echocardiogram was performed 04/18/2023 for reassessment of pericardial effusion. Limited goal-directed views were obtained. There is a large circumferential pericardial effusion. The maximum dimension of the effusion is 3 cm adjacent to the right ventricular free wall and left ventricular free wall and the apical four-chamber view. There is no overt tamponade. Compared to the images obtained at the time of the previous studies dated 04/03/2023 and 04/11/2023 there has been an interval increase in the size of the pericardial effusion. Assessment and Plan: HFpEF/right heart failure, Morbid obesity, Chronic hypoventilatory syndrome with LARIAS. Pericardial effusion History of Rheumatoid Arthritis -Case reviewed with Dr Russo of nephrology. I agree with plan for ongoing IV diuretic therapy. -Pt already on chronic colchicine. -He is a poor candidate for invasive intervention for the pericardial effusion and is asymptomatic with blood pressure relatively similar to his baseline. Check inflammatory markers, ESR, CRP. Administer IV albumin, with hopes that transient increase in intravascular oncotic pressure may improve the effusion. DVT prophylaxis: Continue full dose Eliquis I spent a total of 20 minutes on the date of service in preparation, delivery, and documentation of the care provided to this patient, excluding any time spent in the performance of separately billed services. Andrea Benavidez, DO Subjective 78-year-old male with a significant past medical history heart failure with preserved ejection fraction, morbid obesity obstructive sleep apnea obesity hypoventilation syndrome, and A-fib anticoagulated on a DOAC. Admitted due to multifactorial hypoxic respiratory failure secondary to acute on chronic HFpEF/RHF (BL pleural effusions and left collapsed lung)--diuresis managed with a Bumex drip and BiPAP. Nephrology and pulmonary on board. During admission patient converted into new onset PAF-- Eliquis was started. Small pericardial effusion noted on echo with preserved LVEF. Upon entrance into the room patient resting in bed. HOB flat. Echo obtained. Patient working on his breathing treatments/flutter valves. No chest pain, shortness of breath or palpitations. No orthopnea or PND. No lightheadedness. Eager for discharge. Tele: AFIB 100-110s I&O: -32.5L Weight: 177.8 kg >> 146.8 kg Review of Systems Review of Systems: All systems reviewed & are unremarkable except as noted in HPI & below Physical Exam Constitutional: well developed, well nourished and + morbidly obese; no acute distress Neck: normal visual inspection and trachea midline Respiratory: normal respiratory effort; no labored breathing, no cough and not tachypneic Auscultation: + diminished lung sounds; no rales, no rhonchi and no wheezes Cardiovascular: Rate/Rhythm: regular rate and + irregularly irregular Heart Sounds: normal S1 and normal S2 Extremities: no edema Gastrointestinal (Abdomen): normal bowel sounds, soft, nontender, no hepatosplenomegaly Results & Data Vital Signs (Past 12 Hours) Vital Signs Temp Pulse Pulse Pulse Resp BP BP 04/18/23 07:12 36.5 C 104 H 18 114/74 04/18/23 05:05 92 H 04/18/23 04:14 36.4 C L 106 H 20 106/68 04/18/23 03:54 67 22 04/17/23 23:47 36.5 C 89 18 123/74 04/17/23 22:44 102 H Pulse Ox O2 Del Method O2 Flow Rate 04/18/23 07:12 91 Nasal Cannula 4 04/18/23 05:05 91 Nasal Cannula 2 04/18/23 04:14 94 CPAP 04/18/23 03:54 95 4 04/17/23 23:47 94 CPAP 04/17/23 22:44 Laboratory Results Intake and Output 04/17/23 04/18/23 04/18/23 22:59 06:59 14:59 Intake Total 550 / 739.667 150 / 739.667 Output Total 1650 / 4250 850 / 4250 Balance -1100 / -3510.333 -700 / -3510.333 Intake: IV 50 / 89.667 Bumetanide 10 mg In Dextrose 5% 50 / 89.667 10 ml @ 1 MG/HR 5 mls/hr IV . Q10H [facility] Rx#:[id number] Oral 550 / 650 100 / 650 Output: Urine Amount (Catheter) 1650 / 4250 850 / 4250 Hurtado/Indwelling 1650 / 4250 850 / 4250 Other: Weight 146.8 kg Weight Measurement Method Built in [facility] Diagnostic Findings Intake and Output 04/17/23 04/18/23 04/18/23 22:59 06:59 14:59 Intake Total 550 / 739.667 150 / 739.667 Output Total 1650 / 4250 850 / 4250 Balance -1100 / -3510.333 -700 / -3510.333 Intake: IV 50 / 89.667 Bumetanide 10 mg In Dextrose 5% 50 / 89.667 10 ml @ 1 MG/HR 5 mls/hr IV . Q10H [facility] Rx#:[id number] Oral 550 / 650 100 / 650 Output: Urine Amount (Catheter) 1650 / 4250 850 / 4250 Hurtado/Indwelling 1650 / 4250 850 / 4250 Other: Weight 146.8 kg Weight Measurement Method Built in [facility]
--- NOTE | 2023-04-18 09:34 | XRay Report ---
XR chest 1V portable CLINICAL HISTORY: f/u lll collapse TECHNIQUE: Single frontal radiograph of the chest was obtained. Comparison: Comparison is made to chest radiograph 04/07/2023 FINDINGS: No lines and tubes are seen. Cardiomegaly is noted. The aortic arch is calcified. Left retrocardiac o pacity is again seen. Vascular prominence is seen. No evidence of pleural effusion or pneumothorax. IMPRESSION: 1. Cardiomegaly and mild pulmonary edema. 2. Left retrocardiac opacity may represent continued lobar collapse. ACT 112: Negative or not required by law. Electronically signed by: Amilcar Luis M.D. 04/18/2023 9:32 AM
--- NOTE | 2023-04-18 09:51 | Nephrology Progress Note ---
Date of Service April 18, 2023 Assessment & Plan Admission and Anticipated Discharge Date Admission Date: April 02, 2023 Subjective Assessment & Plan (1) Acute hyponatremia: Acute hyponatremia with serum sodium of 119 on presentation related with hypervolemic hyponatremia in the setting of acute congestive heart failure. Patient does admit to drinking massive amount of water. Obviously he cannot do this as it will be impossible to manage his fluid status. BMP daily. Agree with plan of placing special urinary catheter and monitoring input and output accurately. manage him as a case of hypervolemic hyponatremia with excessive water drinking na now 140 and near normal BUN and normal Creat. Bicarb high but stable and is because of Compensation. Now weighs lot less than on Admission ( down 35 kilo) But CXR still shows some Pulm edema. His health seems to be stuck and I cant see how we can discharge him to his home. Defer to Primary team. Can start Aldactone 12.5 daily Continue Bumex drip for now given CXR finding from today. Continue Kcl 40 bid. S--urine 4250 ml yesterday .Wants to be discharged . labs remain stable. Physical Exam Physical Exam: GENERAL: Alert and oriented x3. NAD, morbidly obese, on 4 L oxygen via nasal cannula HEENT: No pallor, no icterus. Pupils equal, round and reactive to light. Oral mucosa moist. NECK: No JVD, no neck masses. HEART: S1 and S2 heard. Regular rate and rhythm. No murmur, no gallop. RESPIRATORY SYSTEM: No accessory muscle use. No wheezing, decreased breath sounds likely secondary to morbid obesity. ABDOMEN: Soft, nontender CENTRAL NERVOUS SYSTEM: No facial droop. Speech is clear. Obeys simple commands. Moves extremities. EXTREMITIES: BLE Trace+ edema now--lot less, chronic skin changes noted. Multiple skin breakdowns on lesions noted around his toes especially in the right side. Results & Data Vital Signs (Past 12 Hours) Vital Signs Temp Pulse Pulse Pulse Resp BP BP 04/18/23 08:00 104 H 04/18/23 07:12 36.5 C 104 H 18 114/74 04/18/23 05:05 92 H 04/18/23 04:14 36.4 C L 106 H 20 106/68 04/18/23 03:54 67 22 04/17/23 23:47 36.5 C 89 18 123/74 11/20/23 22:44 102 H Pulse Ox O2 Del Method O2 Flow Rate 04/18/23 08:00 04/18/23 07:12 91 Nasal Cannula 4 04/18/23 05:05 91 Nasal Cannula 2 04/18/23 04:14 94 CPAP 04/18/23 03:54 95 4 04/17/23 23:47 94 CPAP 04/17/23 22:44
[2023-04-18] MEDS: BUMETANIDE 10 MG in DEXTROSE 5% 10 ML IV SCH ×2 (10:05→20:20)
[2023-04-18] MEDS: SPIRONOLACTONE 12.5 MG TAB PO SCH (10:58)
[2023-04-18] MEDS: ALBUMIN 25% 25 GM/100 ML VIAL IV SCH ×2 (12:53→20:19)
[2023-04-18] MEDS ORDERED: POTASSIUM CHLORIDE CRTAB 20 MEQ TABCR PO ONE (13:00)
--- NOTE | 2023-04-18 15:14 | Hospitalist Progress Note ---
Date of Service April 18, 2023 Assessment & Plan (1) Acute on chronic heart failure with preserved ejection fraction (HFpEF): (2) Acute hyponatremia: Plan 77-year-old gentleman with PMH of chronic diastolic heart failure on Lasix, HTN, TIIDM, presented (from [facility])and admitted on 04/02 for acute on chronic HFpEF exacerbation. He is being managed for the following: #Acute hypoxic respiratory failure, likely multifactorial #OHS -Iso heart failure exacerbation and OHS. Denies home O2 use. Nocturnal -Nocturnal pulse oximetry reviewed, will continue with BPAP due to CO2 retention. -Will likely require 2 step to assess for daytime need for oxygen prior to discharge -Repeat CXR with signs of continued fluid overload. Repeat echo w/ interval increase in pericardial effusion -Cardiology and nephrology on board, managing diuresis. Currently on bumex gtt. -Continue with BiPAP HS and PRN. - Pulm evaled. D/w pulm - no role of bronchoscopy for LLL collapse, continue w/ positive airway pressure support. - c/w flutter valve, chest PT, nebs. Mucomyst and hypertonic saline nebs. #Acute urinary retention *resolved -c/f bladder outlet obstruction, c/f buried penis (congenital v acquired) per Urology -Nephrology also feels NOWAK likely given robust UOP -Urology on consult: camarena 1-2 weeks, OP follow up to be arranged, also on going efforts for diuersis -Continue tamsulosin -Discontinued oxybutynin -Likely will need camarena exchange on DC day. #Acute non-cardiac chest pain #Acute on chronic back pain *resolved -Tylenol prn, lidocaine patch to mid back -Pain on chest reproducible to touch -Continue home oxycodone regimen -Topical Myoflex #Acute on chronic heart failure with preserved ejection fraction #HTN, relative hypotension - TTE (04/03/2023): LVEF 55-60%, - Home diuretics: Lasix 40mg qam Cardiology on consult and Nephrology on consult -Strict I's and O's, fluid restriction of 1500 mL/day, heart healthy diet, low- sodium diet -Aldactone resumed. -Holding ACEi/ARB at this time 2/2 hypotension -Given ongoing hypoxia and volume overload, transitioned from IV push bumex to bumex drip in hopes for improvement, in addition to bipap #New onset atrial fibrillation History of wandering atrial pacemaker/complex ectopy given comorbidities remains in afib on telemetry-HR is controlled without rate control agents. Per cardiology recommend he transition to apixaban from Lovenox started on admission. Echo reveals EF 55-60%. -Continue Eliquis #. Pericardial effusion: repeat echo showing interval increase in pericardial effusion, await further cardiac recs. #PAD, chronic bilateral dusky discoloration -Continue ASA #Contraction alkalosis #Hypervolemic Hyponatremia *improving with aggressive diuresis Baseline sodium appears around 137, admitting sodium of 119, likely hypervolemic hyponatremia. Patient with no headache or dizziness or orientation issues at presentation. -Maintain I's and O's, fluid restriction of 1500 mL a day. -Nephrology on consult, appreciate recommendations, managing diuresis. -Sodium level normal, Aldactone resumed. Labs in AM. #Lower ext cellulitis *resolved #Skin tears - Pt treated with oral Augmentin which has been completed. He has lower extremities wounds on his anterior tibiae and his toes from a recent fall per his report. #Morbidly obese -lifestyle changes recommended #LARISA -Plan to assess for need for bipap with nocturnal study #Acute Thrombocytopenia *resolved #Leukocytosis #B-Cell lymphoma Follows Dr. Escamilla, denies constitutional symptoms, reportedly increased LDH and [id number] c/w comorbidities -LDH 215 (last LDH 275 12/2022) -CBC w/ diff and smear in am -Dr escamilla on schedule, consult to assess if symptoms related/stable, no recommendations #T2DM -diet controlled, a1c 6.2 on 03/31/23, lantus/novolog per protocol has been declined by patient several times. Will DC BSG checks and insulin at this time. Continue with outpatient follow- up. #Rheumatoid arthritis #Gout -Continue plaquenil 200mg daily -Continue colchicine 0.6mg bid #Depression Continue duloxetine DVT prophylaxis: apixaban PT/OT DNR/DNI Dispo: pending clearance from Cardio, Pulm, Nephro. Jose Carlos has signed off. Admission and Anticipated Discharge Date Admission Date: April 02, 2023 Subjective Patient seen and examined at bedside. Patient was lying on bed, on 4L oxygen via nasal cannula, reports no new acute event overnight, reports no pain, reports eating okay and moving bowels okay, denies any complaints. Physical Exam Physical Exam: GENERAL: Alert and oriented x3. NAD, morbidly obese, on 4 L oxygen via nasal cannula. HEENT: No pallor, no icterus. Pupils equal, round and reactive to light. Oral mucosa moist. NECK: No JVD, no neck masses. HEART: S1 and S2 heard. irregular rate and rhythm. No murmur, no gallop. RESPIRATORY SYSTEM: Normal AP diameter. No accessory muscle use. No wheezing, decreased breath sounds likely secondary to morbid obesity. ABDOMEN: Soft, bowel sounds present, nontender, distention. CENTRAL NERVOUS SYSTEM: No facial droop. Speech is clear. Obeys simple commands. Moves extremities. EXTREMITIES: BLE 1+ edema, chronic skin changes noted, left second toe dressing c/d/i. Results & Data Results & Data Vital Signs (Past 12 Hours) Vital Signs Temp Pulse Pulse Pulse Resp BP BP 04/18/23 11:15 64 18 93/61 L 04/18/23 08:00 04/18/23 08:00 104 H 04/18/23 07:12 36.5 C 104 H 18 114/74 04/18/23 05:05 92 H 04/18/23 04:14 36.4 C L 106 H 20 106/68 04/18/23 03:54 67 22 Pulse Ox O2 Del Method O2 Flow Rate 04/18/23 11:15 97 Nasal Cannula 4 04/18/23 08:00 Nasal Cannula 4 04/18/23 08:00 04/18/23 07:12 91 Nasal Cannula 4 04/18/23 05:05 91 Nasal Cannula 2 04/18/23 04:14 94 CPAP 04/18/23 03:54 95 4
[2023-04-18] MEDS: ACETYLCYSTEINE 20% INHAL SOLN 4ML ***DISPENSED BY RESP. INH SCH ×2 (15:57→19:51)
[2023-04-18] MEDS: SODIUM CHLOR 7% 4 ML NEB NEB SCH (19:51)
[2023-04-18] MEDS: ALBUTEROL 0.5% NEB SOLN 2.5 MG/0.5 ML VIAL NEB PRN (19:51)
[2023-04-18] MEDS: DULoxetine HCL 20 MG CAP PO SCH (20:20)
[2023-04-18] MEDS: HYDROXYCHLOROQUINE SULFATE 200 MG TAB PO SCH (20:20)
[2023-04-18] MEDS: TAMSULOSIN HCL 0.4 MG CAP PO SCH (20:21)
[2023-04-19] MEDS: ALBUMIN 25% 25 GM/100 ML VIAL IV SCH (04:06)
[2023-04-19] MEDS ORDERED: Nursing to Pharmacy Communication SCH (06:45)
[2023-04-19] MEDS: SODIUM CHLOR 7% 4 ML NEB NEB SCH ×2 (07:08→20:06)
[2023-04-19] MEDS: ALBUTEROL 0.5% NEB SOLN 2.5 MG/0.5 ML VIAL NEB PRN ×2 (07:08→20:07)
[2023-04-19] MEDS: ACETYLCYSTEINE 20% INHAL SOLN 4ML ***DISPENSED BY RESP. INH SCH ×2 (07:09→20:06)
[2023-04-19 07:40] LABS: BUN Creatinine Ratio 32.2 (10-20); Calcium 9.2 mg/dl (8.6-10.3); Creatinine Clr Calc Pharmacy 95.8 ml/min; Est GFR (African American) 93.2 ml/min; Est GFR (Non-African American) 80.4 ml/min; Magnesium 2.1 mg/dl (1.7-2.4); Phosphorus 3.7 mg/dl (2.5-4.9); Potassium 3.4 mmol/L (3.5-5.1)
--- NOTE | 2023-04-19 07:45 | Cardiology Progress Note ---
Date of Service April 19, 2023 Assessment & Plan (1) Atrial fibrillation with controlled ventricular rate: (2) Acute hyponatremia: (3) Acute on chronic heart failure with preserved ejection fraction (HFpEF): (4) Obesity hypoventilation syndrome: (5) Pleural effusion: Plan IMPRESSION: Medically complex 78 year old male with acute on chronic HFpEF/right heart failure, Morbid obesity, Chronic hypoventilatory syndrome with LARISA. PLAN: Volume status improving, but pleural effusions remain on CXR, patient is negative 35L over his his hospital stay Continue fluid restriction. Diuretic meds per nephrology, remains on Bumex gtt. Spironolactone recommended by nephrology today. Continue PAP therapy. Atrial fibrillation. New onset. Echo suggests low likelihood of restoring and maintaining sinus rhythm. Heart rates controlled without rate lowering therapies. -Continue anticoagulation (Eliquis 5 mg BID) -Not currently on beta james therapy-- rates maintaining low 100s on telemetry. Moderate aortic valve stenosis. -Routine surveillance monitoring discussed-- will follow up as an outpatient. Small circumferential pericardial effusion, without hemodynamic significance, via 04/03/2023 TTE. Interval increase in size on both echos dated 04/11/2023 and 04/19/2023 (now classified as large) Check inflammatory markers, ESR, CRP. -- Elevated. Patient also with a history of RA Given IV albumin (04/18/2023), with hopes that transient increase in intravascular oncotic pressure may improve the effusion. I spent a total of 20 minutes on the date of service in preparation, delivery, and documentation of the care provided to this patient, excluding any time spent in the performance of separately billed services Case discussed with Dr. Benavidez. Further recommendations pending Dr. Benavidez's assessment. Admission and Anticipated Discharge Date Admission Date: April 02, 2023 Supervising Physician Co-Signing Physician Notes Supervising Physician Attestation: I have personally performed a history and physical examination on the patient. I agree with the PRIMARY TEACHER's findings and plan as documented with the following additions. Subjective: Patient sitting supine, no subjective complaints. Hurtado catheter remains in place draining clear yellow urine with ongoing brisk diuresis Telemetry reveals ongoing atrial fibrillation with average ventricular rate of around 100 bpm. Exam: Cardiovascular: Irregular rhythm, no murmurs, no edema, chronic venous stasis changes Data: Chest CT performed 04/13/2023: Images reviewed independently revealed left pleural effusion, large circumferential pericardial effusion. A repeat echocardiogram was performed 04/18/2023 for reassessment of pericardial effusion. Limited goal-directed views were obtained. There is a large circumferential pericardial effusion. The maximum dimension of the effusion is 3 cm adjacent to the right ventricular free wall and left ventricular free wall and the apical four-chamber view. There is no overt tamponade. Compared to the images obtained at the time of the previous studies dated 04/03/2023 and 04/11/2023 there has been an interval increase in the size of the pericardial effusion. 04/18/2023: C-reactive protein 4.09 mg/dL, ESR 41 mm/h Assessment and Plan: HFpEF/right heart failure, Morbid obesity, Chronic hypoventilatory syndrome with LARISA. Pericardial effusion History of Rheumatoid Arthritis-mildly elevated inflammatory markers, no s ubjective symptoms of worsening joint issues -Pt already on chronic colchicine. -He is a poor candidate for invasive intervention for the pericardial effusion and is asymptomatic with blood pressure relatively similar to his baseline. -Patient received IV albumin x3 doses 04/18/2023 and 04/19/2023 two increase intravascular oncotic pressure and hopefully reduce size of pericardial effusion. -Proceed with prednisone 20 mg p.o. daily x5 days. -Patient remains eager for discharge, clinically still volume overloaded, but has improved significantly. -We will discuss disposition in a multidisciplinary fashion. DVT prophylaxis: Continue full dose Eliquis I spent a total of 20 minutes on the date of service in preparation, delivery, and documentation of the care provided to this patient, excluding any time spent in the performance of separately billed services. Andrea Benavidez, DO Subjective 78-year-old male with a significant past medical history heart failure with preserved ejection fraction, morbid obesity obstructive sleep apnea obesity hypoventilation syndrome, and A-fib anticoagulated on a DOAC. Admitted due to multifactorial hypoxic respiratory failure secondary to acute on chronic HFpEF/RHF (BL pleural effusions and left collapsed lung)--diuresis managed with a Bumex drip and BiPAP. Nephrology and pulmonary on board. During admission patient converted into new onset PAF-- Eliquis was started. Small pericardial effusion noted on echo with preserved LVEF. 04/19/2023: Patient remains hypervolemic one exam with evidence of pulmonary edema on cxr-- Bumex gtt continued per nephrology. Repeat echo done for reassessment of pericardial effusion--revealed a large circumferential pericardial effusion, no hemodynamic compromise/tamponade noted. When compared to prior echo dated 04/03/2023 and 04/11/2023 there has been interval increase in size of the pericardial effusion. Patient was without chest pain-- on chronic colchicine. Inflammatory markers, ESR, CRP -- Elevated, patient also with a history of RA. Administer IV albumin, with hopes that transient increase in intravascular oncotic pressure may improve the effusion. 04/20/2023: Refer to physician attestation for subjective evaluation. Tele: [employer] 80-100s I&O: -36.9L total Weight: 177.8 kg >> 146.8 kg >> 142.2 kg Results & Data Vital Signs (Past 12 Hours) Vital Signs Temp Pulse Pulse Resp BP Pulse Ox O2 Del Method 04/19/23 07:10 74 18 91 Nasal Cannula 04/19/23 03:42 36 C L 95 H 18 91/67 L 94 CPAP 04/19/23 03:13 98 H 20 90 04/18/23 23:06 36.6 C 109 H 18 98/66 L 90 CPAP 04/18/23 22:03 109 H 23 90 04/18/23 21:48 Nasal Cannula 04/18/23 19:52 89 18 95 Nasal Cannula O2 Flow Rate 04/19/23 07:10 4 04/19/23 03:42 4 04/19/23 03:13 6 04/18/23 23:06 4 04/18/23 22:03 4 04/18/23 21:48 4 04/18/23 19:52 4 Laboratory Results Comprehensive Metabolic Panel 04/19/23 Range/Units 06:08 Sodium 144 (136-145) mmol/L Potassium 3.4 L (3.5-5.1) mmol/L Chloride 97 L (98-107) mmol/L Carbon Dioxide 40 H (21-32) mmol/L BUN 29 H (6-23) mg/dl Creatinine 0.90 (0.6-1.4) mg/dl Glucose 182 H (70-99(Fasting)) mg/dl Calcium 9.2 (8.6-10.3) mg/dl Intake and Output 11/04/19/23 04/19/23 22:59 06:59 14:59 Intake Total 640 / 1130 100 / 1130 50 / 50 Output Total 5515 / 5579 1000 / 5579 Balance -2335 / -4449 -900 / -4449 50 / 50 Intake: IV 150 / 400 100 / 400 50 / 50 Albumin 25% 25 gm In 100 ml @ 100 / 300 100 / 300 50 mls/hr IV Q8H [facility] Rx#: [id number] Bumetanide 10 mg In Dextrose 5% 50 / 100 50 / 50 10 ml @ 1 MG/HR 5 mls/hr IV . Q10H [facility] Rx#:[id number] Oral 490 / 730 0 / 730 Output: Urine 900 / 900 Urine Amount (Catheter) 2074 Hurtado/Indwelling 2074 Other: Other Intake Source Sips Weight 146.8 kg 142.2 kg Weight Measurement Method Built in [facility]
[2023-04-19] MEDS: BUMETANIDE 10 MG in DEXTROSE 5% 10 ML IV SCH ×2 (07:46→17:28)
[2023-04-19] MEDS: MAGNESIUM OXIDE 400 MG TAB PO SCH ×2 (07:48→20:24)
[2023-04-19] MEDS: APIXABAN 5 MG TABLET PO SCH ×2 (07:48→20:24)
[2023-04-19] MEDS: CHOLECALCIFEROL 1,000 UNITS 25 MCG TAB PO SCH (07:49)
[2023-04-19] MEDS: SPIRONOLACTONE 12.5 MG TAB PO SCH (07:49)
[2023-04-19] MEDS: ASPIRIN 81 MG ECTAB PO SCH (07:49)
[2023-04-19] MEDS: COLCHICINE 0.6 MG TAB PO SCH ×2 (07:49→20:24)
[2023-04-19] MEDS: TERBINAFINE CR 30 GM TUBE EXT SCH (07:50)
[2023-04-19] MEDS: LIDOCAINE 5% 1 PATCH TD SCH (08:00)
[2023-04-19] MEDS: POTASSIUM CHLORIDE CRTAB 20 MEQ TABCR PO SCH ×2 (08:00→20:24)
[2023-04-19] MEDS ORDERED: POTASSIUM CHLORIDE CRTAB 20 MEQ TABCR PO STA (08:05)
--- NOTE | 2023-04-19 09:55 | Nephrology Progress Note ---
Date of Service April 19, 2023 Assessment & Plan Admission and Anticipated Discharge Date Admission Date: April 02, 2023 Subjective Assessment & Plan (1) Acute hyponatremia: Acute hyponatremia with serum sodium of 119 on presentation related with hypervolemic hyponatremia in the setting of acute congestive heart failure. Patient does admit to drinking massive amount of water. Obviously he cannot do this as it will be impossible to manage his fluid status. BMP daily. Agree with plan of placing special urinary catheter and monitoring input and output accurately. manage him as a case of hypervolemic hyponatremia with excessive water drinking na now 140 and near normal BUN and normal Creat. Bicarb high but stable and is because of Compensation. Now weighs lot less than on Admission ( down 37 kilo) But CXR still shows some Pulm edema. His health seems to be stuck and I cant see how we can discharge him to his home. Defer to Primary team. Conitnue Aldactone 12.5 daily Continue Bumex drip for now given CXR and ECHO finding from yesterday. Continue Kcl 40 bid. S--urine 4750 ml yesterday. Had ECHO which shows large pericardial effusion. Got iv Albumin also. labs remain stable. Physical Exam Physical Exam: GENERAL: Alert and oriented x3. NAD, morbidly obese, on 4 L oxygen via nasal cannula HEENT: No pallor, no icterus. Pupils equal, round and reactive to light. Oral mucosa moist. NECK: No JVD, no neck masses. HEART: S1 and S2 heard. Regular rate and rhythm. No murmur, no gallop. RESPIRATORY SYSTEM: No accessory muscle use. No wheezing, decreased breath sounds likely secondary to morbid obesity. ABDOMEN: Soft, nontender CENTRAL NERVOUS SYSTEM: No facial droop. Speech is clear. Obeys simple commands. Moves extremities. EXTREMITIES: BLE Trace+ edema now--lot less, chronic skin changes noted. Multiple skin breakdowns on lesions noted around his toes especially in the right side. Results & Data Vital Signs (Past 12 Hours) Vital Signs Temp Pulse Pulse Resp BP BP Pulse Ox 04/19/23 09:39 04/19/23 07:40 36.3 C L 89 20 114/65 97 04/19/23 07:10 74 18 91 04/19/23 03:42 36 C L 95 H 18 91/67 L 94 11/22/23 03:13 98 H 20 90 04/18/23 23:06 36.6 C 109 H 18 98/66 L 90 04/18/23 22:03 109 H 23 90 O2 Del Method O2 Flow Rate 04/19/23 09:39 Nasal Cannula 4 04/19/23 07:40 Nasal Cannula 7 04/19/23 07:10 Nasal Cannula 4 04/19/23 03:42 CPAP 4 04/19/23 03:13 6 04/18/23 23:06 CPAP 4 04/18/23 22:03 4
[2023-04-19] MEDS: predniSONE 20 MG TAB PO SCH (11:22)
--- NOTE | 2023-04-19 17:38 | Hospitalist Progress Note ---
Date of Service April 19, 2023 Assessment & Plan (1) Acute on chronic heart failure with preserved ejection fraction (HFpEF): (2) Acute hyponatremia: Plan 77-year-old gentleman with PMH of chronic diastolic heart failure on Lasix, HTN, TIIDM, presented (from [facility])and admitted on 04/02 for acute on chronic HFpEF exacerbation. He is being managed for the following: #Acute hypoxic respiratory failure, likely multifactorial *improving #OHS -Iso heart failure exacerbation and OHS. Denies home O2 use. Nocturnal -Nocturnal pulse oximetry reviewed, will continue with BPAP due to CO2 retention. -Will likely require 2 step to assess for daytime need for oxygen prior to discharge -Repeat CXR with signs of continued fluid overload. Repeat echo w/ interval increase in pericardial effusion -Cardiology and nephrology on board, managing diuresis. Currently on bumex gtt. -Continue with BiPAP HS and PRN. - Pulm evaled. D/w pulm - no role of bronchoscopy for LLL collapse, continue w/ positive airway pressure support. - c/w flutter valve, chest PT, nebs. Mucomyst and hypertonic saline nebs. 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 #Acute non-cardiac chest pain #Acute on chronic back pain *resolved -Tylenol prn, lidocaine patch to mid back -Pain on chest reproducible to touch -Continue home oxycodone regimen -Topical Myoflex #New onset atrial fibrillation History of wandering atrial pacemaker/complex ectopy given comorbidities remains in afib on telemetry-HR is controlled without rate control agents. Per cardiology recommend he transition to apixaban from Lovenox started on admission. Echo reveals EF 55-60%. -Continue Eliquis #Pericardial effusion: repeat echo showing interval increase in pericardial effu leslie; s/p IV albumin to aid in transient increased oncotic pressure to help effusion Elevated ESR/CRP: started on prednisone 20mg x5 days #PAD, chronic bilateral dusky discoloration -Continue ASA #Contraction alkalosis #Hypervolemic Hyponatremia *improving with aggressive diuresis Baseline sodium appears around 137, admitting sodium of 119, likely hypervolemic hyponatremia. Patient with no headache or dizziness or orientation issues at presentation. -Maintain I's and O's, fluid restriction of 1500 mL a day. -Nephrology on consult, appreciate recommendations, managing diuresis. -Sodium level normal, Aldactone resumed. Labs in AM. #Lower ext cellulitis *resolved #Skin tears - Pt treated with oral Augmentin which has been completed. He has lower extremities wounds on his anterior tibiae and his toes from a recent fall per his report. #Morbidly obese -lifestyle changes recommended #LARISA -Plan to assess for need for bipap with nocturnal study #Acute Thrombocytopenia *resolved #Leukocytosis #B-Cell lymphoma Follows Dr. Escamilla, denies constitutional symptoms, reportedly increased LDH and [id number] c/w comorbidities -LDH 215 (last LDH 275 12/2022) -CBC w/ diff and smear in am -Dr escamilla on schedule, consult to assess if symptoms related/stable, no recommendations #T2DM -diet controlled, a1c 6.2 on 03/31/23, lantus/novolog per protocol has been declined by patient several times. Will DC BSG checks and insulin at this time. Continue with outpatient follow- up. #Rheumatoid arthritis #Gout -Continue plaquenil 200mg daily -Continue colchicine 0.6mg bid #Depression Continue duloxetine DVT prophylaxis: apixaban PT/OT DNR/DNI Dispo: pending clearance from Cardio, Pulm, Nephro. Pulm has signed off. Admission and Anticipated Discharge Date Admission Date: April 02, 2023 Subjective Requests to go home as soon as possible Reports feeling upset over poor progress, but settled with reassurance Denies any chest pain or other acute concerns this am Review of Systems Review of Systems: All systems reviewed & are unremarkable except as noted in Subjective Physical Exam Constitutional: WD/WN, vitals as above Respiratory: difficult to appreciate given habitus , doesnt appear in distress Cardiovascular: irregularly irregular Results & Data Results & Data Vital Signs (Past 12 Hours) Vital Signs Temp Pulse Pulse Resp BP Pulse Ox O2 Del Method 04/19/23 15:31 36.6 C 93 H 18 111/68 92 Room Air 04/19/23 11:44 36.4 C L 93 H 18 104/63 91 Nasal Cannula 04/19/23 09:39 Nasal Cannula 04/19/23 07:40 36.3 C L 89 20 114/65 97 Nasal Cannula 04/19/23 07:15 96 H 04/19/23 07:10 74 18 91 Nasal Cannula O2 Flow Rate 04/19/23 15:31 04/19/23 11:44 4 04/19/23 09:39 4 04/19/23 07:40 7 04/19/23 07:15 04/19/23 07:10 4 Laboratory Results [facility] 04/19/23 06:08 Sodium 144 Potassium 3.4 L Chloride 97 L Carbon Dioxide 40 H BUN 29 H Creatinine 0.90 Glucose 182 H Calcium 9.2 Medications Administered Home Medications Medication Instructions Recorded Confirmed Last Taken acetaminophen 500 mg tablet 500 mg PO QA 06/08/22 04/02/23 07/14/22 05:00 aspirin 81 mg chewable tablet 81 mg PO QAM 06/08/22 04/02/23 07/14/22 09:01 carboxymethylcellulose sodium 1 % 1 drp OPB QAM 06/08/22 04/02/23 07/14/22 09:01 eye gel in a dropperette (Refresh Celluvisc) cholecalciferol (vitamin D3) 50 2,000 unit PO QAM 06/08/22 04/02/23 07/15/22 09:01 mcg (2,000 unit) capsule ciprofloxacin HCl 0.3 % eye drops 1 drp OPR BID 06/08/22 04/02/23 07/14/22 17:00 colchicine 0.6 mg tablet 0.6 mg PO BID 06/08/22 04/02/23 07/15/22 09:01 duloxetine 20 mg capsule,delayed 20 mg PO HS 06/08/22 04/02/23 07/14/22 09:01 release febuxostat 80 mg tablet 80 mg PO QAM 06/08/22 04/02/23 07/14/22 09:01 furosemide 40 mg tablet 40 mg PO QAM 06/08/22 04/02/23 07/15/22 05:01 hydroxychloroquine 200 mg tablet 200 mg PO HS 06/08/22 04/02/23 07/14/22 09:01 oxybutynin chloride 5 mg tablet 5 mg PO QAM 06/08/22 04/02/23 07/15/22 09:01 terbinafine HCl 1 % topical cream 1 applic topical DAILY 06/08/22 04/02/23 07/14/22 19:00 tramadol 50 mg tablet 50 mg PO TID 06/08/22 04/02/23 07/14/22 09:01 acetaminophen 325 mg tablet 325 mg PO QID PRN pain/fever 07/13/22 04/02/23 Unknown bisacodyl 10 mg rectal suppository 10 mg IA UD PRN Constipation 07/13/22 04/02/23 Unknown (Dulcolax (bisacodyl)) magnesium hydroxide 400 mg/5 mL 30 ml PO DAILY PRN Constipation 07/13/22 04/02/23 Unknown oral suspension (Milk of Magnesia) sodium phosphates 19 gram-7 118 ml IA DAILY PRN Constipation 07/13/22 04/02/23 Unknown gram/118 mL enema (Fleet Enema) spironolactone 25 mg tablet 12.5 mg PO QAM 07/13/22 04/02/23 07/15/22 09:01 (Aldactone) Active Medications Generic Name Dose Route Start Last Admin Trade Name Freq PRN Reason Stop Dose Admin Acetylcysteine 4 ml 04/18/23 15:15 04/19/23 07:09 Acetylcysteine 20% Inhal Soln 4ml Dispensed By Resp. INH 05/18/23 15:14 4 ml Q12R MARTINE Administration Albuterol 2.5 mg 04/18/23 16:20 04/19/23 07:08 Albuterol 0.5% Neb Soln 2.5 Mg/0.5 Ml Vial NEB 05/18/23 18:59 2.5 mg Q6R PRN Administration sob/wheezing Protocol Apixaban 5 mg 04/03/23 10:15 04/19/23 07:48 Apixaban 5 Mg Tablet PO 05/03/23 10:14 5 mg BID MARTINE Administration Aspirin 81 mg 04/03/23 09:00 04/19/23 07:49 Aspirin 81 Mg Ectab PO 05/03/23 08:59 81 mg QAM MARTINE Administration Colchicine 0.6 mg 04/02/23 21:00 04/19/23 07:49 Colchicine 0.6 Mg Tab PO 05/02/23 20:59 0.6 mg BID MARTINE Administration Duloxetine HCl 20 mg 04/02/23 21:00 04/18/23 20:20 Duloxetine Hcl 20 Mg Cap PO 05/02/23 20:59 20 mg HS MARTINE Administration Hydroxychloroquine Sulfate 200 mg 04/02/23 21:00 04/18/23 20:20 Hydroxychloroquine Sulfate 200 Mg Tab PO 05/02/23 20:59 200 mg HS MARTINE Administration Bumetanide 10 mg/ Dextrose 50 mls @ 5 mls/hr 04/14/23 15:00 04/19/23 17:28 IV 05/14/23 14:59 1 mg/hr .Q10H MARTINE 5 mls/hr Administration 1 MG/HR Lidocaine 1 patch 04/06/23 15:30 04/19/23 08:00 Lidocaine 5% 1 Patch TD 05/06/23 15:29 1 patch QAM MARTINE Administration Magnesium Oxide 400 mg 04/03/23 10:00 04/19/23 07:48 Magnesium Oxide 400 Mg Tab PO 05/03/23 09:59 400 mg BID MARTINE Administration Miscellaneous 1 each 04/06/23 21:00 04/18/23 21:27 Remove Lidoderm Patch N/A 05/06/23 20:59 1 each DAILY@2100 MARTINE Administration Polyethylene Glycol 17 gm 04/02/23 20:27 04/10/23 09:10 Polyethylene (Miralax) 17 Gm Pack PO 05/02/23 20:26 17 gm DAILY PRN Administration Constipation Potassium Chloride 40 meq 04/12/23 21:00 04/19/23 08:00 Potassium Chloride Crtab 20 Meq Tabcr PO 05/12/23 20:59 40 meq BID MARTINE Administration Prednisone 20 mg 04/19/23 10:45 04/19/23 11:22 Prednisone 20 Mg Tab PO 04/23/23 09:01 20 mg DAILY MARTINE Administration Sodium Chloride 4 ml 04/18/23 19:00 04/19/23 07:08 Sodium Chlor 7% 4 Ml Neb NEB 05/18/23 18:59 4 ml BIDR MARTINE Administration Spironolactone 12.5 mg 04/18/23 10:00 04/19/23 07:49 Spironolactone 12.5 Mg Tab PO 05/18/23 09:59 12.5 mg DAILY MARTINE Administration Tamsulosin HCl 0.4 mg 04/06/23 21:00 04/18/23 20:21 Tamsulosin Hcl 0.4 Mg Cap PO 05/06/23 20:59 0.4 mg HS MARTINE Administration Terbinafine HCl 1 appln 04/03/23 09:00 04/19/23 07:50 Terbinafine Cr 30 Gm Tube EXT 05/03/23 08:59 1 appln DAILY MARTINE Administration Trolamine Salicylate 1 appln 04/08/23 10:50 04/12/23 08:32 Trolamine Salicylate 10% Crm 255 Appln/85 Gm Tube EXT 05/08/23 10:49 1 appln Q6H PRN Administration Pain Vitamin D 2,000 units 04/03/23 09:00 04/19/23 07:49 Cholecalciferol 1,000 Units 25 Mcg Tab PO 05/03/23 08:59 2,000 units QAM MARTINE Administration
[2023-04-19] MEDS: HYDROXYCHLOROQUINE SULFATE 200 MG TAB PO SCH (20:24)
[2023-04-19] MEDS: DULoxetine HCL 20 MG CAP PO SCH (20:24)
[2023-04-19] MEDS: TAMSULOSIN HCL 0.4 MG CAP PO SCH (20:24)
[2023-04-20] MEDS: BUMETANIDE 10 MG in DEXTROSE 5% 10 ML IV SCH ×3 (05:31→23:59)
[2023-04-20] MEDS: ALBUTEROL 0.5% NEB SOLN 2.5 MG/0.5 ML VIAL NEB PRN ×2 (07:05→19:33)
[2023-04-20] MEDS: SODIUM CHLOR 7% 4 ML NEB NEB SCH ×2 (07:05→19:34)
[2023-04-20] MEDS: ACETYLCYSTEINE 20% INHAL SOLN 4ML ***DISPENSED BY RESP. INH SCH ×2 (07:05→19:33)
[2023-04-20 07:10] LABS: Hematocrit (blood only) 35.3 % (42.0-52.0); Hemoglobin 11.6 g/dl (14.0-18.0); Mean Corpuscular Hemoglobin 31.3 pg (25.0-34.0); Mean Corpuscular Hgb Conc 32.9 g/dL (32.0-36.0); Mean Corpuscular Volume 95.1 fL (80.0-100.0); Mean Platelet Volume 9.1 fL (9.4-12.4); Platelet Count 231 K/uL (130-400); RDW Coefficient of Variation 17.1 % (11.5-14.5); RDW Standard Deviation 59.7 fL (36.4-46.3); Red Blood Count 3.71 M/uL (4.70-6.10); White Blood Count 14.15 K/ul (4.8-10.8)
[2023-04-20 07:32] LABS: BUN Creatinine Ratio 32.6 (10-20); Calcium 9.5 mg/dl (8.6-10.3); Creatinine Clr Calc Pharmacy 89.6 ml/min; Est GFR (African American) 87.3 ml/min; Est GFR (Non-African American) 75.3 ml/min; Magnesium 2.1 mg/dl (1.7-2.4); Potassium 3.4 mmol/L (3.5-5.1)
--- NOTE | 2023-04-20 08:17 | Hospitalist Progress Note ---
Date of Service April 20, 2023 Assessment & Plan (1) Acute on chronic heart failure with preserved ejection fraction (HFpEF): (2) Acute hyponatremia: Plan 78-year-old gentleman with PMH of chronic diastolic heart failure on Lasix, HTN, TIIDM, presented (from [facility])and admitted on 04/02 for acute on chronic HFpEF exacerbation. He is being managed for the following: #Acute hypoxic respiratory failure, likely multifactorial *improving #OHS -Iso heart failure exacerbation and OHS. Denies home O2 use. Nocturnal -Nocturnal pulse oximetry reviewed, will continue with BPAP due to CO2 retention. -Will likely require 2 step to assess for daytime need for oxygen prior to discharge -Repeat CXR with signs of continued fluid overload. Repeat echo w/ interval increase in pericardial effusion -Cardiology and nephrology on board, managing diuresis. Currently on bumex gtt. -Continue with BiPAP HS and PRN. - Pulm evaled. D/w pulm - no role of bronchoscopy for LLL collapse, continue w/ positive airway pressure support. - c/w flutter valve, chest PT, nebs. Mucomyst and hypertonic saline nebs. 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 #Acute non-cardiac chest pain #Acute on chronic back pain *resolved -Tylenol prn, lidocaine patch to mid back -Pain on chest reproducible to touch -Continue home oxycodone regimen -Topical Myoflex #New onset atrial fibrillation History of wandering atrial pacemaker/complex ectopy given comorbidities remains in afib on telemetry-HR is controlled without rate control agents. Per cardiology recommend he transition to apixaban from Lovenox started on admission. Echo reveals EF 55-60%. -Continue Eliquis #Pericardial effusion: repeat echo showing interval increase in pericardial effu leslie; s/p IV albumin to aid in transient increased oncotic pressure to help effusion Elevated ESR/CRP: started on prednisone 20mg x5 days #PAD, chronic bilateral dusky discoloration -Continue ASA #Contraction alkalosis #Hypervolemic Hyponatremia *improving with aggressive diuresis Baseline sodium appears around 137, admitting sodium of 119, likely hypervolemic hyponatremia. Patient with no headache or dizziness or orientation issues at presentation. -Maintain I's and O's, fluid restriction of 1500 mL a day. -Nephrology on consult, appreciate recommendations, managing diuresis. -Sodium level normal, Aldactone resumed. Labs in AM. #Lower ext cellulitis *resolved #Skin tears - Pt treated with oral Augmentin which has been completed. He has lower extremities wounds on his anterior tibiae and his toes from a recent fall per his report. #Morbidly obese -lifestyle changes recommended #LARISA -Plan to assess for need for bipap with nocturnal study #Acute Thrombocytopenia *resolved #Leukocytosis #B-Cell lymphoma Follows Dr. Escamilla, denies constitutional symptoms, reportedly increased LDH and [id number] c/w comorbidities -LDH 215 (last LDH 275 12/2022) -CBC w/ diff and smear in am -Dr escamilla on schedule, consult to assess if symptoms related/stable, no recommendations #T2DM -diet controlled, a1c 6.2 on 03/31/23, lantus/novolog per protocol has been declined by patient several times. Will DC BSG checks and insulin at this time. Continue with outpatient follow- up. #Rheumatoid arthritis #Gout -Continue plaquenil 200mg daily -Continue colchicine 0.6mg bid -Prednisone burst as above #Depression Continue duloxetine DVT prophylaxis: apixaban PT/OT DNR/DNI Dispo: pending clearance from Cardio, Pulm, Nephro. Pulm has signed off. Admission and Anticipated Discharge Date Admission Date: April 02, 2023 Subjective Quite upset regarding inability to be home, Reassurance offered regarding progress with fluid status Patient denies any acute concerns and verbalizes understanding Review of Systems Review of Systems: All systems reviewed & are unremarkable except as noted in Subjective Physical Exam Constitutional: WD/WN, vitals as above Gastrointestinal (Abdomen): normal bowel sounds, soft, nontender, no h epatosplenomegaly Results & Data Results & Data Vital Signs (Past 12 Hours) Vital Signs Temp Pulse Pulse Resp BP Pulse Ox O2 Del Method 04/20/23 07:06 96 H 18 94 Nasal Cannula 04/20/23 03:51 36.6 C 102 H 20 118/75 97 CPAP 04/20/23 02:47 99 H 26 H 97 04/19/23 23:56 98 H 04/19/23 22:54 36.7 C 109 H 20 120/78 95 CPAP 04/19/23 20:43 103 H 23 95 O2 Flow Rate 04/20/23 07:06 5 04/20/23 03:51 04/20/23 02:47 5 04/19/23 23:56 04/19/23 22:54 04/19/23 20:43 5 Laboratory Results Short CBC 04/20/23 Range/Units 06:31 WBC 14.15 H (4.8-10.8) K/ul Hgb 11.6 L (14.0-18.0) g/dl Hct 35.3 L (42.0-52.0) % Plt Count 231 (130-400) K/uL BMP 04/20/23 06:31 Sodium 143 Potassium 3.4 L Chloride 97 L Carbon Dioxide 39 H BUN 31 H Creatinine 0.95 Glucose 185 H Calcium 9.5 Medications Administered Home Medications Medication Instructions Recorded Confirmed Last Taken acetaminophen 500 mg tablet 500 mg PO [facility] 06/08/22 04/02/23 07/14/22 05:00 aspirin 81 mg chewable tablet 81 mg PO [facility] 06/08/22 04/02/23 07/14/22 09:01 carboxymethylcellulose sodium 1 % 1 drp OPB [facility] 06/08/22 04/02/23 07/14/22 09:01 eye gel in a dropperette (Refresh Celluvisc) cholecalciferol (vitamin D3) 50 2,000 unit PO [facility] 06/08/22 04/02/23 07/15/22 09:01 mcg (2,000 unit) capsule ciprofloxacin HCl 0.3 % eye drops 1 drp OPR BID 06/08/22 04/02/23 07/14/22 17:00 colchicine 0.6 mg tablet 0.6 mg PO BID 06/08/22 04/02/23 07/15/22 09:01 duloxetine 20 mg capsule,delayed 20 mg PO HS 06/08/22 04/02/23 07/14/22 09:01 release febuxostat 80 mg tablet 80 mg PO QAM 06/08/22 04/02/23 07/14/22 09:01 furosemide 40 mg tablet 40 mg PO QAM 06/08/22 04/02/23 07/15/22 05:01 hydroxychloroquine 200 mg tablet 200 mg PO HS 06/08/22 04/02/23 07/14/22 09:01 oxybutynin chloride 5 mg tablet 5 mg PO QAM 06/08/22 04/02/23 07/15/22 09:01 terbinafine HCl 1 % topical cream 1 applic topical DAILY 06/08/22 04/02/23 07/14/22 19:00 tramadol 50 mg tablet 50 mg PO TID 06/08/22 04/02/23 07/14/22 09:01 acetaminophen 325 mg tablet 325 mg PO QID PRN pain/fever 07/13/22 04/02/23 Unknown bisacodyl 10 mg rectal suppository 10 mg WI UD PRN Constipation 07/13/22 3 Unknown (Dulcolax (bisacodyl)) magnesium hydroxide 400 mg/5 mL 30 ml PO DAILY PRN Constipation 07/13/22 04/02/23 Unknown oral suspension (Milk of Magnesia) sodium phosphates 19 gram-7 118 ml WI DAILY PRN Constipation 07/13/22 04/02/23 Unknown gram/118 mL enema (Fleet Enema) spironolactone 25 mg tablet 12.5 mg PO QAM 07/13/22 04/02/23 07/15/22 09:01 (Aldactone) Active Medications Generic Name Dose Route Start Last Admin Trade Name Freq PRN Reason Stop Dose Admin Acetylcysteine 4 ml 04/18/23 15:15 04/20/23 07:05 Acetylcysteine 20% Inhal Soln 4ml Dispensed By Resp. INH 05/18/23 15:14 4 ml Q12R MARTINE Administration Albuterol 2.5 mg 04/18/23 16:20 04/20/23 07:05 Albuterol 0.5% Neb Soln 2.5 Mg/0.5 Ml Vial NEB 05/18/23 18:59 2.5 mg Q6R PRN Administration sob/wheezing Protocol Apixaban 5 mg 04/03/23 10:15 04/20/23 09:27 Apixaban 5 Mg Tablet PO 05/03/23 10:14 5 mg BID MARTINE Administration Aspirin 81 mg 04/03/23 09:00 04/20/23 09:25 Aspirin 81 Mg Ectab PO 05/03/23 08:59 81 mg QAM MARTINE Administration Colchicine 0.6 mg 04/02/23 21:00 04/20/23 09:27 Colchicine 0.6 Mg Tab PO 05/02/23 20:59 0.6 mg BID MARTINE Administration Duloxetine HCl 20 mg 04/02/23 21:00 04/19/23 20:24 Duloxetine Hcl 20 Mg Cap PO 05/02/23 20:59 20 mg HS MARTINE Administration Hydroxychloroquine Sulfate 200 mg 04/02/23 21:00 04/19/23 20:24 Hydroxychloroquine Sulfate 200 Mg Tab PO 05/02/23 20:59 200 mg HS MARTINE Administration Bumetanide 10 mg/ Dextrose 50 mls @ 5 mls/hr 04/14/23 15:00 04/20/23 05:31 IV 05/14/23 14:59 1 mg/hr .Q10H MARTINE 5 mls/hr Administration 1 MG/HR Lidocaine 1 patch 04/06/23 15:30 04/20/23 09:25 Lidocaine 5% 1 Patch TD 05/06/23 15:29 1 patch QAM MARTINE Administration Magnesium Oxide 400 mg 04/03/23 10:00 04/20/23 09:26 Magnesium Oxide 400 Mg Tab PO 05/03/23 09:59 400 mg BID MARTINE Administration Miscellaneous 1 each 04/06/23 21:00 04/19/23 20:29 Remove Lidoderm Patch N/A 05/06/23 20:59 1 each DAILY@2100 MARTINE Administration Polyethylene Glycol 17 gm 04/02/23 20:27 04/10/23 09:10 Polyethylene (Miralax) 17 Gm Pack PO 05/02/23 20:26 17 gm DAILY PRN Administration Constipation Potassium Chloride 40 meq 04/12/23 21:00 04/20/23 09:29 Potassium Chloride Crtab 20 Meq Tabcr PO 05/12/23 20:59 40 meq BID MARTINE Administration Prednisone 20 mg 04/19/23 10:45 04/20/23 09:25 Prednisone 20 Mg Tab PO 04/23/23 09:01 20 mg DAILY MARTINE Administration Sodium Chloride 4 ml 04/18/23 19:00 04/20/23 07:05 Sodium Chlor 7% 4 Ml Neb NEB 05/18/23 18:59 4 ml BIDR MARTINE Administration Spironolactone 12.5 mg 04/18/23 10:00 04/20/23 09:24 Spironolactone 12.5 Mg Tab PO 05/18/23 09:59 12.5 mg DAILY MARTINE Administration Tamsulosin HCl 0.4 mg 04/06/23 21:00 04/19/23 20:24 Tamsulosin Hcl 0.4 Mg Cap PO 05/06/23 20:59 0.4 mg HS MARTINE Administration Terbinafine HCl 1 appln 04/03/23 09:00 04/20/23 09:24 Terbinafine Cr 30 Gm Tube EXT 05/03/23 08:59 1 appln DAILY MARTINE Administration Trolamine Salicylate 1 appln 04/08/23 10:50 04/12/23 08:32 Trolamine Salicylate 10% Crm 255 Appln/85 Gm Tube EXT 05/08/23 10:49 1 appln Q6H PRN Administration Pain Vitamin D 2,000 units 04/03/23 09:00 04/20/23 09:25 Cholecalciferol 1,000 Units 25 Mcg Tab PO 05/03/23 08:59 2,000 units QAM MATRINE Administration
[2023-04-20] MEDS: POTASSIUM CHLORIDE / WTR 10 MEQ/100 ML PLCT IV SCH ×2 (09:23→10:33)
[2023-04-20] MEDS: TERBINAFINE CR 30 GM TUBE EXT SCH (09:24)
[2023-04-20] MEDS: SPIRONOLACTONE 12.5 MG TAB PO SCH (09:24)
[2023-04-20] MEDS: predniSONE 20 MG TAB PO SCH (09:25)
[2023-04-20] MEDS: LIDOCAINE 5% 1 PATCH TD SCH (09:25)
[2023-04-20] MEDS: ASPIRIN 81 MG ECTAB PO SCH (09:25)
[2023-04-20] MEDS: CHOLECALCIFEROL 1,000 UNITS 25 MCG TAB PO SCH (09:25)
[2023-04-20] MEDS: MAGNESIUM OXIDE 400 MG TAB PO SCH ×2 (09:26→20:28)
[2023-04-20] MEDS: APIXABAN 5 MG TABLET PO SCH ×2 (09:27→20:26)
[2023-04-20] MEDS: COLCHICINE 0.6 MG TAB PO SCH ×2 (09:27→20:26)
[2023-04-20] MEDS: POTASSIUM CHLORIDE CRTAB 20 MEQ TABCR PO SCH ×2 (09:29→20:32)
--- NOTE | 2023-04-20 11:26 | Communication Note ---
Date of Service: April 20, 2023 Chart reviewed: Renal function stable. Potassium 3.4. Continue current treatment.
--- NOTE | 2023-04-20 11:52 | Nephrology Progress Note ---
Date of Service April 20, 2023 Assessment & Plan Admission and Anticipated Discharge Date Admission Date: April 02, 2023 Subjective Assessment & Plan (1) Acute hyponatremia: Acute hyponatremia with serum sodium of 119 on presentation related with hypervolemic hyponatremia in the setting of acute congestive heart failure. Patient does admit to drinking massive amount of water. Obviously he cannot do this as it will be impossible to manage his fluid status. BMP daily. Agree with plan of placing special urinary catheter and monitoring input and output accurately. manage him as a case of hypervolemic hyponatremia with excessive water drinking na now 140+ and near normal BUN and normal Creat. Bicarb high but stable and is because of Compensation. Now weighs lot less than on Admission ( down 38 kilo) But CXR still shows some Pulm edema and has Pericardial effusion. His health seems to be stuck and I cant see how we can discharge him to his home but he keeps begging to be discharged. Defer to Primary team. Continue Aldactone 12.5 daily Continue Bumex drip for now given CXR and ECHO finding. Continue Kcl 40 bid. extra 40 meq today. S--urine 3750 ml yesterday. Breathing better. labs remain stable. Physical Exam Physical Exam: GENERAL: Alert and oriented x3. NAD, morbidly obese, on 4 L oxygen via nasal cannula HEENT: No pallor, no icterus. Pupils equal, round and reactive to light. Oral mucosa moist. NECK: No JVD, no neck masses. HEART: S1 and S2 heard. Regular rate and rhythm. No murmur, no gallop. RESPIRATORY SYSTEM: No accessory muscle use. No wheezing, decreased breath sounds likely secondary to morbid obesity. ABDOMEN: Soft, nontender CENTRAL NERVOUS SYSTEM: No facial droop. Speech is clear. Obeys simple commands. Moves extremities. EXTREMITIES: BLE Trace+ edema now--lot less, chronic skin changes noted. Multiple skin breakdowns on lesions noted around his toes especially in the right side. Results & Data Vital Signs (Past 12 Hours) Vital Signs Temp Pulse Pulse Resp BP BP Pulse Ox 04/20/23 10:10 04/20/23 08:22 36.5 C 63 19 108/68 04/20/23 07:06 96 H 18 94 04/20/23 03:51 36.6 C 102 H 20 118/75 97 04/20/23 02:47 99 H 26 H 97 04/19/23 23:56 98 H O2 Del Method O2 Flow Rate 04/20/23 10:10 Nasal Cannula 4 04/20/23 08:22 Nasal Cannula 2 04/20/23 07:06 Nasal Cannula 5 04/20/23 03:51 CPAP 04/20/23 02:47 5 04/19/23 23:56
[2023-04-20] MEDS: DULoxetine HCL 20 MG CAP PO SCH (20:27)
[2023-04-20] MEDS: HYDROXYCHLOROQUINE SULFATE 200 MG TAB PO SCH (20:27)
[2023-04-20] MEDS: TAMSULOSIN HCL 0.4 MG CAP PO SCH (20:29)
[2023-04-21] MEDS ORDERED: LORazepam 0.25 MG in SYRINGE 0.125 ML IV STA (00:09)
[2023-04-21] MEDS: ACETYLCYSTEINE 20% INHAL SOLN 4ML ***DISPENSED BY RESP. INH SCH ×2 (07:18→19:48)
[2023-04-21] MEDS: ALBUTEROL 0.5% NEB SOLN 2.5 MG/0.5 ML VIAL NEB PRN ×2 (07:18→19:48)
[2023-04-21] MEDS: SODIUM CHLOR 7% 4 ML NEB NEB SCH ×2 (07:18→19:49)
[2023-04-21 07:32] LABS: Hematocrit (blood only) 36.1 % (42.0-52.0); Hemoglobin 11.8 g/dl (14.0-18.0); Mean Corpuscular Hemoglobin 31.1 pg (25.0-34.0); Mean Corpuscular Hgb Conc 32.7 g/dL (32.0-36.0); Mean Corpuscular Volume 95.3 fL (80.0-100.0); Mean Platelet Volume 9.4 fL (9.4-12.4); Platelet Count 244 K/uL (130-400); RDW Standard Deviation 59.7 fL (36.4-46.3); Red Blood Count 3.79 M/uL (4.70-6.10); White Blood Count 14.31 K/ul (4.8-10.8)
[2023-04-21 07:54] LABS: BUN Creatinine Ratio 35.3 (10-20); Calcium 9.5 mg/dl (8.6-10.3); Creatinine Clr Calc Pharmacy 83.2 ml/min; Est GFR (African American) 80.1 ml/min; Est GFR (Non-African American) 69.1 ml/min; Magnesium 2.1 mg/dl (1.7-2.4); Phosphorus 4.3 mg/dl (2.5-4.9); Potassium 3.4 mmol/L (3.5-5.1)
[2023-04-21 07:59] LABS: Basophils # (auto) 0.07 K/uL (0.00-0.20); Basophils % (auto) 0.5 %; Eosinophils # (auto) 0.13 K/uL (0.00-0.50); Eosinophils % (auto) 0.9 %; Immature Granulocytes # (auto) 0.09 K/uL (0.01-0.20); Immature Granulocytes % (auto) 0.6 %; Lymphocytes # (auto) 6.92 K/uL (1.20-3.40); Lymphocytes % (auto) 48.4 %; Monocytes # (auto) 0.93 K/uL (0.11-0.59); Monocytes % (auto) 6.5 %; Neutrophils # (auto) 6.17 K/uL (1.40-6.50); Neutrophils % (auto) 43.1 %
[2023-04-21] MEDS: APIXABAN 5 MG TABLET PO SCH ×2 (08:41→20:39)
[2023-04-21] MEDS: predniSONE 20 MG TAB PO SCH (08:41)
[2023-04-21] MEDS: COLCHICINE 0.6 MG TAB PO SCH ×2 (08:41→20:38)
[2023-04-21] MEDS: CHOLECALCIFEROL 1,000 UNITS 25 MCG TAB PO SCH (08:41)
[2023-04-21] MEDS: SPIRONOLACTONE 12.5 MG TAB PO SCH (08:41)
[2023-04-21] MEDS: MAGNESIUM OXIDE 400 MG TAB PO SCH ×2 (08:42→20:37)
[2023-04-21] MEDS: TROLAMINE SALICYLATE 10% CRM 255 APPLN/85 GM TUBE EXT PRN (08:42)
[2023-04-21] MEDS: LIDOCAINE 5% 1 PATCH TD SCH (08:42)
[2023-04-21] MEDS: POTASSIUM CHLORIDE / WTR 10 MEQ/100 ML PLCT IV SCH ×4 (08:42→12:51)
[2023-04-21] MEDS: TERBINAFINE CR 30 GM TUBE EXT SCH (08:42)
[2023-04-21] MEDS: ASPIRIN 81 MG ECTAB PO SCH (08:43)
[2023-04-21] MEDS: POTASSIUM CHLORIDE CRTAB 20 MEQ TABCR PO SCH ×2 (08:43→20:40)
[2023-04-21] MEDS: BUMETANIDE 10 MG in DEXTROSE 5% 10 ML IV SCH ×2 (10:01→20:20)
--- NOTE | 2023-04-21 11:39 | Cardiology Progress Note ---
Date of Service April 21, 2023 Assessment & Plan (1) Acute on chronic heart failure with preserved ejection fraction (HFpEF): (2) Atrial fibrillation with controlled ventricular rate: (3) Pericardial effusion: Plan * continue Bumex infusion, 1 mg /hr * supplement potassium * continue spironolactone 12.5 mg daily * Eliquis for stroke prevention * h/o RA with mildly elevated inflammatory markers and large pericardial effusion without tamponade, day 3/5 day course of prednisone 20 mg daily Admission and Anticipated Discharge Date Admission Date: April 02, 2023 Subjective Pt seen in cardiology follow up. Weight per built in bed scale was 177 kg on presentation on 04/02/23 and down to 138.1 kg today. Pt supine. Denies subjective CP or SOB. Telemetry reveals AF 90-100 bpm (baseline). Physical Exam Constitutional: + morbidly obese Respiratory: Auscultation: + diminished lung sounds (decreased BS of left base ) Cardiovascular: Rate/Rhythm: + irregularly irregular Heart Sounds: no murmur Extremities: no edema (chronic venous stasis changes ) Gastrointestinal (Abdomen): normal bowel sounds, soft, nontender, no hepatosplenomegaly Neurologic: PERRL, EOMI, accommodation nl, no face palsy, no dysarthria Results & Data Vital Signs (Past 12 Hours) Vital Signs Temp Pulse Pulse Resp BP Pulse Ox O2 Del Method 04/21/23 11:28 36.8 C 95 H 19 101/64 90 Nasal Cannula 04/21/23 08:00 102 H 04/21/23 08:00 Nasal Cannula 04/21/23 07:40 37.0 C 90 20 99/62 L 90 Nasal Cannula 04/21/23 07:18 107 H 18 90 Nasal Cannula 04/21/23 04:09 36.4 C L 95 H 20 109/66 95 CPAP 04/21/23 03:02 25 H 93 O2 Flow Rate 04/21/23 11:28 4 04/21/23 08:00 04/21/23 08:00 4 04/21/23 07:40 4 04/21/23 07:18 5 04/21/23 04:09 04/21/23 03:02 5 Laboratory Results CBC 04/21/23 Range/Units 06:27 WBC 14.31 H (4.8-10.8) K/ul RBC 3.79 L (4.70-6.10) M/uL Hgb 11.8 L (14.0-18.0) g/dl Hct 36.1 L (42.0-52.0) % Plt Count 244 (130-400) K/uL Neut # (Auto) 6.17 (1.40-6.50) K/uL Lymph # (Auto) 6.92 H (1.20-3.40) K/uL Taylor # (Auto) 0.93 H (0.11-0.59) K/uL Eos # (Auto) 0.13 (0.00-0.50) K/uL Baso # (Auto) 0.07 (0.00-0.20) K/uL Comprehensive Metabolic Panel 04/21/23 Range/Units 06:27 Sodium 141 (136-145) mmol/L Potassium 3.4 L (3.5-5.1) mmol/L Chloride 94 L (98-107) mmol/L Carbon Dioxide 39 H (21-32) mmol/L BUN 36 H (6-23) mg/dl Creatinine 1.02 (0.6-1.4) mg/dl Glucose 170 H (70-99(Fasting)) mg/dl Calcium 9.5 (8.6-10.3) mg/dl Intake and Output 04/20/23 04/21/23 04/21/23 22:59 06:59 14:59 Intake Total 275 / 1072 47 / 1072 150 / 150 Output Total 3400 / 5150 1350 / 5150 Balance -3125 / -4078 -1303 / -4078 150 / 150 Intake: IV 47 / 297 150 / 150 Bumetanide 10 mg In Dextrose 5% 47 / 97 50 / 50 10 ml @ 1 MG/HR 5 mls/hr IV . Q10H MARTINE Rx#:[id number] Potassium Chloride / Wtr 10 meq 100 / 100 In 100 ml @ 100 mls/hr IV Q1H MARTINE Rx#:[id number] Oral 275 / 775 Output: Urine 1200 / 1600 Urine Amount (Catheter) 2200 / 3550 1350 / 3550 Hurtado/Indwelling 2200 / 3550 1350 / 3550 Other: Weight 138.1 kg Weight Measurement Method Built in [facility]
--- NOTE | 2023-04-21 14:58 | Hospitalist Progress Note ---
Date of Service April 21, 2023 Assessment & Plan (1) Acute on chronic heart failure with preserved ejection fraction (HFpEF): (2) Acute hyponatremia: Plan 78-year-old gentleman with PMH of chronic diastolic heart failure on Lasix, HTN, TIIDM, presented (from [facility])and admitted on 04/02 for acute on chronic HFpEF exacerbation. He is being managed for the following: #Acute hypoxic respiratory failure, likely multifactorial *improving #OHS -Iso heart failure exacerbation and OHS. Denies home O2 use. Nocturnal -Will likely require 2 step to assess for daytime need for oxygen prior to discharge -Cardiology and nephrology on board, managing diuresis. Currently on bumex gtt. -Continue with BiPAP HS and PRN. - Pulm evaled. D/w pulm - no role of bronchoscopy for LLL collapse, continue w/ positive airway pressure support. - c/w flutter valve, chest PT, nebs. Mucomyst and hypertonic saline nebs. #Pericardial effusion: repeat echo showing interval increase in pericardial effusion; s/p IV albumin to aid in transient increased oncotic pressure to help effusion Elevated ESR/CRP: started on prednisone 20mg x5 days -Plan for repeat ECHO monday #Acute on chronic heart failure with preserved ejection fraction #HTN, relative hypotension - TTE (04/03/2023): LVEF 55-60%, - Home diuretics: Lasix 40mg qam Cardiology on consult and Nephrology on consult -Strict I's and O's, fluid restriction of 1500 mL/day, heart healthy diet, low- sodium diet -Aldactone resumed at 12.5mg daily -Holding ACEi/ARB at this time 2/2 hypotension -Given ongoing hypoxia and volume overload: continue IV Bumex drip -Plan for repeat ECHO monday to aid in next steps in management #Acute urinary retention *resolved -c/f bladder outlet obstruction, c/f buried penis (congenital v acquired) per Urology -Nephrology also feels NOWAK likely given robust UOP -Urology on consult: camarena 1-2 weeks, OP follow up to be arranged, also on going efforts for diuresis -Continue tamsulosin -Discontinued oxybutynin -Likely will need camarena exchange on . #Acute non-cardiac chest pain #Acute on chronic back pain *resolved -Tylenol prn, lidocaine patch to mid back -Pain on chest reproducible to touch -Continue home oxycodone regimen -Topical Myoflex #New onset atrial fibrillation History of wandering atrial pacemaker/complex ectopy given comorbidities remains in afib on telemetry-HR is controlled without rate control agents. Per cardiology recommend he transition to apixaban from Lovenox started on admission. Echo reveals EF 55-60%. -Continue Eliquis #PAD, chronic bilateral dusky discoloration -Continue ASA #Contraction alkalosis *improved #Hypervolemic Hyponatremia *resolved Baseline sodium appears around 137, admitting sodium of 119, likely hypervolemic hyponatremia. Patient with no headache or dizziness or orientation issues at presentation. -Maintain I's and O's, fluid restriction of 1500 mL a day. -Nephrology on consult, appreciate recommendations, managing diuresis. -continue aldactone #Lower ext cellulitis *resolved #Skin tears - Pt treated with oral Augmentin which has been completed. He has lower extremities wounds on his anterior tibiae and his toes from a recent fall per his report. #Morbidly obese -lifestyle changes recommended #LARISA continue bipap #Acute Thrombocytopenia *resolved #Leukocytosis #B-Cell lymphoma Follows Dr. Escamilla, denies constitutional symptoms, reportedly increased LDH and [id number] c/w comorbidities -LDH 215 (last LDH 275 12/2022) -CBC w/ diff and smear in am -Dr escamilla on schedule, consult to assess if symptoms related/stable, no recommendations #T2DM -diet controlled, a1c 6.2 on 03/31/23, lantus/novolog per protocol has been declined by patient several times. Will DC BSG checks and insulin at this time. Continue with outpatient follow- up. #Rheumatoid arthritis #Gout -Continue plaquenil 200mg daily -Continue colchicine 0.6mg bid -Prednisone burst as above #Depression Continue duloxetine DVT prophylaxis: apixaban PT/OT DNR/DNI Dispo: pending clearance from Cardio, Pulm, Nephro. Jose Carlos has signed off. Admission and Anticipated Discharge Date Admission Date: April 02, 2023 Subjective Patient states he subjectively feels better and wants to get home. Discussed repeat ECHO planned for monday--he notes extreme excitement that ECHO may help with decision making for getting him back to [facility]. Informed this was not assurative and continegnt on pericardial effusion size He denies chest pain or acute symptoms Review of Systems Review of Systems: All systems reviewed & are unremarkable except as noted in Subjective Physical Exam Constitutional: WD/WN, vitals as above Respiratory: difficult to asses 2/2 habitus, no edema of lower extremities Cardiovascular: irrgeular Gastrointestinal (Abdomen): soft, doughy, no tenderness Results & Data Results & Data Vital Signs (Past 12 Hours) Vital Signs Temp Pulse Pulse Resp BP Pulse Ox O2 Del Method 04/21/23 11:28 36.8 C 95 H 19 101/64 90 Nasal Cannula 04/21/23 08:00 102 H 04/21/23 08:00 Nasal Cannula 04/21/23 07:40 37.0 C 90 20 99/62 L 90 Nasal Cannula 04/21/23 07:18 107 H 18 90 Nasal Cannula 04/21/23 04:09 36.4 C L 95 H 20 109/66 95 CPAP 04/21/23 03:02 25 H 93 O2 Flow Rate 04/21/23 11:28 4 04/21/23 08:00 04/21/23 08:00 4 04/21/23 07:40 4 04/21/23 07:18 5 04/21/23 04:09 04/21/23 03:02 5 Laboratory Results Short CBC 04/21/23 Range/Units 06:27 WBC 14.31 H (4.8-10.8) K/ul Hgb 11.8 L (14.0-18.0) g/dl Hct 36.1 L (42.0-52.0) % Plt Count 244 (130-400) K/uL BMP 04/21/23 06:27 Sodium 141 Potassium 3.4 L Chloride 94 L Carbon Dioxide 39 H BUN 36 H Creatinine 1.02 Glucose 170 H Calcium 9.5 Medications Administered Home Medications Medication Instructions Recorded Confirmed Last Taken acetaminophen 500 mg tablet 500 mg PO [facility] 06/08/22 04/02/23 07/14/22 05:00 aspirin 81 mg chewable tablet 81 mg PO [facility] 06/08/22 04/02/23 07/14/22 09:01 carboxymethylcellulose sodium 1 % 1 drp OPB [facility] 06/08/22 04/02/23 07/14/22 09:01 eye gel in a dropperette (Refresh Celluvisc) cholecalciferol (vitamin D3) 50 2,000 unit PO QAM 06/08/22 04/02/23 07/15/22 09:01 mcg (2,000 unit) capsule ciprofloxacin HCl 0.3 % eye drops 1 drp OPR BID 06/08/22 04/02/23 07/14/22 17:00 colchicine 0.6 mg tablet 0.6 mg PO BID 06/08/22 04/02/23 07/15/22 09:01 duloxetine 20 mg capsule,delayed 20 mg PO HS 06/08/22 04/02/23 07/14/22 09:01 release febuxostat 80 mg tablet 80 mg PO QAM 06/08/22 04/02/23 07/14/22 09:01 furosemide 40 mg tablet 40 mg PO QA 06/08/22 04/02/23 07/15/22 05:01 hydroxychloroquine 200 mg tablet 200 mg PO HS 06/08/22 04/02/23 07/14/22 09:01 oxybutynin chloride 5 mg tablet 5 mg PO [facility] 06/08/22 04/02/23 07/15/22 09:01 terbinafine HCl 1 % topical cream 1 applic topical DAILY 06/08/22 04/02/23 07/14/22 19:00 tramadol 50 mg tablet 50 mg PO TID 06/08/22 04/02/23 07/14/22 09:01 acetaminophen 325 mg tablet 325 mg PO QID PRN pain/fever 07/13/22 04/02/23 Unknown bisacodyl 10 mg rectal suppository 10 mg NC UD PRN Constipation 07/13/22 04/02/23 Unknown (Dulcolax (bisacodyl)) magnesium hydroxide 400 mg/5 mL 30 ml PO DAILY PRN Constipation 07/13/22 04/02/23 Unknown oral suspension (Milk of Magnesia) sodium phosphates 19 gram-7 118 ml NC DAILY PRN Constipation 07/13/22 04/02/23 Unknown gram/118 mL enema (Fleet Enema) spironolactone 25 mg tablet 12.5 mg PO QAM 07/13/22 04/02/23 07/15/22 09:01 (Aldactone) Active Medications Generic Name Dose Route Start Last Admin Trade Name Freq PRN Reason Stop Dose Admin Acetylcysteine 4 ml 11/21/23 15:15 04/21/23 07:18 Acetylcysteine 20% Inhal Soln 4ml Dispensed By Resp. INH 05/18/23 15:14 4 ml Q12R MARTINE Administration Albuterol 2.5 mg 04/18/23 16:20 04/21/23 07:18 Albuterol 0.5% Neb Soln 2.5 Mg/0.5 Ml Vial NEB 05/18/23 18:59 2.5 mg Q6R PRN Administration sob/wheezing Protocol Apixaban 5 mg 04/03/23 10:15 04/21/23 08:41 Apixaban 5 Mg Tablet PO 05/03/23 10:14 5 mg BID MARTINE Administration Aspirin 81 mg 04/03/23 09:00 04/21/23 08:43 Aspirin 81 Mg Ectab PO 05/03/23 08:59 81 mg QAM MARTINE Administration Colchicine 0.6 mg 04/02/23 21:00 04/21/23 08:41 Colchicine 0.6 Mg Tab PO 05/02/23 20:59 0.6 mg BID MARTINE Administration Duloxetine HCl 20 mg 04/02/23 21:00 04/20/23 20:27 Duloxetine Hcl 20 Mg Cap PO 05/02/23 20:59 20 mg HS MARTINE Administration Hydroxychloroquine Sulfate 200 mg 04/02/23 21:00 04/20/23 20:27 Hydroxychloroquine Sulfate 200 Mg Tab PO 05/02/23 20:59 200 mg HS MARTINE Administration Bumetanide 10 mg/ Dextrose 50 mls @ 5 mls/hr 04/14/23 15:00 04/21/23 10:01 IV 05/14/23 14:59 1 mg/hr .Q10H MARTINE 5 mls/hr Administration 1 MG/HR Lidocaine 1 patch 04/06/23 15:30 04/21/23 08:42 Lidocaine 5% 1 Patch TD 05/06/23 15:29 1 patch QAM MARTINE Administration Magnesium Oxide 400 mg 04/03/23 10:00 04/21/23 08:42 Magnesium Oxide 400 Mg Tab PO 05/03/23 09:59 400 mg BID MARTINE Administration Miscellaneous 1 each 04/06/23 21:00 04/20/23 20:29 Remove Lidoderm Patch N/A 05/06/23 20:59 1 each DAILY@2100 MARTINE Administration Polyethylene Glycol 17 gm 04/02/23 20:27 04/10/23 09:10 Polyethylene (Miralax) 17 Gm Pack PO 05/02/23 20:26 17 gm DAILY PRN Administration Constipation Potassium Chloride 40 meq 04/12/23 21:00 04/21/23 08:43 Potassium Chloride Crtab 20 Meq Tabcr PO 05/12/23 20:59 40 meq BID MARTINE Administration Prednisone 20 mg 04/19/23 10:45 04/21/23 08:41 Prednisone 20 Mg Tab PO 04/23/23 09:01 20 mg DAILY MARTINE Administration Sodium Chloride 4 ml 04/18/23 19:00 04/21/23 07:18 Sodium Chlor 7% 4 Ml Neb NEB 05/18/23 18:59 4 ml BIDR MARTINE Administration Spironolactone 12.5 mg 04/18/23 10:00 04/21/23 08:41 Spironolactone 12.5 Mg Tab PO 05/18/23 09:59 12.5 mg DAILY MARTINE Administration Tamsulosin HCl 0.4 mg 04/06/23 21:00 04/20/23 20:29 Tamsulosin Hcl 0.4 Mg Cap PO 05/06/23 20:59 0.4 mg HS MARTINE Administration Terbinafine HCl 1 appln 04/03/23 09:00 04/21/23 08:42 Terbinafine Cr 30 Gm Tube EXT 05/03/23 08:59 1 appln DAILY MARTINE Administration Trolamine Salicylate 1 appln 04/08/23 10:50 04/21/23 08:42 Trolamine Salicylate 10% Crm 255 Appln/85 Gm Tube EXT 05/08/23 10:49 1 appln Q6H PRN Administration Pain Vitamin D 2,000 units 04/03/23 09:00 04/21/23 08:41 Cholecalciferol 1,000 Units 25 Mcg Tab PO 05/03/23 08:59 2,000 units QAM MARTINE Administration
[2023-04-21] MEDS: HYDROXYCHLOROQUINE SULFATE 200 MG TAB PO SCH (20:37)
[2023-04-21] MEDS: TAMSULOSIN HCL 0.4 MG CAP PO SCH (20:37)
[2023-04-21] MEDS: DULoxetine HCL 20 MG CAP PO SCH (20:38)
[2023-04-21] MEDS ORDERED: MELATONIN 3 MG TAB PO PRN (22:10)
[2023-04-21] MEDS ORDERED: MoRPHine SULFATE 2 MG/ML CARP IV STA (22:33)
[2023-04-21] MEDS ORDERED: PHENAZOPYRIDINE HCL 200 MG TAB PO STA (22:33)
[2023-04-22] MEDS ORDERED: HYDROmorphone INJ 0.5 MG/0.5 ML SYR IV STA (03:56)
--- NOTE | 2023-04-22 05:35 | CT Scan Report ---
Exam(s): CT ABDOMEN + PELVIS Without Contrast EXAM: CT Abdomen and Pelvis Without Intravenous Contrast CLINICAL HISTORY: Abdominal pain. TECHNIQUE: Axial computed tomography images of the abdomen and pelvis without intravenous contrast. CTDI is 28.141 mGy and DLP is 1556.11 mGy-cm. Automated exposure control was utilized for the study. A dose lowering technique was utilized adhering to the principles of ALARA. COMPARISON: No relevant prior studies available. FINDINGS: Lung bases: See below. Pleural space: Small left pleural effusion with adjacent atelectasis. Heart: A pericardial effusion measures up to 5 cm. ABDOMEN: Liver: Cirrhosis with sequela of portal hypertension including nonspecific splenomegaly. Gallbladder and bile ducts: A biliary stent is noted. No calcified stones. No ductal dilation. Pancreas: Unremarkable. No ductal dilation. Spleen: See above. Adrenals: Unremarkable. No mass. Kidneys and ureters: Unremarkable. No obstructing stones. No hydronephrosis. Stomach and bowel: The distal colon is fluid-filled. No obstruction. No mucosal thickening. PELVIS: Appendix: No findings to suggest acute appendicitis. Bladder: Unremarkable. No stones. Reproductive: Unremarkable as visualized. ABDOMEN and PELVIS: Intraperitoneal space: Unremarkable. No free air. No significant fluid collection. Bones/joints: There are degenerative changes of the spine. No acute fracture. No dislocation. Soft tissues: Moderate bilateral fat-containing inguinal hernias. Vasculature: Unremarkable. No abdominal aortic aneurysm. Lymph nodes: Unremarkable. No enlarged lymph nodes. IMPRESSION: 1. The distal colon is fluid-filled. This is concerning for diarrheal state. 2. A pericardial effusion measures up to 5 cm. 3. Small left pleural effusion with adjacent atelectasis. Electronically signed by: Alissa Bueno MD 04/22/23 05:34 AM
[2023-04-22] MEDS: BUMETANIDE 10 MG in DEXTROSE 5% 10 ML IV SCH (06:10)
[2023-04-22 06:23] LABS: Hematocrit (blood only) 37.8 % (42.0-52.0); Hemoglobin 12.6 g/dl (14.0-18.0); Mean Corpuscular Hemoglobin 31.3 pg (25.0-34.0); Mean Corpuscular Hgb Conc 33.3 g/dL (32.0-36.0); Mean Corpuscular Volume 93.8 fL (80.0-100.0); Mean Platelet Volume 9.3 fL (9.4-12.4); Platelet Count 257 K/uL (130-400); RDW Coefficient of Variation 16.9 % (11.5-14.5); RDW Standard Deviation 57.8 fL (36.4-46.3); Red Blood Count 4.03 M/uL (4.70-6.10); White Blood Count 18.98 K/ul (4.8-10.8)
[2023-04-22 06:35] LABS: BUN Creatinine Ratio 34.2 (10-20); Calcium 9.4 mg/dl (8.6-10.3); Creatinine Clr Calc Pharmacy 70.7 ml/min; Est GFR (African American) 65.8 ml/min; Est GFR (Non-African American) 56.8 ml/min; Magnesium 2.2 mg/dl (1.7-2.4); Potassium 3.7 mmol/L (3.5-5.1)
[2023-04-22] MEDS: ALBUTEROL 0.5% NEB SOLN 2.5 MG/0.5 ML VIAL NEB PRN ×2 (07:13→19:27)
[2023-04-22] MEDS: ACETYLCYSTEINE 20% INHAL SOLN 4ML ***DISPENSED BY RESP. INH SCH ×2 (07:13→19:27)
[2023-04-22] MEDS: SODIUM CHLOR 7% 4 ML NEB NEB SCH ×2 (07:13→19:27)
[2023-04-22] MEDS: APIXABAN 5 MG TABLET PO SCH ×2 (09:18→21:33)
[2023-04-22] MEDS: ASPIRIN 81 MG ECTAB PO SCH (09:19)
[2023-04-22] MEDS: MAGNESIUM OXIDE 400 MG TAB PO SCH ×2 (09:19→21:35)
[2023-04-22] MEDS: predniSONE 20 MG TAB PO SCH (09:19)
[2023-04-22] MEDS: CHOLECALCIFEROL 1,000 UNITS 25 MCG TAB PO SCH (09:19)
[2023-04-22] MEDS: SPIRONOLACTONE 12.5 MG TAB PO SCH (09:19)
[2023-04-22] MEDS: COLCHICINE 0.6 MG TAB PO SCH ×2 (09:20→21:34)
[2023-04-22] MEDS: LIDOCAINE 5% 1 PATCH TD SCH (09:20)
[2023-04-22] MEDS: TERBINAFINE CR 30 GM TUBE EXT SCH (09:22)
[2023-04-22] MEDS: POTASSIUM CHLORIDE CRTAB 20 MEQ TABCR PO SCH ×2 (09:26→21:37)
--- NOTE | 2023-04-22 11:11 | Nephrology Progress Note ---
Date of Service April 22, 2023 Assessment & Plan Admission and Anticipated Discharge Date Admission Date: April 02, 2023 Subjective Assessment & Plan (1) Acute hyponatremia: Acute hyponatremia with serum sodium of 119 on presentation related with hypervolemic hyponatremia in the setting of acute congestive heart failure. Patient does admit to drinking massive amount of water. Obviously he cannot do this as it will be impossible to manage his fluid status. BMP daily. Agree with plan of placing special urinary catheter and monitoring input and output accurately. manage him as a case of hypervolemic hyponatremia with excessive water drinking na now normal BUN and normal Creat. Bicarb high but stable and is because of Compensation. Now weighs lot less than on Admission But CXR still shows some Pulm edema and has Pericardial effusion. His health seems to be stuck and I cant see how we can discharge him to his home but he keeps begging to be discharged. Defer to Primary team. Also consider Palliative med Continue Aldactone 12.5 daily Stop Bumex drip but continue Bumex 4 mg iv q8h for now Continue Kcl 40 bid. extra 40 meq today. S--urine 2050 ml yesterday. Breathing better. labs remain stable. However had camarena change and had camarena trauma and now gross hematuria Physical Exam Physical Exam: GENERAL: Alert and oriented x3. NAD, morbidly obese, on 4 L oxygen via nasal cannula HEENT: No pallor, no icterus. Pupils equal, round and reactive to light. Oral mucosa moist. NECK: No JVD, no neck masses. HEART: S1 and S2 heard. Regular rate and rhythm. No murmur, no gallop. RESPIRATORY SYSTEM: No accessory muscle use. No wheezing, decreased breath sounds likely secondary to morbid obesity. ABDOMEN: Soft, nontender CENTRAL NERVOUS SYSTEM: No facial droop. Speech is clear. Obeys simple commands. Moves extremities. EXTREMITIES: BLE Trace+ edema now--lot less, chronic skin changes noted. Multiple skin breakdowns on lesions noted around his toes especially in the right side. Results & Data Vital Signs (Past 12 Hours) Vital Signs Temp Pulse Pulse Resp BP BP Pulse Ox 04/22/23 10:18 04/22/23 10:14 112 H 04/22/23 07:35 36.4 C L 111 H 19 108/72 90 04/22/23 07:13 106 H 18 90 04/22/23 03:10 36.4 C L 104 H 12 106/68 83 L O2 Del Method O2 Flow Rate 04/22/23 10:18 Nasal Cannula 4 04/22/23 10:14 04/22/23 07:35 Nasal Cannula 4 04/22/23 07:13 Nasal Cannula 5 04/22/23 03:10 Nasal Cannula 4
[2023-04-22] MEDS: BUMETANIDE 4 MG in SYRINGE 0 ML IV SCH ×2 (12:11→18:39)
--- NOTE | 2023-04-22 12:52 | Cardiology Progress Note ---
Date of Service April 22, 2023 Assessment & Plan (1) Acute on chronic heart failure with preserved ejection fraction (HFpEF): (2) Atrial fibrillation with controlled ventricular rate: (3) Pericardial effusion: Plan * IV bumex infusion transition to pulse dose bumex 04/22/2023 * supplement potassium * continue spironolactone 12.5 mg daily * Eliquis for stroke prevention * h/o RA with mildly elevated inflammatory markers and large pericardial effusion without tamponade, day 4/5 day course of prednisone 20 mg daily * Repeat limited echocardiogram 04/24 Admission and Anticipated Discharge Date Admission Date: April 02, 2023 Subjective Patient seen examined the bedside. IV Bumex infusion discontinued by nephrology. Transition to IV pulse dose of Bumex. Hematuria secondary to traumatic Hurtado insertion. Patient denies chest pain or shortness of breath at rest. Fluid balance -1.2 L. Stable renal function, however, creatinine trending upward. Review of Systems Review of Systems: All systems reviewed & are unremarkable except as noted in Subjective Physical Exam Constitutional: well nourished and + morbidly obese; no acute distress Respiratory: no respiratory distress and no labored breathing Auscultation: + diminished lung sounds (Bases bilateral); no rhonchi and no wheezes Cardiovascular: Rate/Rhythm: + irregularly irregular Heart Sounds: normal S1 and normal S2; no murmur Extremities: no edema (+ Stasis changes) Gastrointestinal (Abdomen): Inspection/Auscultation: normal bowel sounds; abdomen not distended Percussion/Palpation: abdomen soft; abdomen nontender, no guarding and abdomen not rigid Results & Data Vital Signs (Past 12 Hours) Vital Signs Temp Pulse Pulse Resp BP BP Pulse Ox 04/22/23 11:36 36.5 C 112 H 18 96/58 L 90 04/22/23 10:18 04/22/23 10:14 112 H 04/22/23 07:35 36.4 C L 111 H 19 108/72 90 04/22/23 07:13 106 H 18 90 04/22/23 03:10 36.4 C L 104 H 12 106/68 83 L O2 Del Method O2 Flow Rate 04/22/23 11:36 Nasal Cannula 4 04/22/23 10:18 Nasal Cannula 4 04/22/23 10:14 04/22/23 07:35 Nasal Cannula 4 04/22/23 07:13 Nasal Cannula 5 04/22/23 03:10 Nasal Cannula 4 Laboratory Results CBC 04/22/23 Range/Units 05:56 WBC 18.98 H (4.8-10.8) K/ul RBC 4.03 L (4.70-6.10) M/uL Hgb 12.6 L (14.0-18.0) g/dl Hct 37.8 L (42.0-52.0) % Plt Count 257 (130-400) K/uL Comprehensive Metabolic Panel 04/22/23 Range/Units 05:56 Sodium 139 (136-145) mmol/L Potassium 3.7 (3.5-5.1) mmol/L Chloride 94 L (98-107) mmol/L Carbon Dioxide 36 H (21-32) mmol/L BUN 41 H (6-23) mg/dl Creatinine 1.20 (0.6-1.4) mg/dl Glucose 199 H (70-99(Fasting)) mg/dl Calcium 9.4 (8.6-10.3) mg/dl Intake and Output 04/21/23 04/22/23 04/22/23 22:59 06:59 14:59 Intake Total 350 / 1089.167 49.167 / 1089.167 23.583 / 23.583 Output Total 2050 Balance -451 / -961.833 49.167 / -961.833 23.583 / 23.583 Intake: IV 50 / 549.167 49.167 / 549.167 23.583 / 23.583 Bumetanide 10 mg In Dextrose 5% 50 / 149.167 49.167 / 149.167 23.583 / 23.583 10 ml @ 1 MG/HR 5 mls/hr IV . Q10H MARTINE Rx#:[id number] Oral 300 / 540 Output: Urine Amount (Catheter) 2049 Hurtado/Indwelling 2049 # Bowel Movements
--- NOTE | 2023-04-22 14:05 | Hospitalist Progress Note ---
Date of Service April 22, 2023 Assessment & Plan (1) Acute on chronic heart failure with preserved ejection fraction (HFpEF): (2) Acute hyponatremia: Plan 78-year-old gentleman with PMH of chronic diastolic heart failure on Lasix, HTN, TIIDM, presented (from [facility])and admitted on 04/02 for acute on chronic HFpEF exacerbation. He is being managed for the following: #Chronic illness #Ambulatory dysfunction -Given multiple comorbidities, will consult Palliative on Monday to discussed; patient seems eager to get "home" but unclear if he really understands the risk of a potential prompt return and ongoing prolonged hospitalizations without much improvement #Acute hypoxic respiratory failure, likely multifactorial *improving #OHS -Iso heart failure exacerbation and OHS. Denies home O2 use. Nocturnal -Will likely require 2 step to assess for daytime need for oxygen prior to discharge -Cardiology and nephrology on board, managing diuresis. Currently on bumex gtt. -Continue with BiPAP HS and PRN. - Pulm evaled. D/w pulm - no role of bronchoscopy for LLL collapse, continue w/ positive airway pressure support. - c/w flutter valve, chest PT, nebs. Mucomyst and hypertonic saline nebs. #Pericardial effusion: repeat echo showing interval increase in pericardial effusion; s/p IV albumin to aid in transient increased oncotic pressure to help effusion Elevated ESR/CRP: started on prednisone 20mg x5 days -Plan for repeat ECHO monday #Acute on chronic heart failure with preserved ejection fraction #HTN, relative hypotension - TTE (04/03/2023): LVEF 55-60%, - Home diuretics: Lasix 40mg qam Cardiology on consult and Nephrology on consult -Strict I's and O's, fluid restriction of 1500 mL/day, heart healthy diet, low- sodium diet -Aldactone resumed at 12.5mg daily -Holding ACEi/ARB at this time 2/2 hypotension -Given ongoing hypoxia and volume overload: continue IV Bumex drip -Plan for repeat ECHO monday to aid in next steps in management #Acute urinary retention *resolved -c/f bladder outlet obstruction, c/f buried penis (congenital v acquired) per Urology -Nephrology also feels NOWAK likely given robust UOP -Urology on consult: migue 1-2 weeks, OP follow up to be arranged, also on going efforts for diuresis -Continue tamsulosin -Discontinued oxybutynin -Likely will need camarena exchange on DC day. #Acute non-cardiac chest pain #Acute on chronic back pain *resolved -Tylenol prn, lidocaine patch to mid back -Pain on chest reproducible to touch -Continue home oxycodone regimen -Topical Myoflex #New onset atrial fibrillation History of wandering atrial pacemaker/complex ectopy given comorbidities remains in afib on telemetry-HR is controlled without rate control agents. Per cardiology recommend he transition to apixaban from Lovenox started on admission. Echo reveals EF 55-60%. -Continue Eliquis #PAD, chronic bilateral dusky discoloration -Continue ASA #Contraction alkalosis *improved #Hypervolemic Hyponatremia *resolved Baseline sodium appears around 137, admitting sodium of 119, likely hypervolemic hyponatremia. Patient with no headache or dizziness or orientation issues at presentation. -Maintain I's and O's, fluid restriction of 1500 mL a day. -Nephrology on consult, appreciate recommendations, managing diuresis. -continue aldactone #Lower ext cellulitis *resolved #Skin tears - Pt treated with oral Augmentin which has been completed. He has lower extremities wounds on his anterior tibiae and his toes from a recent fall per his report. 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 Escamilla, denies constitutional symptoms, reportedly increased LDH and [id number] c/w comorbidities -LDH 215 (last LDH 275 12/2022) -CBC w/ diff and smear in am -Dr escamilla on schedule, consult to assess if symptoms related/stable, no recommendations #T2DM -diet controlled, a1c 6.2 on 03/31/23, lantus/novolog per protocol has been declined by patient several times. Will DC BSG checks and insulin at this time. Continue with outpatient follow- up. #Rheumatoid arthritis #Gout -Continue plaquenil 200mg daily -Continue colchicine 0.6mg bid -Prednisone burst as above #Depression Continue duloxetine DVT prophylaxis: apixaban PT/OT DNR/DNI Dispo: pending clearance from Cardio, Pulm, Nephro. Pulm has signed off. Admission and Anticipated Discharge Date Admission Date: April 02, 2023 Subjective Overnight with abdominal pain, scan stable--noted to express urine when abdomen pressed upon, thought pain was 2/2 to "kinked" camarena Reports frustration about going home as soon as able, verbalizes understanding that he is medically tenuous, though does not seem to understand the entire gravity of his condition. Attempted to try to explain multiple times, but patient often interrupts and deflects conversation Denies nasuea, vomiting, subjective fevers States he is willing to "go with oxygen if he can just go home" Review of Systems Review of Systems: All systems reviewed & are unremarkable except as noted in Subjective Physical Exam Constitutional: tearful Respiratory: on 4L NC difficult to appreciate secondary to habitus Cardiovascular: irregular Results & Data Results & Data Vital Signs (Past 12 Hours) Vital Signs Temp Pulse Pulse Resp BP BP Pulse Ox 04/22/23 11:36 36.5 C 112 H 18 96/58 L 90 04/22/23 10:18 04/22/23 10:14 112 H 04/22/23 07:35 36.4 C L 111 H 19 108/72 90 04/22/23 07:13 106 H 18 90 04/22/23 03:10 36.4 C L 104 H 12 106/68 83 L O2 Del Method O2 Flow Rate 04/22/23 11:36 Nasal Cannula 4 04/22/23 10:18 Nasal Cannula 4 04/22/23 10:14 04/22/23 07:35 Nasal Cannula 4 04/22/23 07:13 Nasal Cannula 5 04/22/23 03:10 Nasal Cannula 4 Laboratory Results Short CBC 04/22/23 Range/Units 05:56 WBC 18.98 H (4.8-10.8) K/ul Hgb 12.6 L (14.0-18.0) g/dl Hct 37.8 L (42.0-52.0) % Plt Count 257 (130-400) K/uL BMP 04/22/23 05:56 Sodium 139 Potassium 3.7 Chloride 94 L Carbon Dioxide 36 H BUN 41 H Creatinine 1.20 Glucose 199 H Calcium 9.4 Diagnostic Findings Abdomen/Pelvis CT 04/22/23 03:55 Exam(s): CT ABDOMEN + PELVIS Without Contrast EXAM: CT Abdomen and Pelvis Without Intravenous Contrast CLINICAL HISTORY: Abdominal pain. TECHNIQUE: Axial computed tomography images of the abdomen and pelvis without intravenous contrast. CTDI is 28.141 mGy and DLP is 1556.11 mGy-cm. Automated exposure control was utilized for the study. A dose lowering technique was utilized adhering to the principles of ALARA. COMPARISON: No relevant prior studies available. FINDINGS: Lung bases: See below. Pleural space: Small left pleural effusion with adjacent atelectasis. Heart: A pericardial effusion measures up to 5 cm. ABDOMEN: Liver: Cirrhosis with sequela of portal hypertension including nonspecific splenomegaly. Gallbladder and bile ducts: A biliary stent is noted. No calcified stones. No ductal dilation. Pancreas: Unremarkable. No ductal dilation. Spleen: See above. Adrenals: Unremarkable. No mass. Kidneys and ureters: Unremarkable. No obstructing stones. No hydronephrosis. Stomach and bowel: The distal colon is fluid-filled. No obstruction. No mucosal thickening. PELVIS: Appendix: No findings to suggest acute appendicitis. Bladder: Unremarkable. No stones. Reproductive: Unremarkable as visualized. ABDOMEN and PELVIS: Intraperitoneal space: Unremarkable. No free air. No significant fluid collection. Bones/joints: There are degenerative changes of the spine. No acute fracture. No dislocation. Soft tissues: Moderate bilateral fat-containing inguinal hernias. Vasculature: Unremarkable. No abdominal aortic aneurysm. Lymph nodes: Unremarkable. No enlarged lymph nodes. IMPRESSION: 1. The distal colon is fluid-filled. This is concerning for diarrheal state. 2. A pericardial effusion measures up to 5 cm. 3. Small left pleural effusion with adjacent atelectasis. Electronically signed by: Alissa Bueno MD 04/22/23 05:34 AM Medications Administered Home Medications Medication Instructions Recorded Confirmed Last Taken acetaminophen 500 mg tablet 500 mg PO QAM 06/08/22 04/02/23 07/14/22 05:00 aspirin 81 mg chewable tablet 81 mg PO QAM 06/08/22 04/02/23 07/14/22 09:01 carboxymethylcellulose sodium 1 % 1 drp OPB QAM 06/08/22 04/02/23 07/14/22 09:01 eye gel in a dropperette (Refresh Celluvisc) cholecalciferol (vitamin D3) 50 2,000 unit PO QAM 06/08/22 04/02/23 07/15/22 09:01 mcg (2,000 unit) capsule ciprofloxacin HCl 0.3 % eye drops 1 drp OPR BID 06/08/22 04/02/23 07/14/22 17:00 colchicine 0.6 mg tablet 0.6 mg PO BID 06/08/22 04/02/23 07/15/22 09:01 duloxetine 20 mg capsule,delayed 20 mg PO HS 06/08/22 04/02/23 07/14/22 09:01 release febuxostat 80 mg tablet 80 mg PO QAM 06/08/22 04/02/23 07/14/22 09:01 furosemide 40 mg tablet 40 mg PO QAM 06/08/22 04/02/23 07/15/22 05:01 hydroxychloroquine 200 mg tablet 200 mg PO HS 06/08/22 04/02/23 07/14/22 09:01 oxybutynin chloride 5 mg tablet 5 mg PO QAM 06/08/22 04/02/23 07/15/22 09:01 terbinafine HCl 1 % topical cream 1 applic topical DAILY 06/08/22 04/02/23 07/14/22 19:00 tramadol 50 mg tablet 50 mg PO TID 06/08/22 04/02/23 07/14/22 09:01 acetaminophen 325 mg tablet 325 mg PO QID PRN pain/fever 07/13/22 04/02/23 Unknown bisacodyl 10 mg rectal suppository 10 mg LA UD PRN Constipation 07/13/22 04/02/23 Unknown (Dulcolax (bisacodyl)) magnesium hydroxide 400 mg/5 mL 30 ml PO DAILY PRN Constipation 07/13/22 04/02/23 Unknown oral suspension (Milk of Magnesia) sodium phosphates 19 gram-7 118 ml LA DAILY PRN Constipation 07/13/22 04/02/23 Unknown gram/118 mL enema (Fleet Enema) spironolactone 25 mg tablet 12.5 mg PO QAM 07/13/22 04/02/23 07/15/22 09:01 (Aldactone) Active Medications Generic Name Dose Route Start Last Admin Trade Name Freq PRN Reason Stop Dose Admin Acetylcysteine 4 ml 04/18/23 15:15 04/22/23 07:13 Acetylcysteine 20% Inhal Soln 4ml Dispensed By Resp. INH 05/18/23 15:14 4 ml Q12R MARTINE Administration Albuterol 2.5 mg 04/18/23 16:20 04/22/23 07:13 Albuterol 0.5% Neb Soln 2.5 Mg/0.5 Ml Vial NEB 05/18/23 18:59 2.5 mg Q6R PRN Administration sob/wheezing Protocol Apixaban 5 mg 04/03/23 10:15 04/22/23 09:18 Apixaban 5 Mg Tablet PO 05/03/23 10:14 5 mg BID MARTINE Administration Aspirin 81 mg 04/03/23 09:00 04/22/23 09:19 Aspirin 81 Mg Ectab PO 05/03/23 08:59 81 mg QAM MARTINE Administration Colchicine 0.6 mg 04/02/23 21:00 04/22/23 09:20 Colchicine 0.6 Mg Tab PO 05/02/23 20:59 0.6 mg BID MARTINE Administration Duloxetine HCl 20 mg 04/02/23 21:00 04/21/23 20:38 Duloxetine Hcl 20 Mg Cap PO 05/02/23 20:59 20 mg HS MARTINE Administration Hydroxychloroquine Sulfate 200 mg 04/02/23 21:00 04/21/23 20:37 Hydroxychloroquine Sulfate 200 Mg Tab PO 05/02/23 20:59 200 mg HS MARTINE Administration Bumetanide 4 mg/ Syringe 16 mls @ 4 mls/min 04/22/23 11:00 04/22/23 12:11 IV 05/22/23 10:59 4 mls/min Q8H MARTINE Administration Lidocaine 1 patch 04/06/23 15:30 04/22/23 09:20 Lidocaine 5% 1 Patch TD 05/06/23 15:29 1 patch QAM MARTINE Administration Magnesium Oxide 400 mg 04/03/23 10:00 04/22/23 09:19 Magnesium Oxide 400 Mg Tab PO 05/03/23 09:59 400 mg BID MARTINE Administration Melatonin 3 mg 04/21/23 22:10 04/21/23 22:59 Melatonin 3 Mg Tab PO 05/21/23 22:09 3 mg HS PRN Administration Sleep Miscellaneous 1 each 04/06/23 21:00 04/21/23 20:20 Remove Lidoderm Patch N/A 05/06/23 20:59 1 each DAILY@2100 MARTINE Administration Polyethylene Glycol 17 gm 04/02/23 20:27 04/10/23 09:10 Polyethylene (Miralax) 17 Gm Pack PO 05/02/23 20:26 17 gm DAILY PRN Administration Constipation Potassium Chloride 40 meq 04/12/23 21:00 04/22/23 09:26 Potassium Chloride Crtab 20 Meq Tabcr PO 05/12/23 20:59 40 meq BID MARTINE Administration Prednisone 20 mg 04/19/23 10:45 04/22/23 09:19 Prednisone 20 Mg Tab PO 04/23/23 09:01 20 mg DAILY MARTINE Administration Sodium Chloride 4 ml 04/18/23 19:00 04/22/23 07:13 Sodium Chlor 7% 4 Ml Neb NEB 05/18/23 18:59 4 ml BIDR MARTINE Administration Spironolactone 12.5 mg 04/18/23 10:00 04/22/23 09:19 Spironolactone 12.5 Mg Tab PO 05/18/23 09:59 12.5 mg DAILY MARTINE Administration Tamsulosin HCl 0.4 mg 04/06/23 21:00 04/21/23 20:37 Tamsulosin Hcl 0.4 Mg Cap PO 05/06/23 20:59 0.4 mg HS MARTINE Administration Terbinafine HCl 1 appln 04/03/23 09:00 04/22/23 09:22 Terbinafine Cr 30 Gm Tube EXT 05/03/23 08:59 1 appln DAILY MARTINE Administration Trolamine Salicylate 1 appln 04/08/23 10:50 04/21/23 08:42 Trolamine Salicylate 10% Crm 255 Appln/85 Gm Tube EXT 05/08/23 10:49 1 appln Q6H PRN Administration Pain Vitamin D 2,000 units 04/03/23 09:00 04/22/23 09:19 Cholecalciferol 1,000 Units 25 Mcg Tab PO 05/03/23 08:59 2,000 units QAM MARTINE Administration
[2023-04-22] MEDS ORDERED: BUMETANIDE 4 MG in SYRINGE 0 ML IV SCH (17:00)
[2023-04-22 18:44] LABS: Appearance Urine Turbid (Clear); Bacteria Urine Automated 3+ (Negative); Bilirubin Urine Negative (Negative); Blood Urine 3+ (Negative); Color Urine Dark Yellow; Epithelial Cell Urine Auto >30 /lpf (0-5); Glucose Urine UA Negative (Negative); Ketones Urine Negative (Negative); Leukocyte Esterase Urine 3+ (Negative); Nitrite Urine Positive (Negative); Protein Urine 2+ (Negative); RBC Urine Automated >30 /hpf (0-4); Specific Gravity Urine 1.012 (1.000-1.030); Urobilinogen Urine Negative (Negative); WBC Urine Automated >30 /hpf (0-5); pH Urine 5.5 (4.5-7.5)
[2023-04-22] MEDS: HYDROXYCHLOROQUINE SULFATE 200 MG TAB PO SCH (21:33)
[2023-04-22] MEDS: DULoxetine HCL 20 MG CAP PO SCH (21:36)
[2023-04-22] MEDS: TAMSULOSIN HCL 0.4 MG CAP PO SCH (21:36)
[2023-04-23] MEDS: BUMETANIDE 4 MG in SYRINGE 0 ML IV SCH ×2 (02:55→12:01)
[2023-04-23] MEDS: ACETYLCYSTEINE 20% INHAL SOLN 4ML ***DISPENSED BY RESP. INH SCH ×2 (07:20→19:31)
[2023-04-23] MEDS: ALBUTEROL 0.5% NEB SOLN 2.5 MG/0.5 ML VIAL NEB PRN ×2 (07:20→19:31)
[2023-04-23] MEDS: SODIUM CHLOR 7% 4 ML NEB NEB SCH ×2 (07:21→19:32)
[2023-04-23 07:42] LABS: Hematocrit (blood only) 38.6 % (42.0-52.0); Hemoglobin 12.3 g/dl (14.0-18.0); Mean Corpuscular Hemoglobin 30.7 pg (25.0-34.0); Mean Corpuscular Hgb Conc 31.9 g/dL (32.0-36.0); Mean Corpuscular Volume 96.3 fL (80.0-100.0); Mean Platelet Volume 9.4 fL (9.4-12.4); Platelet Count 227 K/uL (130-400); RDW Coefficient of Variation 16.7 % (11.5-14.5); RDW Standard Deviation 59.1 fL (36.4-46.3); Red Blood Count 4.01 M/uL (4.70-6.10); White Blood Count 16.93 K/ul (4.8-10.8)
[2023-04-23 07:57] LABS: BUN Creatinine Ratio 43.8 (10-20); Calcium 9.4 mg/dl (8.6-10.3); Est GFR (African American) 86.2 ml/min; Est GFR (Non-African American) 74.4 ml/min; Magnesium 2.3 mg/dl (1.7-2.4); Phosphorus 4.2 mg/dl (2.5-4.9); Potassium 3.6 mmol/L (3.5-5.1)
[2023-04-23] MEDS: SPIRONOLACTONE 12.5 MG TAB PO SCH (09:38)
[2023-04-23] MEDS: CEFEPIME 1,000 MG in SYRINGE 0 ML IV SCH ×2 (09:38→20:34)
[2023-04-23] MEDS: predniSONE 20 MG TAB PO SCH (09:39)
[2023-04-23] MEDS: COLCHICINE 0.6 MG TAB PO SCH ×2 (09:39→20:38)
[2023-04-23] MEDS: MAGNESIUM OXIDE 400 MG TAB PO SCH ×2 (09:39→20:36)
[2023-04-23] MEDS: APIXABAN 5 MG TABLET PO SCH ×2 (09:39→20:37)
[2023-04-23] MEDS: ASPIRIN 81 MG ECTAB PO SCH (09:39)
[2023-04-23] MEDS: TERBINAFINE CR 30 GM TUBE EXT SCH (09:40)
[2023-04-23] MEDS: LIDOCAINE 5% 1 PATCH TD SCH (09:40)
[2023-04-23] MEDS: CHOLECALCIFEROL 1,000 UNITS 25 MCG TAB PO SCH (09:40)
[2023-04-23] MEDS: POTASSIUM CHLORIDE CRTAB 20 MEQ TABCR PO SCH ×2 (09:45→20:39)
--- NOTE | 2023-04-23 13:42 | Hospitalist Progress Note ---
Date of Service April 23, 2023 Assessment & Plan (1) Acute on chronic heart failure with preserved ejection fraction (HFpEF): (2) Acute hyponatremia: Plan 78-year-old gentleman with PMH of chronic diastolic heart failure on Lasix, HTN, TIIDM, presented (from [facility])and admitted on 04/02 for acute on chronic HFpEF exacerbation. He is being managed for the following: #Chronic illness #Ambulatory dysfunction -Given multiple comorbidities, will consult Palliative on Monday to discussed; patient seems eager to get "home" but unclear if he really understands the risk of a potential prompt return and ongoing prolonged hospitalizations without much improvement #Acute cystitis -GNB on culture -Cefepime, deescalte as able #Acute hypoxic respiratory failure, likely multifactorial *improving #OHS -Iso heart failure exacerbation and OHS. Denies home O2 use. Nocturnal -Will likely require 2 step to assess for daytime need for oxygen prior to discharge -Cardiology and nephrology on board, managing diuresis. Currently on bumex gtt. -Continue with BiPAP HS and PRN. - Pulm evaled. D/w pulm - no role of bronchoscopy for LLL collapse, continue w/ positive airway pressure support. - c/w flutter valve, chest PT, nebs. Mucomyst and hypertonic saline nebs. #Pericardial effusion: repeat echo showing interval increase in pericardial effusion; s/p IV albumin to aid in transient increased oncotic pressure to help effusion Elevated ESR/CRP: started on prednisone 20mg completed -Plan for repeat ECHO tomorrow Bumex 4mg q8h #Acute on chronic heart failure with preserved ejection fraction #HTN, relative hypotension - TTE (04/03/2023): LVEF 55-60%, - Home diuretics: Lasix 40mg qam Cardiology on consult and Nephrology on consult -Strict I's and O's, fluid restriction of 1500 mL/day, heart healthy diet, low- sodium diet -Aldactone resumed at 12.5mg daily -Holding ACEi/ARB at this time 2/2 hypotension -Given ongoing hypoxia and volume overload: continue IV Bumex drip -Plan for repeat ECHO monday to aid in next steps in management #Acute urinary retention *resolved -c/f bladder outlet obstruction, c/f buried penis (congenital v acquired) per Urology -Nephrology also feels NOWAK likely given robust UOP -Urology on consult: camarena 1-2 weeks, OP follow up to be arranged, also on going efforts for diuresis -Continue tamsulosin -Discontinued oxybutynin -Likely will need camarena exchange on DC day. #Acute non-cardiac chest pain #Acute on chronic back pain *resolved -Tylenol prn, lidocaine patch to mid back -Pain on chest reproducible to touch -Continue home oxycodone regimen -Topical Myoflex #New onset atrial fibrillation History of wandering atrial pacemaker/complex ectopy given comorbidities remains in afib on telemetry-HR is controlled without rate control agents. Per cardiology recommend he transition to apixaban from Lovenox started on admission. Echo reveals EF 55-60%. -Continue Eliquis #PAD, chronic bilateral dusky discoloration -Continue ASA #Contraction alkalosis *improved #Hypervolemic Hyponatremia *resolved Baseline sodium appears around 137, admitting sodium of 119, likely hypervolemic hyponatremia. Patient with no headache or dizziness or orientation issues at presentation. -Maintain I's and O's, fluid restriction of 1500 mL a day. -Nephrology on consult, appreciate recommendations, managing diuresis. -continue aldactone #Lower ext cellulitis *resolved #Skin tears - Pt treated with oral Augmentin which has been completed. He has lower extremities wounds on his anterior tibiae and his toes from a recent fall per his report. 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 Escamilla, denies constitutional symptoms, reportedly increased LDH and [id number] c/w comorbidities -LDH 215 (last LDH 275 12/2022) -CBC w/ diff and smear in am -Dr escamilla on schedule, consult to assess if symptoms related/stable, no recommendations #T2DM -diet controlled, a1c 6.2 on 03/31/23, lantus/novolog per protocol has been declined by patient several times. Will DC BSG checks and insulin at this time. Continue with outpatient follow- up. #Rheumatoid arthritis #Gout -Continue plaquenil 200mg daily -Continue colchicine 0.6mg bid -Prednisone burst as above #Depression Continue duloxetine DVT prophylaxis: apixaban PT/OT DNR/DNI Dispo: pending clearance from Cardio, Pulm, Nephro. Pulm has signed off. Admission and Anticipated Discharge Date Admission Date: April 02, 2023 Results & Data Results & Data Vital Signs (Past 12 Hours) Vital Signs Temp Pulse Pulse Pulse Resp BP BP 04/23/23 11:33 36.7 C 88 20 82/50 L 04/23/23 10:49 36.5 C 63 18 100/65 04/23/23 07:37 36.3 C L 92 H 19 91/58 L 04/23/23 07:21 90 18 04/23/23 03:51 36.3 C L 94 H 18 99/64 L 04/23/23 02:13 88 22 Pulse Ox O2 Del Method O2 Flow Rate FiO2 04/23/23 11:33 96 Oxymask 6 04/23/23 10:49 95 Nasal Cannula 4 04/23/23 07:37 95 Nebulizer 04/23/23 07:21 93 Nasal Cannula 4 04/23/23 03:51 94 CPAP 04/23/23 02:13 97 4
--- NOTE | 2023-04-23 13:50 | Nephrology Progress Note ---
Date of Service April 23, 2023 Assessment & Plan Admission and Anticipated Discharge Date Admission Date: April 02, 2023 Subjective Assessment & Plan (1) Acute hyponatremia: Acute hyponatremia with serum sodium of 119 on presentation related with hypervolemic hyponatremia in the setting of acute congestive heart failure. Patient does admit to drinking massive amount of water. Obviously he cannot do this as it will be impossible to manage his fluid status. BMP daily. Agree with plan of placing special urinary catheter and monitoring input and output accurately. manage him as a case of hypervolemic hyponatremia with excessive water drinking na now normal BUN and normal Creat. Bicarb high but stable and is because of Compensation. Now weighs lot less than on Admission large Pericardial effusion. His health seems to be stuck and I cant see how we can discharge him to his home but he keeps begging to be discharged. Defer to Primary team. Also consider Palliative med Now has Low BP so Stop Aldactone and also lower bumex to 2 mg iv q8hr. Increase as allowed by BP. S--urine 2650 ml yesterday. Breathing better. BP running quit low. Some abd pain and ? Diarrhea. Physical Exam Physical Exam: GENERAL: Alert and oriented x3. NAD, morbidly obese, on 4 L oxygen via nasal cannula HEENT: No pallor, no icterus. Pupils equal, round and reactive to light. Oral mucosa moist. NECK: No JVD, no neck masses. HEART: S1 and S2 heard. Regular rate and rhythm. No murmur, no gallop. RESPIRATORY SYSTEM: No accessory muscle use. No wheezing, decreased breath sounds likely secondary to morbid obesity. ABDOMEN: Soft, nontender CENTRAL NERVOUS SYSTEM: No facial droop. Speech is clear. Obeys simple commands. Moves extremities. EXTREMITIES: BLE Trace+ edema now--lot less, chronic skin changes noted. Multiple skin breakdowns on lesions noted around his toes especially in the right side. Results & Data Vital Signs (Past 12 Hours) Vital Signs Temp Pulse Pulse Pulse Resp BP BP 04/23/23 11:33 36.7 C 88 20 82/50 L 04/23/23 10:49 36.5 C 63 18 100/65 04/23/23 07:37 36.3 C L 92 H 19 91/58 L 04/23/23 07:21 90 18 04/23/23 03:51 36.3 C L 94 H 18 99/64 L 04/23/23 02:13 88 22 Pulse Ox O2 Del Method O2 Flow Rate FiO2 04/23/23 11:33 96 Oxymask 6 04/23/23 10:49 95 Nasal Cannula 4 04/23/23 07:37 95 Nebulizer 04/23/23 07:21 93 Nasal Cannula 4 04/23/23 03:51 94 CPAP 04/23/23 02:13 97 4
--- NOTE | 2023-04-23 13:52 | Cardiology Progress Note ---
Date of Service April 23, 2023 Assessment & Plan (1) Acute on chronic heart failure with preserved ejection fraction (HFpEF): (2) Atrial fibrillation with controlled ventricular rate: (3) Pericardial effusion: Plan * IV bumex infusion transition to pulse dose bumex 04/22/2023 * supplement potassium * continue spironolactone 12.5 mg daily * Eliquis for stroke prevention * h/o RA with mildly elevated inflammatory markers and large pericardial effusion without tamponade, day 5/5 day course of prednisone 20 mg daily * Repeat limited echocardiogram 04/24 Admission and Anticipated Discharge Date Admission Date: April 02, 2023 Subjective Patient seen examined the bedside. Patient denies chest pain or shortness of breath at rest. Fluid balance -1.9 L. Stable renal function. Telemetry reveals AF in the . Review of Systems Review of Systems: All systems reviewed & are unremarkable except as noted in Subjective Physical Exam Constitutional: well nourished and + morbidly obese; no acute distress Respiratory: no respiratory distress and no labored breathing Auscultation: + diminished lung sounds (Bases bilateral); no rhonchi and no wheezes Cardiovascular: Rate/Rhythm: + irregularly irregular Heart Sounds: normal S1 and normal S2; no murmur Extremities: no edema (+ Stasis changes) Gastrointestinal (Abdomen): Inspection/Auscultation: normal bowel sounds; abdomen not distended Percussion/Palpation: abdomen soft; abdomen nontender, no guarding and abdomen not rigid Results & Data Vital Signs (Past 12 Hours) Vital Signs Temp Pulse Pulse Pulse Resp BP BP 04/23/23 11:33 36.7 C 88 20 82/50 L 04/23/23 10:49 36.5 C 63 18 100/65 04/23/23 07:37 36.3 C L 92 H 19 91/58 L 04/23/23 07:21 90 18 04/23/23 03:51 36.3 C L 94 H 18 99/64 L 04/23/23 02:13 88 22 Pulse Ox O2 Del Method O2 Flow Rate FiO2 04/23/23 11:33 96 Oxymask 6 04/23/23 10:49 95 Nasal Cannula 4 04/23/23 07:37 95 Nebulizer 04/23/23 07:21 93 Nasal Cannula 4 04/23/23 03:51 94 CPAP 04/23/23 02:13 97 4 Laboratory Results CBC 04/23/23 Range/Units 06:28 WBC 16.93 H (4.8-10.8) K/ul RBC 4.01 L (4.70-6.10) M/uL Hgb 12.3 L (14.0-18.0) g/dl Hct 38.6 L (42.0-52.0) % Plt Count 227 (130-400) K/uL Comprehensive Metabolic Panel 04/23/23 Range/Units 06:28 Sodium 139 (136-145) mmol/L Potassium 3.6 (3.5-5.1) mmol/L Chloride 94 L (98-107) mmol/L Carbon Dioxide 39 H (21-32) mmol/L BUN 42 H (6-23) mg/dl Creatinine 0.96 (0.6-1.4) mg/dl Glucose 177 H (70-99(Fasting)) mg/dl Calcium 9.4 (8.6-10.3) mg/dl Intake and Output 04/22/23 04/23/23 04/23/23 22:59 06:59 14:59 Intake Total 200 / 913.583 200 / 913.583 Output Total 1325 / 2627 700 / 2627 2 / 2 Balance -1125 / -1713.417 -500 / -1713.417 -2 / -2 Intake: Oral 200 / 890 200 / 890 Output: Urine Amount (Catheter) 1325 / 2625 700 / 2625 [place]urtado/Indwelling 1325 / 2625 700 / 2625 # Bowel Movements 2 / 2 Other: Weight 139.9 kg Weight Measurement Method Built in [facility]
[2023-04-23] MEDS: BUMETANIDE 2 MG in SYRINGE 0 ML IV SCH ×2 (15:03→21:14)
[2023-04-23] MEDS: DULoxetine HCL 20 MG CAP PO SCH (20:38)
[2023-04-23] MEDS: HYDROXYCHLOROQUINE SULFATE 200 MG TAB PO SCH (20:38)
[2023-04-24] MEDS: BUMETANIDE 2 MG in SYRINGE 0 ML IV SCH ×3 (05:33→22:43)
[2023-04-24] MEDS: ALBUTEROL 0.5% NEB SOLN 2.5 MG/0.5 ML VIAL NEB PRN (06:59)
[2023-04-24] MEDS: SODIUM CHLOR 7% 4 ML NEB NEB SCH ×2 (06:59→20:15)
[2023-04-24] MEDS: ACETYLCYSTEINE 20% INHAL SOLN 4ML ***DISPENSED BY RESP. INH SCH (07:00)
[2023-04-24] MEDS: MAGNESIUM OXIDE 400 MG TAB PO SCH ×2 (08:47→20:05)
[2023-04-24] MEDS: TERBINAFINE CR 30 GM TUBE EXT SCH (08:47)
[2023-04-24] MEDS: LIDOCAINE 5% 1 PATCH TD SCH (08:47)
[2023-04-24] MEDS: ASPIRIN 81 MG ECTAB PO SCH (08:47)
[2023-04-24] MEDS: APIXABAN 5 MG TABLET PO SCH (08:47)
[2023-04-24] MEDS: CHOLECALCIFEROL 1,000 UNITS 25 MCG TAB PO SCH (08:47)
[2023-04-24] MEDS: CEFEPIME 1,000 MG in SYRINGE 0 ML IV SCH (08:47)
[2023-04-24] MEDS: COLCHICINE 0.6 MG TAB PO SCH ×2 (08:47→20:05)
[2023-04-24] MEDS: POTASSIUM CHLORIDE CRTAB 20 MEQ TABCR PO SCH ×3 (08:54→20:06)
[2023-04-24 09:12] LABS: Hematocrit (blood only) 39.6 % (42.0-52.0); Hemoglobin 12.8 g/dl (14.0-18.0); Mean Corpuscular Hemoglobin 31.2 pg (25.0-34.0); Mean Corpuscular Hgb Conc 32.3 g/dL (32.0-36.0); Mean Corpuscular Volume 96.6 fL (80.0-100.0); Mean Platelet Volume 9.7 fL (9.4-12.4); Platelet Count 234 K/uL (130-400); RDW Coefficient of Variation 16.5 % (11.5-14.5); RDW Standard Deviation 58.6 fL (36.4-46.3); White Blood Count 18.59 K/ul (4.8-10.8)
[2023-04-24 09:27] LABS: BUN Creatinine Ratio 37.5 (10-20); Calcium 9.2 mg/dl (8.6-10.3); Creatinine Clr Calc Pharmacy 81.7 ml/min; Est GFR (African American) 78.2 ml/min; Est GFR (Non-African American) 67.5 ml/min; Magnesium 2.3 mg/dl (1.7-2.4); Potassium 3.5 mmol/L (3.5-5.1)
--- NOTE | 2023-04-24 10:13 | Nephrology Progress Note ---
Date of Service April 24, 2023 Assessment & Plan (1) Acute on chronic heart failure with preserved ejection fraction (HFpEF): Plan: Ongoing significant volume OL; diuresis has been limited by unacceptable bicarb levels and c/b large pericardial effusion > Has responded well to bumex drip-- Continue for now > increase K supplement dosing to 40 mEq tid w/ goal K 4 -cont colchicine -f/u TTE No spironolactone for now. We will hold off on the EZEQUIEL and ARB. (2) Hyponatremia: Plan: resolved hypervolemic hyponatremia with serum sodium of 119 on presentation in the setting of acute congestive heart failure. Sodium remains at 139 today. will continue FR and diuretics (3) Mixed acid base balance disorder: Plan: in general w/ his extreme metabolic alkalosis after 46L (per I/O cumulative ) negativity w/ diuresis this admission, in general at extremes of acid base balance ABG is more accepted/accurate than VBG. on hs bipap. combined metabolic alkalosis in setting of HF and diuresis along w/ appropriate respiratory compensation -Continue on bumex IV w/ careful repletion neyda of K Admission and Anticipated Discharge Date Admission Date: April 02, 2023 Subjective no interval events. pt hoping for d/c very soon. denies worse sob; for repeat TTE today Review of Systems 2 Review of Systems: All systems reviewed & are unremarkable except as noted in Subjective Physical Exam 2 Constitutional: well developed, well nourished, + morbidly obese, + frail appearing and cooperative; no acute distress Eyes: EOM intact bilaterally ENMT: Ears: no external ear abnormality Nose: no external nose abnormality Mouth: + dry oral mucous membranes Neck: no nuchal rigidity Respiratory: normal respiratory effort (on 02NC); no paradoxical thoraco- abdominal movemnt Auscultation: + diminished lung sounds Cardiovascular: Rate/Rhythm: + irregularly irregular Extremities: + edema (not peripheral but trace dependent and minimal ant abd wall) Gastrointestinal (Abdomen): Inspection/Auscultation: normal bowel sounds P ercussion/Palpation: abdomen soft; abdomen nontender Musculoskeletal: Extremities: + abnormal strength Skin: no rashes, warm and dry (BL yepez and toe wounds) Psychiatric: Orientation: alert, oriented to person and oriented to place I nsight: + limited insight Results & Data Vital Signs (Past 12 Hours) Vital Signs Temp Pulse Pulse Resp BP BP Pulse Ox 04/24/23 08:00 04/24/23 07:49 36.4 C L 95 H 19 99/69 L 93 04/24/23 07:01 96 H 16 94 04/24/23 03:19 36.5 C 73 20 102/64 96 04/24/23 00:31 99 H 24 04/23/23 23:33 36.4 C L 97 H 20 107/69 94 O2 Del Method O2 Flow Rate FiO2 04/24/23 08:00 Nasal Cannula 4 04/24/23 07:49 Nasal Cannula 4 04/24/23 07:01 Nasal Cannula 4 04/24/23 03:19 CPAP 04/24/23 00:31 4 04/23/23 23:33 CPAP Laboratory Results 04/24/23 08:48 04/24/23 08:48
--- NOTE | 2023-04-24 14:03 | Hospitalist Progress Note ---
Date of Service April 24, 2023 Assessment & Plan (1) Acute on chronic heart failure with preserved ejection fraction (HFpEF): (2) Acute hyponatremia: Plan 78-year-old gentleman with PMH of chronic diastolic heart failure on Lasix, HTN, TIIDM, presented (from [facility])and admitted on 04/02 for acute on chronic HFpEF exacerbation. He is being managed for the following: #Chronic illness #Ambulatory dysfunction -Given multiple comorbidities, will consult Palliative on Monday to discussed; patient seems eager to get "home" but unclear if he really understands the risk of a potential prompt return and ongoing prolonged hospitalizations without much improvement -Palliative consult to discuss understanding, poor outcomes, and next steps in patients care #Acute cystitis -GNB on culture -Transition to zosyn given increase WBC, deescalte as able -urine with increased amounts of "bacteria of all types", repeat #Acute hypoxic respiratory failure, likely multifactorial *improving #OHS -Iso heart failure exacerbation and OHS. Denies home O2 use. Nocturnal -Will likely require 2 step to assess for daytime need for oxygen prior to discharge -Cardiology and nephrology on board, managing diuresis. Currently on bumex gtt. -Continue with BiPAP HS and PRN. - Pulm evaled. D/w pulm - no role of bronchoscopy for LLL collapse, continue w/ positive airway pressure support. #Pericardial effusion repeat echo showing interval increase in pericardial effusion; s/p IV albumin to aid in transient increased oncotic pressure to help effusion Elevated ESR/CRP: started on prednisone 20mg completed -Repeat echo, unchanged large effusion Bumex 4mg q8h Discussions on going--?pericardicentesis v palliation? #Acute on chronic heart failure with preserved ejection fraction #HTN, relative hypotension - TTE (04/03/2023): LVEF 55-60%, - Home diuretics: Lasix 40mg qam Cardiology on consult and Nephrology on consult -Strict I's and O's, fluid restriction of 1500 mL/day, heart healthy diet, low- sodium diet -Aldactone held at 12.5mg daily -Holding ACEi/ARB at this time 2/2 hypotension -Given ongoing hypoxia and volume overload: continue IV Bumex pulse -Bumex pulse q 8 h #Acute urinary retention -c/f bladder outlet obstruction, c/f buried penis (congenital v acquired) per Urology -Nephrology also feels NOWAK likely given robust UOP -Urology on consult: camarena 1-2 weeks, OP follow up to be arranged, also on going efforts for diuresis -Continue tamsulosin -Discontinued oxybutynin -Likely will need camarena exchange on DC day. #Acute non-cardiac chest pain #Acute on chronic back pain *resolved -Tylenol prn, lidocaine patch to mid back -Pain on chest reproducible to touch -Continue home oxycodone regimen -Topical Myoflex #New onset atrial fibrillation History of wandering atrial pacemaker/complex ectopy given comorbidities remains in afib on telemetry-HR is controlled without rate control agents. Per cardiology recommend he transition to apixaban from Lovenox started on admission. Echo reveals EF 55-60%. -Continue Eliquis #PAD, chronic bilateral dusky discoloration -Continue ASA #Contraction alkalosis *improved #Hypervolemic Hyponatremia *resolved Baseline sodium appears around 137, admitting sodium of 119, likely hypervolemic hyponatremia. Patient with no headache or dizziness or orientation issues at presentation. -Maintain I's and O's, fluid restriction of 1500 mL a day. -Nephrology on consult, appreciate recommendations, managing diuresis. -held aldactone #Lower ext cellulitis *resolved #Skin tears - Pt treated with oral Augmentin which has been completed. He has lower extremities wounds on his anterior tibiae and his toes from a recent fall per his report. 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 Escamilla, denies constitutional symptoms, reportedly increased LDH and [id number] c/w comorbidities -LDH 215 (last LDH 275 12/2022) -CBC w/ diff and smear in am -Dr escamilla on schedule, consult to assess if symptoms related/stable, no recommendations #T2DM -diet controlled, a1c 6.2 on 03/31/23, lantus/novolog per protocol has been declined by patient several times. Will DC BSG checks and insulin at this time. Continue with outpatient follow- up. #Rheumatoid arthritis #Gout -Continue plaquenil 200mg daily -Continue colchicine 0.6mg bid -Prednisone burst completed #Depression Continue duloxetine DVT prophylaxis: apixaban PT/OT DNR/DNI Dispo: pending clearance from Cardio, Pulm, Nephro. Jose Carlos has signed off. Admission and Anticipated Discharge Date Admission Date: April 02, 2023 Subjective Tearful once more on exam given increased size of perfusion Denies any new concerns, but just general upset over situation and wishing to go home Physical Exam Constitutional: WD/WN, vitals as above Gastrointestinal (Abdomen): normal bowel sounds, soft, nontender, no hepatosplenomegaly Results & Data Results & Data Vital Signs (Past 12 Hours) Vital Signs Temp Pulse Resp BP BP Pulse Ox O2 Del Method 04/24/23 13:01 98/62 L 04/24/23 10:55 36.5 C 96 H 18 96/64 L 90 Nasal Cannula 04/24/23 08:00 Nasal Cannula 04/24/23 07:49 36.4 C L 95 H 19 99/69 L 93 Nasal Cannula 04/24/23 07:01 96 H 16 94 Nasal Cannula 04/24/23 03:19 36.5 C 73 20 102/64 96 CPAP O2 Flow Rate 04/24/23 13:01 04/24/23 10:55 4 04/24/23 08:00 4 04/24/23 07:49 4 04/24/23 07:01 4 04/24/23 03:19 Laboratory Results Short CBC 04/24/23 Range/Units 08:48 WBC 18.59 H (4.8-10.8) K/ul Hgb 12.8 L (14.0-18.0) g/dl Hct 39.6 L (42.0-52.0) % Plt Count 234 (130-400) K/uL BMP 04/24/23 08:48 Sodium 139 Potassium 3.5 Chloride 95 L Carbon Dioxide 36 H BUN 39 H Creatinine 1.04 Glucose 252 H Calcium 9.2 Urine 04/24/23 Range/Units 15:41 Urine Color Yellow Urine Appearance Clear (Clear) Urine pH 7.5 (4.5-7.5) Ur Specific [place] 1.013 (1.000-1.030) Urine Protein Negative (Negative) Urine Glucose (UA) Negative (Negative) Medications Administered Home Medications Medication Instructions Recorded Confirmed Last Taken acetaminophen 500 mg tablet 500 mg PO QAM 06/08/22 04/02/23 07/14/22 05:00 aspirin 81 mg chewable tablet 81 mg PO QAM 06/08/22 04/02/23 07/14/22 09:01 carboxymethylcellulose sodium 1 % 1 drp OPB QAM 06/08/22 04/02/23 07/14/22 09:01 eye gel in a dropperette (Refresh Celluvisc) cholecalciferol (vitamin D3) 50 2,000 unit PO QAM 06/08/22 04/02/23 07/15/22 09:01 mcg (2,000 unit) capsule ciprofloxacin HCl 0.3 % eye drops 1 drp OPR BID 06/08/22 04/02/23 07/14/22 17:00 colchicine 0.6 mg tablet 0.6 mg PO BID 06/08/22 04/02/23 07/15/22 09:01 duloxetine 20 mg capsule,delayed 20 mg PO 06/08/22 04/02/23 07/14/22 09:01 release febuxostat 80 mg tablet 80 mg PO [facility] 06/08/22 04/02/23 07/14/22 09:01 furosemide 40 mg tablet 40 mg PO [facility] 06/08/22 04/02/23 07/15/22 05:01 hydroxychloroquine 200 mg tablet 200 mg PO HS 06/08/22 04/02/23 07/14/22 09:01 oxybutynin chloride 5 mg tablet 5 mg PO [facility] 06/08/22 04/02/23 07/15/22 09:01 terbinafine HCl 1 % topical cream 1 applic topical DAILY 06/08/22 04/02/23 07/14/22 19:00 tramadol 50 mg tablet 50 mg PO TID 06/08/22 04/02/23 07/14/22 09:01 acetaminophen 325 mg tablet 325 mg PO QID PRN pain/fever 07/13/22 04/02/23 Unknown bisacodyl 10 mg rectal suppository 10 mg GA UD PRN Constipation 07/13/22 04/02/23 Unknown (Dulcolax (bisacodyl)) magnesium hydroxide 400 mg/5 mL 30 ml PO DAILY PRN Constipation 07/13/22 04/02/23 Unknown oral suspension (Milk of Magnesia) sodium phosphates 19 gram-7 118 ml GA DAILY PRN Constipation 07/13/22 04/02/23 Unknown gram/118 mL enema (Fleet Enema) spironolactone 25 mg tablet 12.5 mg PO QAM 07/13/22 04/02/23 07/15/22 09:01 (Aldactone) Active Medications Generic Name Dose Route Start Last Admin Trade Name Freq PRN Reason Stop Dose Admin Albuterol 2.5 mg 04/18/23 16:20 04/24/23 06:59 Albuterol 0.5% Neb Soln 2.5 Mg/0.5 Ml Vial NEB 05/18/23 18:59 2.5 mg Q6R PRN Administration sob/wheezing Protocol Apixaban 5 mg 04/03/23 10:15 04/24/23 08:47 Apixaban 5 Mg Tablet PO 05/03/23 10:14 5 mg BID MARTINE Administration Aspirin 81 mg 04/03/23 09:00 04/24/23 08:47 Aspirin 81 Mg Ectab PO 05/03/23 08:59 81 mg QAM MARTINE Administration Colchicine 0.6 mg 04/02/23 21:00 04/24/23 08:47 Colchicine 0.6 Mg Tab PO 05/02/23 20:59 0.6 mg BID MARTINE Administration Duloxetine HCl 20 mg 04/02/23 21:00 04/23/23 20:38 Duloxetine Hcl 20 Mg Cap PO 05/02/23 20:59 20 mg HS MARTINE Administration Hydroxychloroquine Sulfate 200 mg 04/02/23 21:00 04/23/23 20:38 Hydroxychloroquine Sulfate 200 Mg Tab PO 05/02/23 20:59 200 mg HS MARTINE Administration Bumetanide 2 mg/ Syringe 8 mls @ 4 mls/min 04/23/23 14:00 04/24/23 12:59 IV 05/23/23 13:59 4 mls/min Q8H MARTINE Administration Lidocaine 1 patch 04/06/23 15:30 04/24/23 08:47 Lidocaine 5% 1 Patch TD 05/06/23 15:29 1 patch QAM MARTINE Administration Magnesium Oxide 400 mg 04/03/23 10:00 04/24/23 08:47 Magnesium Oxide 400 Mg Tab PO 05/03/23 09:59 400 mg BID MARTINE Administration Melatonin 3 mg 04/21/23 22:10 04/21/23 22:59 Melatonin 3 Mg Tab PO 05/21/23 22:09 3 mg HS PRN Administration Sleep Miscellaneous 1 each 04/06/23 21:00 04/23/23 20:40 Remove Lidoderm Patch N/A 05/06/23 20:59 1 each DAILY@2100 MARTINE Administration Polyethylene Glycol 17 gm 04/02/23 20:27 04/10/23 09:10 Polyethylene (Miralax) 17 Gm Pack PO 05/02/23 20:26 17 gm DAILY PRN Administration Constipation Potassium Chloride 40 meq 04/24/23 14:00 04/24/23 13:00 Potassium Chloride Crtab 20 Meq Tabcr PO 05/24/23 13:59 40 meq TID MARTINE Administration Sodium Chloride 4 ml 04/18/23 19:00 04/24/23 06:59 Sodium Chlor 7% 4 Ml Neb NEB 05/18/23 18:59 4 ml BIDR MARTINE Administration Terbinafine HCl 1 appln 04/03/23 09:00 04/24/23 08:47 Terbinafine Cr 30 Gm Tube EXT 05/03/23 08:59 1 appln DAILY MARTINE Administration Trolamine Salicylate 1 appln 04/08/23 10:50 04/21/23 08:42 Trolamine Salicylate 10% Crm 255 Appln/85 Gm Tube EXT 05/08/23 10:49 1 appln Q6H PRN Administration Pain Vitamin D 2,000 units 04/03/23 09:00 04/24/23 08:47 Cholecalciferol 1,000 Units 25 Mcg Tab PO 05/03/23 08:59 2,000 units QAM MARTINE Administration
--- NOTE | 2023-04-24 14:40 | Cardiology Progress Note ---
Date of Service April 24, 2023 Assessment & Plan (1) Pericardial effusion: (2) Acute on chronic heart failure with preserved ejection fraction (HFpEF): (3) Atrial fibrillation with controlled ventricular rate: Plan * Repeat echocardiogram demonstrating large pericardial effusion unchanged from prior study. No evidence of tamponade physiology, however, I am concerned regarding the gradual progression of pericardial volume over the past 3 weeks. Images reviewed with interventional cardiology, patient is candidate for pericardiocentesis with temporary drain placement. Will discuss further with patient to determine whether agreeable to proceed with pericardiocentesis. He understands this would require with holding apixaban for 24 hours and at least an additional 24 to 48 hours of hospitalization post procedure. * IV bumex infusion transition to pulse dose bumex 04/22/2023 * supplement potassium * spironolactone on hold per nephrology * Hold Eliquis today in anticipation of pericardiocentesis. Admission and Anticipated Discharge Date Admission Date: April 02, 2023 Subjective Patient seen and examined at the bedside. Lying supine without shortness of breath. Repeat limited echocardiogram demonstrates large pericardial effusion without tamponade. Unchanged compared to most recent echocardiogram, however, over the past 3 weeks the effusion has gradually increased in size from small to large. Review of Systems Review of Systems: All systems reviewed & are unremarkable except as noted in Subjective Physical Exam Constitutional: well nourished and + morbidly obese; no acute distress Respiratory: no respiratory distress and no labored breathing Auscultation: + diminished lung sounds (Bases bilateral); no rhonchi and no wheezes Cardiovascular: Rate/Rhythm: + irregularly irregular Heart Sounds: normal S1 and normal S2; no murmur Extremities: no edema (+ Stasis changes) Gastrointestinal (Abdomen): Inspection/Auscultation: normal bowel sounds; abd omen not distended Percussion/Palpation: abdomen soft; abdomen nontender, no guarding and abdomen not rigid Results & Data Vital Signs (Past 12 Hours) Vital Signs Temp Pulse Resp BP BP Pulse Ox O2 Del Method 04/24/23 13:01 98/62 L 04/24/23 10:55 36.5 C 96 H 18 96/64 L 90 Nasal Cannula 04/24/23 08:00 Nasal Cannula 04/24/23 07:49 36.4 C L 95 H 19 99/69 L 93 Nasal Cannula 04/24/23 07:01 96 H 16 94 Nasal Cannula 04/24/23 03:19 36.5 C 73 20 102/64 96 CPAP O2 Flow Rate 04/24/23 13:01 04/24/23 10:55 4 04/24/23 08:00 4 04/24/23 07:49 4 04/24/23 07:01 4 04/24/23 03:19 Laboratory Results CBC 04/24/23 Range/Units 08:48 WBC 18.59 H (4.8-10.8) K/ul RBC 4.10 L (4.70-6.10) M/uL Hgb 12.8 L (14.0-18.0) g/dl Hct 39.6 L (42.0-52.0) % Plt Count 234 (130-400) K/uL Comprehensive Metabolic Panel 04/24/23 Range/Units 08:48 Sodium 139 (136-145) mmol/L Potassium 3.5 (3.5-5.1) mmol/L Chloride 95 L (98-107) mmol/L Carbon Dioxide 36 H (21-32) mmol/L BUN 39 H (6-23) mg/dl Creatinine 1.04 (0.6-1.4) mg/dl Glucose 252 H (70-99(Fasting)) mg/dl Calcium 9.2 (8.6-10.3) mg/dl Intake and Output 04/23/23 04/24/23 04/24/23 22:59 06:59 14:59 Intake Total 1719 Output Total 182 / 7 450 / 2277 976 / 976 Balance -105 / -257 -150 / -257 -976 / -976 Intake: Oral 1719 Output: Urine Amount (Catheter) 1824 450 / 2275 975 / 975 [place]urtado/Indwelling [id number] 450 / 2275 975 / 975 # Bowel Movements Other: Weight 138.4 kg Weight Measurement Method Built in [facility]
[2023-04-24] MEDS ORDERED: PIPER/TAZO 4.5g in D5W MINI-B 100 ML IV ONE (15:00)
--- NOTE | 2023-04-24 15:06 | Palliative Care Consultation ---
Date of Consultation April 24, 2023 Assessment & Plan (1) Dyspnea and respiratory abnormalities: (2) Weakness generalized: (3) Advanced care planning/counseling discussion: Tyler states he wants the fluid removed from around his heart. He feels that this is a straightforward procedure that can be done quickly and allow him to return to [facility]. I attempted to discuss the potential risks and complications for him in a more long-term manner and he was very surprised to hear that there were any other concerns or issues. He then became agitated and tearful. He repeatedly stated that he just wants to go back to [facility] because the care is better for him there and he feels that his caregivers are like family. He does not have any family in the area. He has a sister who he states lives in [place]. He has not been able to reach her. He states that he is not afraid of dying. He states "I have a good relationship with the Lord and I know where I am going. When it is time for me to go when he calls, I am ready to go." He reaffirms his CODE STATUS of DNR/DNI. We discussed the potential of adding hospice to his care when he returns to the skilled nursing with a transition to focus on comfort and avoid return trips to the hospital. He stated he is not ready for hospice and did not wish to discuss that further. This [id number] ACP discussion was held over 45 minutes at the bedside with the patient. (4) Obesity hypoventilation syndrome: (5) Palliative care by specialist: Met with pt. Provided overview of Palliative Medicine, a subspecialty that provides specialized medical care for people living with a serious illness by offering a focus on quality of life. Palliative Medicine is often conflated with hospice: I advised patient/family that Palliative and hospice can be partners but we are not the same. It is important to understand the difference so that we may be informed, and not afraid. Palliative Medicine works to improve QOL through reduction of symptom burden/more control over their illness, for both the patient and family. Palliative medicine clinicians are board certified, specially-trained and another member of the patient's medical care team. We often provide an extra layer of support because our care is based on the needs of the patient, not the prognosis; as such, it's appropriate at any age/advancing stage of a serious illness and can be provided along with curative treatment. Palliative Medicine clinicians are also trained in advanced communication methodologies, to facilitate complex discussions about advanced illness planning, which are needed to help assure that the treatment choices match the patient's goals, aka delivering Goal Concordant care. Finally, we discussed that hospice is a visiting nurse service that focuses on care delivered at the very end of life for patients with terminal illness, with life expectancy less than 6 month. (6) Pericardial effusion: (7) Acute on chronic heart failure with preserved ejection fraction (HFpEF): (8) Obesity: Obesity type: due to excess calories Obesity classification: adult class 3 (BMI >= 40) Serious obesity comorbidity presence: with serious comorbidity Body mass index: BMI 45.0-49.9 Qualified Code(s): E66.01 - Morbid (severe) obesity due to excess calories; Z68.42 - Body mass index [BMI] 45.0- 49.9, adult Plan * ACP discussion as outlined above. * He is not ready to accept the addition of hospice to his care at the skilled nursing although he also does not wish to spend any unnecessary time in the hospital. * He would like his pericardial effusion addressed and is willing to undergo any procedure that is offered to help improve this. * Palliative medicine was consulted to assist with clarifying and delineating the goals of care, which have been outlined above in the ACP conversation. At this time I will sign off. Please do not hesitate to call or page me to reengage during this admission for any new or urgent inpatient palliative medicine needs. I have updated nursing and the primary medicine team. Thank you for allowing us to participate in the ongoing care of this patient. Please don't hesitate to call or page with any additional concerns. Dr. Barb Moreno DNP Director, Palliative Care History of Present Illness Reason for Consultation: [facility] Attending Physician: Perla Medina MD History of Present Illness Tyler is an 78yo male admitted 04/02/23 for acute on chronic heart failure with preserved ejection fraction (HFpEF) and acute hyponatremia. He came from [facility] where he has lived for past 6+ years with hx chronic diastolic heart failure on Lasix. He came with CC of worsening shortness of breath since last few days. He is being managed for a large pericardial effusion. Cardiology notes: "Repeat echocardiogram demonstrating large pericardial effusion unchanged from prior study. No evidence of tamponade physiology, however, I am concerned regarding the gradual progression of pericardial volume over the past 3 weeks. Images reviewed with interventional cardiology, patient is candidate for pericardiocentesis with temporary drain placement." pt has some limited cognition. he is lying supine in bed, denies chest pain. some tightness and dyspnea agitated easily and sometimes tearful repeatedly states he does not understand why we can not remove the fluid around his heart and let him go back to [facility] bc he hates it here and "the care is not as good as it is for me at [facility]." Allergies Allergy/AdvReac Type Severity Reaction Status Date / Time No Known Allergies Allergy Verified 07/13/22 10:03 Home Medications Medication Instructions Recorded Confirmed Type acetaminophen 500 mg tablet 500 mg PO QAM 06/08/22 04/02/23 History aspirin 81 mg chewable tablet 81 mg PO QAM 06/08/22 04/02/23 History carboxymethylcellulose sodium 1 % 1 drp OPB QAM 06/08/22 04/02/23 History eye gel in a dropperette (Refresh Celluvisc) cholecalciferol (vitamin D3) 50 2,000 unit PO QAM 06/08/22 04/02/23 History mcg (2,000 unit) capsule ciprofloxacin HCl 0.3 % eye drops 1 drp OPR BID 06/08/22 04/02/23 History colchicine 0.6 mg tablet 0.6 mg PO BID 06/08/22 04/02/23 History duloxetine 20 mg capsule,delayed 20 mg PO HS 06/08/22 04/02/23 History release febuxostat 80 mg tablet 80 mg PO QAM 06/08/22 04/02/23 History furosemide 40 mg tablet 40 mg PO QAM 06/08/22 04/02/23 History hydroxychloroquine 200 mg tablet 200 mg PO HS 06/08/22 04/02/23 History oxybutynin chloride 5 mg tablet 5 mg PO QAM 06/08/22 04/02/23 History terbinafine HCl 1 % topical cream 1 applic topical DAILY 06/08/22 04/02/23 History tramadol 50 mg tablet 50 mg PO TID 06/08/22 04/02/23 History acetaminophen 325 mg tablet 325 mg PO QID PRN pain/fever 07/13/22 04/02/23 History bisacodyl 10 mg rectal suppository 10 mg VT UD PRN Constipation 07/13/22 04/02/23 History (Dulcolax (bisacodyl)) magnesium hydroxide 400 mg/5 mL 30 ml PO DAILY PRN Constipation 07/13/22 04/02/23 History oral suspension (Milk of Magnesia) sodium phosphates 19 gram-7 118 ml VT DAILY PRN Constipation 07/13/22 04/02/23 History gram/118 mL enema (Fleet Enema) spironolactone 25 mg tablet 12.5 mg PO QAM 07/13/22 04/02/23 History (Aldactone) Patient History Medical History (Updated 04/24/23 @ 19:47 by Barb Moreno, CARRIE) B-cell lymphoma Atherosclerotic heart disease of [place] coronary artery without angina pectoris Vitamin D deficiency Constipation Dry eye syndrome SCC (squamous cell carcinoma), arm rt upper limb and shoulder Chronic pain Xerosis cutis Candidiasis of skin and nail Unspecified exotropia Disc displacement, lumbar Abnormality of gait and mobility Repeated falls 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, limited to breakdown of skin Polyosteoarthritis Gout Choledocholithiasis Amputation of thumb Elevated CA 19-9 level MRSA colonization Hx of nonmelanoma skin cancer Umbilical hernia Exotropia, right eye Rheumatoid arthritis SCC (squamous cell carcinoma), scalp/neck Squamous cell cancer of skin of right forearm Actinic keratosis HNP (herniated nucleus pulposus), lumbar Generalized OA Chronic cholecystitis Fatty liver Morbid obesity Venous insufficiency of both lower extremities HTN (hypertension) Atrial flutter Atherosclerosis of [place] artery of extremity with ulceration of other part of foot CHF (congestive heart failure) LARISA (obstructive sleep apnea) CPAP DMII (diabetes mellitus, type 2) Surgical History S/P appy H/O eye surgery LAser surgery of inner left eye strands, Dr. Nolasco, 05/18/2017 History of ERCP 02/16/2022 Family History Mother Coronary heart disease Father Arthritis Social History Smoking Status: Never smoker Second Hand Exposure: No; Do You Dip or Chew Tobacco: No; Hx Alcohol Use: No Hx Substance Use: No Preferred Language: [place] Communication Ability: Effective Club Attendant Required: No Beliefs That Will Affect Care: None Current Living Situation: Intermediate Current Living Situation Comment: [facility] Other Information That Helps Us Care for You: No Feels Safe at Home: Yes Safety Concerns: Feels Safe At This Time Assistive Devices: Glasses and Mechanical Lift Review of Systems Review of Systems: All systems reviewed & are unremarkable except as noted in Subjective Physical Exam Physical Exam: Obese elderly male, lying supine in bed. Somewhat agitated. Briefly states he just wants to go back to his skilled nursing. Skin is pale and cool. There is significant dyspnea noted with prolonged conversation. He has some tightness in his chest but denies any pain or pressure. Generalized bilateral lower edema noted. There are some very mild bitemporal wasting. He has a short thick neck/pickwickian/consistent with OHS habitus. Lung sounds diminished on a limited anterior exam. Patient is unable to turn to his side to allow posterior lung exam. Generalized weakness. He is awake and alert to self and place. Less sure about time. Easily off topic, tangential and unable to to follow a more complex discussion. Results & Data Vital Signs (Past 12 Hours) Vital Signs Temp Pulse Resp BP BP Pulse Ox O2 Del Method 04/24/23 13:01 98/62 L 04/24/23 10:55 36.5 C 96 H 18 96/64 L 90 Nasal Cannula 04/24/23 08:00 Nasal Cannula 04/24/23 07:49 36.4 C L 95 H 19 99/69 L 93 Nasal Cannula 04/24/23 07:01 96 H 16 94 Nasal Cannula 04/24/23 03:19 36.5 C 73 20 102/64 96 CPAP O2 Flow Rate 04/24/23 13:01 04/24/23 10:55 4 04/24/23 08:00 4 04/24/23 07:49 4 04/24/23 07:01 4 04/24/23 03:19 Laboratory Results Data reviewed Diagnostic Findings Data reviewed PG Care Time/CCT Total # of Minutes Spent Total Time Spent: 105 Total Time Spent with Patient: Total time spent is greater than 50% in coordination of care (as documented) at patient's floor/unit and/or counseling patient: I spent 105 minutes overall addressing this case: 15 min in medical data review/discussion with referring provider(s) and/or preparation for the visit 15 min in direct interaction with the patient/exam 45 min in Advance Care Planning/Goals of Care discussions as detailed above in note (must be >16min) 15 min in subsequent review and synthesis of assessment and plan 15 min communicating with other providers regarding the patient's case: Advanced Care Planning 48585 Advanced Care Planning 30 Min 20029 Advanced Care Planning Additional 30 [place] [address] IN/OBS CONSULT LVL 5,80M Patient Type New History Comprehensive Exam Comprehensive Medical Decision Making High Complexity Diagnoses Dyspnea and respiratory abnormalities R06.00; R06.89 Weakness generalized R53.1 Advanced care planning/counseling discussion Z71.89 Obesity hypoventilation syndrome E66.2 Palliative care by specialist Z51.5 Pericardial effusion I31.39 Acute on chronic heart failure with preserved ejection fraction (HFpEF) I50.33 Class 3 severe obesity due to excess calories with serious comorbidity and body mass index (BMI) of 45.0 to 49.9 in adult E66.01; Z68.42 Obesity type: due to excess calories Obesity classification: adult class 3 (BMI >= 40) Serious obesity comorbidity presence: with serious comorbidity Body mass index: BMI 45.0-49.9 Additional Codes Advanced Care Planning - 59390 Advanced Care Planning 30 Min: 95334 Advanced Care Planning 30 Min ([id number]) Advanced Care Planning - 75823 Advanced Care Planning Additional 30 Min: 57829 Advanced Care Planning Additional 30 Min ([id number])
[2023-04-24 15:59] LABS: Appearance Urine Clear (Clear); Bacteria Urine Automated Negative (Negative); Bilirubin Urine Negative (Negative); Blood Urine 1+ (Negative); Color Urine Yellow; Epithelial Cell Urine Auto 0-5 /lpf (0-5); Glucose Urine UA Negative (Negative); Ketones Urine Negative (Negative); Leukocyte Esterase Urine 3+ (Negative); Nitrite Urine Negative (Negative); Protein Urine Negative (Negative); Specific Gravity Urine 1.013 (1.000-1.030); Urobilinogen Urine Negative (Negative); WBC Urine Automated >30 /hpf (0-5); pH Urine 7.5 (4.5-7.5)
[2023-04-24] MEDS: DULoxetine HCL 20 MG CAP PO SCH (20:06)
[2023-04-24] MEDS: HYDROXYCHLOROQUINE SULFATE 200 MG TAB PO SCH (20:06)
[2023-04-24] MEDS: PIPER/TAZO 4.5g in D5W MINI-B 100 ML IV SCH (20:07)
[2023-04-25] MEDS: BUMETANIDE 2 MG in SYRINGE 0 ML IV SCH ×3 (05:43→20:48)
[2023-04-25] MEDS: PIPER/TAZO 4.5g in D5W MINI-B 100 ML IV SCH ×3 (05:43→20:49)
[2023-04-25 07:14] LABS: Hematocrit (blood only) 38.5 % (42.0-52.0); Hemoglobin 12.5 g/dl (14.0-18.0); Mean Corpuscular Hemoglobin 31.1 pg (25.0-34.0); Mean Corpuscular Hgb Conc 32.5 g/dL (32.0-36.0); Mean Corpuscular Volume 95.8 fL (80.0-100.0); Mean Platelet Volume 9.8 fL (9.4-12.4); Platelet Count 223 K/uL (130-400); RDW Coefficient of Variation 16.7 % (11.5-14.5); RDW Standard Deviation 58.6 fL (36.4-46.3); Red Blood Count 4.02 M/uL (4.70-6.10)
[2023-04-25] MEDS: SODIUM CHLOR 7% 4 ML NEB NEB SCH ×2 (07:28→20:17)
[2023-04-25 07:30] LABS: BUN Creatinine Ratio 35.9 (10-20); Calcium 8.7 mg/dl (8.6-10.3); Creatinine Clr Calc Pharmacy 82.9 ml/min; Est GFR (African American) 79.1 ml/min; Est GFR (Non-African American) 68.3 ml/min; Magnesium 2.3 mg/dl (1.7-2.4); Phosphorus 3.4 mg/dl (2.5-4.9); Potassium 3.6 mmol/L (3.5-5.1)
[2023-04-25] MEDS: MAGNESIUM OXIDE 400 MG TAB PO SCH ×2 (08:56→20:45)
[2023-04-25] MEDS: CHOLECALCIFEROL 1,000 UNITS 25 MCG TAB PO SCH (08:56)
[2023-04-25] MEDS: ASPIRIN 81 MG ECTAB PO SCH (08:56)
[2023-04-25] MEDS: COLCHICINE 0.6 MG TAB PO SCH ×2 (08:56→20:47)
[2023-04-25] MEDS: POTASSIUM CHLORIDE CRTAB 20 MEQ TABCR PO SCH ×3 (08:57→20:47)
[2023-04-25] MEDS: LIDOCAINE 5% 1 PATCH TD SCH (08:57)
[2023-04-25] MEDS: TERBINAFINE CR 30 GM TUBE EXT SCH (08:57)
[2023-04-25] MEDS ORDERED: POTASSIUM CHLORIDE CRTAB 20 MEQ TABCR PO ONE (11:51)
--- NOTE | 2023-04-25 11:51 | Nephrology Progress Note ---
Date of Service April 25, 2023 Assessment & Plan (1) Acute on chronic heart failure with preserved ejection fraction (HFpEF): Plan: Ongoing significant volume OL; diuresis has been limited by unacceptable bicarb levels and c/b large pericardial effusion > Has responded well to bumex IV 2 mg q 8h > further increased K supplement dosing to 60 mEq tid w/ goal K 4 -cont colchicine No spironolactone for now. We will hold off on the EZEQUIEL and ARB. (2) Hyponatremia: Plan: resolved hypervolemic hyponatremia with serum sodium of 119 on presentation in the setting of acute congestive heart failure. Sodium remains at 139 today. will continue FR and diuretics (3) Mixed acid base balance disorder: Plan: in general w/ his extreme metabolic alkalosis after 46L (per I/O cumulative ) negativity w/ diuresis this admission, in general at extremes of acid base balance ABG is more accepted/accurate than VBG. on hs bipap. combined metabolic alkalosis in setting of HF and diuresis along w/ appropriate respiratory compensation -Continue bumex IV w/ careful repletion neyda of K Admission and Anticipated Discharge Date Admission Date: April 02, 2023 Subjective persistent, large pericardial effusion > for consideration of pericardiocentesis to which after d/w palliative he agrees > for procedure 04/26; denies worse sob Review of Systems 2 Review of Systems: All systems reviewed & are unremarkable except as noted in Subjective Physical Exam 2 Constitutional: well developed, well nourished, + morbidly obese, + frail appearing and cooperative; no acute distress Eyes: EOM intact bilaterally ENMT: Ears: no external ear abnormality Nose: no external nose abnormality Mouth: + dry oral mucous membranes Neck: no nuchal rigidity Respiratory: normal respiratory effort (on 02NC), + labored breathing (slight), + tachypneic and + paradoxical thoraco-abdominal movement A uscultation: + diminished lung sounds Cardiovascular: Rate/Rhythm: + irregularly irregular Extremities: + edema (not peripheral but trace dependent and minimal ant abd wall) Gastrointestinal (Abdomen): Inspection/Auscultation: normal bowel sounds P ercussion/Palpation: abdomen soft; abdomen nontender Musculoskeletal: Extremities: + abnormal strength Skin: no rashes, warm and dry (BL yepez and toe wounds) Psychiatric: Orientation: alert, oriented to person and oriented to place I nsight: + limited insight Results & Data Vital Signs (Past 12 Hours) Vital Signs Temp Pulse Pulse Resp BP Pulse Ox O2 Del Method 04/25/23 08:00 Nasal Cannula 04/25/23 07:00 36.9 C 98 H 18 120/66 96 Nasal Cannula, CPAP 04/25/23 03:10 93 H 25 H 94 04/25/23 02:21 36.7 C 94 H 20 116/79 94 BiPAP O2 Flow Rate 04/25/23 08:00 2 04/25/23 07:00 2 04/25/23 03:10 4 04/25/23 02:21 3 Laboratory Results 04/25/23 06:24 04/25/23 06:24
--- NOTE | 2023-04-25 13:39 | Cardiology Progress Note ---
Date of Service April 25, 2023 Assessment & Plan (1) Pericardial effusion: (2) Acute on chronic heart failure with preserved ejection fraction (HFpEF): (3) Atrial fibrillation with controlled ventricular rate: Plan * Echocardiogram 04/24/2023 demonstrating large pericardial effusion without tamponade unchanged from prior study. No improvement with addition of corticosteroids and colchicine. Concern regarding gradual progression of pericardial volume over the past 3 weeks. Images reviewed with interventional cardiology, patient is candidate for pericardiocentesis with temporary drain placement. Procedure scheduled 04/26/[address] Pinto. * N.p.o. except medications after midnight. Hold Eliquis. * IV bumex infusion transition to pulse dose bumex 04/22/2023 * supplement potassium * spironolactone on hold per nephrology Admission and Anticipated Discharge Date Admission Date: April 02, 2023 Subjective Patient seen examined at the bedside. Lying supine. Denies chest pain or shortness of breath at rest. Telemetry reveals atrial fibrillation in the 90s. Eliquis on hold since yesterday. Voices desire to return home as soon as possible. Offers no other concerns/complaints. Review of Systems Review of Systems: All systems reviewed & are unremarkable except as noted in Subjective Physical Exam Constitutional: well nourished and + morbidly obese; no acute distress Respiratory: no respiratory distress and no labored breathing Auscultation: + diminished lung sounds (Bases bilateral); no rhonchi and no wheezes Cardiovascular: Rate/Rhythm: + irregularly irregular Heart Sounds: normal S1 and normal S2; no murmur Extremities: no edema (+ Stasis changes) Gastrointestinal (Abdomen): Inspection/Auscultation: normal bowel sounds; abdomen not distended Percussion/Palpation: abdomen soft; abdomen nontender, no guarding and abdomen not rigid Neurologic: CN's II-XI intact bilaterally and moves all extremities Psychiatric: A+Ox3, euthymic affect Results & Data Vital Signs (Past 12 Hours) Vital Signs Temp Pulse Pulse Resp BP Pulse Ox O2 Del Method 04/25/23 11:00 36.8 C 97 H 20 118/67 95 Nasal Cannula 04/25/23 08:00 Nasal Cannula 04/25/23 07:00 36.9 C 98 H 18 120/66 96 Nasal Cannula, CPAP 04/25/23 03:10 93 H 25 H 94 04/25/23 02:21 36.7 C 94 H 20 116/79 94 BiPAP O2 Flow Rate 04/25/23 11:00 2 04/25/23 08:00 2 04/25/23 07:00 2 04/25/23 03:10 4 04/25/23 02:21 3 Laboratory Results CBC 04/25/23 Range/Units 06:24 WBC 16.60 H (4.8-10.8) K/ul RBC 4.02 L (4.70-6.10) M/uL Hgb 12.5 L (14.0-18.0) g/dl Hct 38.5 L (42.0-52.0) % Plt Count 223 (130-400) K/uL Comprehensive Metabolic Panel 04/25/23 Range/Units 06:24 Sodium 140 (136-145) mmol/L Potassium 3.6 (3.5-5.1) mmol/L Chloride 98 (98-107) mmol/L Carbon Dioxide 36 H (21-32) mmol/L BUN 37 H (6-23) mg/dl Creatinine 1.03 (0.6-1.4) mg/dl Glucose 184 H (70-99(Fasting)) mg/dl Calcium 8.7 (8.6-10.3) mg/dl Intake and Output 04/24/23 04/25/23 04/25/23 22:59 06:59 14:59 Intake Total 500 / 700 200 / 700 100 / 100 Output Total 999 / 2725 750 / 2725 Balance -500 / -2025 -550 / -2025 100 / 100 Intake: IV 100 / 200 100 / 200 100 / 100 Piperacillin/Tazobactam 4.5 gm 100 / 200 100 / 200 100 / 100 In Dextrose 5% Mini-B 100 ml @ 25 mls/hr IV Q8H [facility] Rx#: [id number] Oral 400 / 500 100 / 500 Output: Urine Amount (Catheter) 999 750 / 2724 Hurtado/Indwelling 999 750 / 2724 Other: Weight 138.4 kg 139.7 kg Weight Measurement Method Built in [facility]
--- NOTE | 2023-04-25 14:43 | Hospitalist Progress Note ---
Date of Service April 25, 2023 Assessment & Plan (1) Acute on chronic heart failure with preserved ejection fraction (HFpEF): (2) Acute hyponatremia: Plan Mr Cruz is an 78-year-old gentleman with PMH of chronic diastolic heart failure on Lasix, HTN, TIIDM, presented (from [facility])and admitted on 04/02 for acute on chronic HFpEF exacerbation. His course has been complicated by difficult fluid status, acute hypoxic respiratory failure, and progressive pericardial effusion. Given history of RA, patient was trialed on a 5 day prednisone burst in hopes to aid in resolution of effusion. Repeat ECHO on 04/24 revealed that effusion seems to have progressed, however, without tamponade physiology at this time. After discussion with Cardiology and Palliative care, patient determined he would like to trial pericardiocentesis. communication with Cardiology determined that patient will likely undergo pericardiocentesis tomorrow (04/26) with Dr Pinto. #Chronic illness #Ambulatory dysfunction -Given multiple comorbidities, will consult Palliative on Monday to discussed; patient seems eager to get "home" but unclear if he really understands the risk of a potential prompt return and ongoing prolonged hospitalizations without much improvement -Palliative consult to discuss understanding, poor outcomes, and next steps in patients care -discussion with PC revealed goal is to "go home" but patient is not opposed to trying measures that may prevent his return or delay acute decline (ex tamponade) #Abnormal UA -GNB on culture -Transition to zosyn given increase WBC, deescalate as able -urine with increased amounts of "bacteria of all types", repeat 04/24 similar #Acute hypoxic respiratory failure, likely multifactorial *improving #OHS -Iso heart failure exacerbation and OHS. Denies home O2 use. Nocturnal -Will likely require 2 step to assess for daytime need for oxygen prior to discharge -Cardiology and nephrology on board, managing diuresis. Currently on bumex gtt. -Continue with BiPAP HS and PRN. - Pulm evaled. D/w pulm - no role of bronchoscopy for LLL collapse, continue w/ positive airway pressure support. -Titrate oxygen as able, continue with bumex pulse q8h #Pericardial effusion repeat echo showing interval increase in pericardial effusion; s/p IV albumin to aid in transient increased oncotic pressure to help effusion Elevated ESR/CRP: started on prednisone 20mg completed -Repeat echo, unchanged large effusion Bumex 4mg q8h Discussions on going--final plan per cardiology note and discussion--Pericardiocentesis 04/26 #Acute on chronic heart failure with preserved ejection fraction #HTN, relative hypotension - TTE (04/03/2023): LVEF 55-60%, - Home diuretics: Lasix 40mg qam Cardiology on consult and Nephrology on consult -Strict I's and O's, fluid restriction of 1500 mL/day, heart healthy diet, low- sodium diet -Aldactone held at 12.5mg daily -Holding ACEi/ARB at this time 2/2 hypotension -Given ongoing hypoxia and volume overload: continue IV Bumex pulse -Bumex pulse q 8 h #Acute urinary retention -c/f bladder outlet obstruction, c/f buried penis (congenital v acquired) per Urology -Nephrology also feels NOWAK likely given robust UOP -Urology on consult: camarena 1-2 weeks, OP follow up to be arranged, also on going efforts for diuresis -Continue tamsulosin -Discontinued oxybutynin -Likely will need camarena exchange on day. #Acute non-cardiac chest pain #Acute on chronic back pain *resolved -Tylenol prn, lidocaine patch to mid back -Pain on chest reproducible to touch -Continue home oxycodone regimen -Topical Myoflex #New onset atrial fibrillation History of wandering atrial pacemaker/complex ectopy given comorbidities remains in afib on telemetry-HR is controlled without rate control agents. Per cardiology recommend he transition to apixaban from Lovenox started on admission. Echo reveals EF 55-60%. -Eliquis on hold as of 04/24 #PAD, chronic bilateral dusky discoloration -Continue ASA #Contraction alkalosis *improved #Hypervolemic Hyponatremia *resolved Baseline sodium appears around 137, admitting sodium of 119, likely hypervolemic hyponatremia. Patient with no headache or dizziness or orientation issues at presentation. -Maintain I's and O's, fluid restriction of 1500 mL a day. -Nephrology on consult, appreciate recommendations, managing diuresis. -held aldactone #Lower ext cellulitis *resolved #Skin tears - Pt treated with oral Augmentin which has been completed. He has lower extremities wounds on his anterior tibiae and his toes from a recent fall per his report. 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 Escamilla, denies constitutional symptoms, reportedly increased LDH and [id number] c/w comorbidities -LDH 215 (last LDH 275 12/2022) -CBC w/ diff and smear in am -Dr escamilla on schedule, consult to assess if symptoms related/stable, no recommendations -Empiric Zosyn, no clear source, consider trial of discontinuation if no downtrend v addition of vanc, patient remains stable #T2DM -diet controlled, a1c 6.2 on 03/31/23, lantus/novolog per protocol has been declined by patient several times. Will DC BSG checks and insulin at this time. Continue with outpatient follow-up . #Rheumatoid arthritis #Gout -Continue plaquenil 200mg daily -Continue colchicine 0.6mg bid -Prednisone burst completed #Depression Continue duloxetine DVT prophylaxis: apixaban (held on 04/24 due to pending procedure) PT/OT DNR/DNI Dispo: pending clearance from Cardio, Pulm, Nephro. Pulm has signed off. Admission and Anticipated Discharge Date Admission Date: April 02, 2023 Subjective NAEO Patient seems to be in agreement with pericardicentesis in hopes that it doesn't return, but seems to verbalize understanding that it may return to some degree, if not entirely/worse Requests that he wants to return home and with some improvement if able Physical Exam Constitutional: WD/WN, vitals as above Respiratory: difficult to assess given habitus Cardiovascular: irregularly irregular Results & Data Results & Data Vital Signs (Past 12 Hours) Vital Signs Temp Pulse Pulse Resp BP Pulse Ox O2 Del Method 04/25/23 11:00 36.8 C 97 H 20 118/67 95 Nasal Cannula 04/25/23 08:00 Nasal Cannula 04/25/23 07:00 36.9 C 98 H 18 120/66 96 Nasal Cannula, CPAP 04/25/23 03:10 93 H 25 H 94 O2 Flow Rate 04/25/23 11:00 2 04/25/23 08:00 2 04/25/23 07:00 2 04/25/23 03:10 4 Laboratory Results Short CBC 04/25/23 Range/Units 06:24 WBC 16.60 H (4.8-10.8) K/ul Hgb 12.5 L (14.0-18.0) g/dl Hct 38.5 L (42.0-52.0) % Plt Count 223 (130-400) K/uL BMP 04/25/23 06:24 Sodium 140 Potassium 3.6 Chloride 98 Carbon Dioxide 36 H BUN 37 H Creatinine 1.03 Glucose 184 H Calcium 8.7 Urine 04/24/23 Range/Units 15:41 Urine Color Yellow Urine Appearance Clear (Clear) Urine pH 7.5 (4.5-7.5) Ur Specific Barre 1.013 (1.000-1.030) Urine Protein Negative (Negative) Urine Glucose (UA) Negative (Negative) Medications Administered Home Medications Medication Instructions Recorded Confirmed Last Taken acetaminophen 500 mg tablet 500 mg PO [facility] 06/08/22 04/02/23 07/14/22 05:00 aspirin 81 mg chewable tablet 81 mg PO [facility] 06/08/22 04/02/23 07/14/22 09:01 carboxymethylcellulose sodium 1 % 1 drp OPB [facility] 06/08/22 04/02/23 07/14/22 09:01 eye gel in a dropperette (Refresh Celluvisc) cholecalciferol (vitamin D3) 50 2,000 unit PO [facility] 06/08/22 04/02/23 07/15/22 09:01 mcg (2,000 unit) capsule ciprofloxacin HCl 0.3 % eye drops 1 drp [facility] BID 06/08/22 04/02/23 07/14/22 17:00 colchicine 0.6 mg tablet 0.6 mg PO BID 06/08/22 04/02/23 07/15/22 09:01 duloxetine 20 mg capsule,delayed 20 mg PO 06/08/22 04/02/23 07/14/22 09:01 release febuxostat 80 mg tablet 80 mg PO [facility] 06/08/22 04/02/23 07/14/22 09:01 furosemide 40 mg tablet 40 mg PO [facility] 06/08/22 04/02/23 07/15/22 05:01 hydroxychloroquine 200 mg tablet 200 mg PO 01/04/2004/02/23 07/14/22 09:01 oxybutynin chloride 5 mg tablet 5 mg PO QAM 06/08/22 04/02/23 07/15/22 09:01 terbinafine HCl 1 % topical cream 1 applic topical DAILY 06/08/22 04/02/23 07/14/22 19:00 tramadol 50 mg tablet 50 mg PO TID 06/08/22 04/02/23 07/14/22 09:01 acetaminophen 325 mg tablet 325 mg PO QID PRN pain/fever 07/13/22 04/02/23 Unknown bisacodyl 10 mg rectal suppository 10 mg VT UD PRN Constipation 07/13/22 04/02/23 Unknown (Dulcolax (bisacodyl)) magnesium hydroxide 400 mg/5 mL 30 ml PO DAILY PRN Constipation 07/13/22 04/02/23 Unknown oral suspension (Milk of Magnesia) sodium phosphates 19 gram-7 118 ml VT DAILY PRN Constipation 07/13/22 04/02/23 Unknown gram/118 mL enema (Fleet Enema) spironolactone 25 mg tablet 12.5 mg PO QAM 07/13/22 04/02/23 07/15/22 09:01 (Aldactone) Active Medications Generic Name Dose Route Start Last Admin Trade Name Freq PRN Reason Stop Dose Admin Albuterol 2.5 mg 04/18/23 16:20 04/24/23 06:59 Albuterol 0.5% Neb Soln 2.5 Mg/0.5 Ml Vial NEB 05/18/23 18:59 2.5 mg Q6R PRN Administration sob/wheezing Protocol Apixaban 5 mg 04/03/23 10:15 04/24/23 08:47 Apixaban 5 Mg Tablet PO 05/03/23 10:14 5 mg BID MARTINE Administration Aspirin 81 mg 04/03/23 09:00 04/25/23 08:56 Aspirin 81 Mg Ectab PO 05/03/23 08:59 81 mg QAM MARTINE Administration Colchicine 0.6 mg 04/02/23 21:00 04/25/23 08:56 Colchicine 0.6 Mg Tab PO 05/02/23 20:59 0.6 mg BID MARTINE Administration Duloxetine HCl 20 mg 04/02/23 21:00 04/24/23 20:06 Duloxetine Hcl 20 Mg Cap PO 05/02/23 20:59 20 mg HS MARTINE Administration Hydroxychloroquine Sulfate 200 mg 04/02/23 21:00 04/24/23 20:06 Hydroxychloroquine Sulfate 200 Mg Tab PO 05/02/23 20:59 200 mg HS MARTINE Administration Bumetanide 2 mg/ Syringe 8 mls @ 4 mls/min 04/23/23 14:00 04/25/23 13:28 IV 05/23/23 13:59 4 mls/min Q8H MARTINE Administration Piperacillin Sod/Tazobactam 100 mls @ 25 mls/hr 04/24/23 21:00 04/25/23 12:48 Sod 4.5 gm/ Dextrose IV 05/04/23 20:59 25 mls/hr Q8H MARTINE Administration Protocol Lidocaine 1 patch 04/06/23 15:30 04/25/23 08:57 Lidocaine 5% 1 Patch TD 05/06/23 15:29 1 patch QAM MARTINE Administration Magnesium Oxide 400 mg 04/03/23 10:00 04/25/23 08:56 Magnesium Oxide 400 Mg Tab PO 05/03/23 09:59 400 mg BID MARTINE Administration Melatonin 3 mg 04/21/23 22:10 04/21/23 22:59 Melatonin 3 Mg Tab PO 05/21/23 22:09 3 mg HS PRN Administration Sleep Miscellaneous 1 each 04/06/23 21:00 04/24/23 20:07 Remove Lidoderm Patch N/A 05/06/23 20:59 1 each DAILY@2100 MARTINE Administration Polyethylene Glycol 17 gm 04/02/23 20:27 04/10/23 09:10 Polyethylene (Miralax) 17 Gm Pack PO 05/02/23 20:26 17 gm DAILY PRN Administration Constipation Potassium Chloride 60 meq 04/25/23 14:00 04/25/23 13:43 Potassium Chloride Crtab 20 Meq Tabcr PO 05/25/23 13:59 60 meq TID MARTINE Administration Sodium Chloride 4 ml 04/18/23 19:00 04/25/23 07:28 Sodium Chlor 7% 4 Ml Neb NEB 05/18/23 18:59 Not Given BIDR MARTINE Terbinafine HCl 1 appln 04/03/23 09:00 04/25/23 08:57 Terbinafine Cr 30 Gm Tube EXT 05/03/23 08:59 1 appln DAILY MARTINE Administration Trolamine Salicylate 1 appln 04/08/23 10:50 04/21/23 08:42 Trolamine Salicylate 10% Crm 255 Appln/85 Gm Tube EXT 05/08/23 10:49 1 appln Q6H PRN Administration Pain Vitamin D 2,000 units 04/03/23 09:00 04/25/23 08:56 Cholecalciferol 1,000 Units 25 Mcg Tab PO 05/03/23 08:59 2,000 units QAM MARTINE Administration
[2023-04-25] MEDS: DULoxetine HCL 20 MG CAP PO SCH (20:47)
[2023-04-25] MEDS: HYDROXYCHLOROQUINE SULFATE 200 MG TAB PO SCH (20:47)
[2023-04-26] MEDS: BUMETANIDE 2 MG in SYRINGE 0 ML IV SCH ×3 (05:44→21:46)
[2023-04-26] MEDS: PIPER/TAZO 4.5g in D5W MINI-B 100 ML IV SCH ×3 (05:45→20:26)
[2023-04-26 06:50] LABS: Hematocrit (blood only) 39.3 % (42.0-52.0); Hemoglobin 12.6 g/dl (14.0-18.0); Mean Corpuscular Hemoglobin 30.9 pg (25.0-34.0); Mean Corpuscular Hgb Conc 32.1 g/dL (32.0-36.0); Mean Corpuscular Volume 96.3 fL (80.0-100.0); Mean Platelet Volume 9.7 fL (9.4-12.4); Platelet Count 211 K/uL (130-400); RDW Coefficient of Variation 16.6 % (11.5-14.5); RDW Standard Deviation 59.3 fL (36.4-46.3); Red Blood Count 4.08 M/uL (4.70-6.10); White Blood Count 16.89 K/ul (4.8-10.8)
[2023-04-26 07:08] LABS: Calcium 8.7 mg/dl (8.6-10.3); Creatinine Clr Calc Pharmacy 89.9 ml/min; Est GFR (African American) 88.4 ml/min; Est GFR (Non-African American) 76.3 ml/min; Magnesium 2.3 mg/dl (1.7-2.4); Potassium 4.2 mmol/L (3.5-5.1)
[2023-04-26] MEDS: SODIUM CHLOR 7% 4 ML NEB NEB SCH ×2 (07:28→20:43)
[2023-04-26] MEDS ORDERED: LIDOCAINE 1% LOCAL 20 ML VIAL ONE (07:40)
[2023-04-26] MEDS: POTASSIUM CHLORIDE CRTAB 20 MEQ TABCR PO SCH ×3 (09:13→20:25)
[2023-04-26] MEDS: CHOLECALCIFEROL 1,000 UNITS 25 MCG TAB PO SCH (09:13)
[2023-04-26] MEDS: MAGNESIUM OXIDE 400 MG TAB PO SCH ×2 (09:13→20:24)
[2023-04-26] MEDS: ASPIRIN 81 MG ECTAB PO SCH (09:13)
[2023-04-26] MEDS: LIDOCAINE 5% 1 PATCH TD SCH (09:14)
[2023-04-26] MEDS: COLCHICINE 0.6 MG TAB PO SCH ×2 (09:14→20:22)
[2023-04-26] MEDS: TERBINAFINE CR 30 GM TUBE EXT SCH (09:15)
--- NOTE | 2023-04-26 14:20 | Cardiology Progress Note ---
Date of Service April 26, 2023 Assessment & Plan (1) Pericardial effusion: (2) Acute on chronic heart failure with preserved ejection fraction (HFpEF): (3) Atrial fibrillation with controlled ventricular rate: Plan * Echocardiogram 04/24/2023 demonstrating large pericardial effusion without tamponade unchanged from prior study. * Patient declined pericardiocentesis today due to risks of the procedure. Discussed possible transfer to [facility] in [place], however, patient declines. * Recommend prednisone taper over the next 10-14 days * Continue colchicine. * Repeat 2D transthoracic echocardiogram in 1 week. * Transition IV Bumex to oral * supplement potassium * spironolactone on hold per nephrology Admission and Anticipated Discharge Date Admission Date: April 02, 2023 Subjective Patient seen examined the bedside. Denies any chest pain or shortness of breath. Scheduled for pericardiocentesis today, however, patient ultimately declined to proceed due to risks of the procedure. Requesting discharge. Review of Systems Review of Systems: All systems reviewed & are unremarkable except as noted in Subjective Physical Exam Constitutional: well nourished and + morbidly obese; no acute distress Respiratory: no respiratory distress and no labored breathing Auscultation: + diminished lung sounds (Bases bilateral); no rhonchi and no wheezes Cardiovascular: Rate/Rhythm: + irregularly irregular Heart Sounds: normal S1 and normal S2; no murmur Extremities: no edema (+ Stasis changes) Gastrointestinal (Abdomen): Inspection/Auscultation: normal bowel sounds; abdomen not distended Percussion/Palpation: abdomen soft; abdomen nontender, no guarding and abdomen not rigid Neurologic: CN's II-XI intact bilaterally and moves all extremities Psychiatric: A+Ox3, euthymic affect Results & Data Vital Signs (Past 12 Hours) Vital Signs Temp Pulse Pulse Resp BP Pulse Ox O2 Del Method 04/26/23 12:05 36.8 C 96 H 97 H 18 114/69 93 Nasal Cannula 04/26/23 08:00 Nasal Cannula 04/26/23 07:54 93 H 20 110/65 92 Nasal Cannula 04/26/23 07:24 36.9 C 94 H 18 125/64 95 Room Air 04/26/23 02:40 36.7 C 99 H 22 101/69 96 CPAP O2 Flow Rate 04/26/23 12:05 3 04/26/23 08:00 2 04/26/23 07:54 3 04/26/23 07:24 04/26/23 02:40 Laboratory Results CBC 04/26/23 Range/Units 05:49 WBC 16.89 H (4.8-10.8) K/ul RBC 4.08 L (4.70-6.10) M/uL Hgb 12.6 L (14.0-18.0) g/dl Hct 39.3 L (42.0-52.0) % Plt Count 211 (130-400) K/uL Comprehensive Metabolic Panel 04/26/23 Range/Units 05:49 Sodium 142 (136-145) mmol/L Potassium 4.2 (3.5-5.1) mmol/L Chloride 101 (98-107) mmol/L Carbon Dioxide 35 H (21-32) mmol/L BUN 32 H (6-23) mg/dl Creatinine 0.94 (0.6-1.4) mg/dl Glucose 176 H (70-99(Fasting)) mg/dl Calcium 8.7 (8.6-10.3) mg/dl Intake and Output 04/25/23 04/26/23 04/26/23 22:59 06:59 14:59 Intake Total 540 / 740 100 / 740 100 / 100 Output Total 2700 / 3200 500 / 3200 Balance -2160 / -2460 -400 / -2460 100 / 100 Intake: IV 100 / 300 100 / 300 100 / 100 Piperacillin/Tazobactam 4.5 gm 100 / 300 100 / 300 100 / 100 In Dextrose 5% Mini-B 100 ml @ 25 mls/hr IV Q8H [facility] Rx#: [id number] Oral 440 / 440 Output: Urine Amount (Catheter) 2700 / 3200 500 / 3200 Hurtado/Indwelling 2700 / 3200 500 / 3200 Other: Other Intake Source NPO Weight 137.1 kg Weight Measurement Method Built in [facility]
[2023-04-26] MEDS: predniSONE 20 MG TAB PO SCH (14:48)
--- NOTE | 2023-04-26 15:49 | Hospitalist Progress Note ---
Date of Service April 26, 2023 Assessment & Plan (1) Acute on chronic heart failure with preserved ejection fraction (HFpEF): (2) Acute hyponatremia: Plan per admitting service notes with addendum: Mr Cruz is an 78-year-old gentleman with PMH of chronic diastolic heart failure on Lasix, HTN, TIIDM, presented (from [facility])and admitted on 04/02 for acute on chronic HFpEF exacerbation. His course has been complicated by difficult fluid status, acute hypoxic respir atory failure, and progressive pericardial effusion. Given history of RA, patient was trialed on a 5 day prednisone burst in hopes to aid in resolution of effusion. Repeat ECHO on 04/24 revealed that effusion seems to have progressed, however, without tamponade physiology at this time. After discussion with Cardiology and Palliative care, patient determined he would like to trial pericardiocentesis. communication with Cardiology determined that patient will likely undergo pericardiocentesis tomorrow (04/26) with Dr Pinto. #Chronic illness #Ambulatory dysfunction -Given multiple comorbidities, will consult Palliative on Monday to discussed; patient seems eager to get "home" but unclear if he really understands the risk of a potential prompt return and ongoing prolonged hospitalizations without much improvement -Palliative consult to discuss understanding, poor outcomes, and next steps in patients care -discussion with PC revealed goal is to "go home" but patient is not opposed to trying measures that may prevent his return or delay acute decline (ex tamponade) #Abnormal UA -GNB on culture -Transition to zosyn given increase WBC, deescalate as able -urine with increased amounts of "bacteria of all types", repeat 04/24 similar #Acute hypoxic respiratory failure, likely multifactorial *improving #OHS -Iso heart failure exacerbation and OHS. Denies home O2 use. Nocturnal -Will likely require 2 step to assess for daytime need for oxygen prior to discharge -Cardiology and nephrology on board, managing diuresis. Currently on bumex gtt. -Continue with BiPAP HS and PRN. - Pulm evaled. D/w pulm - no role of bronchoscopy for LLL collapse, continue w/ positive airway pressure support. -Titrate oxygen as able, continue with bumex pulse q8h 04/26 remains on 3 L nasal cannula #Pericardial effusion repeat echo showing interval increase in pericardial effusion; s/p IV albumin to aid in transient increased oncotic pressure to help effusion Elevated ESR/CRP: started on prednisone 20mg completed -Repeat echo, unchanged large effusion Bumex 4mg q8h Discussions on going--final plan per cardiology note and discussion--Pericardiocentesis 04/26 04/26 declined pericardiocentesis today Plan to restart prednisone, 10 to 14-day taper Reassess echo in 1 to 2 weeks #Acute on chronic heart failure with preserved ejection fraction #HTN, relative hypotension - TTE (04/03/2023): LVEF 55-60%, - Home diuretics: Lasix 40mg qam Cardiology on consult and Nephrology on consult -Strict I's and O's, fluid restriction of 1500 mL/day, heart healthy diet, low- sodium diet -Aldactone held at 12.5mg daily -Holding ACEi/ARB at this time 2/2 hypotension -Given ongoing hypoxia and volume overload: continue IV Bumex pulse -Bumex pulse q 8 h 04/17 On Bumex IV #Acute urinary retention -c/f bladder outlet obstruction, c/f buried penis (congenital v acquired) per Urology -Nephrology also feels NOWAK likely given robust UOP -Urology on consult: camarena 1-2 weeks, OP follow up to be arranged, also on going efforts for diuresis -Continue tamsulosin -Discontinued oxybutynin -Likely will need camarena exchange on day. #Acute non-cardiac chest pain #Acute on chronic back pain *resolved -Tylenol prn, lidocaine patch to mid back -Pain on chest reproducible to touch -Continue home oxycodone regimen -Topical Myoflex #New onset atrial fibrillation History of wandering atrial pacemaker/complex ectopy given comorbidities remains in afib on telemetry-HR is controlled without rate control agents. Per cardiology recommend he transition to apixaban from Lovenox started on admission. Echo reveals EF 55-60%. -Eliquis on hold as of 04/24 #PAD, chronic bilateral dusky discoloration -Continue ASA #Contraction alkalosis *improved #Hypervolemic Hyponatremia *resolved Baseline sodium appears around 137, admitting sodium of 119, likely hypervolemic hyponatremia. Patient with no headache or dizziness or orientation issues at presentation. -Maintain I's and O's, fluid restriction of 1500 mL a day. -Nephrology on consult, appreciate recommendations, managing diuresis. -held aldactone #Lower ext cellulitis *resolved #Skin tears - Pt treated with oral Augmentin which has been completed. He has lower extremities wounds on his anterior tibiae and his toes from a recent fall per his report. 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 Escamilla, denies constitutional symptoms, reportedly increased LDH and [id number] c/w comorbidities -LDH 215 (last LDH 275 12/2022) -CBC w/ diff and smear in am -Dr escamilla on schedule, consult to assess if symptoms related/stable, no recommendations -Empiric Zosyn, no clear source, consider trial of discontinuation if no downtrend v addition of vanc, patient remains stable #T2DM -diet controlled, a1c 6.2 on 03/31/23, lantus/novolog per protocol has been declined by patient several times. Will DC BSG checks and insulin at this time. Continue with outpatient follow- up. #Rheumatoid arthritis #Gout -Continue plaquenil 200mg daily -Continue colchicine 0.6mg bid -Prednisone burst completed #Depression Continue duloxetine DVT prophylaxis: apixaban (held on 04/24 due to pending procedure) PT/OT DNR/DNI Dispo: pending clearance from Cardio, Pulm, Nephro. Pulm has signed off. Admission and Anticipated Discharge Date Admission Date: April 02, 2023 Subjective Follow-up acute CHF exacerbation, etc. seen resting in bed, comfortable reports having nausea after taking Prednisone no abdominal pain no chest pain, dyspnea, palpitations, dizziness Review of Systems Review of Systems: all noted and negative except for above Physical Exam Physical Exam: General- oriented x 3, not in distress, speaks in sentences with no effort or accessory muscle use Eyes- anicteric Neck- no JVD Lungs- clear breath sounds bilaterally, no rales/wheezes Heart- normal rate, regular rhythm; no murmurs Abdomen- normal bowel sounds, nondistended, soft, nontender Extremities- (+) lower leg edema, no calf tenderness Neuro- alert, oriented x 3; no gross focal neurologic deficits Skin- warm & dry Results & Data Results & Data Vital Signs (Past 12 Hours) Vital Signs Temp Pulse Pulse Resp BP Pulse Ox O2 Del Method 04/26/23 12:05 36.8 C 96 H 97 H 18 114/69 93 Nasal Cannula 04/26/23 08:00 Nasal Cannula 04/26/23 07:54 93 H 20 110/65 92 Nasal Cannula 04/26/23 07:24 36.9 C 94 H 18 125/64 95 Room Air O2 Flow Rate 04/26/23 12:05 3 04/26/23 08:00 2 04/26/23 07:54 3 04/26/23 07:24 all noted and reviewed including below
--- NOTE | 2023-04-26 17:23 | Nephrology Progress Note ---
Date of Service April 26, 2023 Assessment & Plan (1) Acute on chronic heart failure with preserved ejection fraction (HFpEF): Plan: Ongoing significant volume OL; diuresis has been limited by unacceptable bicarb levels and c/b large pericardial effusion > Has responded well to bumex IV 2 mg q 8h > further increased K supplement dosing to 40 mEq tid w/ goal K 4 -resumed spironolactone 12.5 mg daily today -cont colchicine -pericardiocentesis or not per cardiology/primary We will hold off on the EZEQUIEL and ARB. (2) Hyponatremia: Plan: resolved hypervolemic hyponatremia with serum sodium of 119 on presentation in the setting of acute congestive heart failure. Sodium 142 today. will continue FR and diuretics (3) Mixed acid base balance disorder: Plan: in general w/ his extreme metabolic alkalosis after 46L (per I/O cumulative ) negativity w/ diuresis this admission, in general at extremes of acid base balance ABG is more accepted/accurate than VBG. on hs bipap. combined metabolic alkalosis in setting of HF and diuresis along w/ appropriate respiratory compensation -Continue bumex IV w/ careful repletion neyda of K Admission and Anticipated Discharge Date Admission Date: April 02, 2023 Subjective refused pericardiocentesis today but open possibly to [facility] procedure in future. breathing unchanged. no n/v. a bit agitated/emotional when seen on late afternoon rounds. Review of Systems 2 Review of Systems: All systems reviewed & are unremarkable except as noted in Subjective Physical Exam 2 Constitutional: well developed, well nourished, + morbidly obese, + frail appearing and cooperative; no acute distress Eyes: EOM intact bilaterally ENMT: Ears: no external ear abnormality Nose: no external nose abnormality Mouth: + dry oral mucous membranes Neck: no nuchal rigidity Respiratory: normal respiratory effort (on 02NC) and + paradoxical thoraco- abdominal movement Auscultation: + diminished lung sounds Cardiovascular: Rate/Rhythm: + irregularly irregular Extremities: no edema Gastrointestinal (Abdomen): Inspection/Auscultation: normal bowel sounds P ercussion/Palpation: abdomen soft; abdomen nontender Musculoskeletal: Extremities: + abnormal strength Skin: no rashes, warm and dry (BL yepez and toe wounds) Psychiatric: Orientation: alert, oriented to person and oriented to place I nsight: + limited insight Results & Data Vital Signs (Past 12 Hours) Vital Signs Temp Pulse Pulse Resp BP Pulse Ox O2 Del Method 04/26/23 16:00 36.7 C 79 99 H 16 97 Nasal Cannula 04/26/23 15:47 Nasal Cannula 04/26/23 12:05 36.8 C 96 H 97 H 18 114/69 93 Nasal Cannula 04/26/23 08:00 Nasal Cannula 04/26/23 07:54 93 H 20 110/65 92 Nasal Cannula 04/26/23 07:24 36.9 C 94 H 18 125/64 95 Room Air O2 Flow Rate 04/26/23 16:00 3 04/26/23 15:47 2 04/26/23 12:05 3 04/26/23 08:00 2 04/26/23 07:54 3 04/26/23 07:24 Laboratory Results 04/26/23 05:49 04/26/23 05:49
[2023-04-26] MEDS: SPIRONOLACTONE 12.5 MG TAB PO SCH (17:58)
[2023-04-26] MEDS: DULoxetine HCL 20 MG CAP PO SCH (20:23)
[2023-04-26] MEDS: HYDROXYCHLOROQUINE SULFATE 200 MG TAB PO SCH (20:24)
[2023-04-27] MEDS: PIPER/TAZO 4.5g in D5W MINI-B 100 ML IV SCH ×3 (05:02→21:58)
[2023-04-27] MEDS: BUMETANIDE 2 MG in SYRINGE 0 ML IV SCH ×2 (05:04→13:58)
[2023-04-27] MEDS: SODIUM CHLOR 7% 4 ML NEB NEB SCH ×2 (07:25→19:15)
[2023-04-27] MEDS: COLCHICINE 0.6 MG TAB PO SCH ×2 (07:51→21:55)
[2023-04-27] MEDS: POTASSIUM CHLORIDE CRTAB 20 MEQ TABCR PO SCH ×3 (07:51→21:54)
[2023-04-27] MEDS: MAGNESIUM OXIDE 400 MG TAB PO SCH ×2 (07:51→21:52)
[2023-04-27] MEDS: ASPIRIN 81 MG ECTAB PO SCH (07:51)
[2023-04-27] MEDS: CHOLECALCIFEROL 1,000 UNITS 25 MCG TAB PO SCH (07:51)
[2023-04-27] MEDS: predniSONE 20 MG TAB PO SCH (07:51)
[2023-04-27] MEDS: SPIRONOLACTONE 12.5 MG TAB PO SCH (07:52)
[2023-04-27] MEDS: LIDOCAINE 5% 1 PATCH TD SCH (07:52)
[2023-04-27] MEDS: TERBINAFINE CR 30 GM TUBE EXT SCH (07:52)
[2023-04-27 08:28] LABS: BUN Creatinine Ratio 30.1 (10-20); Calcium 8.9 mg/dl (8.6-10.3); Creatinine Clr Calc Pharmacy 90.5 ml/min; Est GFR (African American) 89.5 ml/min; Est GFR (Non-African American) 77.3 ml/min; Potassium 3.8 mmol/L (3.5-5.1)
--- NOTE | 2023-04-27 10:15 | Nephrology Progress Note ---
Date of Service April 27, 2023 Assessment & Plan (1) Acute on chronic heart failure with preserved ejection fraction (HFpEF): Plan: Ongoing significant volume OL; diuresis has been limited by unacceptable bicarb levels and c/b large pericardial effusion > Has responded well to bumex IV 2 mg q 8h > convert to 3 mg po 3 daily doses at 0900, 1400, 2100 (likely he will keep camarena; would reevaluate if not keeping camarena and time so as not to disrupt sleep) > Continue high-dose K supplement dosing at 40 mEq tid w/ goal K of 4 (lowered from 60 mEq tid on 04/27) -resumed spironolactone 12.5 mg daily on April 26 -cont colchicine -pericardiocentesis or not per cardiology/primary We will hold off on the EZEQUIEL and ARB for now Will sign off. NEPHROLOGY D/C RECS -start RAAS inhibitor if/when able -daily bmp while in hospital, then weekly x 3 at hospital d/c to be ordered/monitored by facility providers -diuretics, K as per cardiology -no specific nephro f/u indicated unless issues arise as we expect close cardiology f/u at d/c for pericardial effusion Care coordinated w/ Dr Eugene (2) Hyponatremia: Plan: resolved hypervolemic hyponatremia with serum sodium of 119 on presentation in the setting of acute congestive heart failure. Sodium 142 today. will continue FR and diuretics (3) Mixed acid base balance disorder: Plan: in general w/ his extreme metabolic alkalosis after 46L (per I/O cumulative ) negativity w/ diuresis this admission, in general at extremes of acid base balance ABG is more accepted/accurate than VBG. on hs bipap. combined metabolic alkalosis in setting of HF and diuresis along w/ appropriate respiratory compensation -Continue bumex IV w/ careful repletion neyda of K Admission and Anticipated Discharge Date Admission Date: April 02, 2023 Physical Exam 2 Constitutional: well developed, well nourished, + morbidly obese, + frail appearing and cooperative; no acute distress Eyes: EOM intact bilaterally ENMT: Ears: no external ear abnormality Nose: no external nose abnormality Mouth: + dry oral mucous membranes Neck: no nuchal rigidity Respiratory: normal respiratory effort (on 02NC), + labored breathing (slight), + tachypneic and + paradoxical thoraco-abdominal movement A uscultation: + diminished lung sounds Cardiovascular: Rate/Rhythm: + irregularly irregular Extremities: no edema Gastrointestinal (Abdomen): Inspection/Auscultation: normal bowel sounds P ercussion/Palpation: abdomen soft; abdomen nontender Musculoskeletal: Extremities: + abnormal strength Skin: no rashes, warm and dry (BL yepez and toe wounds) Psychiatric: Orientation: alert, oriented to person and oriented to place I nsight: + limited insight Results & Data Vital Signs (Past 12 Hours) Vital Signs Temp Pulse Pulse Resp BP Pulse Ox O2 Del Method 04/27/23 09:50 Nasal Cannula, BiPAP 04/27/23 07:15 36.5 C 94 H 20 97/62 L 92 Nasal Cannula 04/27/23 03:30 91 H 23 92 04/27/23 03:16 91 H 04/27/23 03:05 36.8 C 95 H 18 113/70 95 CPAP 04/26/23 23:30 98 H 25 H 95 04/26/23 23:05 35.9 C L 92 H 18 106/69 91 CPAP 04/26/23 22:19 Nasal Cannula O2 Flow Rate 04/27/23 09:50 2 04/27/23 07:15 2 04/27/23 03:30 2 04/27/23 03:16 04/27/23 03:05 2 04/26/23 23:30 2 04/26/23 23:05 2 04/26/23 22:19 2 Laboratory Results 04/26/23 05:49 04/27/23 07:34
--- NOTE | 2023-04-27 13:49 | Cardiology Progress Note ---
Date of Service April 27, 2023 Assessment & Plan (1) Pericardial effusion: (2) Acute on chronic heart failure with preserved ejection fraction (HFpEF): (3) Atrial fibrillation with controlled ventricular rate: Plan * Echocardiogram 04/24/2023 and 04/27/23 demonstrating large pericardial effusion without tamponade. * Patient declined pericardiocentesis due to risks of the procedure. Prefers to avoid transfer to [facility]. Willing to reconsider pericardi ocentesis at this facility. Will discuss with interventional cardiology. Possible procedure on Monday. * Continue colchicine. * Transition IV Bumex to oral * supplement potassium * spironolactone on hold per nephrology Admission and Anticipated Discharge Date Admission Date: April 02, 2023 Subjective Patient seen and examined at bedside. Feeling well today. Denies chest pain or shortness of breath. No palpitations, lightheadedness, or dizziness. Telemetry reveals atrial fibrillation with a heart rate of approximately 90 to 100 bpm. Declined pericardiocentesis yesterday. Review of Systems Review of Systems: All systems reviewed & are unremarkable except as noted in Subjective Physical Exam Constitutional: well nourished and + morbidly obese; no acute distress Respiratory: no respiratory distress and no labored breathing Auscultation: + diminished lung sounds (Bases bilateral); no rhonchi and no wheezes Cardiovascular: Rate/Rhythm: + irregularly irregular Heart Sounds: normal S1 and normal S2; no murmur Extremities: no edema (+ Stasis changes) Gastrointestinal (Abdomen): Inspection/Auscultation: normal bowel sounds; abdomen not distended Percussion/Palpation: abdomen soft; abdomen nontender, no guarding and abdomen not rigid Neurologic: CN's II-XI intact bilaterally and moves all extremities Psychiatric: A+Ox3, euthymic affect Results & Data Vital Signs (Past 12 Hours) Vital Signs Temp Pulse Pulse Resp BP Pulse Ox O2 Del Method 04/27/23 11:07 36.7 C 89 19 98/58 L 91 Nasal Cannula 04/27/23 09:50 Nasal Cannula, BiPAP 04/27/23 07:15 36.5 C 94 H 20 97/62 L 92 Nasal Cannula 04/27/23 03:30 91 H 23 92 04/27/23 03:16 91 H 04/27/23 03:05 36.8 C 95 H 18 113/70 95 CPAP O2 Flow Rate 04/27/23 11:07 2 04/27/23 09:50 2 04/27/23 07:15 2 04/27/23 03:30 2 04/27/23 03:16 04/27/23 03:05 2 Laboratory Results Comprehensive Metabolic Panel 04/27/23 Range/Units 07:34 Sodium 140 (136-145) mmol/L Potassium 3.8 (3.5-5.1) mmol/L Chloride 99 (98-107) mmol/L Carbon Dioxide 36 H (21-32) mmol/L BUN 28 H (6-23) mg/dl Creatinine 0.93 (0.6-1.4) mg/dl Glucose 182 H (70-99(Fasting)) mg/dl Calcium 8.9 (8.6-10.3) mg/dl Intake and Output 04/26/23 04/27/23 04/27/23 22:59 06:59 14:59 Intake Total 340 / 1490 690 / 1490 100 / 100 Output Total 1350 / 2250 900 / 2250 Balance -1010 / -760 -210 / -760 100 / 100 Intake: IV 100 / 300 100 / 300 100 / 100 Piperacillin/Tazobactam 4.5 gm 100 / 300 100 / 300 100 / 100 In Dextrose 5% Mini-B 100 ml @ 25 mls/hr IV Q8H [facility] Rx#: [id number] Oral 240 / 1190 590 / 1190 Output: Urine Amount (Catheter) 1350 / 2250 900 / 2250 Hurtado/Indwelling 1350 / 2250 900 / 2250 Other: Weight 136.2 kg Weight Measurement Method Built in [facility]
--- NOTE | 2023-04-27 16:50 | Hospitalist Progress Note ---
Date of Service April 27, 2023 Assessment & Plan (1) Acute on chronic heart failure with preserved ejection fraction (HFpEF): (2) Acute hyponatremia: Plan per admitting service notes with addendum: Mr Cruz is an 78-year-old gentleman with PMH of chronic diastolic heart failure on Lasix, HTN, TIIDM, presented (from [facility])and admitted on 04/02 for acute on chronic HFpEF exacerbation. His course has been complicated by difficult fluid status, acute hypoxic respir atory failure, and progressive pericardial effusion. Given history of RA, patient was trialed on a 5 day prednisone burst in hopes to aid in resolution of effusion. Repeat ECHO on 04/24 revealed that effusion seems to have progressed, however, without tamponade physiology at this time. After discussion with Cardiology and Palliative care, patient determined he would like to trial pericardiocentesis. communication with Cardiology determined that patient will likely undergo pericardiocentesis tomorrow (04/26) with Dr Pinto. #Acute hypoxic respiratory failure, likely multifactorial *improving Secondary to acute on chronic diastolic heart failure #OHS -Iso heart failure exacerbation and OHS. Denies home O2 use. Nocturnal -Will likely require 2 step to assess for daytime need for oxygen prior to discharge -Cardiology and nephrology on board, managing diuresis. Currently on bumex gtt. -Continue with BiPAP HS and PRN. - Pulm evaled. D/w pulm - no role of bronchoscopy for LLL collapse, continue w/ positive airway pressure support. -Titrate oxygen as able, continue with bumex pulse q8h 04/27 remains on 2 L nasal cannula Transition to oral Bumex #Pericardial effusion repeat echo showing interval increase in pericardial effusion; s/p IV albumin to aid in transient increased oncotic pressure to help effusion Elevated ESR/CRP: started on prednisone 20mg completed -Repeat echo, unchanged large effusion Bumex 4mg q8h Discussions on going--final plan per cardiology note and discussion--Pericardiocentesis 04/26 04/27 Continue prednisone 40 mg daily, then taper Plan for pericardiocentesis on Monday #Acute on chronic heart failure with preserved ejection fraction #HTN, relative hypotension - TTE (04/03/2023): LVEF 55-60%, - Home diuretics: Lasix 40mg qam Cardiology on consult and Nephrology on consult -Strict I's and O's, fluid restriction of 1500 mL/day, heart healthy diet, low- sodium diet -Aldactone held at 12.5mg daily -Holding ACEi/ARB at this time 2/2 hypotension -Given ongoing hypoxia and volume overload: continue IV Bumex pulse -Bumex pulse q 8 h 04/27 Transition to oral Bumex Continue p.o. Aldactone P.o. potassium #Acute urinary retention -c/f bladder outlet obstruction, c/f buried penis (congenital v acquired) per Urology -Nephrology also feels NOWAK likely given robust UOP -Urology on consult: camarena 1-2 weeks, OP follow up to be arranged, also on going efforts for diuresis -Continue tamsulosin -Discontinued oxybutynin -Likely will need camarena exchange on . #Acute non-cardiac chest pain #Acute on chronic back pain *resolved -Tylenol prn, lidocaine patch to mid back -Pain on chest reproducible to touch -Continue home oxycodone regimen -Topical Myoflex #New onset atrial fibrillation History of wandering atrial pacemaker/complex ectopy given comorbidities remains in afib on telemetry-HR is controlled without rate control agents. Per cardiology recommend he transition to apixaban from Lovenox started on admission. Echo reveals EF 55-60%. 04/27 Resume Eliquis #PAD, chronic bilateral dusky discoloration -Continue ASA #Contraction alkalosis *improved #Hypervolemic Hyponatremia *resolved Baseline sodium appears around 137, admitting sodium of 119, likely hypervolemic hyponatremia. Patient with no headache or dizziness or orientation issues at presentation. -Maintain I's and O's, fluid restriction of 1500 mL a day. -Nephrology on consult, appreciate recommendations, managing diuresis. -held aldactone #Lower ext cellulitis *resolved #Skin tears - Pt treated with oral Augmentin which has been completed. He has lower extremities wounds on his anterior tibiae and his toes from a recent fall per his report. 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 Escamilla, denies constitutional symptoms, reportedly increased LDH and [id number] c/w comorbidities -LDH 215 (last LDH 275 12/2022) -CBC w/ diff and smear in am -Dr escamilla on schedule, consult to assess if symptoms related/stable, no recommendations -Empiric Zosyn, no clear source, consider trial of discontinuation if no downtrend v addition of vanc, patient remains stable #T2DM -diet controlled, a1c 6.2 on 03/31/23, lantus/novolog per protocol has been declined by patient several times. Will DC BSG checks and insulin at this time. Continue with outpatient follow- up. #Rheumatoid arthritis #Gout -Continue plaquenil 200mg daily -Continue colchicine 0.6mg bid -Prednisone burst completed #Depression Continue duloxetine #Chronic illness #Ambulatory dysfunction -Given multiple comorbidities, will consult Palliative on Monday to discuss; patient seems eager to get "home" but unclear if he really understands the risk of a potential prompt return and ongoing prolonged hospitalizations without much improvement -Palliative consult to discuss understanding, poor outcomes, and next steps in patients care -discussion with PC revealed goal is to "go home" but patient is not opposed to trying measures that may prevent his return or delay acute decline (ex tamponade) #Abnormal UA -GNB on culture -Transition to zosyn given increase WBC, deescalate as able -urine with increased amounts of "bacteria of all types", repeat 04/24 similar DVT prophylaxis: apixaban (held on 04/24 due to pending procedure) PT/OT DNR/DNI Dispo: pending clearance from Cardio, Pulm, Nephro. Pulm has signed off. Admission and Anticipated Discharge Date Admission Date: April 02, 2023 Subjective Follow-up for pericardial effusion, etc. Seen resting in bed, comfortable, not in distress States he feels fine overall no chest pain, dyspnea, palpitations, dizziness No stomach pain, nausea, etc. No other new symptoms Review of Systems Review of Systems: all noted and negative except for above Physical Exam Physical Exam: General- oriented x 3, not in distress, speaks in sentences with no effort or accessory muscle use Eyes- anicteric Neck- no JVD Lungs- clear breath sounds bilaterally, no rales/wheezes Heart- normal rate, regular rhythm; no murmurs Abdomen- normal bowel sounds, nondistended, soft, nontender Extremities- (+) pretibial edema, no calf tenderness Neuro- alert, oriented x 3; no gross focal neurologic deficits Skin- warm & dry Results & Data Results & Data Vital Signs (Past 12 Hours) Vital Signs Temp Pulse Pulse Resp BP Pulse Ox O2 Del Method 04/27/23 15:29 89 04/27/23 11:07 36.7 C 89 19 98/58 L 91 Nasal Cannula 04/27/23 09:50 Nasal Cannula, BiPAP 04/27/23 07:15 36.5 C 94 H 20 97/62 L 92 Nasal Cannula O2 Flow Rate 04/27/23 15:29 04/27/23 11:07 2 04/27/23 09:50 2 04/27/23 07:15 2 all noted and reviewed including below
[2023-04-27] MEDS: DULoxetine HCL 20 MG CAP PO SCH (21:53)
[2023-04-27] MEDS: HYDROXYCHLOROQUINE SULFATE 200 MG TAB PO SCH (21:53)
[2023-04-27] MEDS: APIXABAN 5 MG TABLET PO SCH (21:55)
[2023-04-27] MEDS: BUMETANIDE 1 MG TAB PO SCH (21:56)
[2023-04-28] MEDS: PIPER/TAZO 4.5g in D5W MINI-B 100 ML IV SCH (05:07)
[2023-04-28] MEDS: SODIUM CHLOR 7% 4 ML NEB NEB SCH (07:06)
[2023-04-28 07:55] LABS: BUN Creatinine Ratio 28.4 (10-20); Calcium 9.1 mg/dl (8.6-10.3); Creatinine Clr Calc Pharmacy 88.6 ml/min; Est GFR (African American) 87.3 ml/min; Est GFR (Non-African American) 75.3 ml/min; Potassium 4.2 mmol/L (3.5-5.1)
[2023-04-28] MEDS: ASPIRIN 81 MG ECTAB PO SCH (08:48)
[2023-04-28] MEDS: APIXABAN 5 MG TABLET PO SCH ×2 (08:48→20:38)
[2023-04-28] MEDS: COLCHICINE 0.6 MG TAB PO SCH ×2 (08:49→20:39)
[2023-04-28] MEDS: LIDOCAINE 5% 1 PATCH TD SCH (08:49)
[2023-04-28] MEDS: CHOLECALCIFEROL 1,000 UNITS 25 MCG TAB PO SCH (08:49)
[2023-04-28] MEDS: BUMETANIDE 1 MG TAB PO SCH ×3 (08:49→20:38)
[2023-04-28] MEDS: POTASSIUM CHLORIDE CRTAB 20 MEQ TABCR PO SCH ×3 (08:50→20:38)
[2023-04-28] MEDS: MAGNESIUM OXIDE 400 MG TAB PO SCH ×2 (08:50→20:39)
[2023-04-28] MEDS: predniSONE 20 MG TAB PO SCH (08:50)
[2023-04-28] MEDS: SPIRONOLACTONE 12.5 MG TAB PO SCH (08:51)
[2023-04-28] MEDS: TERBINAFINE CR 30 GM TUBE EXT SCH (08:51)
--- NOTE | 2023-04-28 10:57 | Cardiology Progress Note ---
Date of Service April 28, 2023 Assessment & Plan (1) Pericardial effusion: (2) Acute on chronic heart failure with preserved ejection fraction (HFpEF): (3) Atrial fibrillation with controlled ventricular rate: Plan * Echocardiogram 04/24/2023 and 04/27/23 demonstrating large pericardial effusion without tamponade. * Patient declined pericardiocentesis due to risks of the procedure. Prefers to avoid transfer to [facility]. Willing to reconsider pericardio centesis at this facility. Proceed with pericardiocentesis on 05/01/2023. N.p.o. except medications on Monday night. Hold Eliquis 04/29/2023. * Continue colchicine. * Continue oral diuretic therapy * supplement potassium * Low-dose spironolactone restarted 04/26. Admission and Anticipated Discharge Date Admission Date: April 02, 2023 Subjective Patient seen examined the bedside. No changes overnight. Fluid balance -1.7 L. Transition to oral diuretic therapy. No chest pain or heaviness. Telemetry reveals atrial fibrillation in the 90s. Eliquis restarted. Repeat echocardiogram performed yesterday demonstrated stable, large circumflex with pericardial effusion without tamponade physiology. Review of Systems Review of Systems: All systems reviewed & are unremarkable except as noted in Subjective Physical Exam Constitutional: well nourished and + morbidly obese; no acute distress Respiratory: no respiratory distress and no labored breathing Auscultation: + diminished lung sounds (Bases bilateral); no rhonchi and no wheezes Cardiovascular: Rate/Rhythm: + irregularly irregular Heart Sounds: normal S1 and normal S2; no murmur Extremities: no edema (+ Stasis changes) Gastrointestinal (Abdomen): Inspection/Auscultation: normal bowel sounds; abdomen not distended Percussion/Palpation: abdomen soft; abdomen nontender, no guarding and abdomen not rigid Neurologic: CN's II-XI intact bilaterally and moves all extremities Psychiatric: A+Ox3, euthymic affect Results & Data Vital Signs (Past 12 Hours) Vital Signs Temp Pulse Pulse Resp BP BP Pulse Ox 04/28/23 07:29 36.8 C 84 20 99/64 L 98 04/28/23 07:07 95 H 14 94 04/28/23 03:35 36.4 C L 74 18 116/75 97 04/28/23 02:05 86 24 95 04/27/23 23:13 36.4 C L 86 18 111/72 97 O2 Del Method O2 Flow Rate 04/28/23 07:29 Nasal Cannula, Nebulizer 2 04/28/23 07:07 Nasal Cannula 2.5 04/28/23 03:35 CPAP 5 04/28/23 02:05 2 04/27/23 23:13 CPAP 5 Laboratory Results Comprehensive Metabolic Panel 04/28/23 Range/Units 07:16 Sodium 141 (136-145) mmol/L Potassium 4.2 (3.5-5.1) mmol/L Chloride 98 (98-107) mmol/L Carbon Dioxide 39 H (21-32) mmol/L BUN 27 H (6-23) mg/dl Creatinine 0.95 (0.6-1.4) mg/dl Glucose 175 H (70-99(Fasting)) mg/dl Calcium 9.1 (8.6-10.3) mg/dl Intake and Output 04/27/23 04/28/23 04/28/23 22:59 06:59 14:59 Intake Total 600 / 1600 300 / 1600 100 / 100 Output Total 850 / 3300 1200 / 3300 Balance -250 / -1700 -900 / -1700 100 / 100 Intake: IV 100 / 300 100 / 300 100 / 100 Piperacillin/Tazobactam 4.5 gm 100 / 300 100 / 300 100 / 100 In Dextrose 5% Mini-B 100 ml @ 25 mls/hr IV Q8H [facility] Rx#: [id number] Oral 500 / 1300 200 / 1300 Output: Urine Amount (Catheter) 850 / 3300 1200 / 3300 Hurtado/Indwelling 850 / 3300 1200 / 3300 Other: Weight 136 kg Weight Measurement Method Built in [facility]
--- NOTE | 2023-04-28 16:32 | Hospitalist Progress Note ---
Date of Service April 28, 2023 Assessment & Plan (1) Acute on chronic heart failure with preserved ejection fraction (HFpEF): (2) Acute hyponatremia: Plan per admitting service notes with addendum: Mr Cruz is an 78-year-old gentleman with PMH of chronic diastolic heart failure on Lasix, HTN, TIIDM, presented (from [facility])and admitted on 04/02 for acute on chronic HFpEF exacerbation. His course has been complicated by difficult fluid status, acute hypoxic respira tory failure, and progressive pericardial effusion. Given history of RA, patient was trialed on a 5 day prednisone burst in hopes to aid in resolution of effusion. Repeat ECHO on 04/24 revealed that effusion seems to have progressed, however, without tamponade physiology at this time. After discussion with Cardiology and Palliative care, patient determined he would like to trial pericardiocentesis. communication with Cardiology determined that patient will likely undergo pericardiocentesis tomorrow (04/26) with Dr Pinto. #Acute hypoxic respiratory failure, likely multifactorial *improving Secondary to acute on chronic diastolic heart failure #OHS -Iso heart failure exacerbation and OHS. Denies home O2 use. Nocturnal -Will likely require 2 step to assess for daytime need for oxygen prior to discharge -Cardiology and nephrology on board, managing diuresis. Currently on bumex gtt. -Continue with BiPAP HS and PRN. - Pulm evaled. D/w pulm - no role of bronchoscopy for LLL collapse, continue w/ positive airway pressure support. -Titrate oxygen as able, continue with bumex pulse q8h 04/27 remains on 2 L nasal cannula Transition to oral Bumex 04/28 stable overall continue Bumex, Aldactone PO #Pericardial effusion repeat echo showing interval increase in pericardial effusion; s/p IV albumin to aid in transient increased oncotic pressure to help effusion Elevated ESR/CRP: started on prednisone 20mg completed -Repeat echo, unchanged large effusion Bumex 4mg q8h Discussions on going--final plan per cardiology note and discussion--Pericardiocentesis 04/26 04/28 Continue prednisone 40 mg daily, then taper Plan for pericardiocentesis on Monday #Acute on chronic heart failure with preserved ejection fraction #HTN, relative hypotension - TTE (04/03/2023): LVEF 55-60%, - Home diuretics: Lasix 40mg qam Cardiology on consult and Nephrology on consult -Strict I's and O's, fluid restriction of 1500 mL/day, heart healthy diet, low- sodium diet -Aldactone held at 12.5mg daily -Holding ACEi/ARB at this time 2/2 hypotension -Given ongoing hypoxia and volume overload: continue IV Bumex pulse -Bumex pulse q 8 h 04/28 Transitioned to oral Bumex Continue p.o. Aldactone P.o. potassium #Acute urinary retention -c/f bladder outlet obstruction, c/f buried penis (congenital v acquired) per Urology -Nephrology also feels NOWAK likely given robust UOP -Urology on consult: camarena 1-2 weeks, OP follow up to be arranged, also on going efforts for diuresis -Continue tamsulosin -Discontinued oxybutynin -Likely will need camarena exchange on day. #Acute non-cardiac chest pain #Acute on chronic back pain *resolved -Tylenol prn, lidocaine patch to mid back -Pain on chest reproducible to touch -Continue home oxycodone regimen -Topical Myoflex #New onset atrial fibrillation History of wandering atrial pacemaker/complex ectopy given comorbidities remains in afib on telemetry-HR is controlled without rate control agents. Per cardiology recommend he transition to apixaban from Lovenox started on admission. Echo reveals EF 55-60%. on Eliquis #PAD, chronic bilateral dusky discoloration -Continue ASA #Contraction alkalosis *improved #Hypervolemic Hyponatremia *resolved Baseline sodium appears around 137, admitting sodium of 119, likely hypervolemic hyponatremia. Patient with no headache or dizziness or orientation issues at presentation. -Maintain I's and O's, fluid restriction of 1500 mL a day. -Nephrology on consult, appreciate recommendations, managing diuresis. -held aldactone #Lower ext cellulitis *resolved #Skin tears - Pt treated with oral Augmentin which has been completed. He has lower extremities wounds on his anterior tibiae and his toes from a recent fall per his report. 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 Kira, denies constitutional symptoms, reportedly increased LDH and [id number] c/w comorbidities -LDH 215 (last LDH 275 12/2022) -CBC w/ diff and smear in am -Dr escamilla on schedule, consult to assess if symptoms related/stable, no recommendations -Empiric Zosyn, no clear source, consider trial of discontinuation if no downtrend v addition of vanc, patient remains stable #T2DM -diet controlled, a1c 6.2 on 03/31/23, lantus/novolog per protocol has been declined by patient several times. Will DC BSG checks and insulin at this time. Continue with outpatient follow- up. #Rheumatoid arthritis #Gout -Continue plaquenil 200mg daily -Continue colchicine 0.6mg bid -Prednisone burst completed #Depression Continue duloxetine #Chronic illness #Ambulatory dysfunction -Given multiple comorbidities, will consult Palliative on Monday to discuss; patient seems eager to get "home" but unclear if he really understands the risk of a potential prompt return and ongoing prolonged hospitalizations without much improvement -Palliative consult to discuss understanding, poor outcomes, and next steps in patients care -discussion with PC revealed goal is to "go home" but patient is not opposed to trying measures that may prevent his return or delay acute decline (ex tamponade) #Abnormal UA -GNB on culture -Transition to zosyn given increase WBC, deescalate as able -urine with increased amounts of "bacteria of all types", repeat 04/24 similar DVT prophylaxis: apixaban (held on 04/24 due to pending procedure) PT/OT DNR/DNI Dispo: pending clearance from Cardio, Pulm, Nephro. Pulm has signed off. Admission and Anticipated Discharge Date Admission Date: April 02, 2023 Subjective Follow-up for CHF, pericardial effusion, etc. Seen resting in bed, comfortable, not in distress States he feels fine overall no chest pain, dyspnea, palpitations, dizziness No other new symptoms Review of Systems Review of Systems: all noted and negative except for above Physical Exam Physical Exam: General- oriented x 3, not in distress, speaks in sentences with no effort or accessory muscle use Eyes- anicteric Neck- no JVD Lungs- clear BS BL Heart- normal rate, regular rhythm; no murmurs Abdomen- normal bowel sounds, nondistended, soft, no tenderness Extremities- no pretibial edema, no calf tenderness Neuro- alert, oriented x 3; no gross focal neurologic deficits Skin- warm & dry Results & Data Results & Data Vital Signs (Past 12 Hours) Vital Signs Temp Pulse Pulse Resp BP BP Pulse Ox 04/28/23 15:00 36.4 C L 87 19 96/64 L 96 04/28/23 11:00 36.5 C 98 H 22 103/63 91 04/28/23 08:00 04/28/23 07:29 36.8 C 84 20 99/64 L 98 04/28/23 07:07 95 H 14 94 O2 Del Method O2 Flow Rate 04/28/23 15:00 Nasal Cannula 2 04/28/23 11:00 Nasal Cannula 2 04/28/23 08:00 Nasal Cannula 2 04/28/23 07:29 Nasal Cannula, Nebulizer 2 04/28/23 07:07 Nasal Cannula 2.5 all noted and reviewed including below
[2023-04-28] MEDS: DULoxetine HCL 20 MG CAP PO SCH (20:38)
[2023-04-28] MEDS: HYDROXYCHLOROQUINE SULFATE 200 MG TAB PO SCH (20:38)
[2023-04-29 07:45] LABS: Calcium 9.1 mg/dl (8.6-10.3); Creatinine Clr Calc Pharmacy 89.4 ml/min; Est GFR (African American) 88.4 ml/min; Est GFR (Non-African American) 76.3 ml/min; Potassium 4.2 mmol/L (3.5-5.1)
[2023-04-29] MEDS: ASPIRIN 81 MG ECTAB PO SCH (09:05)
[2023-04-29] MEDS: POTASSIUM CHLORIDE CRTAB 20 MEQ TABCR PO SCH ×3 (09:05→20:35)
[2023-04-29] MEDS: SPIRONOLACTONE 12.5 MG TAB PO SCH (09:05)
[2023-04-29] MEDS: MAGNESIUM OXIDE 400 MG TAB PO SCH ×2 (09:07→20:35)
[2023-04-29] MEDS: CHOLECALCIFEROL 1,000 UNITS 25 MCG TAB PO SCH (09:07)
[2023-04-29] MEDS: COLCHICINE 0.6 MG TAB PO SCH ×2 (09:07→20:34)
[2023-04-29] MEDS: BUMETANIDE 1 MG TAB PO SCH ×3 (09:07→20:33)
[2023-04-29] MEDS: predniSONE 20 MG TAB PO SCH (09:07)
[2023-04-29] MEDS: TERBINAFINE CR 30 GM TUBE EXT SCH (09:08)
[2023-04-29] MEDS: LIDOCAINE 5% 1 PATCH TD SCH (09:08)
--- NOTE | 2023-04-29 13:17 | Cardiology Progress Note ---
Date of Service April 29, 2023 Assessment & Plan (1) Pericardial effusion: (2) Acute on chronic heart failure with preserved ejection fraction (HFpEF): (3) Atrial fibrillation with controlled ventricular rate: Plan * Echocardiogram 04/24/2023 and 04/27/23 demonstrating large pericardial effusion without tamponade. * Patient declined pericardiocentesis due to risks of the procedure. Prefers to avoid transfer to [facility]. Willing to reconsider pericardio centesis at this facility. Proceed with pericardiocentesis on 05/01/2023. N.p.o. except medications on Monday night. Hold Eliquis 04/29/2023. * Continue colchicine. * Continue oral diuretic therapy * supplement potassium * Low-dose spironolactone restarted 04/26. 04/29/2023 Hemodynamically stable on appropriate medical therapies with anticipated pericardiocentesis on 05/01/2023 Eliquis on hold Admission and Anticipated Discharge Date Admission Date: April 02, 2023 Subjective Patient seen and examined, chart, medications, telemetry reviewed Morbidly obese male bedbound Hemodynamically stable without acute complaint Has manifested significant diuresis since in hospital Still with marked increase in abdominal girth No arrhythmias on telemetry Review of Systems Review of Systems: All systems reviewed & are unremarkable except as noted in Subjective Physical Exam Constitutional: + morbidly obese; no acute distress ENMT: external ear and nose normal, oropharynx normal Neck: + thick neck Respiratory: Auscultation: + diminished lung sounds Cardiovascular: Rate/Rhythm: regular rate Vessels: no JVD Extremities: + edema Gastrointestinal (Abdomen): normal bowel sounds, soft, nontender, no hepatosplenomegaly Results & Data Vital Signs (Past 12 Hours) Vital Signs Temp Pulse Pulse Resp BP Pulse Ox O2 Del Method 04/29/23 12:00 36.6 C 74 20 96 Nasal Cannula 04/29/23 10:55 90 04/29/23 10:55 Nasal Cannula 04/29/23 07:23 36.4 C L 89 20 108/69 94 Nasal Cannula 04/29/23 02:47 36.8 C 88 20 118/78 90 Nasal Cannula O2 Flow Rate 04/29/23 12:00 2 04/29/23 10:55 04/29/23 10:55 2 04/29/23 07:23 2 04/29/23 02:47 2 Laboratory Results Laboratory Results - last 24 hr 04/29/23 06:24 Sodium 141 Potassium 4.2 Chloride 97 L Carbon Dioxide 37 H Anion Gap 7 BUN 32 H Creatinine 0.94 Est Cr Clr Drug Dosing 89.4 Est GFR ( Amer) 88.4 Est GFR (Non-Af Amer) 76.3 BUN/Creatinine Ratio 34.0 H Glucose 177 H Calcium 9.1
--- NOTE | 2023-04-29 18:55 | Hospitalist Progress Note ---
Date of Service April 29, 2023 delayed entry date of service noted above Assessment & Plan (1) Acute on chronic heart failure with preserved ejection fraction (HFpEF): (2) Acute hyponatremia: Plan per admitting service notes with addendum: Mr Cruz is an 78-year-old gentleman with PMH of chronic diastolic heart failure on Lasix, HTN, TIIDM, presented (from [facility])and admitted on 04/02 for acute on chronic HFpEF exacerbation. His course has been complicated by difficult fluid status, acute hypoxic respiratory failure, and progressive pericardial effusion. Given history of RA, patient was trialed on a 5 day prednisone burst in hopes to aid in resolution of effusion. Repeat ECHO on 04/24 revealed that effusion seems to have progressed, however, without tamponade physiology at this time. After discussion with Cardiology and Palliative care, patient determined he would like to trial pericardiocentesis. communication with Cardiology determined that patient will likely undergo pericardiocentesis tomorrow (04/26) with Dr Pinto. #Acute hypoxic respiratory failure, likely multifactorial *improving Secondary to acute on chronic diastolic heart failure #OHS -Iso heart failure exacerbation and OHS. Denies home O2 use. Nocturnal -Will likely require 2 step to assess for daytime need for oxygen prior to discharge -Cardiology and nephrology on board, managing diuresis. Currently on bumex gtt. -Continue with BiPAP HS and PRN. - Pulm evaled. D/w pulm - no role of bronchoscopy for LLL collapse, continue w/ positive airway pressure support. -Titrate oxygen as able, continue with bumex pulse q8h 04/27 remains on 2 L nasal cannula Transition to oral Bumex 04/28 stable overall continue Bumex, Aldactone PO #Pericardial effusion repeat echo showing interval increase in pericardial effusion; s/p IV albumin to aid in transient increased oncotic pressure to help effusion Elevated ESR/CRP: started on prednisone 20mg completed -Repeat echo, unchanged large effusion Bumex 4mg q8h Discussions on going--final plan per cardiology note and discussion--Pericardiocentesis 04/26 04/28 Continue prednisone 40 mg daily, then taper Plan for pericardiocentesis on Sunday 04/29 stable overall continue Prednisone #Acute on chronic heart failure with preserved ejection fraction #HTN, relative hypotension - TTE (04/03/2023): LVEF 55-60%, - Home diuretics: Lasix 40mg qam Cardiology on consult and Nephrology on consult -Strict I's and O's, fluid restriction of 1500 mL/day, heart healthy diet, low- sodium diet -Aldactone held at 12.5mg daily -Holding ACEi/ARB at this time 2/2 hypotension -Given ongoing hypoxia and volume overload: continue IV Bumex pulse -Bumex pulse q 8 h 04/29 Transitioned to oral Bumex Continue p.o. Aldactone P.o. potassium #Acute urinary retention -c/f bladder outlet obstruction, c/f buried penis (congenital v acquired) per Urology -Nephrology also feels NOWAK likely given robust UOP -Urology on consult: camarena 1-2 weeks, OP follow up to be arranged, also on going efforts for diuresis -Continue tamsulosin -Discontinued oxybutynin -Likely will need camarena exchange on DC day. #Acute non-cardiac chest pain #Acute on chronic back pain *resolved -Tylenol prn, lidocaine patch to mid back -Pain on chest reproducible to touch -Continue home oxycodone regimen -Topical Myoflex #New onset atrial fibrillation History of wandering atrial pacemaker/complex ectopy given comorbidities remains in afib on telemetry-HR is controlled without rate control agents. Per cardiology recommend he transition to apixaban from Lovenox started on admission. Echo reveals EF 55-60%. on Eliquis #PAD, chronic bilateral dusky discoloration -Continue ASA #Contraction alkalosis *improved #Hypervolemic Hyponatremia *resolved Baseline sodium appears around 137, admitting sodium of 119, likely hypervolemic hyponatremia. Patient with no headache or dizziness or orientation issues at presentation. -Maintain I's and O's, fluid restriction of 1500 mL a day. -Nephrology on consult, appreciate recommendations, managing diuresis. -held aldactone #Lower ext cellulitis *resolved #Skin tears - Pt treated with oral Augmentin which has been completed. He has lower extremities wounds on his anterior tibiae and his toes from a recent fall per his report. 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 Escamilla, denies constitutional symptoms, reportedly increased LDH and [id number] c/w comorbidities -LDH 215 (last LDH 275 12/2022) -CBC w/ diff and smear in am -Dr escamilla on schedule, consult to assess if symptoms related/stable, no recommendations -Empiric Zosyn, no clear source, consider trial of discontinuation if no downtrend v addition of vanc, patient remains stable #T2DM -diet controlled, a1c 6.2 on 03/31/23, lantus/novolog per protocol has been declined by patient several times. Will DC BSG checks and insulin at this time. Continue with outpatient follow- up. #Rheumatoid arthritis #Gout -Continue plaquenil 200mg daily -Continue colchicine 0.6mg bid -Prednisone burst completed #Depression Continue duloxetine #Chronic illness #Ambulatory dysfunction -Given multiple comorbidities, will consult Palliative on Monday to discuss; patient seems eager to get "home" but unclear if he really understands the risk of a potential prompt return and ongoing prolonged hospitalizations without much improvement -Palliative consult to discuss understanding, poor outcomes, and next steps in patients care -discussion with PC revealed goal is to "go home" but patient is not opposed to trying measures that may prevent his return or delay acute decline (ex tamponade) #Abnormal UA -GNB on culture -Transition to zosyn given increase WBC, deescalate as able -urine with increased amounts of "bacteria of all types", repeat 04/24 similar DVT prophylaxis: apixaban (held on 04/24 due to pending procedure) PT/OT DNR/DNI Dispo: pending clearance from Cardio, Pulm, Nephro. Pulm has signed off. Admission and Anticipated Discharge Date Admission Date: April 02, 2023 Subjective ff up for pericardial effusion, etc seen resting in bed, comfortable no chest pain, dyspnea, palpitations, dizziness feels fine overall no new symptoms Review of Systems Review of Systems: all noted and negative except for above Physical Exam Physical Exam: General- oriented x 3, not in distress, speaks in sentences with no effort or accessory muscle use Eyes- anicteric Neck- no JVD Lungs- clear BS bilaterally, no rales/wheezes Heart- normal rate, regular rhythm; no murmurs Abdomen- normal bowel sounds, nondistended, soft, no tenderness Extremities- no pretibial edema, no calf tenderness Neuro- alert, oriented x 3; no gross focal neurologic deficits Skin- warm & dry Results & Data Results & Data Vital Signs (Past 12 Hours) Vital Signs Temp Pulse Pulse Resp BP Pulse Ox O2 Del Method 04/29/23 17:00 90 04/29/23 16:00 36.6 C 70 18 124/72 97 Nasal Cannula 04/29/23 12:00 36.6 C 74 20 96 Nasal Cannula 04/29/23 10:55 90 04/29/23 10:55 Nasal Cannula 04/29/23 07:23 36.4 C L 89 20 108/69 94 Nasal Cannula O2 Flow Rate 04/29/23 17:00 04/29/23 16:00 2 04/29/23 12:00 2 04/29/23 10:55 04/29/23 10:55 2 04/29/23 07:23 2 all noted and reviewed including below
[2023-04-29] MEDS: DULoxetine HCL 20 MG CAP PO SCH (20:34)
[2023-04-29] MEDS: HYDROXYCHLOROQUINE SULFATE 200 MG TAB PO SCH (20:34)
[2023-04-30 06:43] LABS: BUN Creatinine Ratio 38.4 (10-20); Calcium 8.8 mg/dl (8.6-10.3); Est GFR (African American) 94.9 ml/min; Est GFR (Non-African American) 81.9 ml/min; Potassium 3.8 mmol/L (3.5-5.1)
[2023-04-30] MEDS: SPIRONOLACTONE 12.5 MG TAB PO SCH (09:27)
[2023-04-30] MEDS: ASPIRIN 81 MG ECTAB PO SCH (09:27)
[2023-04-30] MEDS: COLCHICINE 0.6 MG TAB PO SCH ×2 (09:27→21:25)
[2023-04-30] MEDS: MAGNESIUM OXIDE 400 MG TAB PO SCH ×2 (09:27→21:24)
[2023-04-30] MEDS: POTASSIUM CHLORIDE CRTAB 20 MEQ TABCR PO SCH ×3 (09:27→21:24)
[2023-04-30] MEDS: CHOLECALCIFEROL 1,000 UNITS 25 MCG TAB PO SCH (09:28)
[2023-04-30] MEDS: LIDOCAINE 5% 1 PATCH TD SCH (09:28)
[2023-04-30] MEDS: BUMETANIDE 1 MG TAB PO SCH ×3 (09:28→21:24)
[2023-04-30] MEDS: TERBINAFINE CR 30 GM TUBE EXT SCH (09:29)
[2023-04-30] MEDS: predniSONE 10 MG TABLET PO SCH (10:29)
--- NOTE | 2023-04-30 12:45 | Cardiology Progress Note ---
Date of Service April 30, 2023 Assessment & Plan (1) Pericardial effusion: (2) Acute on chronic heart failure with preserved ejection fraction (HFpEF): (3) Atrial fibrillation with controlled ventricular rate: Plan * Echocardiogram 04/24/2023 and 04/27/23 demonstrating large pericardial effusion without tamponade. * Patient declined pericardiocentesis due to risks of the procedure. Prefers to avoid transfer to [facility]. Willing to reconsider pericardio centesis at this facility. Proceed with pericardiocentesis on 05/01/2023. N.p.o. except medications on Monday night. Hold Eliquis 04/29/2023. * Continue colchicine. * Continue oral diuretic therapy * supplement potassium * Low-dose spironolactone restarted 04/26. 04/29/2023 Hemodynamically stable on appropriate medical therapies with anticipated pericardiocentesis on 05/01/2023 Eliquis on hold 04/30/2023 Continue diuresis no acute complaints and hemodynamically stable Repeat echocardiogram quick look in a.m. If large pericardial effusion still present, pericardiocentesis. N.p.o. after midnight Admission and Anticipated Discharge Date Admission Date: April 02, 2023 Physical Exam Constitutional: + morbidly obese; no acute distress ENMT: external ear and nose normal, oropharynx normal Neck: + thick neck Respiratory: Auscultation: + diminished lung sounds Cardiovascular: Rate/Rhythm: regular rate Vessels: no JVD Extremities: + edema Gastrointestinal (Abdomen): normal bowel sounds, soft, nontender, no hepatosplenomegaly Results & Data Vital Signs (Past 12 Hours) Vital Signs Temp Pulse Pulse Resp BP Pulse Ox O2 Del Method 04/30/23 12:03 36.5 C 88 18 124/70 96 Nasal Cannula 04/30/23 07:54 36.6 C 74 20 102/77 98 CPAP 04/30/23 04:50 35.9 C L 88 20 111/70 96 CPAP 04/30/23 04:16 90 20 96 O2 Flow Rate 04/30/23 12:03 2 04/30/23 07:54 4 04/30/23 04:50 4 04/30/23 04:16 3 Laboratory Results Laboratory Results - last 24 hr 04/30/23 05:31 Sodium 140 Potassium 3.8 Chloride 98 Carbon Dioxide 36 H Anion Gap 6 BUN 33 H Creatinine 0.86 Est Cr Clr Drug Dosing 96.0 Est GFR ( Amer) 94.9 Est GFR (Non-Af Amer) 81.9 BUN/Creatinine Ratio 38.4 H Glucose 173 H Calcium 8.8
--- NOTE | 2023-04-30 15:19 | Hospitalist Progress Note ---
Date of Service April 30, 2023 Assessment & Plan (1) Acute on chronic heart failure with preserved ejection fraction (HFpEF): (2) Acute hyponatremia: Plan per admitting service notes with addendum: Mr Cruz is an 78-year-old gentleman with PMH of chronic diastolic heart failure on Lasix, HTN, TIIDM, presented (from [facility])and admitted on 04/02 for acute on chronic HFpEF exacerbation. His course has been complicated by difficult fluid status, acute hypoxic respira tory failure, and progressive pericardial effusion. Given history of RA, patient was trialed on a 5 day prednisone burst in hopes to aid in resolution of effusion. Repeat ECHO on 04/24 revealed that effusion seems to have progressed, however, without tamponade physiology at this time. After discussion with Cardiology and Palliative care, patient determined he would like to trial pericardiocentesis. communication with Cardiology determined that patient will likely undergo pericardiocentesis tomorrow (04/26) with Dr Pinto. #Acute hypoxic respiratory failure, likely multifactorial *improving Secondary to acute on chronic diastolic heart failure #OHS -Iso heart failure exacerbation and OHS. Denies home O2 use. Nocturnal -Will likely require 2 step to assess for daytime need for oxygen prior to discharge -Cardiology and nephrology on board, managing diuresis. Currently on bumex gtt. -Continue with BiPAP HS and PRN. - Pulm evaled. D/w pulm - no role of bronchoscopy for LLL collapse, continue w/ positive airway pressure support. -Titrate oxygen as able, continue with bumex pulse q8h 04/30 stable on Bumex, Aldactone #Pericardial effusion repeat echo showing interval increase in pericardial effusion; s/p IV albumin to aid in transient increased oncotic pressure to help effusion Elevated ESR/CRP: started on prednisone 20mg completed -Repeat echo, unchanged large effusion Bumex 4mg q8h Discussions on going--final plan per cardiology note and discussion--Pericardiocentesis 04/26 04/30 Continue prednisone 30mg daily, then taper Plan for pericardiocentesis on Monday #Acute on chronic heart failure with preserved ejection fraction #HTN, relative hypotension - TTE (04/03/2023): LVEF 55-60%, - Home diuretics: Lasix 40mg qam Cardiology on consult and Nephrology on consult -Strict I's and O's, fluid restriction of 1500 mL/day, heart healthy diet, low- sodium diet -Aldactone held at 12.5mg daily -Holding ACEi/ARB at this time 2/2 hypotension -Given ongoing hypoxia and volume overload: continue IV Bumex pulse -Bumex pulse q 8 h 04/30 Transitioned to oral Bumex Continue p.o. Aldactone P.o. potassium #Acute urinary retention -c/f bladder outlet obstruction, c/f buried penis (congenital v acquired) per Urology -Nephrology also feels NOWAK likely given robust UOP -Urology on consult: camarena 1-2 weeks, OP follow up to be arranged, also on going efforts for diuresis -Continue tamsulosin -Discontinued oxybutynin -Likely will need camarena exchange on day. #Acute non-cardiac chest pain #Acute on chronic back pain *resolved -Tylenol prn, lidocaine patch to mid back -Pain on chest reproducible to touch -Continue home oxycodone regimen -Topical Myoflex #New onset atrial fibrillation History of wandering atrial pacemaker/complex ectopy given comorbidities remains in afib on telemetry-HR is controlled without rate control agents. Per cardiology recommend he transition to apixaban from Lovenox started on admission. Echo reveals EF 55-60%. on Eliquis #PAD, chronic bilateral dusky discoloration -Continue ASA #Contraction alkalosis *improved #Hypervolemic Hyponatremia *resolved Baseline sodium appears around 137, admitting sodium of 119, likely hypervolemic hyponatremia. Patient with no headache or dizziness or orientation issues at presentation. -Maintain I's and O's, fluid restriction of 1500 mL a day. -Nephrology on consult, appreciate recommendations, managing diuresis. -held aldactone #Lower ext cellulitis *resolved #Skin tears - Pt treated with oral Augmentin which has been completed. He has lower extremities wounds on his anterior tibiae and his toes from a recent fall per his report. 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 Escamilla, denies constitutional symptoms, reportedly increased LDH and [id number] c/w comorbidities -LDH 215 (last LDH 275 12/2022) -CBC w/ diff and smear in am -Dr escamilla on schedule, consult to assess if symptoms related/stable, no recommendations -Empiric Zosyn, no clear source, consider trial of discontinuation if no downtrend v addition of vanc, patient remains stable #T2DM -diet controlled, a1c 6.2 on 03/31/23, lantus/novolog per protocol has been declined by patient several times. Will DC BSG checks and insulin at this time. Continue with outpatient follow- up. #Rheumatoid arthritis #Gout -Continue plaquenil 200mg daily -Continue colchicine 0.6mg bid -Prednisone burst completed #Depression Continue duloxetine #Chronic illness #Ambulatory dysfunction -Given multiple comorbidities, will consult Palliative on Monday to discuss; patient seems eager to get "home" but unclear if he really understands the risk of a potential prompt return and ongoing prolonged hospitalizations without much improvement -Palliative consult to discuss understanding, poor outcomes, and next steps in patients care -discussion with PC revealed goal is to "go home" but patient is not opposed to trying measures that may prevent his return or delay acute decline (ex tamponade) #Abnormal UA -GNB on culture -Transition to zosyn given increase WBC, deescalate as able -urine with increased amounts of "bacteria of all types", repeat 04/24 similar DVT prophylaxis: apixaban (held on 04/24 due to pending procedure) PT/OT DNR/DNI Dispo: pending clearance from Cardio, Pulm, Nephro. Pulm has signed off. Admission and Anticipated Discharge Date Admission Date: April 02, 2023 Subjective ff up for pericardial effusion, etc seen resting in chair, comfortable no chest pain, shortness of breath, dizziness no other symptoms Review of Systems Review of Systems: all noted and negative except for above Physical Exam Physical Exam: General- oriented x 3, not in distress, speaks in sentences with no effort or accessory muscle use Eyes- anicteric Neck- no JVD Lungs- clear BS BL Heart- normal rate, regular rhythm; no murmurs Abdomen- normal bowel sounds, nondistended, soft, nontender Extremities- no pretibial edema, no calf tenderness Neuro- alert, oriented x 3; no gross focal neurologic deficits Skin- warm & dry Results & Data Results & Data Vital Signs (Past 12 Hours) Vital Signs Temp Pulse Pulse Resp BP Pulse Ox O2 Del Method 04/30/23 12:03 36.5 C 88 18 124/70 96 Nasal Cannula 04/30/23 07:54 36.6 C 74 20 102/77 98 CPAP 04/30/23 04:50 35.9 C L 88 20 111/70 96 CPAP 04/30/23 04:16 90 20 96 O2 Flow Rate 04/30/23 12:03 2 04/30/23 07:54 4 04/30/23 04:50 4 04/30/23 04:16 3 all noted and reviewed including below
[2023-04-30] MEDS: DULoxetine HCL 20 MG CAP PO SCH (21:24)
[2023-04-30] MEDS: HYDROXYCHLOROQUINE SULFATE 200 MG TAB PO SCH (21:25)
[2023-05-01 07:35] LABS: BUN Creatinine Ratio 37.6 (10-20); Calcium 9.1 mg/dl (8.6-10.3); Creatinine Clr Calc Pharmacy 88.7 ml/min; Est GFR (African American) 89.5 ml/min; Est GFR (Non-African American) 77.3 ml/min; Potassium 3.6 mmol/L (3.5-5.1)
--- NOTE | 2023-05-01 08:33 | Pre Anesthesia Assessment ---
Date of Service May 01, 2023 Pre Sedation Assessment Vital Signs Temp Pulse Pulse Pulse Resp BP BP 05/01/23 08:15 83 18 90/56 L 05/01/23 04:06 93 H 05/01/23 03:54 80 23 05/01/23 02:26 98.1 F 87 18 103/66 04/30/23 22:52 97.9 F 89 20 103/69 04/30/23 21:57 84 20 04/30/23 21:20 04/30/23 19:40 98.2 F 82 18 108/69 04/30/23 16:38 97.7 F 78 18 134/81 04/30/23 12:03 97.7 F 88 18 124/70 04/30/23 09:00 79 04/30/23 09:00 Pulse Ox O2 Del Method O2 Flow Rate 05/01/23 08:15 94 Room Air 05/01/23 04:06 05/01/23 03:54 93 4 05/01/23 02:26 93 CPAP 04/30/23 22:52 94 CPAP 04/30/23 21:57 93 3 04/30/23 21:20 Nasal Cannula, CPAP 2 04/30/23 19:40 95 Nasal Cannula 2 04/30/23 16:38 97 Nasal Cannula 2 04/30/23 12:03 96 Nasal Cannula 2 04/30/23 09:00 04/30/23 09:00 Nasal Cannula 2 Cardiovascular + regular rate Respiratory + respiratory effort normal Pre-Sedation Airway Assessment Smoking Status: Never smoker Hx Sleep Apnea: Yes Hx Difficult Intubation: Yes Short, Thick Neck: Yes Thyromental Distance: < 3.5 Finger Breadths Oral Cavity: + Dental Abnormalities Mallampati Class: III ASA: ASA3 NPO Status Date of Last Intake of Fluids: 04/30/23 Time of Last Intake of Fluids: 18:00 Date of Last Intake of Solid Food: 04/30/23 Time of Last Intake of Solid Foods: 18:00 Procedure Planning Contraindications for Sedation: none Current Medications Reviewed: Yes Notes The planned sedation has been discussed with the patient. Informed Consent was obtained. I have identified the patient, determined the appropriateness of sedation and have assessed the patient immediately prior to the procedure. All medicine(s) and interventions are by my order.
[2023-05-01] MEDS ORDERED: MIDAZOLAM HCL 1 MG/ML 2ML VIAL ONE (08:49)
[2023-05-01] MEDS ORDERED: fentaNYL citrate PF 100 MCG/2 ML VIAL ONE (08:49)
--- NOTE | 2023-05-01 09:52 | Post Anesthesia Assessment ---
Date of Service May 01, 2023 Post Sedation Assessment Vital Signs Temp Pulse Pulse Pulse Resp BP BP 05/01/23 08:15 83 18 90/56 L 05/01/23 04:06 93 H 05/01/23 03:54 80 23 05/01/23 02:26 98.1 F 87 18 103/66 04/30/23 22:52 97.9 F 89 20 103/69 04/30/23 21:57 84 20 04/30/23 21:20 04/30/23 19:40 98.2 F 82 18 108/69 04/30/23 16:38 97.7 F 78 18 134/81 04/30/23 12:03 97.7 F 88 18 124/70 Pulse Ox O2 Del Method O2 Flow Rate 05/01/23 08:15 94 Room Air 05/01/23 04:06 05/01/23 03:54 93 4 05/01/23 02:26 93 CPAP 04/30/23 22:52 94 CPAP 04/30/23 21:57 93 3 04/30/23 21:20 Nasal Cannula, CPAP 2 04/30/23 19:40 95 Nasal Cannula 2 04/30/23 16:38 97 Nasal Cannula 2 04/30/23 12:03 96 Nasal Cannula 2 Recovery Score Activity: Moves 4 extremities Respiration: Deep Breath/Cough Circulation: +/-20% PreAnes Value Consciousness: Fully Awake Oxygen Saturation: O2 needed for >90% Discharge Sedation Level of Care: Fast Track Phase II Post Sedation Plan On clinical assessment, the patient appears to have tolerated the sedation without complications. Patient is recovering as anticipated. Patient will continue to be monitored by nursing and may be discharged when sedation discharge criteria are met per below protocol. Upon Completions of procedure up to 15 minutes continue every 5 minute vital signs and the P.A.R. score; then discharge to a Phase I or Fast Track to Phase II per the following guidelines: * Discharge Patient to appropriate Phase II area if PAR is 8 or greater or return to pre- procedure baseline. The post - procedure orders will be as directed. * If PAR score is less than 8 or not return to pre-procedure baseline then patient will follow Phase I monitoring till PAR is reached for Phase II. The Phase I may be done in procedure room or may call to secure a Phase I area. * If naloxone or flumazenil are used for reversal, hold in Phase I for continued monitoring from when last reversal dose was given for a minimum of 60 minutes or longer pending the nurse and/or physician discretion of patient condition before discharge to Phase II. Please call the Sedation Physician to re-evaluate and complete post-note for discharge to Phase II area. Do NOT discharge from procedure sedation or Phase 1 until post- sedation evaluation note is complete by procedure /sedation MD Sedation Discharge Instructions to be given to the patient at discharge to home.
--- NOTE | 2023-05-01 10:02 | Cardiac Catheterization ---
[facility] Data: Nursery Nurse Cardiac Status Clinical evaluation leading to the procedure CAD Presenation: Sx unlikely to be ischemic Diagnostic Physicians Name: Chance Love MD Closure Device Recommendations: Medical Therapy and/or Counseling Cardiac Cath Procedure Full Procedure Date May 01, 2023 Pre-Procedure Diagnosis Pre-Procedure Diagnosis: Pericardial Disease AUC Score AUC Score: 7 Post-Procedure Diagnosis Post-Procedure Diagnosis: Cardiothoracic Finding (Pericardial effusion) Procedure(s) Performed Procedure(s) Performed: Pericardiocentesis [employer]er Chance Love MD Anesthesiology Resident(s) Cm Estimated Blood Loss Estimated Blood Loss: < 5 Medication(s) Medication(s): Fentanyl, Heparin, Lidocaine 1% and Versed Summary of Findings PERICARDIOCENTESIS Indication: Large, persistent pericardial effusion despite diuresis. Procedure: - Repeat echo images obtained with patient supine on wedge on label cutter table - Effusion appeared smaller today than prior images from 04/27 - Decision to approach from subxiphoid approach - Moderate sedation, local anesthesia with 1% lidocaine - Under ultrasound and fluoroscopic guidance pericardial effusion accessed with micropuncture needle. - Opening pressure 8 mmHg. - Bubble study showed appropriate position in pericardial space. - 6Fr glide sheath placed into pericardial space - 6fr pigtail sheath placed through sheath into pericardial space. - 400ml of brown/bloody fluid drained. 60 ml sent to lab - post drainage pericardial pressure 1 mmHg. - Sheath and catheter sutured into place. - Patient tolerated procedure well. Summary: 1. Successful pericardiocentesis with removal of 400ml of brown/bloody fluid. Recommendations: -- Pericardial drain left to suction. -- Repeat echo in AM -- Possible drain removal tomorrow pending overnight output. Hemodynamics Rest Ao:: - Final Ao: - LV: - Recommendations Recommendations: Medical Therapy and/or Counseling Specimens Specimens: None Radiation Exposure (mGy) 309 Contrast (mls) - Drains Drains: pericardial drain Anesthesia moderate [id number] Procedural Complication(s) None Disposition Nursery Nurse Holding/Recovery I attest to the content of the Intraoperative Record and any orders documented therein. Any exceptions are noted below. [facility] Card Cath Procedure Codes Therapeutic Services & Ancillary Procedure 1: Cardiovascular Tx and Anc Procedures: 13644 Pericardiocentesis w / Imaging Moderate Sedation Procedure 1: Sedation/Anesthesia: 81397 Mod Sedation by the same physician;Init15 Min Child Age 5 & Up Procedure 2: Sedation/Anesthesia: 92158 Mod Sedation by the same physician; Ea [id number] Minutes PG Care Time/CCT Total # of Minutes Spent Total Time Spent with Patient: Total time spent is greater than 50% in coordination of care (as documented) at patient's floor/unit and/or counseling patient:
[2023-05-01] MEDS: ASPIRIN 81 MG ECTAB PO SCH (11:18)
[2023-05-01] MEDS: BUMETANIDE 1 MG TAB PO SCH ×3 (11:18→20:14)
[2023-05-01] MEDS: CHOLECALCIFEROL 1,000 UNITS 25 MCG TAB PO SCH (11:18)
[2023-05-01] MEDS: POTASSIUM CHLORIDE CRTAB 20 MEQ TABCR PO SCH ×3 (11:19→20:14)
[2023-05-01] MEDS: MAGNESIUM OXIDE 400 MG TAB PO SCH ×2 (11:19→20:13)
--- NOTE | 2023-05-01 11:51 | Cardiology Progress Note ---
Date of Service May 01, 2023 Assessment & Plan (1) Pericardial effusion: (2) Acute on chronic heart failure with preserved ejection fraction (HFpEF): (3) Atrial fibrillation with controlled ventricular rate: Plan * Echocardiogram 04/24/2023 and 04/27/23 demonstrating large pericardial effusion without tamponade. * Patient declined pericardiocentesis due to risks of the procedure. Prefers to avoid transfer to [facility]. Willing to reconsider pericardio centesis at this facility. Proceed with pericardiocentesis on 05/01/2023. N.p.o. except medications on Monday night. Hold Eliquis 04/29/2023. * Continue colchicine. * Continue oral diuretic therapy * supplement potassium * Low-dose spironolactone restarted 04/26. 04/29/2023 Hemodynamically stable on appropriate medical therapies with anticipated pericardiocentesis on 05/01/2023 Eliquis on hold 04/30/2023 Continue diuresis no acute complaints and hemodynamically stable Repeat echocardiogram quick look in a.m. If large pericardial effusion still present, pericardiocentesis. N.p.o. after midnight 05/01/2023 Patient underwent pericardiocentesis with removal of approximately 100 cc pericardial effusion red-brown clear Patient tolerated well Currently on good oral regimen with weight down 40 kg We will continue oral regimen Likely remove pericardial catheter tomorrow Admission and Anticipated Discharge Date Admission Date: April 02, 2023 Subjective Patient seen and examined post pericardiocentesis Patient tolerated procedure well. Await fluid results No acute complaints currently. Weight down 40 kg with continued good urinary output Renal function stable Physical Exam Constitutional: + morbidly obese; no acute distress ENMT: external ear and nose normal, oropharynx normal Neck: + thick neck Respiratory: Auscultation: + diminished lung sounds Cardiovascular: Rate/Rhythm: regular rate Vessels: no JVD Extremities: + edema Chest (Breasts): Additional Comments: Pericardial catheter draining dark clear Gastrointestinal (Abdomen): normal bowel sounds, soft, nontender, no hepatosplenomegaly Results & Data Vital Signs (Past 12 Hours) Vital Signs Temp Pulse Pulse Pulse Resp BP BP 05/01/23 11:45 96 H 21 05/01/23 11:40 108/69 05/01/23 11:40 103 H 24 05/01/23 11:30 95/64 L 05/01/23 11:30 91 H 25 H 05/01/23 11:27 91/65 L 05/01/23 11:27 92 H 29 H 05/01/23 11:20 87/59 L 05/01/23 11:20 92 H 14 05/01/23 11:15 85 27 H 05/01/23 11:10 96/59 L 05/01/23 11:10 90 22 05/01/23 11:00 99/66 L 05/01/23 11:00 91 H 16 05/01/23 10:55 96 H 24 05/01/23 10:55 82/52 L 05/01/23 10:55 88 05/01/23 10:45 97/59 L 05/01/23 10:45 89 18 05/01/23 10:30 100/58 L 05/01/23 10:30 86 20 05/01/23 10:20 101/67 05/01/23 10:20 88 24 05/01/23 10:16 87 12 05/01/23 10:16 105/67 05/01/23 10:15 91 H 11 L 05/01/23 10:14 83 20 05/01/23 09:56 92 H 20 97/58 L 05/01/23 09:41 76 20 89/54 L 05/01/23 08:15 83 18 90/56 L 05/01/23 04:06 93 H 05/01/23 03:54 80 23 05/01/23 02:26 36.7 C 87 18 103/66 Pulse Ox O2 Del Method O2 Flow Rate 05/01/23 11:45 95 05/01/23 11:40 05/01/23 11:40 92 05/01/23 11:30 05/01/23 11:30 93 05/01/23 11:27 05/01/23 11:27 95 05/01/23 11:20 05/01/23 11:20 94 05/01/23 11:15 92 05/01/23 11:10 05/01/23 11:10 93 05/01/23 11:00 05/01/23 11:00 92 05/01/23 10:55 91 05/01/23 10:55 05/01/23 10:55 05/01/23 10:45 05/01/23 10:45 92 05/01/23 10:30 05/01/23 10:30 93 05/01/23 10:20 05/01/23 10:20 92 05/01/23 10:16 94 05/01/23 10:16 05/01/23 10:15 05/01/23 10:14 95 05/01/23 09:56 92 Room Air 05/01/23 09:41 92 Room Air 05/01/23 08:15 94 Room Air 05/01/23 04:06 05/01/23 03:54 93 4 05/01/23 02:26 93 CPAP Laboratory Results Laboratory Results - last 24 hr 05/01/23 05/01/23 05/01/23 06:25 09:15 Unknown Sodium 140 Potassium 3.6 Chloride 99 Carbon Dioxide 34 H Anion Gap 7 BUN 35 H Creatinine 0.93 Est Cr Clr Drug Dosing 88.7 Est GFR ( Amer) 89.5 Est GFR (Non-Af Amer) 77.3 BUN/Creatinine Ratio 37.6 H Glucose 161 H Calcium 9.1 Fluid Type Pending Fluid Color Pending Fluid Appearance Pending Fld Tot Nucleated Cell Pending Fluid Neutrophils % Pending Fluid Lymphocytes % Pending Fluid Eosinophils % Pending Fluid Basophils % Pending Fl Monocyt/Macrophag % Pending Fld Mesothelial Cell % Pending Fluid Comment 2 Pending Nasal Screen MRSA (PCR) Positive A
[2023-05-01] MEDS: LIDOCAINE 5% 1 PATCH TD SCH (13:33)
[2023-05-01] MEDS: COLCHICINE 0.6 MG TAB PO SCH ×2 (13:33→20:14)
[2023-05-01] MEDS: predniSONE 10 MG TABLET PO SCH (13:34)
[2023-05-01] MEDS: TERBINAFINE CR 30 GM TUBE EXT SCH (13:34)
[2023-05-01] MEDS: SPIRONOLACTONE 12.5 MG TAB PO SCH (13:34)
[2023-05-01] MEDS: DULoxetine HCL 20 MG CAP PO SCH (20:13)
[2023-05-01] MEDS: HYDROXYCHLOROQUINE SULFATE 200 MG TAB PO SCH (20:13)
--- NOTE | 2023-05-01 20:19 | Hospitalist Progress Note ---
Date of Service May 01, 2023 Assessment & Plan (1) Acute on chronic heart failure with preserved ejection fraction (HFpEF): (2) Acute hyponatremia: Plan per admitting service notes with addendum: Mr Cruz is an 78-year-old gentleman with PMH of chronic diastolic heart failure on Lasix, HTN, TIIDM, presented (from [facility])and admitted on 04/02 for acute on chronic HFpEF exacerbation. His course has been complicated by difficult fluid status, acute hypoxic respira tory failure, and progressive pericardial effusion. Given history of RA, patient was trialed on a 5 day prednisone burst in hopes to aid in resolution of effusion. Repeat ECHO on 04/24 revealed that effusion seems to have progressed, however, without tamponade physiology at this time. After discussion with Cardiology and Palliative care, patient determined he would like to trial pericardiocentesis. communication with Cardiology determined that patient will likely undergo pericardiocentesis tomorrow (04/26) with Dr Pinto. #Acute hypoxic respiratory failure, likely multifactorial *improving Secondary to acute on chronic diastolic heart failure #OHS -Iso heart failure exacerbation and OHS. Denies home O2 use. Nocturnal -Will likely require 2 step to assess for daytime need for oxygen prior to discharge -Cardiology and nephrology on board, managing diuresis. Currently on bumex gtt. -Continue with BiPAP HS and PRN. - Pulm evaled. D/w pulm - no role of bronchoscopy for LLL collapse, continue w/ positive airway pressure support. -Titrate oxygen as able, continue with bumex pulse q8h 05/01 stable on Bumex, Aldactone #Pericardial effusion repeat echo showing interval increase in pericardial effusion; s/p IV albumin to aid in transient increased oncotic pressure to help effusion Elevated ESR/CRP: started on prednisone 20mg completed -Repeat echo, unchanged large effusion Bumex 4mg q8h Discussions on going--final plan per cardiology note and discussion--Pericardiocentesis 04/26 05/01 Continue prednisone 30mg daily, then taper s/p pericardiocentesis draining 100cc fluid Cytology pending catheter in place, remove tomorrow per Cardio #Acute on chronic heart failure with preserved ejection fraction #HTN, relative hypotension - TTE (04/03/2023): LVEF 55-60%, - Home diuretics: Lasix 40mg qam Cardiology on consult and Nephrology on consult -Strict I's and O's, fluid restriction of 1500 mL/day, heart healthy diet, low- sodium diet -Aldactone held at 12.5mg daily -Holding ACEi/ARB at this time 2/2 hypotension -Given ongoing hypoxia and volume overload: continue IV Bumex pulse -Bumex pulse q 8 h 12/4 on oral Bumex, Aldactone P.o. potassium #Acute urinary retention -c/f bladder outlet obstruction, c/f buried penis (congenital v acquired) per Urology -Nephrology also feels NOWAK likely given robust UOP -Urology on consult: camarena 1-2 weeks, OP follow up to be arranged, also on going efforts for diuresis -Continue tamsulosin -Discontinued oxybutynin -Likely will need camarena exchange on DC day. #Acute non-cardiac chest pain #Acute on chronic back pain *resolved -Tylenol prn, lidocaine patch to mid back -Pain on chest reproducible to touch -Continue home oxycodone regimen -Topical Myoflex #New onset atrial fibrillation History of wandering atrial pacemaker/complex ectopy given comorbidities remains in afib on telemetry-HR is controlled without rate control agents. Per cardiology recommend he transition to apixaban from Lovenox started on admission. Echo reveals EF 55-60%. on Eliquis #PAD, chronic bilateral dusky discoloration -Continue ASA #Contraction alkalosis *improved #Hypervolemic Hyponatremia *resolved Baseline sodium appears around 137, admitting sodium of 119, likely hypervolemic hyponatremia. Patient with no headache or dizziness or orientation issues at presentation. -Maintain I's and O's, fluid restriction of 1500 mL a day. -Nephrology on consult, appreciate recommendations, managing diuresis. -held aldactone #Lower ext cellulitis *resolved #Skin tears - Pt treated with oral Augmentin which has been completed. He has lower extremities wounds on his anterior tibiae and his toes from a recent fall per his report. 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 Escamilla, denies constitutional symptoms, reportedly increased LDH and [id number] c/w comorbidities -LDH 215 (last LDH 275 12/2022) -CBC w/ diff and smear in am -Dr escamilla on schedule, consult to assess if symptoms related/stable, no recommendations -Empiric Zosyn, no clear source, consider trial of discontinuation if no downtrend v addition of vanc, patient remains stable #T2DM -diet controlled, a1c 6.2 on 03/31/23, lantus/novolog per protocol has been declined by patient several times. Will DC BSG checks and insulin at this time. Continue with outpatient follow- up. #Rheumatoid arthritis #Gout -Continue plaquenil 200mg daily -Continue colchicine 0.6mg bid -Prednisone burst completed #Depression Continue duloxetine #Chronic illness #Ambulatory dysfunction -Given multiple comorbidities, will consult Palliative on Monday to discuss; patient seems eager to get "home" but unclear if he really understands the risk of a potential prompt return and ongoing prolonged hospitalizations without much improvement -Palliative consult to discuss understanding, poor outcomes, and next steps in patients care -discussion with PC revealed goal is to "go home" but patient is not opposed to trying measures that may prevent his return or delay acute decline (ex tamponade) #Abnormal UA -GNB on culture -Transition to zosyn given increase WBC, deescalate as able -urine with increased amounts of "bacteria of all types", repeat 04/24 similar DVT prophylaxis: apixaban (held on 04/24 due to pending procedure) PT/OT DNR/DNI Dispo: pending clearance from Cardio, Pulm, Nephro. Pulm has signed off. Admission and Anticipated Discharge Date Admission Date: April 02, 2023 Subjective ff up for pericardial effusion, etc seen resting in bed, comfortable states he feels fine overall has mild discomfort in the dressing site no chest pain, dyspnea, palpitations, dizziness no other symptoms Review of Systems Review of Systems: all noted and negative except for above Physical Exam Physical Exam: General- oriented x 3, not in distress, speaks in sentences with no effort or accessory muscle use Eyes- anicteric Neck- no JVD Lungs- clear BS BL Heart- normal rate, regular rhythm; no murmurs dressing in place: drain in place, no bleeding/discharge Abdomen- normal bowel sounds, nondistended, soft, nontender Extremities- trace pretibial edema, no calf tenderness Neuro- alert, oriented x 3; no gross focal neurologic deficits Skin- warm & dry Results & Data Results & Data Vital Signs (Past 12 Hours) Vital Signs Temp Pulse Resp BP Pulse Ox O2 Del Method O2 Flow Rate 05/01/23 19:47 Nasal Cannula, CPAP 2 05/01/23 19:32 36.4 C L 05/01/23 17:30 99/61 L 05/01/23 17:30 93 H 26 H 97 05/01/23 17:00 96/64 L 05/01/23 17:00 87 27 H 99 05/01/23 16:30 103/60 05/01/23 16:30 94 H 19 92 05/01/23 16:00 96/61 L 05/01/23 16:00 90 12 94 05/01/23 15:30 101/62 05/01/23 15:30 89 18 96 05/01/23 15:00 100/61 05/01/23 15:00 87 21 92 05/01/23 14:30 82 21 94 05/01/23 14:30 95/62 L 05/01/23 14:25 86 24 93 05/01/23 14:25 101/59 L 05/01/23 14:20 90/61 L 05/01/23 14:20 91 H 29 H 96 05/01/23 14:10 94/58 L 05/01/23 14:10 84 17 95 05/01/23 14:00 Nasal Cannula, CPAP 2 05/01/23 14:00 83/59 L 05/01/23 14:00 92 H 15 96 05/01/23 13:50 93/60 L 05/01/23 13:50 90 23 94 05/01/23 13:40 90 21 94 05/01/23 13:40 94/58 L 05/01/23 13:30 91/64 L 05/01/23 13:30 84 20 93 05/01/23 13:20 89/62 L 05/01/23 13:20 90 22 93 05/01/23 13:15 90 21 94 05/01/23 13:10 89/54 L 05/01/23 13:10 84 22 95 05/01/23 13:00 88/60 L 05/01/23 13:00 92 H 22 95 05/01/23 12:50 90 23 95 05/01/23 12:50 89/57 L 05/01/23 12:45 86 25 H 94 05/01/23 12:40 90/55 L 05/01/23 12:40 86 24 92 05/01/23 12:30 88/57 L 05/01/23 12:30 88 18 96 05/01/23 12:20 97/61 L 05/01/23 12:20 88 17 92 05/01/23 12:15 96 H 15 82 L 05/01/23 12:11 89 18 96 05/01/23 12:11 97/57 L 05/01/23 12:01 102/69 05/01/23 12:01 90 15 93 05/01/23 12:00 90 17 94 05/01/23 11:56 83/54 L 05/01/23 11:56 85 27 H 94 05/01/23 11:50 96/65 L 05/01/23 11:50 91 H 30 H 94 05/01/23 11:45 96 H 21 95 05/01/23 11:40 108/69 05/01/23 11:40 103 H 24 92 05/01/23 11:30 95/64 L 05/01/23 11:30 91 H 25 H 93 05/01/23 11:27 91/65 L 05/01/23 11:27 92 H 29 H 95 05/01/23 11:20 87/59 L 05/01/23 11:20 92 H 14 94 05/01/23 11:15 85 27 H 92 05/01/23 11:10 96/59 L 05/01/23 11:10 90 22 93 05/01/23 11:00 99/66 L 05/01/23 11:00 91 H 16 92 05/01/23 10:55 96 H 24 91 05/01/23 10:55 82/52 L 05/01/23 10:55 88 05/01/23 10:45 97/59 L 05/01/23 10:45 89 18 92 05/01/23 10:30 100/58 L 05/01/23 10:30 86 20 93 05/01/23 10:20 101/67 05/01/23 10:20 88 24 92 05/01/23 10:16 87 12 94 05/01/23 10:16 105/67 05/01/23 10:15 91 H 11 L 05/01/23 10:14 83 20 95 05/01/23 09:56 92 H 20 97/58 L 92 Room Air 05/01/23 09:41 76 20 89/54 L 92 Room Air all noted and reviewed including below
[2023-05-02 04:37] LABS: BUN Creatinine Ratio 36.5 (10-20); Calcium 9.2 mg/dl (8.6-10.3); Creatinine Clr Calc Pharmacy 79.4 ml/min; Est GFR (African American) 78.2 ml/min; Est GFR (Non-African American) 67.5 ml/min; Potassium 4.3 mmol/L (3.5-5.1)
[2023-05-02] MEDS: LIDOCAINE 5% 1 PATCH TD SCH (09:28)
[2023-05-02] MEDS: SPIRONOLACTONE 12.5 MG TAB PO SCH (09:29)
[2023-05-02] MEDS: MAGNESIUM OXIDE 400 MG TAB PO SCH (09:29)
[2023-05-02] MEDS: BUMETANIDE 1 MG TAB PO SCH ×2 (09:29→14:55)
[2023-05-02] MEDS: ASPIRIN 81 MG ECTAB PO SCH (09:30)
[2023-05-02] MEDS: predniSONE 10 MG TABLET PO SCH (09:33)
[2023-05-02] MEDS: CHOLECALCIFEROL 1,000 UNITS 25 MCG TAB PO SCH (09:33)
[2023-05-02] MEDS: POTASSIUM CHLORIDE CRTAB 20 MEQ TABCR PO SCH ×2 (09:34→14:57)
[2023-05-02] MEDS: COLCHICINE 0.6 MG TAB PO SCH (09:34)
[2023-05-02] MEDS: TERBINAFINE CR 30 GM TUBE EXT SCH (09:35)
--- NOTE | 2023-05-02 09:45 | Communication Note ---
Date of Service: May 02, 2023 Pericardial drain follow-up Mr. Cruz feeling well this morning. Denies significant pain around drain site. No new shortness of breath. Telemetry unremarkable Majority of pericardial fluid studies pending. Gram stain negative. Minimal additional drainage overnight. Manually drained an additional 15 mL of dark, serosanguineous fluid from pericardial drain/sheath this morning. Repeat limited echo today showed only trace residual pericardial effusion. RV well-expanded. IVC normal size and collapse. Pericardial drain removed without issue. Continue colchicine, prednisone, diuretics with repeat follow-up echo per Dr. Russell.
--- NOTE | 2023-05-02 13:12 | XCELERA ---
[id number] \\[id number]___[id number]
--- NOTE | 2023-05-02 13:17 | XCELERA ---
[id number] \\[id number]\[id number]_PDF_Reports\[id number]___[id number]
[2023-05-02 13:48] LABS: Fluid Appearance TURBID; Fluid Basophil % 0 %; Fluid Color RED; Fluid Comment DNR; Fluid Eosinophil % 0 %; Fluid Lymphocytes % 83 %; Fluid Mesothelial % 0 %; Fluid Monocyte/Macrophage % 11 %; Fluid Neutrophil % 6 %; Fluid Total Nucleated Cell Ct 1375 cells/uL; Fluid Type PERICARDIAL
--- NOTE | 2023-05-02 13:49 | Hospitalist Progress Note ---
Date of Service May 02, 2023 Assessment & Plan (1) Acute on chronic heart failure with preserved ejection fraction (HFpEF): (2) Acute hyponatremia: Plan per admitting service notes with addendum: Mr Cruz is an 78-year-old gentleman with PMH of chronic diastolic heart failure on Lasix, HTN, TIIDM, presented (from [facility])and admitted on 04/02 for acute on chronic HFpEF exacerbation. His course has been complicated by difficult fluid status, acute hypoxic respira tory failure, and progressive pericardial effusion. Given history of RA, patient was trialed on a 5 day prednisone burst in hopes to aid in resolution of effusion. Repeat ECHO on 04/24 revealed that effusion seems to have progressed, however, without tamponade physiology. #Acute hypoxic respiratory failure, likely multifactorial Secondary to acute on chronic diastolic heart failure #OHS -Iso heart failure exacerbation and OHS. Denies home O2 use. Nocturnal -Cardiology and nephrology on board, was placed on a Bumex drip -Also required BiPAP HS and PRN. - Pulm evaled. D/w pulm - no role of bronchoscopy for LLL collapse, continue w/ positive airway pressure support. 05/02 stable Continue Bumex p.o., Aldactone Hold for systolic BP less than 100 #Pericardial effusion repeat echo showing interval increase in pericardial effusion 05/01 s/p pericardiocentesis draining 100cc fluid 05/02 Cytology pending Gram stain negative Limited echo showing trace residual pericardial effusion RV well-expanded, IVC normal size and collapse Pericardial drain removed Continue colchicine, prednisone taper Follow-up with cardiology clinic in 2 weeks #Acute on chronic heart failure with preserved ejection fraction #HTN, relative hypotension - TTE (04/03/2023): LVEF 55-60%, -[employer] Member and crib clerk consulted -Patient diuresed well 05/01 Continue p.o. Bumex and Aldactone, potassium supplement Monitor potassium and magnesium #Acute urinary retention -c/f bladder outlet obstruction, c/f buried penis (congenital v acquired) per Urology -Nephrology also feels NOWAK likely given robust UOP -Urology consulted -Continue tamsulosin -Discontinued oxybutynin -Hurtado catheter removed, patient voiding well #Acute non-cardiac chest pain #Acute on chronic back pain *resolved -Tylenol prn, lidocaine patch to mid back -Pain on chest reproducible to touch -Continue home oxycodone regimen -Topical Myoflex #New onset atrial fibrillation History of wandering atrial pacemaker/complex ectopy given comorbidities remains in afib on telemetry-HR is controlled without rate control agents. Per cardiology recommend he transition to apixaban from Lovenox started on admission. Echo reveals EF 55-60%. on Eliquis #PAD, chronic bilateral dusky discoloration -Continue ASA #Contraction alkalosis *improved #Hypervolemic Hyponatremia *resolved #Lower ext cellulitis *resolved #Skin tears - Pt treated with oral Augmentin which has been completed. He has lower extremities wounds on his anterior tibiae and his toes from a recent fall per his report. 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 Escamilla, denies constitutional symptoms, reportedly increased LDH and [id number] c/w comorbidities -LDH 215 (last LDH 275 12/2022) -CBC w/ diff and smear in am -Dr escamilla on schedule, consult to assess if symptoms related/stable, no recommendations #T2DM -diet controlled, a1c 6.2 on 03/31/23, lantus/novolog per protocol has been declined by patient several times. #Rheumatoid arthritis #Gout -Continue plaquenil 200mg daily -Continue colchicine 0.6mg bid -Prednisone burst completed #Depression Continue duloxetine #Abnormal UA -GNB on culture - given Zosyn -urine with increased amounts of "bacteria of all types", repeat 04/24 similar DVT prophylaxis: Eliquis PT/OT DNR/DNI Dispo: Discharge to [facility] Follow-up with PCP in 1 week Follow-up with infection prevention coordinator in 2 weeks Admission and Anticipated Discharge Date Admission Date: April 02, 2023 Subjective Follow-up for pericardial effusion, etc. Seen resting in bed, comfortable, not in distress States he feels fine overall next no chest pain, dyspnea, palpitations, dizziness No other new symptoms States he is ready for discharge to Review of Systems 2 Review of Systems: all noted and negative except for above Physical Exam Physical Exam: General- oriented x 3, not in distress, speaks in sentences with no effort or accessory muscle use Eyes- anicteric Neck- no JVD Lungs- clear breath sounds bilaterally, no rales/wheezes Heart- normal rate, regular rhythm; no murmurs Abdomen- normal bowel sounds, nondistended, soft, nontender Extremities- no pretibial edema, no calf tenderness Neuro- alert, oriented x 3; no gross focal neurologic deficits Skin- warm & dry Results & Data Results & Data Vital Signs (Past 12 Hours) Vital Signs Pulse Resp BP Pulse Ox O2 Del Method O2 Flow Rate 05/02/23 12:01 Nasal Cannula 2 05/02/23 12:00 106 H 20 05/02/23 11:31 100 H 18 05/02/23 11:31 100/56 L 05/02/23 11:00 93/60 L 05/02/23 11:00 110 H 13 93 05/02/23 10:00 102 H 33 H 94 05/02/23 10:00 94/63 L 05/02/23 09:38 102 H 31 H 97 05/02/23 09:38 82/55 L 05/02/23 09:07 88/58 L 05/02/23 09:07 107 H 30 H 97 05/02/23 09:00 105 H 22 89 L 05/02/23 09:00 77/61 L 05/02/23 08:31 93/56 L 05/02/23 08:31 103 H 22 05/02/23 08:30 77/53 L 05/02/23 08:30 106 H 16 80 L 05/02/23 08:00 101 H 26 H 92 05/02/23 07:30 87/55 L 05/02/23 07:30 103 H 16 64 L 05/02/23 07:17 106 H 05/02/23 07:00 94/60 L 05/02/23 07:00 105 H 25 H 92 05/02/23 04:31 107 H 16 95 05/02/23 04:00 106 H 25 H 05/02/23 04:00 106/68 05/02/23 03:30 107 H 27 H 93 05/02/23 03:00 104/64 05/02/23 03:00 108 H 20 90 05/02/23 02:30 95/63 L 05/02/23 02:30 102 H 25 H 87 L 05/02/23 02:00 103 H 17 05/02/23 02:00 83/65 L all noted and reviewed including below
--- NOTE | 2023-05-02 14:14 | Cardiology Progress Note ---
Date of Service May 02, 2023 Assessment & Plan (1) Pericardial effusion: (2) Acute on chronic heart failure with preserved ejection fraction (HFpEF): (3) Atrial fibrillation with controlled ventricular rate: Plan * Echocardiogram 04/24/2023 and 04/27/23 demonstrating large pericardial effusion without tamponade. * Patient declined pericardiocentesis due to risks of the procedure. Prefers to avoid transfer to [facility]. Willing to reconsider pericardio centesis at this facility. Proceed with pericardiocentesis on 05/01/2023. N.p.o. except medications on Monday night. Hold Eliquis 04/29/2023. * Continue colchicine. * Continue oral diuretic therapy * supplement potassium * Low-dose spironolactone restarted 04/26. 04/29/2023 Hemodynamically stable on appropriate medical therapies with anticipated pericardiocentesis on 05/01/2023 Eliquis on hold 04/30/2023 Continue diuresis no acute complaints and hemodynamically stable Repeat echocardiogram quick look in a.m. If large pericardial effusion still present, pericardiocentesis. N.p.o. after midnight 05/01/2023 Patient underwent pericardiocentesis with removal of approximately 100 cc pericardial effusion red-brown clear Patient tolerated well Currently on good oral regimen with weight down 40 kg We will continue oral regimen Likely remove pericardial catheter tomorrow 05/02/2023 Clinically improved with issues addressed as follows 1. Pericardial effusion status post successful pericardiocentesis. Fluid studies still pending no recurrence and catheter removed. Continue colchicine repeat echocardiogram 2 weeks. May be done at [facility] 2. 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 Patient on good medical oral regimen. Will careful weight monitoring, sodium and fluid restriction Repeat BMP 1 week Patient requesting return to extended care facility, stable from cardiac standpoint Admission and Anticipated Discharge Date Admission Date: April 02, 2023 Subjective Patient was seen and examined, chart, medications, telemetry reviewed Pericardial catheter removed earlier today. No cardiac complaints. Continues to manifest slow but steady diuresis. Following sodium and fluid restriction recommendations Pericardial effusion stable on echocardiogram with minimal residual Review of Systems Review of Systems: All systems reviewed & are unremarkable except as noted in Subjective Physical Exam Constitutional: + morbidly obese; no acute distress Neck: + thick neck Respiratory: Auscultation: + diminished lung sounds Results & Data Vital Signs (Past 12 Hours) Vital Signs Temp Pulse Pulse Pulse Resp BP BP 05/02/23 13:49 36.5 C 83 87 20 97/54 L 05/02/23 12:01 05/02/23 12:00 106 H 20 05/02/23 11:31 100 H 18 05/02/23 11:31 100/56 L 05/02/23 11:00 93/60 L 05/02/23 11:00 110 H 13 05/02/23 10:00 102 H 33 H 05/02/23 10:00 94/63 L 05/02/23 09:38 102 H 31 H 05/02/23 09:38 82/55 L 05/02/23 09:07 88/58 L 05/02/23 09:07 107 H 30 H 05/02/23 09:00 105 H 22 05/02/23 09:00 77/61 L 05/02/23 08:31 93/56 L 05/02/23 08:31 103 H 22 05/02/23 08:30 77/53 L 05/02/23 08:30 106 H 16 05/02/23 08:00 101 H 26 H 05/02/23 07:30 87/55 L 05/02/23 07:30 103 H 16 05/02/23 07:17 106 H 05/02/23 07:00 94/60 L 05/02/23 07:00 105 H 25 H 05/02/23 04:31 107 H 16 05/02/23 04:00 106 H 25 H 05/02/23 04:00 106/68 05/02/23 03:30 107 H 27 H 05/02/23 03:00 104/64 05/02/23 03:00 108 H 20 05/02/23 02:30 95/63 L 05/02/23 02:30 102 H 25 H BP Pulse Ox O2 Del Method O2 Flow Rate 05/02/23 13:49 108/69 93 05/02/23 12:01 Nasal Cannula 2 05/02/23 12:00 05/02/23 11:31 05/02/23 11:31 05/02/23 11:00 05/02/23 11:00 93 12/05/23 10:00 94 05/02/23 10:00 05/02/23 09:38 97 05/02/23 09:38 05/02/23 09:07 05/02/23 09:07 97 05/02/23 09:00 89 L 05/02/23 09:00 05/02/23 08:31 05/02/23 08:31 05/02/23 08:30 05/02/23 08:30 80 L 05/02/23 08:00 92 05/02/23 07:30 05/02/23 07:30 64 L 05/02/23 07:17 05/02/23 07:00 05/02/23 07:00 92 05/02/23 04:31 95 05/02/23 04:00 05/02/23 04:00 05/02/23 03:30 93 05/02/23 03:00 05/02/23 03:00 90 05/02/23 02:30 05/02/23 02:30 87 L Laboratory Results Laboratory Results - last 24 hr 05/01/23 05/02/23 05/02/23 09:15 03:51 Unknown Sodium 139 Potassium 4.3 Chloride 99 Carbon Dioxide 33 H Anion Gap 7 BUN 38 H Creatinine 1.04 Est Cr Clr Drug Dosing 79.4 Est GFR ( Amer) 78.2 Est GFR (Non-Af Amer) 67.5 BUN/Creatinine Ratio 36.5 H Glucose 172 H Calcium 9.2 Fluid Type PERICARDIAL Fluid Color RED Fluid Appearance TURBID Fld Tot Nucleated Cell 1375 Fluid Neutrophils % 6 Fluid Lymphocytes % 83 Fluid Eosinophils % 0 Fluid Basophils % 0 Fl Monocyt/Macrophag % 11 Fld Mesothelial Cell % 0 Fluid Comment 2 DNR SARS-CoV-2, RNA, NAAT NEGATIVE
--- NOTE | 2023-05-02 14:57 | Discharge Summary ---
Discharge Summary Date of Service May 02, 2023 Notes For Next Care Provider Medication Changes From Visit Please refer to assessment and plan below Admission HPI Per Admitting Provider 77-year-old male with PMH of diastolic heart failure, LARISA on CPAP, T2DM, CAD, HTN, vascular insufficiency of both lower extremities, morbid obesity, generalized osteoarthritis actinic keratosis, B-cell lymphoma, rheumatoid arthritis presented to the ED from [facility] with complaint of shortness of breath for the last few days. Patient reports worsening shortness of breath since about 3 days, denies cough or sore throat or chest pain or palpitation. Denies headache or dizziness. Denies belly pain. Denies acute changes in his bowel or bladder habit. He has been experiencing orthopnea. He does wear a CPAP at bedtime and has been compliant with this. According to group home records patient has had a significant weight gain of several pounds. At baseline patient is typically on 40 mg of Lasix daily although due to patient request and being adamant it was reduced to 20 mg daily. At this time he then noted increased weight gain and swelling. His Lasix was increased back to 40 mg daily as of 03/31/2023. At baseline he is very sedentary due to significant pain and debilitation in regards to his right knee. He wears a brace on this on a regular basis Patient reports that he likes to drink "a lot of water" and adds extra salt to his diet, he maintains that he is compliant with his Lasix dose and has been taking it for many years. Patient denies any use of tobacco/alcohol products/recreational drugs. DNR/DNI. Medications reviewed with the patient. Plan of care discussed with the patient, he voiced understanding and was agreeable. Admission Exam Per Admitting Provider GENERAL: Alert and oriented x3. NAD, morbidly obese, on 4 L oxygen via nasal cannula, erythematous bilateral maxillary cheeks x chronic per patient. HEENT: No pallor, no icterus. Pupils equal, round and reactive to light. Oral mucosa moist. NECK: No JVD, no neck masses. HEART: S1 and S2 heard. Regular rate and rhythm. No murmur, no gallop. RESPIRATORY SYSTEM: Normal AP diameter. No accessory muscle use. No wheezing, decreased breath sounds likely secondary to morbid obesity. ABDOMEN: Soft, bowel sounds present, nontender, distention. CENTRAL NERVOUS SYSTEM: No facial droop. Speech is clear. Obeys simple commands. Moves extremities. EXTREMITIES: BLE 2+ edema, chronic skin changes noted, left second toe dressing c/d/i. Right knee brace noted. Bilateral feet/ankle discoloration noted, chronic per patient. No pain or tenderness on BLE exam. Principal Dx & Hospital Course #1 = Principal Diagnosis (1) Acute on chronic heart failure with preserved ejection fraction (HFpEF): (2) Acute hyponatremia: Plan per admitting service notes with addendum: Mr Cruz is an 78-year-old gentleman with PMH of chronic diastolic heart failure on Lasix, HTN, TIIDM, presented (from [facility])and admitted on 04/02 for acute on chronic HFpEF exacerbation. His course has been complicated by difficult fluid status, acute hypoxic respiratory failure, and progressive pericardial effusion. Given history of RA, patient was trialed on a 5 day prednisone burst in hopes to aid in resolution of effusion. Repeat ECHO on 04/24 revealed that effusion seems to have progressed, however, without tamponade physiology. #Acute hypoxic respiratory failure, likely multifactorial Secondary to acute on chronic diastolic heart failure #OHS -Iso heart failure exacerbation and OHS. Denies home O2 use. Nocturnal -Cardiology and nephrology on board, was placed on a Bumex drip -Also required BiPAP HS and PRN. - Pulm evaled. D/w pulm - no role of bronchoscopy for LLL collapse, continue w/ positive airway pressure support. 05/02 stable Continue Bumex p.o., Aldactone Hold for systolic BP less than 100 Repeat BMP in 1 week #Pericardial effusion repeat echo showing interval increase in pericardial effusion 05/01 s/p pericardiocentesis draining 100cc fluid 05/02 Cytology pending Gram stain negative Limited echo showing trace residual pericardial effusion RV well-expanded, IVC normal size and collapse Pericardial drain removed Continue colchicine, prednisone taper Follow-up with cardiology clinic in 2 weeks with repeat echocardiogram #Acute on chronic heart failure with preserved ejection fraction #HTN, relative hypotension - TTE (04/03/2023): LVEF 55-60%, -Field Auditor and statistics tutor consulted -Patient diuresed well 05/02 Continue p.o. Bumex and Aldactone, potassium supplement Repeat BMP, magnesium in 1 week #Acute urinary retention -c/f bladder outlet obstruction, c/f buried penis (congenital v acquired) per Urology -Nephrology also feels NOWAK likely given robust UOP -Urology consulted -Continue tamsulosin -Discontinued oxybutynin -Hurtado catheter removed, patient voiding well #Acute non-cardiac chest pain #Acute on chronic back pain *resolved -Tylenol prn, lidocaine patch to mid back -Pain on chest reproducible to touch -Continue home oxycodone regimen -Topical Myoflex #New onset atrial fibrillation History of wandering atrial pacemaker/complex ectopy given comorbidities remains in afib on telemetry-HR is controlled without rate control agents. Per cardiology recommend he transition to apixaban from Lovenox started on admission. Echo reveals EF 55-60%. on Eliquis #PAD, chronic bilateral dusky discoloration -Continue ASA #Contraction alkalosis *improved #Hypervolemic Hyponatremia *resolved #Lower ext cellulitis *resolved #Skin tears - Pt treated with oral Augmentin which has been completed. He has lower extremities wounds on his anterior tibiae and his toes from a recent fall per his report. 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 Escamilla, denies constitutional symptoms, reportedly increased LDH and [id number] c/w comorbidities -LDH 215 (last LDH 275 12/2022) -CBC w/ diff and smear in am -Dr escamilla on schedule, consult to assess if symptoms related/stable, no recommendations #T2DM -diet controlled, a1c 6.2 on 03/31/23, lantus/novolog per protocol has been declined by patient several times. #Rheumatoid arthritis #Gout -Continue plaquenil 200mg daily -Continue colchicine 0.6mg bid -Prednisone burst completed #Depression Continue duloxetine #Abnormal UA -GNB on culture - given Zosyn -urine with increased amounts of "bacteria of all types", repeat 04/24 similar DVT prophylaxis: Eliquis PT/OT DNR/DNI Dispo: Discharge to [facility] Follow-up with PCP in 1 week Follow-up with drill hand in 2 weeks Discharge Exam General- oriented x 3, not in distress, speaks in sentences with no effort or accessory muscle use Eyes- anicteric Neck- no JVD Lungs- clear breath sounds bilaterally, no rales/wheezes Heart- normal rate, regular rhythm; no murmurs Abdomen- normal bowel sounds, nondistended, soft, nontender Extremities- no pretibial edema, no calf tenderness Neuro- alert, oriented x 3; no gross focal neurologic deficits Skin- warm & dry Updated Medication List Medication Instructions Recorded Confirmed Type acetaminophen 500 mg tablet 500 mg PO QAM 06/08/22 04/02/23 History aspirin 81 mg chewable tablet 81 mg PO QAM 06/08/22 04/02/23 History carboxymethylcellulose sodium 1 % 1 drp OPB QAM 06/08/22 04/02/23 History eye gel in a dropperette (Refresh Celluvisc) cholecalciferol (vitamin D3) 50 2,000 unit PO QAM 06/08/22 04/02/23 History mcg (2,000 unit) capsule ciprofloxacin HCl 0.3 % eye drops 1 drp OPR BID 06/08/22 04/02/23 History colchicine 0.6 mg tablet 0.6 mg PO BID 06/08/22 04/02/23 History duloxetine 20 mg capsule,delayed 20 mg PO HS 06/08/22 04/02/23 History release febuxostat 80 mg tablet 80 mg PO QAM 06/08/22 04/02/23 History hydroxychloroquine 200 mg tablet 200 mg PO HS 06/08/22 04/02/23 History oxybutynin chloride 5 mg tablet 5 mg PO QAM 06/08/22 04/02/23 History terbinafine HCl 1 % topical cream 1 applic topical DAILY 06/08/22 04/02/23 History tramadol 50 mg tablet 50 mg PO TID 06/08/22 04/02/23 History acetaminophen 325 mg tablet 325 mg PO QID PRN pain/fever 07/13/22 04/02/23 History bisacodyl 10 mg rectal suppository [address] UD PRN Constipation 07/13/22 04/02/23 History (Dulcolax (bisacodyl)) magnesium hydroxide 400 mg/5 mL 30 ml PO DAILY PRN Constipation 07/13/22 04/02/23 History oral suspension (Milk of Magnesia) sodium phosphates 19 gram-[address] DAILY PRN Constipation 07/13/22 04/02/23 History gram/118 mL enema (Fleet Enema) spironolactone 25 mg tablet 12.5 mg PO QAM 07/13/22 04/02/23 History (Aldactone) apixaban 5 mg tablet 5 mg PO Q12H #60 tabs 05/02/23 Rx bumetanide 1 mg tablet 3 mg (3 x 1 mg) PO TID #30 tabs 05/02/23 Rx potassium chloride 20 mEq 40 meq (2 x 20 mEq) PO BID #30 tabs 05/02/23 Rx tablet,extended release(part/cryst) prednisone 10 mg tablet 30 mg (3 x 10 mg) PO UD #12 tabs 05/02/23 Rx Hospital Stay Data Consultations 04/02/23 16:20 ED Decision to Admit Stat 04/02/23 17:34 Consult Cardiology Routine 04/03/23 07:48 Consult Nephrology Routine 04/05/23 10:04 Consult Urology Routine 04/07/23 11:44 Consult Oncology Routine 04/13/23 16:38 Consult Pulmonology Routine 04/24/23 13:58 Consult Palliative Care Routine Procedures Performed Operation Date: 05/01/23 11:00 Actual Procedures p Pericardiocentesis - Chance Love MD s Fluoroscopy Up To 1 Hour - Chance Love MD Diagnostic Imagining Performed Chest CT 04/13/23 16:36 Exam(s): CT CHEST Without Contrast EXAM: CT Chest Without Intravenous Contrast CLINICAL HISTORY: Reason for exam: ac hypoxemic resp failure not improving. TECHNIQUE: Axial computed tomography images of the chest without intravenous contrast. CTDI is 37.53 mGy and DLP is 1329.26 mGy-cm. Automated exposure control was utilized for the study. A dose lowering technique was utilized adhering to the principles of ALARA. COMPARISON: Chest radiograph on 04/10/2023 FINDINGS: Lungs: Mild paraseptal emphysematous changes. Dependent atelectasis bilaterally. No mass. Pleural space: Large left and small right pleural effusions. No pneumothorax. Heart: Large pericardial effusion. Mild cardiomegaly. Coronary artery and aortic valve calcifications. Mediastinum: Nonspecific mildly prominent mediastinal lymph nodes. Bones/joints: Degenerative changes of the spine. No acute fracture. No dislocation. Soft tissues: Unremarkable. Vasculature: Atherosclerotic changes in the aorta. No aortic aneurysm. Lymph nodes: See above. Liver: Cirrhotic liver. Spleen: Splenomegaly. Other findings: Small calcified granulomas bilaterally. IMPRESSION: 1. Large pericardial effusion. Mild cardiomegaly. 2. Large left and small right pleural effusions. 3. Mild paraseptal emphysematous changes. Electronically signed by: Jon Rivera M.D. 04/14/23 02:26 AM Venous Doppler Study 04/14/23 17:12 ULTRASOUND BILATERAL LOWER EXTREMITY VENOUS CLINICAL HISTORY: Lower extremity erythema. Dermal thickening. COMPARISON STUDY: No priors. TECHNIQUE: Portable real-time, grayscale, and color Doppler sonography of the deep veins of the right and left lower extremity was performed from the inguinal crease to the calf. Compression and augmentation were utilized. The examination is degraded by large body habitus. FINDINGS: There is no sonographic evidence of deep venous thrombosis identified in the right or left lower extremity. The common femoral, superficial femoral, and popliteal veins are patent and normally compressible bilaterally. The greater saphenous vein and the profunda femoris vein at the junction with the common femoral vein are clear in both legs. The visualized calf veins are patent bilaterally. IMPRESSION: There is no sonographic evidence of deep venous thrombosis identified in the right or left lower extremity. ACT 112: Negative or not required by law. Electronically signed by: Emerson Castro M.D. 04/15/2023 6:58 AM Chest X-Ray 04/18/23 08:21 XR chest 1V portable CLINICAL HISTORY: f/u lll collapse TECHNIQUE: Single frontal radiograph of the chest was obtained. Comparison: Comparison is made to chest radiograph 04/07/2023 FINDINGS: No lines and tubes are seen. Cardiomegaly is noted. The aortic arch is calcified. Left retrocardiac opacity is again seen. Vascular prominence is seen. No evidence of pleural effusion or pneumothorax. IMPRESSION: 1. Cardiomegaly and mild pulmonary edema. 2. Left retrocardiac opacity may represent continued lobar collapse. ACT 112: Negative or not required by law. Electronically signed by: Amilcar Luis M.D. 04/18/2023 9:32 AM Abdomen/Pelvis CT 04/22/23 03:55 Exam(s): CT ABDOMEN + PELVIS Without Contrast EXAM: CT Abdomen and Pelvis Without Intravenous Contrast CLINICAL HISTORY: Abdominal pain. TECHNIQUE: Axial computed tomography images of the abdomen and pelvis without intravenous contrast. CTDI is 28.141 mGy and DLP is 1556.11 mGy-cm. Automated exposure control was utilized for the study. A dose lowering technique was utilized adhering to the principles of ALARA. COMPARISON: No relevant prior studies available. FINDINGS: Lung bases: See below. Pleural space: Small left pleural effusion with adjacent atelectasis. Heart: A pericardial effusion measures up to 5 cm. ABDOMEN: Liver: Cirrhosis with sequela of portal hypertension including nonspecific splenomegaly. Gallbladder and bile ducts: A biliary stent is noted. No calcified stones. No ductal dilation. Pancreas: Unremarkable. No ductal dilation. Spleen: See above. Adrenals: Unremarkable. No mass. Kidneys and ureters: Unremarkable. No obstructing stones. No hydronephrosis. Stomach and bowel: The distal colon is fluid-filled. No obstruction. No mucosal thickening. PELVIS: Appendix: No findings to suggest acute appendicitis. Bladder: Unremarkable. No stones. Reproductive: Unremarkable as visualized. ABDOMEN and PELVIS: Intraperitoneal space: Unremarkable. No free air. No significant fluid collection. Bones/joints: There are degenerative changes of the spine. No acute fracture. No dislocation. Soft tissues: Moderate bilateral fat-containing inguinal hernias. Vasculature: Unremarkable. No abdominal aortic aneurysm. Lymph nodes: Unremarkable. No enlarged lymph nodes. IMPRESSION: 1. The distal colon is fluid-filled. This is concerning for diarrheal state. 2. A pericardial effusion measures up to 5 cm. 3. Small left pleural effusion with adjacent atelectasis. Electronically signed by: Alissa Bueno MD 04/22/23 05:34 AM 04/13/23 16:36 CT chest diagnostic wo con Routine 04/14/23 17:12 US venous doppler LE BI Routine 04/22/23 03:55 CT Abd and Pelvis [CT abd pelvis wo con] Urgent 04/26/23 07:42 CL Cath Imgs for PACS use only Routine 05/01/23 08:24 CL Cath Imgs for PACS use only Stat Pending Results Patient Have Any Pending Studies at Discharge: No Discharge Instructions Given to Patient (Per Discharging Provider) PLEASE REFER TO DISCCHARGE SUMMARY. Total Time Total Time Spent Total Time Spent (In Minutes): >30 minutes
== END 2023-05-02 17:01 | DRG 270 ==
LOC: ED 14:45 → 2S 16:49 → SUATTDRO 16:49 → 2S 20:07 → 1E 05-01 10:09